=== PATIENT | male | born 1935 | race Caucasian/White ===

== ENCOUNTER 2015-12-23 08:40 | Outpatient (RCR) | payer MEDICARE, OTHER ==
[~2015-12-23 08:40] MED LIST: ASPI-586 PO; ATOR80TA76 PO; CEFD300C3 PO; FURO40TA4 PO; GABA-488 PO; GLIP10TA13 PO; HYDR-3816 PO; LEVO750T9 PO; LOSA100T28 PO; MELO7.5T46 PO; METF-478 PO; MULT-35 PO; OMG1KC PO; POTA2TAB15 PO; POTA99TA21 PO; PRD10T PO; PRIM250T PO; SERT100T8 PO; SILD50TA PO; SLM50DS IH
--- OUTSIDE RECORDS SUMMARY | 2015-12-23 08:44 | XMS REPORT | Continuity of Care Document ---
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 Name Role Phone JUDE PARDO MD PCP Insurance Providers Payer Name Policy Number Subscriber Name Relationship [employer] Medicare [id number] Emmanuelle Rodriguez 20 Self / Same As Patient Advance Directives Directive Response Recorded Date/Time Advance Directives No 09/04/15 10:20pm Resuscitation Status Full Code 09/04/15 10:20pm Chief Complaint and Reason for Visit Chief Complaint HYPOXIA, PNEUMONIA, SEPSIS Reason for Visit Pneumonia Sepsis Problems Active Problems Medical Problem Onset Date Status Pneumonia Unknown Acute Sepsis Unknown Acute Medications Current Home Medications Medication Dose Units Route Directions Days/Qty Instructions Start Date Atorvastatin Calcium 80 Mg 40 Mg Oral Bedtime TAKES 1/2 (80MG) TABLET 09/04/15 Hydrocodone/Acetaminophen 1 Each 1 Tab Oral Twice A Day as needed for Pain 09/04/15 Meloxicam 7.5 Mg 7.5 Mg Oral Daily 09/04/15 Furosemide 40 Mg 40 Mg Oral Daily as needed for Swelling 09/04/15 Primidone 250 Mg 250 Mg Oral Bedtime for Tremors 09/04/15 Glipizide 10 Mg 20 Mg Oral Twice A Day LAST FILLED #360 05-10-15 TAKES 2 (10MG) TABLETS 09/04/15 Gabapentin 300 Mg 600 Mg Oral Three Times A Day TAKES 2 (300MG) CAPSULES 09/04/15 Metformin Hcl 500 Mg 2,000 Mg Oral 1700 TAKES 4 (500MG) TABLETS BEFORE SUPPER 09/04/15 Losartan Potassium 100 Mg 50 Mg Oral Daily TAKES 1/2 (100MG) TABLET Salmeterol Xinafoate 50 Mcg 1 Puff Inhalation Twice A Day 09/04/15 Aspirin 81 Mg 81 Mg Oral Daily 09/04/15 Sertraline Hcl 100 Mg 100 Mg Oral Daily LAST FILLED #90 04-30- Potassium Gluconate 99 Mg 99 Mg Oral Daily as needed for When Taking Furosemide 09/05/15 Multivitamin 1 Each 1 Tab Oral Daily 09/05/15 [place] 3 Polyunsat Fatty Acids 1,000 Mg 1,000 Mg Oral Bedtime [place] 3 Polyunsat Fatty Acids 1,000 Mg 2,000 Mg Oral Daily TAKES 2 ( 1000MG) CAPSULES IN THE MORNING 09/05/15 Levofloxacin 750 Mg 750 Mg Oral Daily 4 09/06/15 Prednisone 10 Mg 10 Mg Oral Daily 21 Take 6 tabs (60mg) daily, decrease by 1 tab (10mg) daily. 09/06/15 Past Home Medications Medication Directions Ordered Status Sildenafil Citrate 50 Mg Tablet, 25 Mg Oral As Needed as needed for Sexual Incounter 09/04/15 Discontinued Potassium Gluconate 500 Mg Tablet, 500 Mg Oral Daily 09/04/15 Discontinued Social History Social History Problem Response Recorded Date/Time Alcohol Use Denies Use 09/04/2015 10:29pm Recreational Drug Use No 09/04/2015 10:29pm Recent Foreign Travel No 09/04/2015 10:29pm Recent Infectious Disease Exposure No 09/04/2015 10:29pm Sexually Transmitted Disease No 09/04/2015 10:29pm HIV/AIDS No 09/04/2015 10:29pm Smoking Status Former Smoker 09/04/2015 10:26pm Query Response Start Date Stop Date Smoking Status Former Smoker 06/19/1992 Hospital Discharge Instructions Patient Instructions Physician Instructions New, Converted or Re-Newed RX: Transmitted to Pharmacy Goal/[facility] Patient Instructions: Use home O2 provided by the [facility] 28/09 Discharge Diet: ADA Diet Activity as Tolerated: Yes Care Plan Patient Instructions:: Use home O2 provided by the [facility] 28/09 Goal:: [facility] Plan of Care Discharge Date 09/06/15 12:15pm Disposition 01 HOME, SELF-CARE Instructions/Education Provided Bacterial Pneumonia (GEN) Prescriptions See Medication Section Referrals TUSHAR MAHER DO (Unspecified) - 09/19/15 Address: [address] [place] [address]&[place] [address] Reason(s) for Referral: APPT AT 11AM Care Plan and Goals See Discharge Instructions Section Functional Status Query Response Date Recorded Patient Orientation Person Place Time Situation September 06, 2015 12:35pm Patient Orientation Person Place Time Situation Eyes Open September 06, 2015 12:35pm Comprehension Ability Understands Concepts September 04, 2015 10:00pm Allergies, Adverse Reactions, Alerts Allergen Type Severity Reaction Status Last Updated lisinopril ([id number]) Allergy Unknown Active 09/04/15 sildenafil ([id number]) Allergy Unknown Active 09/04/15 Immunizations Name Given Type Date of Pneumonia Vaccine 03/08/14 Historical Vital Signs Acute Vital Signs Vital Response Date/Time Temperature (Fahrenheit) 97.0 degrees F (97.6 - 99.5) 09/06/2015 6:00am Temperature (Calculated Celsius) 36.35584 degrees C (36.4 - 37.5) 09/06/2015 6:00am Temperature Source Temporal 09/06/2015 6:00am Pulse Rate (adult) 74 bpm (60 - 90) 09/06/2015 6:00am Respiratory Rate 20 bpm (12 - 24) 09/06/2015 6:00am O2 Sat by Pulse Oximetry 96 % (88 - 100) 09/06/2015 11:00am Blood Pressure 136/70 mm Hg 09/06/2015 6:00am Blood Pressure Mean 92 mm Hg 09/06/2015 6:00am Pain Numeric Pain Scale 0-No Pain 09/06/2015 6:00am Pain Intensity 0 09/04/2015 9:45pm Height (Feet) 5 feet 09/04/2015 10:25pm Height (Inches) 4.00 inches 09/04/2015 10:25pm Height (Calculated Centimeters) 162.412348 cm 09/04/2015 10:25pm Weight (Pounds) 237 pounds 09/04/2015 10:25pm Weight (Ounces) 6.0 oz 09/04/2015 10:25pm Weight (Calculated Grams) 909387.490 gm 09/04/2015 10:25pm Weight (Calculated Kilograms) 107.589701 kilograms 09/04/2015 10:25pm Calculated BMI 40.7 09/04/2015 10:25pm Results Laboratory Results Test Name Result Units Flags Reference Collection Date/Time Result Date/ Time Comments White Blood Count 12.1 10^3/uL H 4.3-11.0 09/06/2015 5:46am 09/06/2015 6: 13am Red Blood Count 3.59 10^6/uL L 4.35-5.85 09/06/2015 5:46am 09/06/2015 6: 13am Hemoglobin 9.6 G/DL L 13.3-17.7 09/06/2015 5:46am 09/06/2015 6:13am Hematocrit 29 % L 40-54 09/06/2015 5:46am 09/06/2015 6:13am Mean Corpuscular Volume 82 FL 80-99 09/06/2015 5:46am 09/06/2015 6: 13am Mean Corpuscular Hemoglobin 27 PG 25-34 09/06/2015 5:46am 09/06/2015 6: 13am Mean Corpuscular Hemoglobin Concent 33 G/DL 32-36 09/06/2015 5:46am 03/2015 6:13am Red Cell Distribution Width 16.4 % H 10.0-14.5 09/06/2015 5:46am 2015 6:13am Platelet Count 118 10^3/uL L 130-400 09/06/2015 5:46am 09/06/2015 6:13am Mean Platelet Volume 11.3 FL H 7.4-10.4 09/06/2015 5:46am 09/06/2015 6: 13am Neutrophils (%) (Auto) 89 % H 42-75 09/06/2015 5:46am 09/06/2015 6:13am Lymphocytes (%) (Auto) 8 % L 12-44 09/06/2015 5:46am 09/06/2015 6:13am Monocytes (%) (Auto) 3 % 0-12 09/06/2015 5:46am 09/06/2015 6:13am Eosinophils (%) (Auto) 0 % 0-10 09/06/2015 5:46am 09/06/2015 6:13am Basophils (%) (Auto) 0 % 0-10 09/06/2015 5:4609/06/2015 6:13am Neutrophils # (Auto) 10.8 X 10^3 H 1.8-7.8 09/06/2015 5:46am 09/06/2015 6 :13am Lymphocytes # (Auto) 0.9 X 10^3 L 1.0-4.0 09/06/2015 5:4609/06/2015 6: 13am Monocytes # (Auto) 0.4 X 10^3 0.0-1.0 09/06/2015 5:4609/06/2015 6: 13am Eosinophils # (Auto) 0.0 10^3/uL 0.0-0.3 09/06/2015 5:46am 09/06/2015 6 :13am Basophils # (Auto) 0.0 10^3/uL 0.0-0.1 09/06/2015 5:46am 09/06/2015 6: 13am Neutrophils % (Manual) 71 % 09/04/2015 7:25pm 09/04/2015 7:49pm Band Neutrophils 14 % 09/04/2015 7:pm 09/04/2015 7:49pm Lymphocytes % (Manual) 11 % 09/04/2015 7:pm 09/04/2015 7:49pm Monocytes % (Manual) 1 % 09/04/2015 7:pm 09/04/2015 7:49pm Eosinophils % (Manual) 0 % 09/04/2015 7:25pm 09/04/2015 7:49pm Basophils % (Manual) 0 % 09/04/2015 7:25pm 09/04/2015 7:49pm Reactive Lymphocytes 3 % 09/04/2015 7:25pm 09/04/2015 7:49pm Blood Morphology Comment NORMAL 09/04/2015 7:25pm 09/04/2015 7: 49pm Prothrombin Time 13.9 SEC 12.2-14.7 09/04/2015 7:25pm 09/04/2015 7: 44pm INR Comment 1.1 0.8-1.4 09/04/2015 7:25pm 09/04/2015 7:44pm INTERPRETIVE DATA SUGGESTED THERAPEUTIC RANGE FOR INR'S: VENOUS THROMBOSIS, PULMONARY EMBOLISM, OR PREVENTION OF SYSTEMIC EMBOLISM (EG. IN ATRIAL FIBRILLATION): 2.0 - 3.0 MECHANICAL PROSTHETIC HEART VALVES: 2.5 - 3.5* *NOTE: INR'S UP TO 4.5 MAY BE NECESSARY IN SELECTED GROUPS OF HIGH RISK PATIENTS. SIXTH [place] COLLEGE OF CHEST PHYSICIANS CONSENSUS CONFERENCE ON ANTITHROMBOTIC THERAPY (2000). Sodium Level 137 MMOL/L 135-145 09/06/2015 5:46am 09/06/2015 6:35am Potassium Level 4.8 MMOL/L 3.6-5.0 09/06/2015 5:46am 09/06/2015 6:35am Chloride Level 103 MMOL/L 98-107 09/06/2015 5:46am 09/06/2015 6:35am Carbon Dioxide Level 23 MMOL/L 21-32 09/06/2015 5:46am 09/06/2015 6: 35am Anion Gap 11 MMOL/L 5-14 09/06/2015 5:46am 09/06/2015 6:35am Blood Urea Nitrogen 16 MG/DL 7-18 09/06/2015 5:46am 09/06/2015 6:35am Creatinine 0.77 MG/DL 0.60-1.30 09/06/2015 5:46am 09/06/2015 6:35am BUN/Creatinine Ratio 21 09/06/2015 5:46am 09/06/2015 6:35am Estimat Glomerular Filtration Rate > 60 09/06/2015 5:46am 2015 6:35am GFR INTERPRETIVE DATA UNITS FOR ESTIMATED GFR (eGFR): mL/min/1.73 M2 REFERENCE RANGE FOR ESTIMATED GFR (eGFR) eGFR NORMAL eGFR >60 MODERATELY DECREASED eGFR 30-59 SEVERLY DECREASED eGFR 15-29 KIDNEY FAILURE <15 (OR DIALYSIS) Glucose Level 291 MG/DL H 70-105 09/06/2015 5:46am 09/06/2015 6:35am Glucometer 308 MG/DL H 70-110 09/06/2015 8:55am 09/06/2015 9:03am Calcium Level 8.4 MG/DL L 8.5-10.1 09/06/2015 5:46am 09/06/2015 6:35am Total Bilirubin 0.2 MG/DL 0.1-1.0 09/06/2015 5:46am 09/06/2015 6:35am Alkaline Phosphatase 54 U/L 40-136 09/06/2015 5:46am 09/06/2015 6:35am Aspartate Amino Transf (AST/SGOT) 28 U/L 5-34 09/06/2015 5:46am 2015 6:35am Alanine Aminotransferase (ALT/SGPT) 25 U/L 0-55 09/06/2015 5:46am 09/05 6:35am Troponin I < 0.30 NG/ML <0.30 09/04/2015 7:25pm 09/04/2015 8:00pm Total Protein 7.4 G/DL 6.4-8.2 09/06/2015 5:46am 09/06/2015 6:35am Albumin 3.4 G/DL 3.2-4.5 09/06/2015 5:46am 09/06/2015 6:35am Lactic Acid Level 2.4 MMOL/L CH 0.5-2.2 09/04/2015 11:29pm 09/04/2015 11: 59pm RESULTS CALLED TO CIPRIANO AT 2359. RESULTS READ BACK: YES [g LABRB]. Lactic Acid Level 1.6 MMOL/L 0.5-2.2 09/05/2015 1:46am 09/05/2015 2: 13am Arterial Blood pH 7.39 7.37-7.43 09/04/2015 7:34pm 09/04/2015 7:41pm Arterial Blood Partial Pressure CO2 47 MMHG H 35-45 09/04/2015 7:34pm 7:41pm Arterial Blood Partial Pressure O2 68 MMHG L 79-93 09/04/2015 7:34pm 7:41pm Arterial Blood HCO3 28 MMOL/L H 23-27 09/04/2015 7:34pm 09/04/2015 7: 41pm Arterial Blood Total CO2 28.8 MMOL/L 21.0-31.0 09/04/2015 7:34pm 2015 7:41pm Arterial Blood Base Excess 2.4 MMOL/L -2.5-2.5 09/04/2015 7:34pm 2015 7:41pm Arterial Blood Oxygen Saturation 91 % L 94-100 09/04/2015 7:34pm 2015 7:41pm Blood Gas Puncture Site RT RAD 09/04/2015 7:34pm 09/04/2015 7:41pm Rudy Test YES-POS 09/04/2015 7:34pm 09/04/2015 7:41pm Blood Gas Inspired Oxygen 4L 09/04/2015 7:34pm 09/04/2015 7:41pm Blood Gas Ventilator Setting NO 09/04/2015 7:34pm 09/04/2015 7: 41pm Blood Gas Patient Temperature 101 09/04/2015 7:34pm 09/04/2015 7: 41pm Microbiology Results Procedure Source Result Collection Date/Time Result Date/Time Blood Culture Peripheral, Lt Ac No growth 09/04/2015 7:25pm 09/05/2015 1: 20pm Blood Culture Peripheral, Rt Hand No growth 09/04/2015 7:55pm 09/05/2015 1: 20pm Procedures No known history of procedures. Encounters Encounter Location Arrival/Admit Date Discharge/Depart Date Attending Provider Admitted Inpatient [facility] 09/04/15 8:13pm BRENDEN GEORGE DO Recent Diagnosis Pneumonia Sepsis
[2016-03-03] MEDS ORDERED: OLOD4MIS2 IH (12:33)
[2016-03-03] MEDS ORDERED: INSU100V16 SQ (12:42)
[2016-03-03] MEDS ORDERED: POLY15DR14 OU (12:42)
[2016-03-03] MEDS ORDERED: [UNRECOGNIZED DRUG - CODE] OD (12:42)
[2016-04-27] MEDS ORDERED: LEVO500T2 PO (09:45)
[2016-04-27] MEDS ORDERED: HYDR-3816 PO (09:45)
== END 2016-03-22 | disposition home or self-care (01) ==
LOC: PULM 08:40
PROVIDERS: ATTEND Nurse Practitioner Family
DX: J44.9 Chronic obstructive pulmonary disease, unspecified (principal); R06.00 Dyspnea, unspecified
CPT/HCPCS: 99211

== ENCOUNTER 2016-03-05 16:27 | Inpatient (IN) | payer MEDICARE, OTHER ==
[~2016-03-05] VITALS: Ht 162.6 cm; Wt 121.6 kg
[~2016-03-05 16:27] MED LIST changes: +INSU100V16 SQ; +OLOD4MIS2 IH; +POLY15DR14 OU; +[UNRECOGNIZED DRUG - CODE] OD
[2016-03-06] MEDS ORDERED: NS IV 1000 ML 3,500 ML IV PRN (11:15)
[2016-03-06] MEDS ORDERED: RT-ALBUTEROL/IPRATROPIUM 3 ML (DUONEB) VIAL INH PRN (11:15)
--- OUTSIDE RECORDS SUMMARY | 2016-03-06 11:41 | XMS REPORT | Continuity of Care Document ---
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 Name Role Phone NO, LOCAL PHYSICIAN PCP Unavailable Insurance Providers Payer Name Policy Number Subscriber Name Relationship [employer] Medicare [id number] Emmanuelle oRdriguez 20 Self / Same As Patient Advance Directives Directive Response Recorded Date/Time Advance Directives No 03/03/16 9:25am Organ Donor Yes 03/03/16 9:25am Resuscitation Status Full Code 03/03/16 9:25am Chief Complaint and Reason for Visit Chief Complaint SEPSIS/PNEUMONIA Reason for Visit Hypoxia Pneumonia Severe sepsis Problems Active Problems Medical Problem Onset Date Status COPD (chronic obstructive pulmonary disease) Unknown Acute Hypoxia Unknown Acute LLL pneumonia Unknown Acute Pneumonia Unknown Acute Sepsis Unknown Acute Severe sepsis Unknown Acute Medications Current Home Medications Medication [...] Mg 20 Mg Oral Twice A Day TAKES 2 (10MG) TABLETS 09/04/15 Gabapentin 300 Mg 600 Mg Oral Three Times A Day TAKES 2 (300MG) CAPSULES 09/04/15 Metformin Hcl 500 Mg 2,000 Mg Oral 1700 TAKES 4 (500MG) TABLETS BEFORE SUPPER 09/04/15 Losartan Potassium 100 Mg 50 Mg Oral Daily TAKES 1/2 (100MG) TABLET Aspirin 81 Mg 81 Mg Oral Daily 09/04/15 Sertraline Hcl 100 Mg 100 Mg Oral Daily 09/04/15 Potassium Gluconate 99 Mg 99 Mg Oral Daily as needed for When Taking Furosemide 09/05/15 Multivitamin 1 Each 1 Tab Oral Daily 09/05/15 [place] 3 Polyunsat Fatty Acids 1,000 Mg 1,000 Mg Oral Bedtime [place] 3 Polyunsat Fatty Acids 1,000 Mg 2,000 Mg Oral Daily TAKES 2 ( 1000MG) CAPSULES IN THE MORNING 09/05/15 Olodaterol Hcl 4 Gm 2 Puff Inhalation Daily 03/03/16 Polyvinyl Alcohol/Povidone 15 Ml 2 Drops Right Eye Every 4HRS as needed for Dry Eyes 03/03/16 Insulin Aspart 100 Unit/1 Ml 5-10 Unit Sub-Q Before Meals as needed for Bs Above 160 03/03/16 Mineral Oil/Petrolatum,White 3.5 Gm Right Eye Bedtime APPLY 1/2 INCH RIBBON 03/03/16 Past Home Medications Medication Directions Ordered Status Sildenafil Citrate 50 Mg Tablet, 25 Mg Oral As Needed as needed for Sexual Incounter 09/04/15 Discontinued Salmeterol Xinafoate 50 Mcg Disk, 1 Puff Inhalation Twice A Day 09/04/15 Discontinued Potassium Gluconate 500 Mg Tablet, 500 Mg Oral Daily 09/04/15 Discontinued Levofloxacin 750 Mg Tablet, 750 Mg Oral Daily 09/06/15 Discontinued Prednisone 10 Mg Tab, 10 Mg Oral Daily 09/06/15 Discontinued Cefdinir (Omnicef) 300 Mg Capsule, 300 Mg Oral Twice A Day 09/27/15 Discontinued Social History Social History Problem Response Recorded Date/Time Alcohol Use Denies Use 09/23/2015 12:05am Recreational Drug Use No 09/23/2015 12:05am Recent Foreign Travel No 03/03/2016 9:25am Recent Infectious Disease Exposure No 03/03/2016 9:25am Hospitalization with Isolation Denies 03/06/2016 11:00am Sexually Transmitted Disease No 03/03/2016 9:25am HIV/AIDS No 03/03/2016 9:25am Smoking Status Never a Smoker 03/03/2016 9:25am Recent Hopitalizations No 03/03/2016 9:25am Sexually Transmitted Disease No 03/03/2016 9:25am Hospitalization with Isolation Denies 03/06/2016 11:00am Query Response Start Date Stop Date Smoking Status Never a Smoker 06/19/1992 Hospital Discharge Instructions No hospital discharge instructions. Plan of Care Discharge Date 03/06/16 10:59am Disposition 61 MEDICARE SWING BED Instructions/Education Provided Hospital-Acquired Pneumonia Prescriptions See Medication Section Functional Status Query Response Date Recorded Patient Orientation Normal For Age March 05, 2016 3:02pm Patient Orientation Person Place Time Situation Eyes Open March 06, 2016 11:00am Comprehension Ability Understands Concepts March 06, 2016 8:00am Allergies, Adverse Reactions, Alerts Allergen Type Severity Reaction Status Last Updated lisinopril ([id number]) Allergy Unknown Active 09/22/15 sildenafil ([id number]) Allergy Unknown Active 09/22/15 Immunizations No immunization records. Vital Signs Acute Vital Signs Vital Response Date/Time Temperature (Fahrenheit) 98.5 degrees F (97.6 - 99.5) 03/06/2016 8:00am Temperature (Calculated Celsius) 36.17430 degrees C (36.4 - 37.5) 03/06/2016 8:00am Temperature Source Tympanic 03/06/2016 8:00am Pulse Rate (adult) 83 bpm (60 - 90) 03/06/2016 8:00am Respiratory Rate 20 bpm (12 - 24) 03/06/2016 8:00am O2 Sat by Pulse Oximetry 92 % (88 - 100) 03/06/2016 8:00am Blood Pressure 167/95 mm Hg 03/06/2016 8:00am Blood Pressure Mean 119 mm Hg 03/06/2016 8:00am Pain Numeric Pain Scale 0-No Pain 03/06/2016 8:00am Pain Numeric Pain Scale 0-No Pain 03/06/2016 8:00am Height (Feet) 5 feet 03/03/2016 9:25am Height (Inches) 4.00 inches 03/03/2016 9:25am Height (Calculated Centimeters) 162.692694 cm 03/03/2016 9:25am Weight (Pounds) 269 pounds 03/06/2016 5:53am Weight (Ounces) 1.0 oz 03/06/2016 5:53am Weight (Calculated Grams) 609974.698 gm 03/06/2016 5:53am Weight (Calculated Kilograms) 122.373678 kilograms 03/06/2016 5:53am Calculated BMI 43.6 03/03/2016 9:25am Capillary Refill Capillary Refill Less Than 3 Seconds 03/06/2016 8:00am Results Laboratory Results Test Name Result Units Flags Reference Collection Date/Time Result Date/ Time Comments White Blood Count 9.4 10^3/uL 4.3-11.0 03/06/2016 4:45am 03/06/2016 5: 07am Red Blood Count 3.43 10^6/uL L 4.35-5.85 03/06/2016 4:45am 03/06/2016 5: 07am Hemoglobin 9.3 G/DL L 13.3-17.7 03/06/2016 4:45am 03/06/2016 5:07am Hematocrit 29 % L 40-54 03/06/2016 4:45am 03/06/2016 5:07am Mean Corpuscular Volume 83 FL 80-99 03/06/2016 4:45am 03/06/2016 5: 07am Mean Corpuscular Hemoglobin 27 PG 25-34 03/06/2016 4:45am 03/06/2016 5: 07am Mean Corpuscular Hemoglobin Concent 33 G/DL 32-36 03/06/2016 4:45am 5:07am Red Cell Distribution Width 16.5 % H 10.0-14.5 03/06/2016 4:45am 2015 5:07am Platelet Count 71 10^3/uL L 130-400 03/06/2016 4:45am 03/06/2016 5:07am Mean Platelet Volume 11.4 FL H 7.4-10.4 03/06/2016 4:45am 03/06/2016 5: 07am Neutrophils (%) (Auto) 87 % H 42-75 03/06/2016 4:45am 03/06/2016 5:07am Lymphocytes (%) (Auto) 9 % L 12-44 03/06/2016 4:45am 03/06/2016 5:07am Monocytes (%) (Auto) 4 % 0-12 03/06/2016 4:45am 03/06/2016 5:07am Eosinophils (%) (Auto) 0 % 0-10 03/06/2016 4:45am 03/06/2016 5:07am Basophils (%) (Auto) 0 % 0-10 03/06/2016 4:45am 03/06/2016 5:07am Neutrophils # (Auto) 8.1 X 10^3 H 1.8-7.8 03/06/2016 4:45am 03/06/2016 5: 07am Lymphocytes # (Auto) 0.9 X 10^3 L 1.0-4.0 03/06/2016 4:45am 03/06/2016 5: 07am Monocytes # (Auto) 0.4 X 10^3 0.0-1.0 03/06/2016 4:45am 03/06/2016 5: 07am Eosinophils # (Auto) 0.0 10^3/uL 0.0-0.3 03/06/2016 4:45am 03/06/2016 5 :07am Basophils # (Auto) 0.0 10^3/uL 0.0-0.1 03/06/2016 4:45am 03/06/2016 5: 07am Neutrophils % (Manual) 80 % 03/04/2016 5:00am 03/04/2016 5:54am Band Neutrophils 10 % 03/04/2016 5:00am 03/04/2016 5:54am Lymphocytes % (Manual) 4 % 03/04/2016 5:00am 03/04/2016 5:54am Monocytes % (Manual) 6 % 03/04/2016 5:00am 03/04/2016 5:54am Eosinophils % (Manual) 0 % 03/04/2016 5:00am 03/04/2016 5:54am Basophils % (Manual) 0 % 03/04/2016 5:00am 03/04/2016 5:54am Poikilocytosis SLIGHT 03/04/2016 5:00am 03/04/2016 5:54am Anisocytosis SLIGHT 03/04/2016 5:00am 03/04/2016 5:54am Tear Drop Cells SLIGHT 03/04/2016 5:00am 03/04/2016 5:54am Elliptocytes SLIGHT 03/04/2016 5:00am 03/04/2016 5:54am Prothrombin Time 12.6 SEC 12.2-14.7 03/03/2016 8:15am 03/03/2016 8: 36am INR Comment 1.0 0.8-1.4 03/03/2016 8:15am 03/03/2016 8:36am INTERPRETIVE DATA SUGGESTED THERAPEUTIC RANGE FOR INR'S: VENOUS THROMBOSIS, PULMONARY EMBOLISM, OR PREVENTION OF SYSTEMIC EMBOLISM (EG. IN ATRIAL FIBRILLATION): 2.0 - 3.0 MECHANICAL PROSTHETIC HEART VALVES: 2.5 - 3.5* *NOTE: INR'S UP TO 4.5 MAY BE NECESSARY IN SELECTED GROUPS OF HIGH RISK PATIENTS. SIXTH [place] COL[employer] OF CHEST PHYSICIANS CONSENSUS CONFERENCE ON ANTITHROMBOTIC THERAPY (2000). Activated Partial Thromboplast Time 25 SEC 24-35 03/03/2016 8:15am 8:36am Urine Color YELLOW 03/03/2016 10:20am 03/03/2016 10:38am Urine Clarity CLEAR 03/03/2016 10:20am 03/03/2016 10:38am Urine pH 5 5-9 03/03/2016 10:20am 03/03/2016 10:38am Urine Specific [place] 1.020 1.016-1.022 03/03/2016 10:20am 2015 10:38am Urine Protein 3+ * NEGATIVE 03/03/2016 10:20am 03/03/2016 10:38am Urine Glucose (UA) 1+ * NEGATIVE 03/03/2016 10:20am 03/03/2016 10:38am Urine RBC (Auto) 2+ * NEGATIVE 03/03/2016 10:20am 03/03/2016 10:38am Urine Ketones NEGATIVE NEGATIVE 03/03/2016 10:20am 03/03/2016 10: 38am Urine Nitrite NEGATIVE NEGATIVE 03/03/2016 10:20am 03/03/2016 10: 38am Urine Bilirubin NEGATIVE NEGATIVE 03/03/2016 10:20am 03/03/2016 10: 38am Urine Urobilinogen NORMAL MG/DL NORMAL 03/03/2016 10:20am 03/03/2016 10 :38am Urine Leukocyte Esterase NEGATIVE NEGATIVE 03/03/2016 10:20am 2015 10:38am Urine RBC 5-10 /HPF * 03/03/2016 10:20am 03/03/2016 10:38am Urine WBC NONE /HPF 03/03/2016 10:20am 03/03/2016 10:38am Urine Bacteria NEGATIVE /HPF 03/03/2016 10:20am 03/03/2016 10:38am Urine Crystals PRESENT /LPF * 03/03/2016 10:20am 03/03/2016 10:38am Urine Amorphous Sediment MOD DEB URATES /LPF * 03/03/2016 10:20am 10:38am Urine Casts NONE /LPF 03/03/2016 10:20am 03/03/2016 10:38am Urine Mucus NEGATIVE /LPF 03/03/2016 10:20am 03/03/2016 10:38am Urine Culture Indicated NO 03/03/2016 10:20am 03/03/2016 10:38am Sodium Level 139 MMOL/L 135-145 03/06/2016 4:45am 03/06/2016 5:25am Potassium Level 3.5 MMOL/L L 3.6-5.0 03/06/2016 4:45am 03/06/2016 5:25am Chloride Level 105 MMOL/L 98-107 03/06/2016 4:45am 03/06/2016 5:25am Carbon Dioxide Level 25 MMOL/L 21-32 03/06/2016 4:45am 03/06/2016 5: 25am Anion Gap 9 MMOL/L 5-14 03/06/2016 4:45am 03/06/2016 5:25am Blood Urea Nitrogen 7 MG/DL 7-18 03/06/2016 4:45am 03/06/2016 5:25am Creatinine 0.73 MG/DL 0.60-1.30 03/06/2016 4:45am 03/06/2016 5:25am BUN/Creatinine Ratio 10 03/06/2016 4:45am 03/06/2016 5:25am Estimat Glomerular Filtration Rate > 60 03/06/2016 4:45am 2015 5:25am GFR INTERPRETIVE DATA UNITS FOR ESTIMATED GFR (eGFR): mL/min/1.73 M2 REFERENCE RANGE FOR ESTIMATED GFR (eGFR) eGFR NORMAL eGFR >60 MODERATELY DECREASED eGFR 30-59 SEVERLY DECREASED eGFR 15-29 KIDNEY FAILURE <15 (OR DIALYSIS) Glucose Level 166 MG/DL H 70-105 03/06/2016 4:45am 03/06/2016 5:25am Glucometer 190 MG/DL H 70-110 03/05/2016 8:18pm 03/05/2016 8:37pm Calcium Level 8.2 MG/DL L 8.5-10.1 03/06/2016 4:45am 03/06/2016 5:25am Phosphorus Level 1.5 MG/DL L 2.3-4.7 03/06/2016 4:45am 03/06/2016 5:25am Magnesium Level 1.8 MG/DL 1.8-2.4 03/06/2016 4:45am 03/06/2016 5:25am Total Bilirubin 0.4 MG/DL 0.1-1.0 03/03/2016 8:05am 03/03/2016 8:44am Alkaline Phosphatase 53 U/L 40-136 03/03/2016 8:05am 03/03/2016 8:44am Aspartate Amino Transf (AST/SGOT) 24 U/L 5-34 03/03/2016 8:05am 2015 8:44am Alanine Aminotransferase (ALT/SGPT) 23 U/L 0-55 03/03/2016 8:05am 03/03 8:44am B-Type Natriuretic Peptide 68.3 PG/ML <100.0 03/05/2016 10:05am 2015 10:32am Total Protein 7.7 G/DL 6.4-8.2 03/03/2016 8:05am 03/03/2016 8:44am Albumin 4.1 G/DL 3.2-4.5 03/03/2016 8:05am 03/03/2016 8:44am Lactic Acid Level 1.7 MMOL/L 0.5-2.0 03/04/2016 3:05am 03/04/2016 3: 24am Lactic Acid Level 2.1 MMOL/L CH 0.5-2.0 03/03/2016 10:27am 03/03/2016 10: 50am RESULTS CALLED TO TERRENCE AT 1049. RESULTS READ BACK: YES. Vancomycin Level Trough 15.2 UG/ML 10.0-20.0 03/04/2016 10:29pm 2015 11:01pm Arterial Blood pH 7.37 7.37-7.43 03/03/2016 8:00am 03/03/2016 8:31am Arterial Blood Partial Pressure CO2 42 MMHG 35-45 03/03/2016 8:00am 8:31am Arterial Blood Partial Pressure O2 64 MMHG L 79-93 03/03/2016 8:00am 8:31am Arterial Blood HCO3 23 MMOL/L 23-27 03/03/2016 8:00am 03/03/2016 8: 31am Arterial Blood Total CO2 24.1 MMOL/L 21.0-31.0 03/03/2016 8:00am 2015 8:31am Arterial Blood Base Excess -1.6 MMOL/L -2.5-2.5 03/03/2016 8:00am 03/03 8:31am Arterial Blood Oxygen Saturation 88 % L 94-100 03/03/2016 8:00am 2015 8:31am Blood Gas Puncture Site RIGHT BRACHIAL 03/03/2016 8:00am 2015 8:31am Rudy Test POSITIVE 03/03/2016 8:00am 03/03/2016 8:31am Blood Gas Inspired Oxygen 4 L 03/03/2016 8:00am 03/03/2016 8:31am Blood Gas Ventilator Setting NO 03/03/2016 8:00am 03/03/2016 8: 31am Blood Gas Patient Temperature 102.2 03/03/2016 8:00am 03/03/2016 8: 31am Microbiology Results Procedure Source Result Collection Date/Time Result Date/Time Blood Culture Peripheral, Rt Hand No growth 03/03/2016 8:34am 03/04/2016 12 :56pm Blood Culture Peripheral, Lt Ac No growth 03/03/2016 8:05am 03/04/2016 12: 56pm Sputum Culture Sputum, Expectorated Normal harish 03/03/2016 7:50pm 2015 11:03am YEAST SPECIES 03/03/2016 7:50pm 03/05/2016 11:03am MRSA Screen Nasal MRSA not isolated 03/03/2016 1:30pm 03/04/2016 3:04pm Procedures Procedure Status Date Provider(s) Color Doppler echocardiography Active 03/03/16 REENA AMOR MD Encounters Encounter Location Arrival/Admit Date Discharge/Depart Date Attending Provider Discharged Inpatient Via [facility] 03/03/16 9:06am 10:59am JAYLENE PENA MD Recent Diagnosis Hypoxia Pneumonia Severe sepsis
[2016-03-06] MEDS ORDERED: ENOXAPARIN 40 MG/0.4 ML (LOVENOX) SYR SC SCH (12:00)
[2016-03-06] MEDS ORDERED: RT-ALBUTEROL/IPRATROPIUM 3 ML (DUONEB) VIAL INH SCH (12:00)
--- NOTE | 2016-03-06 13:48 | Occupational Therapy Eval ---
OT Evaluation-General/PLF Medical Diagnosis Admission Date Mar 06, 2016 at 10:59 Medical Diagnosis: pneumonia Onset Date: Mar 03, 2016 Therapy Diagnosis Therapy Diagnosis: decreased self care Height/Weight Height (Feet): 5 Height (Inches): 4.00 Weight (Pounds): 268 Weight (Ounces): 0.0 Referral Physician: Marce Medical History Pertinent Medical History: COPD, DM, HTN, Smoking Additional Medical History Sleep apnea, high cholesterol, So's Palsy, abdominal hernia, DDD, chronic back pain, depression. Reviewed History: Yes Social History Home: Single Level Current Living Status: Spouse Entry Into Home: Stairs With Railing Steps Into Home: 2 ADL-Prior Level of Function ADL PLOF Comments Pt reports being independent with basic self care and mobility prior to hospitalization. Did not use assistive device for mobility. DME/Equipment: Tub/Shower DME/Equipment Comments Has shower chair if needed Drive Self: Yes OT Current Status Subjective Pt in bed, agrees to therapy. Pt has no c/o pain, but states he is tired secondary to not sleeping well last night. Mental Status/Objective Attachments: Oxygen Current Dentures/Partials: Yes Hand Dominance: Right Upper Extremity ROM WFL Upper Extremity Coordination Intact Upper Extremity Strength Grossly 4/5. Decreased right shoulder strength secondary to prior injury ADL-Treatment ADL-Current Pt supine to sit with modified independence. Sit to stand with modified independence. Pt agreeable to sponge bathe. Transfer to chair with FWW. Pt able to wash/dry all areas with SBA and increased time. Don hospital gown with assistance secondary to IV. Don underwear and shorts with SBA for balance. Pt donned slippers with set up. Pt fatigues with activity and requires occasional rest breaks. Pt requests to return to bed after session. Pt in bed with needs met and c-pap in place after session. Functional [place] Measure 0=Not Assessed/NA 4=Minimal Assistance 1=Total Assistance 5=Supervision or Setup 2=Maximal Assistance 6=Modified [place] 3=Moderate Assistance 7=Complete IndependenceIRFPAI Quality Coding Scale 6 Independent with activity with or without an assistive device 5 Patient requires set up or clean up by helper. Patient completes activity by themselves 4 Supervision or touching assist (CGA). [place] provide cues , steadying assist 3 The helper provides less than half the effort to complete the activity 2 The helper provides more than half the effort to complete the activity 1 Dependent. The helper does all the effort to complete an activity 7 Patient refused to complete or attempt activity 9 The patient did not perform the activity before the current illness or injury 88 Not attempted due to Medical conditions or safety concerns Eating (FIM): 6 Eating (QC): 6 Bathing (FIM): 5 (sponge bath) Lower Body Dressing (FIM): 5 Education OT Patient Education: Rehab process Teaching Recipient: Patient Teaching Methods: Discussion Response to Teaching: Verbalize Understanding OT Short Term Goals Short Term Goals 1=Demonstrate adherence to instructed precautions during ADL tasks. 2=Patient will verbalize/demonstrate understanding of assistive devices/ modifications for ADL. 3=Patient will improve strength/tolerance for activity to enable patient to perform ADL's. OT Nursing Home Goals Nursing Home Goals Time Frame: Mar 20, 2016 Oral Hygiene (QC): 6 Grooming(FIM): 6 Toileting Hygiene (QC): 6 Upper Body Dressing(FIM): 6 Lower Body Dressing(FIM): 6 Toileting(FIM): 6 Toilet/Commode Transfer(FIM): 6 Toilet/Commode Transfer (QC): 6 Additional Goals: 1-Demonstrate ADL Tasks, 2-Verbalize Understanding, 3- ImproveStrength/Flaco 1=Demonstrate adherence to instructed precautions during ADL tasks. 2=Patient will verbalize/demonstrate understanding of assistive devices/ modifications for ADL. 3=Patient will improve strength/tolerance for activity to enable patient to perform ADL's. OT Education/Plan Problem List/Assessment Assessment: Decreased Activ Tolerance, Dependent Transfers, Impaired Self-Care Skills Pt to benefit from skilled OT intervention for ADL training, transfers, and strengthening to increase functional performance and allow safe discharge home with spouse. Discharge Recommendations Plan/Recommendations: Continue POC Treatment Plan/Plan of Care Treatment,Training & Education: Yes Patient would benefit from OT for education, treatment and training to promote independence in ADL's, mobility, safety and/or upper extremity function for ADL' s. Plan of Care: ADL Retraining, Functional Mobility, UE Funct Exercise/Act Treatment Duration: Mar 20, 2016 # of days/week 5 Agreement: Yes Rehab Potential: Good Time/GCodes Start Time: 11:40 Stop Time: 12:09 Total Time Billed (hr/min): 29 Billed Treatment Time 1 visit, EVS(10minutes), ADL(19minutes) SHERINE HARKINS OT Mar 06, 2016 13:48
--- NOTE | 2016-03-06 14:26 | Physical Therapy Evaluation ---
PT Evaluation-General Medical Diagnosis Admission Date Mar 06, 2016 at 10:59 Medical Diagnosis: pneumonia Onset Date: Mar 03, 2016 Therapy Diagnosis Therapy Diagnosis: debility Height/Weight Height (Feet): 5 Height (Inches): 4.00 Weight (Pounds): 268 Weight (Ounces): 0.0 Referral Physician: Marce Reason for Referral: Evaluation/Treatment Medical History Pertinent Medical History: COPD, DM, HTN, Smoking Additional Medical History pneumonia/sepsis Current History breathes better with cpap/transfer to SWB status Reviewed History: Yes Social History Home: Single Level Current Living Status: Spouse Entry Into Home: Stairs With Railing PT Steps Into Home: 2 Prior/Core FIM Prior Level of Function Functional [place] Measure 0=Not Assessed/NA 4=Minimal Assistance 1=Total Assistance 5=Supervision or Setup 2=Maximal Assistance 6=Modified [place] 3=Moderate Assistance 7=Complete [place] Bed Mobility: 7 Transfers (B,C,W/C) (FIM): 7 Gait: 7 Locomotion: 7 PT Current Subjective Patient is very agreeable to participate with PT. Pain Numeric Pain Scale: 0-No Pain Location: No Pain Reported Mental Status Patient Orientation: Normal For Age Attachments: Oxygen, IV Transfers Functional [place] Measure 0=Not Assessed/NA 4=Minimal Assistance 1=Total Assistance 5=Supervision or Setup 2=Maximal Assistance 6=Modified [place] 3=Moderate Assistance 7=Complete IndependenceIRFPAI Quality Coding Scale 6 Independent with activity with or without an assistive device 5 Patient requires set up or clean up by helper. Patient completes activity by themselves 4 Supervision or touching assist (CGA). [place] provide cues , steadying assist 3 The helper provides less than half the effort to complete the activity 2 The helper provides more than half the effort to complete the activity 1 Dependent. The helper does all the effort to complete an activity 7 Patient refused to complete or attempt activity 9 The patient did not perform the activity before the current illness or injury 88 Not attempted due to Medical conditions or safety concerns Transfers (B, C, W/C) (FIM): 6 Scootin Rollin Supine to/from Sit: 6 Sit to/from Stand: 6 Bed to/from Chair: 6 Sit to Lying (QC): 6 Lying-Sitting/Side of Bed(QC): 6 Sit to Stand (QC): 6 Chair/Fsr-ih-Mnzup Xfer(QC): 6 Gait Training Does the Patient Walk?: Yes Gait (FIM): 6 Distance (FIM): 3=150 ft Distance: 300' Walk 50 ft with 2 Turns(QC): 5 Walk 150 ft (QC): 5 Gait Level of Assist: 6 Gait Persons Needed: 1 Gait Assistive Device: FWW safe and steady gait sequence Balance Balance Sitting Static: Normal Balance Sitting Dynamic: Normal Balance-Standing Static: Normal Balance Standing Dynamic: Normal Exercises Supine Ex: Ankle pumps, Quad Set, Heel Slides, Straight leg raise Supine Reps: 15 Seated Therapy Exercises: Ankle pumps, Long arc quads Seated Reps: 15 Assessment 81 y.o. male, will benefit from short term skilled PT to address functional strength and mobility to ensure safe return to home with spouse at maximum LOF. PT Nursing Home Goals Systems Technologist Goals PT Systems Technologist Goals Time Frame: Mar 13, 2016 Transfers (B,C,W/C) (FIM): 6 Sit to Lying (QC): 6 Lying-Sitting on Side/Bed(QC): 6 Sit to Stand (QC): 6 Rollin Chair/Klv-qy-Qpbdo Xfer(QC): 6 Does the Patient Walk: Yes Gait (FIM): 6 Gait distance (FIM): 3=150 ft Distance: 400' Gait Assistive Device: None, FWW, Cane Single Point Does the Pt use WC or Scooter?: No Stairs (FIM): 2 # of Steps: 2 Stairs Level Of Assist: 5 PT Plan Treatment/Plan Treatment Plan: Continue Plan of Care Treatment Plan: Education, Functional Activity Flaco, Functional Strength, Gait , Safety, Therapeutic Exercise, Transfers Treatment Duration: Mar 13, 2016 # of days/week 6 Visits Per Week: 6 Minutes/Day (M-F): 15-30 Minutes/Day (Sat/[place]): PRN Pt/Family Agrees w/Plan: Yes Time/GCodes Time In: 1300 Time Out: 1325 Total Billed Treatment Time: 25 Total Billed Treatment 1 visit EVS 10 min EX 15 min CY FINNEGAN PT Mar 06, 2016 14:26
[2016-03-06] MEDS: inSUlin ASPART (NovoLOG) 1 UNIT/0.01 ML (CHARGE PER UNIT) SC SCH ×2 (15:35→19:30)
[2016-03-06] MEDS ORDERED: SILVER NITRATE APPLICATOR 1 PKT TP ONE (15:45)
[2016-03-06] MEDS ORDERED: COCAINE HCL 4% 2 ML SYR TOP ONE (15:45)
[2016-03-06] MEDS: GABAPENTIN 300 MG (NEURONTIN) CAP PO SCH ×2 (16:02→20:52)
[2016-03-06] MEDS ORDERED: SALINE NASAL SPRAY (OCEAN) 45 ML BTL PRN (16:15)
[2016-03-06 18:00] VITALS: BP 166/71
[2016-03-06] MEDS: KCL 10 MEQ TAB (MICRO K) PO SCH (18:24)
[2016-03-06] MEDS: metFORMIN 500 MG (GLUCOPHAGE) TAB PO SCH (18:25)
[2016-03-06] MEDS: RT-ALBUTEROL/IPRATROPIUM 3 ML (DUONEB) VIAL INH SCH (19:59)
[2016-03-06] MEDS: PRIMIDONE 250MG (MYSOLINE) TAB PO SCH (20:52)
[2016-03-06] MEDS: CEFEPIME INJECTION 2,000 MG in NORMAL SALINE (BAXTER MINI) 50 ML IV SCH (20:53)
[2016-03-06] MEDS: glipiZIDE 5 MG (GLUCOTROL) TAB PO SCH (20:53)
[2016-03-06] MEDS: VANCOMYCIN INJECTION 1,500 MG in NS IV 500 ML 500 ML IV SCH (23:11)
[2016-03-07] VITALS: BP 146/67
[2016-03-07] MEDS: RT-ALBUTEROL/IPRATROPIUM 3 ML (DUONEB) VIAL INH SCH ×4 (02:14→19:57)
[2016-03-07] MEDS: HYDROcodone/APAP 7.5 MG/325 MG (LORTAB, LORCET PLUS) TABLET PO PRN ×2 (02:31→09:58)
[2016-03-07 06:00] VITALS: BP 134/63
[2016-03-07] MEDS: inSUlin ASPART (NovoLOG) 1 UNIT/0.01 ML (CHARGE PER UNIT) SC SCH ×4 (06:00→19:30)
--- NOTE | 2016-03-07 06:05 | Progress Note-Standard ---
Standard Progress Note Progress Notes/Assess & Plan Progress/Assessment & Plan ENT-Judi Doing well-no bleeding Keep nose moist Please call if he has recurrent problems with the nosebleeds JULIA FREEMAN MD Mar 07, 2016 06:05
[2016-03-07] MEDS: KCL 10 MEQ TAB (MICRO K) PO SCH ×2 (06:19→16:53)
[2016-03-07] MEDS ORDERED: ASPIRIN E.C. 81 MG (ECOTRIN) TAB PO SCH (09:00)
--- NOTE | 2016-03-07 09:40 | Physical Therapy Progress Note ---
Therapy Progress Note Attempted 1st visit and pt reported headache and didn't want to participate in PT right now. PT advised will try back. Upon 2nd attempt, pt laying supine in bed with CPAP on, RT had just left. Pt again reported headache and refused PT this morning. PT encouraged pt if feeling better to try to walk or get out of bed for some EX and benefits of this. Pt reports will try if feeling better. PT notified nursing of headache and refusal of PT. Charge: 1 visit ELVA LOPEZ PTA Mar 07, 2016 09:40
[2016-03-07] MEDS: CEFEPIME INJECTION 2,000 MG in NORMAL SALINE (BAXTER MINI) 50 ML IV SCH ×2 (09:57→20:43)
[2016-03-07] MEDS: glipiZIDE 5 MG (GLUCOTROL) TAB PO SCH ×2 (09:57→20:44)
[2016-03-07] MEDS: SERTRALINE 100 MG (ZOLOFT) TAB PO SCH (09:57)
[2016-03-07] MEDS: GABAPENTIN 300 MG (NEURONTIN) CAP PO SCH ×3 (09:57→20:44)
[2016-03-07] MEDS: LOSARTAN 50 MG (COZAAR) TAB PO SCH (09:57)
[2016-03-07] MEDS: VANCOMYCIN INJECTION 1,500 MG in NS IV 500 ML 500 ML IV SCH ×2 (12:01→23:23)
[2016-03-07] MEDS: metFORMIN 500 MG (GLUCOPHAGE) TAB PO SCH (16:53)
[2016-03-07 18:34] VITALS: BP 165/74
[2016-03-07] MEDS: PRIMIDONE 250MG (MYSOLINE) TAB PO SCH (20:43)
[2016-03-08] MEDS: RT-ALBUTEROL/IPRATROPIUM 3 ML (DUONEB) VIAL INH SCH ×4 (03:04→20:40)
[2016-03-08 06:00] VITALS: BP 172/79
[2016-03-08] MEDS: inSUlin ASPART (NovoLOG) 1 UNIT/0.01 ML (CHARGE PER UNIT) SC SCH ×4 (06:00→22:18)
[2016-03-08] MEDS: KCL 10 MEQ TAB (MICRO K) PO SCH ×2 (06:17→16:07)
[2016-03-08] MEDS ORDERED: CEFEPIME HCL 2 GM (MAXIPIME) VIAL ONE (08:54)
[2016-03-08] MEDS ORDERED: NORMAL SALINE (BAXTER MINI) 50 ML IV ONE (08:55)
[2016-03-08] MEDS: CEFEPIME INJECTION 2,000 MG in NORMAL SALINE (BAXTER MINI) 50 ML IV SCH ×2 (09:08→22:17)
[2016-03-08] MEDS: GABAPENTIN 300 MG (NEURONTIN) CAP PO SCH ×3 (09:09→22:17)
[2016-03-08] MEDS: SERTRALINE 100 MG (ZOLOFT) TAB PO SCH (09:09)
[2016-03-08] MEDS: LOSARTAN 50 MG (COZAAR) TAB PO SCH (09:09)
[2016-03-08] MEDS: glipiZIDE 5 MG (GLUCOTROL) TAB PO SCH ×2 (09:09→22:17)
[2016-03-08] MEDS: VANCOMYCIN INJECTION 1,500 MG in NS IV 500 ML 500 ML IV SCH (10:41)
[2016-03-08] MEDS: metFORMIN 500 MG (GLUCOPHAGE) TAB PO SCH (18:43)
[2016-03-08 18:46] VITALS: BP 166/78
[2016-03-08] MEDS: PRIMIDONE 250MG (MYSOLINE) TAB PO SCH (22:17)
[2016-03-09] MEDS: RT-ALBUTEROL/IPRATROPIUM 3 ML (DUONEB) VIAL INH SCH ×4 (03:06→21:18)
[2016-03-09 05:17] VITALS: BP 164/80
[2016-03-09] MEDS: inSUlin ASPART (NovoLOG) 1 UNIT/0.01 ML (CHARGE PER UNIT) SC SCH ×4 (05:45→21:30)
[2016-03-09] MEDS: KCL 10 MEQ TAB (MICRO K) PO SCH ×2 (06:37→15:39)
[2016-03-09] MEDS: SERTRALINE 100 MG (ZOLOFT) TAB PO SCH (08:39)
[2016-03-09] MEDS: LOSARTAN 50 MG (COZAAR) TAB PO SCH (08:39)
[2016-03-09] MEDS: GABAPENTIN 300 MG (NEURONTIN) CAP PO SCH ×3 (08:39→21:38)
[2016-03-09] MEDS: CEFEPIME INJECTION 2,000 MG in NORMAL SALINE (BAXTER MINI) 50 ML IV SCH ×2 (08:40→21:38)
[2016-03-09] MEDS: glipiZIDE 5 MG (GLUCOTROL) TAB PO SCH ×2 (08:40→21:38)
--- NOTE | 2016-03-09 08:58 | Pulmonary Progress Note ---
Subjective Subjective/Events-last exam pT feels improved. Exam Exam Vital Signs Date Time Temp Pulse Resp B/P Pulse Ox O2 Delivery O2 Flow Rate FiO2 03/09/16 05:17 97.2 69 18 164/80 97 Room Air 03/09/16 03:06 90 NIV CPAP 10.00 03/08/16 21:00 NIV/CPAP 03/08/16 20:40 93 NIV CPAP 10.00 03/08/16 18:46 99.2 91 18 166/78 90 Room Air 03/08/16 15:53 93 NIV CPAP 10.00 03/08/16 09:45 89 NIV CPAP 10.00 I & O 03/09/16 07:00 Intake Total 2340 ml Output Total 2350 ml Balance -10 ml General Appearance: No Apparent Distress WD/WN HEENT: PERRL/EOMI Pharynx Normal Neck: Full Range of Motion Normal Inspection Non Tender Respiratory: No Accessory Muscle Use No Respiratory Distress Cardiovascular: Regular Rate, Rhythm No JVD Normal Peripheral Pulses Gastrointestinal: normal bowel sounds non tender soft no organomegaly Extremity: Normal Capillary Refill Normal Inspection Neurologic/Psychiatric: Alert Oriented x3 Skin: Normal Color Warm/Dry Lymphatic: No Adenopathy Assessment/Plan Assessment/Plan Severe Sepsis with pneumonia -Continue broad spectrum Abx - Influenza is negative - castellon cultures neg thus far Thrombocytopenia and anemia -monitor COPD with hx of tobacco use and home oxygen -SVNs Hypomag -replace PARKER -He is using his own CPAP machine Morbid obesity Repeat labs TUSHAR MAHER DO Mar 09, 2016 08:58
--- NOTE | 2016-03-09 10:00 | Diagnostic Imaging Report ---
EXAM: CHEST 1 VIEW, AP/PA ONLY INDICATION: Followup bibasilar infiltrates. COMPARISON: Chest radiograph 03/04/2016. FINDINGS: Normal heart size and pulmonary vascularity. Since the prior exam, there is increased aeration of the lung bases. There remains mild atelectasis or infiltrate in the left lung base. No definite pleural effusion or pneumothorax. Degenerative changes in the spine. Right PICC tip upper SVC. IMPRESSION: 1. Improved aeration of the lung bases with only mild atelectasis or infiltrate persisting in the left lung base. 2. Left PICC tip upper SVC. Dictated by: Dictated on workstation # [id number]
[2016-03-09 10:31] LABS: BASOPHILS % (AUTO) 0 % (0-10); EOSINOPHILS % (AUTO) 1 % (0-10); LYMPHOCYTES # (AUTO) 1.1 X 10^3 (1.0-4.0); LYMPHOCYTES % (AUTO) 32 % (12-44); MEAN CORPUSCULAR HEMOGLOBIN 27 PG (25-34); MEAN CORPUSCULAR HGB CONC 33 G/DL (32-36); MEAN CORPUSCULAR VOLUME 82 FL (80-99); MEAN PLATELET VOLUME 10.8 FL (7.4-10.4); MONOCYTES # (AUTO) 0.4 X 10^3 (0.0-1.0); MONOCYTES % (AUTO) 10 % (0-12); NEUTROPHILS # (AUTO) 1.9 X 10^3 (1.8-7.8); NEUTROPHILS % (AUTO) 57 % (42-75); PLATELET COUNT 159 10^3/uL (130-400); RED BLOOD COUNT 3.91 10^6/uL (4.35-5.85); RED CELL DISTRIBUTION WIDTH 15.8 % (10.0-14.5); WHITE BLOOD COUNT 3.4 10^3/uL (4.3-11.0)
[2016-03-09 10:51] LABS: ALANINE AMINOTRANSFERASE 42 U/L (0-55); ALBUMIN 3.7 G/DL (3.2-4.5); ANION GAP 10 MMOL/L (5-14); ASPARTATE AMINO TRANSFERASE 30 U/L (5-34); BILIRUBIN,TOTAL 0.5 MG/DL (0.1-1.0); BLOOD UREA NITROGEN 15 MG/DL (7-18); BUN/CREATININE RATIO 17; CALCIUM 9.5 MG/DL (8.5-10.1); CARBON DIOXIDE 26 MMOL/L (21-32); CHLORIDE 99 MMOL/L (98-107); CREATININE SERUM 0.88 MG/DL (0.60-1.30); GFR ESTIMATED > 60; GLUCOSE 320 MG/DL (70-105); MAGNESIUM 1.7 MG/DL (1.8-2.4); PHOSPHORUS 2.7 MG/DL (2.3-4.7); POTASSIUM 4.1 MMOL/L (3.6-5.0); SODIUM 135 MMOL/L (135-145); TOTAL PROTEIN 7.8 G/DL (6.4-8.2)
--- NOTE | 2016-03-09 10:55 | Progress Note-Hospitalist ---
Progress Note Progress Notes/Assess & Plan Date Seen 03/09/16 Diagonsis/Assessment & Plan Patient doing well and has had no further epistaxis since Dr. Farley cauterize the area Able to use his sleep apnea machine without difficulties Having 3 diarrhea stools but no evidence of anything like C. difficile Tolerating antibiotics well Likely will be able to discharge tomorrow and he is agreeable to that Chronic debility noted that walking with PT No fever vitals stable, pleasant, oriented 3, right sided So's palsy no change Regular rate and rhythm, clear to all station bilaterally but decreased in the bases No change in trace edema Gram-negative pneumonia maintain on antibiotics until discharge Fever that is resolved Epistaxis that required cautery by Dr. Farley holding Lovenox and aspirin due to severity of bleed Diabetes mellitus Chronic right sided So's palsy Severe sleep apnea faithful use of sleep apnea machine Plan is for discharge tomorrow Debility precludes anything other than poor prognosis BRENDEN GEORGE DO Mar 09, 2016 10:55
--- NOTE | 2016-03-09 11:06 | Occupational Ther Daily Note ---
OT Current Status-Daily Note Subjective Pt alert, sitting in chair with C-PAP on. present in room. Pt initially agreed to therapy then declined completing shower or UE exercises. Discussed with pt about exercises and how he completes at home. Mental Status/Objective Functional [place] Measure 0=Not Assessed/NA 4=Minimal Assistance 1=Total Assistance 5=Supervision or Setup 2=Maximal Assistance 6=Modified [place] 3=Moderate Assistance 7=Complete [place] ADL-Treatment Per nrsg-pt is having diarrhea and is able to cleanse self afterward without assistance then is able to move around room. OT set shower up for pt then pt declined stating that he was tired and wanted to do it later. Reported to nrsg that pt wanted to wait to take shower. Functional [place] Measure 0=Not Assessed/NA 4=Minimal Assistance 1=Total Assistance 5=Supervision or Setup 2=Maximal Assistance 6=Modified [place] 3=Moderate Assistance 7=Complete IndependenceIRFPAI Quality Coding Scale 6 Independent with activity with or without an assistive device 5 Patient requires set up or clean up by helper. Patient completes activity by themselves 4 Supervision or touching assist (CGA). [place] provide cues , steadying assist 3 The helper provides less than half the effort to complete the activity 2 The helper provides more than half the effort to complete the activity 1 Dependent. The helper does all the effort to complete an activity 7 Patient refused to complete or attempt activity 9 The patient did not perform the activity before the current illness or injury 88 Not attempted due to Medical conditions or safety concerns Other Treatment Pt was able to demonstrated UE exercises that he completes at home with theraband and therapy foam. Pt stated that he was to tired to complete exercises. After therapy, OT offered to assist pt back to bed pt stated that he was able to do it himself. present in room, pt sitting in recliner with call light/phone in reach. All needs met in room. OT Short Term Goals Short Term Goals 1=Demonstrate adherence to instructed precautions during ADL tasks. 2=Patient will verbalize/demonstrate understanding of assistive devices/ modifications for ADL. 3=Patient will improve strength/tolerance for activity to enable patient to perform ADL's. OT Money Order Clerk Goals Money Order Clerk Goals Time Frame: Mar 20, 2016 Oral Hygiene (QC): 6 Grooming(FIM): 6 Toileting Hygiene (QC): 6 Upper Body Dressing(FIM): 6 Lower Body Dressing(FIM): 6 Toileting(FIM): 6 Toilet/Commode Transfer(FIM): 6 Toilet/Commode Transfer (QC): 6 Additional Goals: 1-Demonstrate ADL Tasks, 2-Verbalize Understanding, 3- ImproveStrength/Flaco 1=Demonstrate adherence to instructed precautions during ADL tasks. 2=Patient will verbalize/demonstrate understanding of assistive devices/ modifications for ADL. 3=Patient will improve strength/tolerance for activity to enable patient to perform ADL's. OT Education/Plan Problem List/Assessment Pt to benefit from skilled OT intervention for ADL training, transfers, and strengthening to increase functional performance and allow safe discharge home with spouse. Discharge Recommendations Plan/Recommendations: Continue POC Treatment Plan/Plan of Care Patient would benefit from OT for education, treatment and training to promote independence in ADL's, mobility, safety and/or upper extremity function for ADL' s. Plan of Care: ADL Retraining, Functional Mobility, UE Funct Exercise/Act Treatment Duration: Mar 20, 2016 Agreement: Yes Rehab Potential: Good Time/GCodes Start Time: 10:45 Stop Time: 11:00 Total Time Billed (hr/min): 15 Billed Treatment Time 1 visit-FA 1 (15 min) MIKE BROOKS Mar 09, 2016 11:06
--- NOTE | 2016-03-09 11:26 | Physical Therapy Daily Note ---
PT Daily Note-Current Subjective Patient agrees to participate with PT. Pain Numeric Pain Scale: 0-No Pain Location: No Pain Reported Mental Status Patient Orientation: Normal For Age Attachments: Oxygen (5L) Transfers Functional [place] Measure 0=Not Assessed/NA 4=Minimal Assistance 1=Total Assistance 5=Supervision or Setup 2=Maximal Assistance 6=Modified [place] 3=Moderate Assistance 7=Complete IndependenceIRFPAI Quality Coding Scale 6 Independent with activity with or without an assistive device 5 Patient requires set up or clean up by helper. Patient completes activity by themselves 4 Supervision or touching assist (CGA). [place] provide cues , steadying assist 3 The helper provides less than half the effort to complete the activity 2 The helper provides more than half the effort to complete the activity 1 Dependent. The helper does all the effort to complete an activity 7 Patient refused to complete or attempt activity 9 The patient did not perform the activity before the current illness or injury 88 Not attempted due to Medical conditions or safety concerns Transfers (B, C, W/C) (FIM): 6 Scootin Roll Left to Right (QC): 6 Sit to/from Stand: 6 Sit to Lying (QC): 6 Sit to Stand (QC): 6 Chair/Eor-xy-Qegpi Xfer(QC): 6 Gait Training Does the Patient Walk?: Yes Gait (FIM): 6 Distance (FIM): 3=150 ft Distance: >600' Walk 50 ft with 2 Turns(QC): 6 Walk 150 ft (QC): 6 Gait Level of Assist: 6 Gait Assistive Device: FWW safe and functional with FWW Assessment Patient tolerated treatment well and is currently at [facility] with gross motor skills. Plan dismissal this week to home with spouse. PT Assisted Goals Assisted Goals PT Technology Teacher Goals Time Frame: Mar 13, 2016 Transfers (B,C,W/C) (FIM): 6 Sit to Lying (QC): 6 Lying-Sitting on Side/Bed(QC): 6 Sit to Stand (QC): 6 Rollin Chair/Jba-el-Ylmdj Xfer(QC): 6 Does the Patient Walk: Yes Gait (FIM): 6 Gait distance (FIM): 3=150 ft Distance: 400' Gait Assistive Device: None, FWW, Cane Single Point Does the Pt use WC or Scooter?: No Stairs (FIM): 2 # of Steps: 2 Stairs Level Of Assist: 5 PT Plan Treatment/Plan Treatment Plan: Continue Plan of Care Treatment Plan: Education, Functional Activity Flaco, Functional Strength, Gait , Safety, Therapeutic Exercise, Transfers Treatment Duration: Mar 13, 2016 Visits Per Week: 6 Minutes/Day (M-F): 15-30 Minutes/Day (Sat/[place]): PRN Time/GCodes Time In: 1004 Time Out: 1019 Total Billed Treatment Time: 15 Total Billed Treatment 1 visit GT 15 min CY FINNEGAN PT Mar 09, 2016 11:26
[2016-03-09] MEDS: metFORMIN 500 MG (GLUCOPHAGE) TAB PO SCH (17:03)
[2016-03-09 18:00] VITALS: BP 133/62
[2016-03-09] MEDS: PRIMIDONE 250MG (MYSOLINE) TAB PO SCH (21:38)
[2016-03-10] MEDS: RT-ALBUTEROL/IPRATROPIUM 3 ML (DUONEB) VIAL INH SCH ×2 (02:07→10:19)
[2016-03-10 06:00] VITALS: BP 157/72
[2016-03-10] MEDS: inSUlin ASPART (NovoLOG) 1 UNIT/0.01 ML (CHARGE PER UNIT) SC SCH ×3 (06:00→14:30)
[2016-03-10] MEDS: KCL 10 MEQ TAB (MICRO K) PO SCH (06:31)
--- NOTE | 2016-03-10 08:17 | Pulmonary Progress Note ---
Subjective Subjective/Events-last exam no complications noted currently Exam Exam Vital Signs Date Time Temp Pulse Resp B/P Pulse Ox O2 Delivery O2 Flow Rate FiO2 03/10/16 06:00 98.7 64 18 157/72 96 NIV/CPAP 03/10/16 02:07 94 NIV CPAP 10.00 03/09/16 21:19 94 NIV CPAP 10.00 03/09/16 21:00 Room Air 03/09/16 18:00 96.7 94 18 133/62 93 Room Air 03/09/16 15:22 94 NIV CPAP 10.00 03/09/16 10:28 95 NIV CPAP 10.00 03/09/16 09:00 97 Room Air 10.00 I & O 03/10/16 07:00 Intake Total 1520 ml Output Total 1050 ml Balance 470 ml General Appearance: No Apparent Distress WD/WN HEENT: PERRL/EOMI Pharynx Normal Neck: Full Range of Motion Normal Inspection Non Tender Respiratory: No Accessory Muscle Use No Respiratory Distress Cardiovascular: Regular Rate, Rhythm No JVD Normal Peripheral Pulses Gastrointestinal: normal bowel sounds non tender soft no organomegaly Extremity: Normal Capillary Refill Normal Inspection Neurologic/Psychiatric: Alert Oriented x3 Skin: Normal Color Warm/Dry Lymphatic: No Adenopathy Results Lab Laboratory Tests 03/09/16 10:20 Assessment/Plan Assessment/Plan Severe Sepsis with pneumonia -cefepime scheduled to D/C tomorrow - Influenza is negative - castellon cultures neg thus far Thrombocytopenia and anemia -monitor COPD with hx of tobacco use and home oxygen -SVNs Hypomag -replace PARKER -He is using his own CPAP machine Morbid obesity Pt is ok for discharge from pulmonary standpoint TUSHAR MAHER DO Mar 10, 2016 08:17
--- NOTE | 2016-03-10 09:47 | Occupational Ther Daily Note ---
OT Current Status-Daily Note Subjective No pain reported. However, pt. states he does not feel like doing therapy right now. Pt. is encouraged and agrees. Appearance Pt. in bed with c-pap on. States that he showered last night and does not want to do it today. Spouse in room and states that pt. may go to [facility] for more therapy. Pt. and spouse educated that pt. should participate now as well, if he is wanting to receive continued skilled therapy. Pt. agrees but declines showering/bathing. Pt. and spouse educated on what pneumonia is, and the fact that it is imperative for him to get up and move/breathe in and out. Pt. agrees. Mental Status/Objective Patient Orientation: Person, Place Functional [place] Measure 0=Not Assessed/NA 4=Minimal Assistance 1=Total Assistance 5=Supervision or Setup 2=Maximal Assistance 6=Modified [place] 3=Moderate Assistance 7=Complete [place] ADL-Treatment Functional [place] Measure 0=Not Assessed/NA 4=Minimal Assistance 1=Total Assistance 5=Supervision or Setup 2=Maximal Assistance 6=Modified [place] 3=Moderate Assistance 7=Complete IndependenceIRFPAI Quality Coding Scale 6 Independent with activity with or without an assistive device 5 Patient requires set up or clean up by helper. Patient completes activity by themselves 4 Supervision or touching assist (CGA). [place] provide cues , steadying assist 3 The helper provides less than half the effort to complete the activity 2 The helper provides more than half the effort to complete the activity 1 Dependent. The helper does all the effort to complete an activity 7 Patient refused to complete or attempt activity 9 The patient did not perform the activity before the current illness or injury 88 Not attempted due to Medical conditions or safety concerns Transfers (B, C, W/C) (FIM): 6 (Pt. is able to transfer supine to sit, and sit- stand, and back supine with no difficulty. Does require increased time however due to coughing. Educated to breathe in and out deeply with movement to exercise his lungs.) Other Treatment Pt. participated in treatment this date. Stood x 3, approximately 2 minutes each time. Worked on breathing in and out, as pt. states that he coughs every time he moves. Educated on why this is. Pt. is also educated on his options, regarding skilled care at [facility], home health, and outpt services. Pt. does not verbalize his interests, but mainly lets spouse talk for him. All needs met after this session and education. Pt. states that he would like to remain sitting on side of bed. OT complies. Education OT Patient Education: Correct positioning, Energy conservation, Exercise program, Purpose of tx/functional activities, Reviewed precautions, Rehab process, Transfer techniques Teaching Recipient: Patient, Significant Other Teaching Methods: Demonstration, Discussion Response to Teaching: Verbalize Understanding, Return Demonstration OT Short Term Goals Short Term Goals 1=Demonstrate adherence to instructed precautions during ADL tasks. 2=Patient will verbalize/demonstrate understanding of assistive devices/ modifications for ADL. 3=Patient will improve strength/tolerance for activity to enable patient to perform ADL's. OT Marine Equipment Sales Engineer Goals Marine Equipment Sales Engineer Goals Time Frame: Mar 20, 2016 Oral Hygiene (QC): 6 Grooming(FIM): 6 Toileting Hygiene (QC): 6 Upper Body Dressing(FIM): 6 Lower Body Dressing(FIM): 6 Toileting(FIM): 6 Toilet/Commode Transfer(FIM): 6 Toilet/Commode Transfer (QC): 6 Additional Goals: 1-Demonstrate ADL Tasks, 2-Verbalize Understanding, 3- ImproveStrength/Flaco 1=Demonstrate adherence to instructed precautions during ADL tasks. 2=Patient will verbalize/demonstrate understanding of assistive devices/ modifications for ADL. 3=Patient will improve strength/tolerance for activity to enable patient to perform ADL's. OT Education/Plan Problem List/Assessment Assessment: Decreased Activ Tolerance, Impaired I ADL's Pt to benefit from skilled OT intervention for ADL training, transfers, and strengthening to increase functional performance and allow safe discharge home with spouse. Discharge Recommendations Plan/Recommendations: Continue POC Comment OT recommends home with home health. Spouse states that they are interested in [facility] for skilled care for "a couple of days." Treatment Plan/Plan of Care Treatment,Training & Education: Yes Patient would benefit from OT for education, treatment and training to promote independence in ADL's, mobility, safety and/or upper extremity function for ADL' s. Plan of Care: ADL Retraining, Functional Mobility, UE Funct Exercise/Act Treatment Duration: Mar 20, 2016 # of days/week 5-6 Visits Per Week: 5-6 Agreement: Yes Rehab Potential: Good Time/GCodes Start Time: 09:20 Stop Time: 09:35 Total Time Billed (hr/min): 15 Billed Treatment Time 1, FA KIM CORONA OT Mar 10, 2016 09:47
[2016-03-10] MEDS ORDERED: CEFEPIME HCL 2 GM (MAXIPIME) VIAL ONE (09:49)
[2016-03-10] MEDS ORDERED: NORMAL SALINE (BAXTER MINI) 50 ML IV ONE (09:49)
[2016-03-10] MEDS: CEFEPIME INJECTION 2,000 MG in NORMAL SALINE (BAXTER MINI) 50 ML IV SCH (10:01)
[2016-03-10] MEDS: glipiZIDE 5 MG (GLUCOTROL) TAB PO SCH (10:01)
[2016-03-10] MEDS: SERTRALINE 100 MG (ZOLOFT) TAB PO SCH (10:02)
[2016-03-10] MEDS: LOSARTAN 50 MG (COZAAR) TAB PO SCH (10:02)
[2016-03-10] MEDS: GABAPENTIN 300 MG (NEURONTIN) CAP PO SCH ×2 (10:02→14:18)
--- NOTE | 2016-03-10 12:31 | Discharge Inst-Simple/Standard ---
Discharge Inst-Standard Patient Instructions/Follow Up Plan of Care/Instructions/FU: Resume CPAP at home settings. Medications as detailed in the discharge sequence Activity as Tolerated: Yes Goal: Stability in respiratory status. Reschedule follow-up with [facility] Discharge Diet: ADA Diet Return to The Hospital For: Decline in performance JAYLENE PENA MD Mar 10, 2016 12:31
--- NOTE | 2016-03-10 12:36 | Progress Note-Hospitalist ---
Standard Progress Note Progress Notes/Assess & Plan Date Seen 03/10/16 Diagnosis 1.gram-negative pneumonia. 2.COPD. 3.chronic sleep apnea. 4.epistaxis treated. 5.diabetes mellitus type II Assess & Plan/Chief Complaint The patient reports he is feeling much better than on admission. He has completed his course of IV antibiotics and is ready for discharge today. He plans to continue follow-up with the [place] hospital [facility]. He requires no new equipment. His medications remained the same and can be viewed in the discharge sequence. Physical exam: He is using pressure support I entered the room. Lungs show distant breath sounds but are clear. CV is regular without murmur. Abdomen is obese and nontender. Extremities show no pedal edema. Plan discharged today. [facility] discharge sequence for detailed informatioN Labs Laboratory Tests 03/09/16 10:20 JAYLENE PENA MD Mar 10, 2016 12:36
--- NOTE | 2016-03-10 13:35 | Therapy Team Discharge Summary ---
Therapy Discharge Summary Discharge Recommendations Date of Discharge Therapy D/C Recommendations: Home w/ Family Support Physical Therapy Patient seen by PT to address cardiopulmonary functional with functional strength and mobility. Patient to dismiss to home with spouse on this date. Patient is safely at a modified independent LOF with all gross motor skills. Patient is inactive PLOF and states he will continue to be so. PT encouraged patient to increase activity level to improve cardiopulmonary function. PT goals attained. PT Custodial Goals Wastewater Analyst Goals PT Wastewater Analyst Goals Time Frame: Mar 13, 2016 Transfers (B,C,W/C) (FIM): 6 Sit to Lying (QC): 6 Lying-Sitting on Side/Bed(QC): 6 Sit to Stand (QC): 6 Rollin Chair/Bmv-yx-Jpsoc Xfer(QC): 6 Does the Patient Walk: Yes Gait (FIM): 6 Gait distance (FIM): 3=150 ft Distance: 400' Gait Assistive Device: None, FWW, Cane Single Point Does the Pt use WC or Scooter?: No Stairs (FIM): 2 # of Steps: 2 Stairs Level Of Assist: 5 OT Custodial Goals Wastewater Analyst Goals Time Frame: Mar 20, 2016 Oral Hygiene (QC): 6 Grooming(FIM): 6 Toileting Hygiene (QC): 6 Upper Body Dressing(FIM): 6 Lower Body Dressing(FIM): 6 Toileting(FIM): 6 Toilet/Commode Transfer(FIM): 6 Toilet/Commode Transfer (QC): 6 Additional Goals: 1-Demonstrate ADL Tasks, 2-Verbalize Understanding, 3- ImproveStrength/Flaco 1=Demonstrate adherence to instructed precautions during ADL tasks. 2=Patient will verbalize/demonstrate understanding of assistive devices/ modifications for ADL. 3=Patient will improve strength/tolerance for activity to enable patient to perform ADL's. CY FINNEGAN PT Mar 10, 2016 13:35
--- NOTE | 2016-03-10 14:57 | Physical Therapy Daily Note ---
PT Daily Note-Current Subjective Patient is in bed and agrees to therapy. Pain Numeric Pain Scale: 0-No Pain Location: No Pain Reported Mental Status Patient Orientation: Normal For Age Transfers Functional [place] Measure 0=Not Assessed/NA 4=Minimal Assistance 1=Total Assistance 5=Supervision or Setup 2=Maximal Assistance 6=Modified [place] 3=Moderate Assistance 7=Complete IndependenceIRFPAI Quality Coding Scale 6 Independent with activity with or without an assistive device 5 Patient requires set up or clean up by helper. Patient completes activity by themselves 4 Supervision or touching assist (CGA). [place] provide cues , steadying assist 3 The helper provides less than half the effort to complete the activity 2 The helper provides more than half the effort to complete the activity 1 Dependent. The helper does all the effort to complete an activity 7 Patient refused to complete or attempt activity 9 The patient did not perform the activity before the current illness or injury 88 Not attempted due to Medical conditions or safety concerns Transfers (B, C, W/C) (FIM): 6 Scootin Roll Left to Right (QC): 6 Supine to/from Sit: 6 Sit to/from Stand: 6 Sit to Lying (QC): 6 Sit to Stand (QC): 6 Chair/Rhk-ny-Mzcfa Xfer(QC): 6 Gait Training Does the Patient Walk?: Yes Gait (FIM): 6 Distance (FIM): 3=150 ft Distance: 500' Walk 50 ft with 2 Turns(QC): 6 Walk 150 ft (QC): 6 Gait Level of Assist: 6 Gait Assistive Device: FWW safe and functional Assessment Patient SAO2 93% on RA with ambulation 500'. PT to dismiss at this time. PT Mandolin Repairer Goals Correction Goals PT Mandolin Repairer Goals Time Frame: Mar 13, 2016 Transfers (B,C,W/C) (FIM): 6 (met 03/10/16) Sit to Lying (QC): 6 (met 03/24) Lying-Sitting on Side/Bed(QC): 6 (met 03/10/16) Sit to Stand (QC): 6 (met 03/10/16) Rollin (met 03/10/16) Chair/Ocd-kg-Ajvjg Xfer(QC): 6 (met 03/10/16) Does the Patient Walk: Yes Gait (FIM): 6 (met 03/10/16) Gait distance (FIM): 3=150 ft Distance: 400' Gait Assistive Device: None, FWW, Cane Single Point Does the Pt use WC or Scooter?: No Stairs (FIM): 2 # of Steps: 2 Stairs Level Of Assist: 5 PT Plan Treatment/Plan Treatment Plan: Discontinue PT, goals met Treatment Plan: Education, Functional Activity Flaco, Functional Strength, Gait , Safety, Therapeutic Exercise, Transfers Treatment Duration: Mar 13, 2016 Visits Per Week: 6 Minutes/Day (M-F): 15-30 Minutes/Day (Sat/[place]): PRN Time/GCodes Time In: 1405 Time Out: 1416 Total Billed Treatment Time: 11 Total Billed Treatment 1 visit FA 11 min CY FINNEGAN PT Mar 10, 2016 14:57
--- NOTE | 2016-03-11 08:18 | Therapy Team Discharge Summary ---
Therapy Discharge Summary Discharge Recommendations Date of Discharge Mar 10, 2016 at 15:40 Therapy D/C Recommendations: Home w/ Family Support Occupational Therapy Pt. has been seen briefly for ADL training to increase overall strength and mobility. Pt. is somewhat limited by motivation, and requires encouragement to participate at times. Fatigues easily and states that he feels week. Pt. at discharge is able to complete most ADLs after set up and with increased time. However, this is with motivation to do so. Pt. is discharging home with spouse. No further OT warranted at this time and no ADL equipment needed as well. PT Operating Room Specialist Goals Care Home Goals PT Operating Room Specialist Goals Time Frame: Mar 13, 2016 Transfers (B,C,W/C) (FIM): 6 (met 03/10/16) Sit to Lying (QC): 6 (met 03/24) Lying-Sitting on Side/Bed(QC): 6 (met 03/10/16) Sit to Stand (QC): 6 (met 03/10/16) Rollin (met 03/10/16) Chair/Ygk-zr-Itbmw Xfer(QC): 6 (met 03/10/16) Does the Patient Walk: Yes Gait (FIM): 6 (met 03/10/16) Gait distance (FIM): 3=150 ft Distance: 400' Gait Assistive Device: None, FWW, Cane Single Point Does the Pt use WC or Scooter?: No Stairs (FIM): 2 # of Steps: 2 Stairs Level Of Assist: 5 OT Operating Room Specialist Goals Operating Room Specialist Goals Time Frame: Mar 20, 2016 Oral Hygiene (QC): 6 (not met- set up per ) Grooming(FIM): 6 (not met- set up) Toileting Hygiene (QC): 6 (met per spouse and pt.) Upper Body Dressing(FIM): 6 (not met- declines practicing) Lower Body Dressing(FIM): 6 (not met- requires set up) Toileting(FIM): 6 (met per pt. and spouse) Toilet/Commode Transfer(FIM): 6 (met) Toilet/Commode Transfer (QC): 6 (met) Additional Goals: 1-Demonstrate ADL Tasks, 2-Verbalize Understanding, 3- ImproveStrength/Flaco 1=Demonstrate adherence to instructed precautions during ADL tasks. 2=Patient will verbalize/demonstrate understanding of assistive devices/ modifications for ADL. 3=Patient will improve strength/tolerance for activity to enable patient to perform ADL's. KIM CORONA OT Mar 11, 2016 08:18
--- NOTE | 2016-04-01 14:07 | Discharge Summary-Hospitalist ---
Diagnosis/Chief Complaint Date of Admission Mar 06, 2016 at 10:59 Date of Discharge Mar 10, 2016 at 15:40 Discharge Date: Mar 10, 2016 Admission Diagnosis 1.gram-negative pneumonia. 2.COPD. 3.chronic sleep apnea. 4.epistaxis treated. 5.diabetes mellitus type II Discharge Diagnosis 1.gram-negative pneumonia. 2.COPD. 3.chronic sleep apnea. 4.epistaxis treated and controlled. 5.diabetes mellitus type II Reason Hospital Visit/Course The patient had been admitted on the inpatient service. He improved greatly however needed continued IV antibiotics to complete his therapy course for a gram-negative pneumonia. He was therefore transferred to swing bed status on to complete this. This was completed on 03/10/16 without problem. He reported feeling considerably better and that he felt well enough to return to his home. He had all the respiratory equipment that he needed at his home his medications at discharge may be viewed on the discharge sequence. He reports he plans to continue to receive the bulk of his care through the [place] hospital system. Physical exam showed him to be breathing without use of accessory muscles. He was using his pressure support as I entered the room. Breath sounds were distant but clear CV was regular without murmur. Abdomen was obese and nontender. Extremities show no pedal edema. He was discharged in improved condition. Discharge Summary Discharge Physical Examination Allergies: Coded Allergies: lisinopril (Verified Allergy, Unknown, 09/22/15) sildenafil (Verified Allergy, Unknown, 09/22/15) Discharge Home Medications: Active Scripts Active Reported Lubricant Eye Ointment (Mineral Oil/Petrolatum,White) 3.5 Gm Oint...g. OD HS APPLY 1/2 INCH RIBBON Novolog (Insulin Aspart) 100 Unit/1 Ml Susp 5-10 Unit SQ AC PRN Artificial Tears Drops (Polyvinyl Alcohol/Povidone) 15 Ml Drops 2 Drops OD Q4H PRN Striverdi Respimat (Olodaterol HCl) 4 Gm Mist.inhal 2 Puff IH DAILY Fish Oil 1,000 mg Capsule ([place] 3 Polyunsat Fatty Acids) 1,000 Mg Cap 2,000 Mg PO DAILY TAKES 2 (1000MG) CAPSULES IN THE MORNING Fish Oil 1,000 mg Capsule ([place] 3 Polyunsat Fatty Acids) 1,000 Mg Cap 1,000 Mg PO HS Daily Multiple Vitamin (Multivitamin) 1 Each Tablet 1 Tab PO DAILY Potassium (Potassium Gluconate) 99 Mg Tablet 99 Mg PO DAILY PRN Sertraline HCl 100 Mg Tablet 100 Mg PO DAILY Aspir 81 (Aspirin) 81 Mg Tablet.dr 81 Mg PO DAILY Losartan Potassium 100 Mg Tablet 50 Mg PO DAILY TAKES 1/2 (100MG) TABLET Metformin HCl ER (Metformin HCl) 500 Mg Tab.er.24 2,000 Mg PO 1700 TAKES 4 (500MG) TABLETS BEFORE SUPPER Gabapentin 300 Mg Capsule 600 Mg PO TID TAKES 2 (300MG) CAPSULES Glipizide 10 Mg Tablet 20 Mg PO BID TAKES 2 (10MG) TABLETS Primidone 250 Mg Tablet 250 Mg PO HS Furosemide 40 Mg Tablet 40 Mg PO DAILY PRN Meloxicam 7.5 Mg Tablet 7.5 Mg PO DAILY Hydrocodon-Acetaminoph 7.5-325 (Hydrocodone/Acetaminophen) 1 Each Tablet 1 Tab PO BID PRN Atorvastatin Calcium 80 Mg Tablet 40 Mg PO HS TAKES 1/2 (80MG) TABLET Instructions to patient/family Please see electonic discharge instructions given to patient. JAYLENE PENA MD Apr 01, 2016 14:07
== END 2016-03-10 15:40 | disposition home or self-care (01) | DRG 190 ==
LOC: 4TH 03-06 10:59
PROVIDERS: ADMIT Internal Medicine; ATTEND Internal Medicine
DX: J44.0 Chronic obstructive pulmonary disease with (acute) lower respiratory infection (principal); J15.6 Pneumonia due to other Gram-negative bacteria; E66.01 Morbid (severe) obesity due to excess calories; Z68.42 Body mass index [BMI] 45.0-49.9, adult; G47.33 Obstructive sleep apnea (adult) (pediatric); I10 Essential (primary) hypertension; D69.6 Thrombocytopenia, unspecified; G51.0 Bell's palsy; E78.00 Pure hypercholesterolemia, unspecified; E11.9 Type 2 diabetes mellitus without complications; F32.9 Major depressive disorder, single episode, unspecified; D64.9 Anemia, unspecified; M51.36 Other intervertebral disc degeneration, lumbar region; R04.0 Epistaxis; E83.42 Hypomagnesemia; Z87.891 Personal history of nicotine dependence; Z79.84 Long term (current) use of oral hypoglycemic drugs
CPT/HCPCS: 36415; 71010; 80053; 82962; 83735; 84100; 85025; 94640; 94760

== ENCOUNTER 2016-04-22 17:48 | Inpatient (IN) | payer MEDICARE, OTHER ==
[~2016-04-22] VITALS: Ht 157.5 cm; Wt 113.1 kg
--- OUTSIDE RECORDS SUMMARY | 2016-04-22 17:54 | XMS REPORT | Continuity of Care Document ---
Author Author [facility] Organization [facility] Address Unknown Phone Unavailable Care Team Providers Care Csr Name Role Phone NO, LOCAL PHYSICIAN PCP Unavailable Insurance Providers Payer Name Policy Number Subscriber Name Relationship [employer] [id number] Emmanuelle Rodriguez 20 Self / Same As [...] 1 Each 1 Tab Oral Daily 09/05/15 [place] 3 Polyunsat Fatty Acids 1,000 Mg 1,000 Mg Oral Bedtime [place] 3 Polyunsat Fatty Acids 1,000 Mg 2,000 [...] Type Severity Reaction Status Last Updated lisinopril ([id number]) Allergy Unknown Active 09/22/15 sildenafil ([id number]) Allergy Unknown Active 09/22/15 Immunizations No immunization records. Vital Signs Acute Vital Signs Vital Response Date/Time Temperature (Fahrenheit) 98.5 degrees F (97.6 - 99.5) 03/06/2016 8:00am Temperature (Calculated Celsius) 36.69516 degrees C (36.4 - 37.5) 03/06/2016 8:00am [...] 4.00 inches 03/03/2016 9:25am Height (Calculated Centimeters) 162.386756 cm 03/03/2016 9:25am Weight (Pounds) 269 pounds 03/06/2016 5:53am Weight (Ounces) 1.0 oz 03/06/2016 5:53am Weight (Calculated Grams) 604199.698 gm 03/06/2016 5:53am Weight (Calculated Kilograms) 122.372967 kilograms 03/06/2016 5:53am Calculated BMI 43.6 03/03/2016 [...] SELECTED GROUPS OF HIGH RISK PATIENTS. [employer] [place] [employer] CHEST PHYSICI[employer] CONSENSUS CONFERENCE ON ANTITHROMBOTIC THERAPY (2000). Activated Partial Thromboplast Time 25 SEC 24-35 03/03/2016 8:15am 8:36am Urine Color YELLOW 03/03/2016 10:20am 03/03/2016 10:38am Urine Clarity CLEAR 03/03/2016 10:20am 03/03/2016 10:38am Urine pH 5 5-9 03/03/2016 10:20am 03/03/2016 10:38am Urine Specific [place] 1.020 1.016-1.022 03/03/2016 10:20am 2015 10:38am Urine [...] Discharge/Depart Date Attending Provider Discharged Inpatient [facility] 03/03/16 9:06am 10:59am JAYLENE PENA MD Recent Diagnosis Hypoxia Pneumonia Severe sepsis
[2016-04-22] MEDS ORDERED: RT-ALBUTEROL/IPRATROPIUM 3 ML (DUONEB) VIAL INH ONE (19:15)
[2016-04-22 19:19] LABS: BASOPHILS % (AUTO) 0 % (0-10); EOSINOPHILS % (AUTO) 0 % (0-10); LYMPHOCYTES # (AUTO) 0.9 X 10^3 (1.0-4.0); LYMPHOCYTES % (AUTO) 8 % (12-44); MEAN CORPUSCULAR HEMOGLOBIN 27 PG (25-34); MEAN CORPUSCULAR HGB CONC 33 G/DL (32-36); MEAN CORPUSCULAR VOLUME 83 FL (80-99); MEAN PLATELET VOLUME 11.7 FL (7.4-10.4); MONOCYTES # (AUTO) 1.7 X 10^3 (0.0-1.0); MONOCYTES % (AUTO) 15 % (0-12); NEUTROPHILS # (AUTO) 9.2 X 10^3 (1.8-7.8); NEUTROPHILS % (AUTO) 78 % (42-75); PLATELET COUNT 95 10^3/uL (130-400); RED BLOOD COUNT 3.62 10^6/uL (4.35-5.85); RED CELL DISTRIBUTION WIDTH 16.4 % (10.0-14.5); WHITE BLOOD COUNT 11.9 10^3/uL (4.3-11.0)
[2016-04-22 19:23] LABS: INR 1.1 (0.8-1.4); PROTHROMBIN TIME PATIENT 14.3 SEC (12.2-14.7)
[2016-04-22 19:32] LABS: ALANINE AMINOTRANSFERASE 16 U/L (0-55); ALBUMIN 3.5 G/DL (3.2-4.5); ANION GAP 16 MMOL/L (5-14); ASPARTATE AMINO TRANSFERASE 23 U/L (5-34); BILIRUBIN,TOTAL 0.4 MG/DL (0.1-1.0); BLOOD UREA NITROGEN 40 MG/DL (7-18); BUN/CREATININE RATIO 18; CALCIUM 8.6 MG/DL (8.5-10.1); CARBON DIOXIDE 20 MMOL/L (21-32); CHLORIDE 96 MMOL/L (98-107); CREATININE SERUM 2.27 MG/DL (0.60-1.30); GFR ESTIMATED 28; GLUCOSE 370 MG/DL (70-105); SODIUM 132 MMOL/L (135-145); TOTAL PROTEIN 7.3 G/DL (6.4-8.2)
[2016-04-22 19:36] LABS: BAND NEUTROPHILS 45 %; BASOPHILS % (MANUAL) 0 %; EOSINOPHILS % (MANUAL) 0 %; LYMPHOCYTES % (MANUAL) 9 %; NEUTROPHILS % (MANUAL) 33 %
[2016-04-22 19:38] LABS: TROPONIN I < 0.30 NG/ML (<0.30)
--- NOTE | 2016-04-22 19:38 | Diagnostic Imaging Report ---
INDICATION: Cough, congestion. COMPARISON: March 09, 2016 TECHNIQUE: Single frontal radiograph of the chest dated April 22, 2016 FINDINGS: The cardiac silhouette is mildly enlarged, appearing slightly more prominent than prior examination. No significant pulmonary vascular congestion. Previously noted right-sided PICC line is no longer visualized. Low lung volumes. The right lung appears clear. Mild left basilar opacities are present with slight obscuration of the left hemidiaphragm. No large pleural effusion. No pneumothorax. No acute osseous abnormality. IMPRESSION: Low lung volumes with mild left basilar atelectasis and/or pneumonitis. Mild cardiomegaly, appearing more prominent than the prior examination. This may simply relate to low lung volumes. No evidence of overt congestive heart failure. Dictated by: Dictated on workstation # [id number]
[2016-04-22] MEDS ORDERED: LEVOFLOXACIN 750 MG/150 ML IV 150 ML IV ONE (20:00)
[2016-04-22] MEDS ORDERED: methylPREDNISolone 125 MG (Solu-MEDROL) VIAL IVP ONE (20:00)
[2016-04-22 21:20] VITALS: BP 119/55
[2016-04-22] MEDS ORDERED: ACETAMINOPHEN 500 MG TAB (TYLENOL) PO PRN (21:30)
[2016-04-22] MEDS ORDERED: RT-ALBUTEROL/IPRATROPIUM 3 ML (DUONEB) VIAL INH PRN (22:00)
[2016-04-22] MEDS: NS IV 1000 ML 1,000 ML IV SCH (22:40)
[2016-04-22] MEDS: RT-ALBUTEROL/IPRATROPIUM 3 ML (DUONEB) VIAL INH SCH (23:18)
[2016-04-23] VITALS (7 sets, daily range): BP systolic 104–133; BP diastolic 53–66
[2016-04-23] MEDS ORDERED: CEFEPIME 2 GM/NS 50 ML IVPB IV SCH ×4 (00:45→21:00)
[2016-04-23] MEDS ORDERED: CEFEPIME HCL 2 GM (MAXIPIME) VIAL ONE (00:58)
[2016-04-23] MEDS ORDERED: NS (IVPB) 50 ML ONE (00:59)
[2016-04-23] MEDS ORDERED: VANCOMYCIN 1,750 MG/NS 500 ML IVPB IV ONE ×2 (01:00)
[2016-04-23] MEDS ORDERED: VANCOMYCIN 1 GM ADD-VANTAGE VIAL IV ONE (01:55)
[2016-04-23] MEDS ORDERED: VANCOMYCIN 750 MG ADD-VANTAGE VIAL IV ONE (01:55)
[2016-04-23] MEDS ORDERED: NS IV 500 ML 500 ML ONE (01:55)
[2016-04-23] MEDS: RT-ALBUTEROL/IPRATROPIUM 3 ML (DUONEB) VIAL INH SCH ×6 (02:42→23:03)
--- NOTE | 2016-04-23 04:40 | ED Cough/URI ---
General Chief Complaint: Cough/Cold/Flu Symptoms Stated Complaint: PNEUMONIA WITH HYPOXIA,COPD,CHRONIC RENAL FAILURE Nursing Triage Note: pt c/o cough, chest congestion since wednesday night. increased soa with vision changes today. vision blurry starting this approx 0830 this morning. Source: patient History of Present Illness Time seen by provider: 19:03 Initial Comments PT ARRIVES VIA POV FROM HOME C/O PRODUCTIVE COUGH-CLEAR SPUTUM, CHEST CONGESTION AND FEVER 99-100 SINCE WEDNESDAY NIGHT 04/19/16 NO CHEST PAIN HAS HAD MILD SHORTNESS OF BREATH USED INHALER AROUND 1700 --NO IMPROVEMENT PT WAS ADMITTED HERE FOR PNEUMONIA AND DISMISSED 03/10/16, WAS DOING FINE UNTIL A FEW DAYS AGO IS ILL WITH SAME PCP: GOES TO [place] IN FOR ALL MEDICAL CARE Allergies and Home Medications Allergies Coded Allergies: lisinopril (Verified Allergy, Unknown, 09/22/15) sildenafil (Verified Allergy, Unknown, 09/22/15) Home Medications Aspirin 81 Mg Tablet.dr 81 MG PO DAILY (Reported) Atorvastatin Calcium 80 Mg Tablet 40 MG PO HS (Reported) TAKES 1/2 (80MG) TABLET Furosemide 40 Mg Tablet 40 MG PO DAILY PRN PRN SWELLING (Reported) Gabapentin 300 Mg Capsule 600 MG PO TID (Reported) TAKES 2 (300MG) CAPSULES Glipizide 10 Mg Tablet 20 MG PO BID (Reported) TAKES 2 (10MG) TABLETS Hydrocodone/Acetaminophen 1 Each Tablet 1 TAB PO BID PRN PRN PAIN (Reported) Insulin Aspart 100 Unit/1 Ml Susp 5-10 UNIT SQ AC PRN PRN BS ABOVE 160 (Reported ) Losartan Potassium 100 Mg Tablet 50 MG PO DAILY (Reported) TAKES 1/2 (100MG) TABLET Meloxicam 7.5 Mg Tablet 7.5 MG PO DAILY (Reported) Metformin HCl 500 Mg Tab.er.24 2,000 MG PO 1700 (Reported) TAKES 4 (500MG) TABLETS BEFORE SUPPER Mineral Oil/Petrolatum,White 3.5 Gm Oint...g. OD HS (Reported) APPLY 1/2 INCH RIBBON Multivitamin 1 Each Tablet 1 TAB PO DAILY (Reported) Olodaterol HCl 4 Gm Mist.inhal 2 PUFF IH DAILY (Reported) [place] 3 Polyunsat Fatty Acids 1,000 Mg Cap 1,000 MG PO HS (Reported) [place] 3 Polyunsat Fatty Acids 1,000 Mg Cap 2,000 MG PO DAILY (Reported) TAKES 2 (1000MG) CAPSULES IN THE MORNING Polyvinyl Alcohol/Povidone 15 Ml Drops 2 DROPS OD Q4H PRN PRN DRY EYES (Reported ) Potassium Gluconate 99 Mg Tablet 99 MG PO DAILY PRN PRN WHEN TAKING FUROSEMIDE ( Reported) Primidone 250 Mg Tablet 250 MG PO HS (Reported) Sertraline HCl 100 Mg Tablet 100 MG PO DAILY (Reported) Constitutional: see HPI fever EENTM: nose congestion see HPI Respiratory: see HPI cough short of breathNo wheezing Cardiovascular: no symptoms reportedNo chest pain, No edema, No palpitations, No syncope Gastrointestinal: no symptoms reported Genitourinary: no symptoms reported Musculoskeletal: no symptoms reported Skin: no symptoms reported Psychiatric/Neurological: No Symptoms Reported Hematologic/Lymphatic: No Symptoms Reported Immunological/Allergic: no symptoms reported Past Fhsyepg-Ynxfvs-Bhzlem Hx Patient Social History Alcohol Use: Denies Use Recreational Drug Use: No Smoking Status: Former Smoker Type Used: Cigarettes Former Smoker/When Quit: Jun 19, 1992 Recent Foreign Travel: No Contact w/Someone Who Travel: No Recent Infectious Disease Expo: No Recent Hopitalizations: Yes (PNEUMONIA 03/2016) Physical Abuse Screen: No Sexual Abuse: No Immunizations Up To Date Tetanus Booster (TDap): Unknown Date of Pneumonia Vaccine: Mar 08, 2014 Date of Influenza Vaccine: Dec 03, 2015 Seasonal Allergies Seasonal Allergies: No Surgeries HX Surgeries: Yes (HERNIA) Surgeries: Abdominal, Tonsillectomy Respiratory Hx Respiratory Disorders: Yes Respiratory Disorders: Pneumonia, Sleep Apnea, COPD, Emphysema Cardiovascular Hx Cardiac Disorders: Yes Cardiac Disorders: High Cholesterol, Hypertension Neurological Hx Neurological Disorders: Yes ([place] WITH PERMANENT RIGHT FACIAL DROOP) Reproductive System Hx Reproductive Disorders: No Sexually Transmitted Disease: No HIV/AIDS: No Genitourinary Hx Genitourinary Disorders: No Gastrointestinal Hx Gastrointestinal Disorders: Yes Gastrointestinal Disorders: Abdominal Hernia Musculoskeletal Hx Musculoskeletal Disorders: Yes ("EPIDURAL FOR L3-L4 DEGENERATION"; NECK PAIN) Musculoskeletal Disorders: Degenerate Disk Disease, Arthritis, Chronic Back Pain Endocrine Hx Endocrine Disorders: Yes (OBESITY) Endocrine Disorders: Diabetes, Insulin dep, Diabetes, Non-Insulin dep HEENT HX ENT Disorders: No Cancer Hx Cancer: No Psychosocial Hx Psychiatric Problems: Yes Behavioral Health Disorders: Depression Integumentary HX Skin/Integumentary Disorder: No Blood Transfusions Hx Blood Disorders: Yes (ANEMIA) Adverse Reaction to a Blood Tr: No Family Medical History Family Medial History: Arthritis 19 MOTHER Cataracts 19 MOTHER Deafness or hearing loss G8 BROTHER Diabetes mellitus 19 MOTHER Visual disorder 19 MOTHER Physical Exam Vital Signs Vital Sign - Last 12Hours 04/22/16 18:42 Temp 101.9 Pulse 99 Resp 24 B/P 116/56 Pulse Ox 93 O2 Delivery Nasal Cannula O2 Flow Rate 4 Capillary Refill : Less Than 3 Seconds General Appearance: WD/WN no apparent distress obese HEENT: PERRL/EOMI other (RIGHT FACIAL DROOP WITH ECTROPIC LOWER LID) Neck: normal inspection Respiratory: no accessory muscle use rales rhonchi wheezing other (AUDIBLE WHEEZING AND RHONCHI AT BEDSIDE; MILDLY DYSNPEIC) Cardiovascular: regular rate, rhythm no murmur Gastrointestinal: non tender soft Extremities: normal inspection no pedal edema Neurologic/Psychiatric: no motor/sensory deficits (EXCEPT CHRONIC RIGHT FACIAL DROOP) alert normal mood/affect oriented x 3 Skin: normal color warm/dry Progress/Results/Core Measures Results/Orders Lab Results Laboratory Tests Test 04/22/16 18:57 Range/Units Activated Partial Thromboplast Time 37 H 24-35 SEC Alanine Aminotransferase (ALT/SGPT) 16 0-55 U/L Albumin 3.5 3.2-4.5 G/DL Alkaline Phosphatase 44 40-136 U/L Anion Gap 16 H 5-14 MMOL/L Aspartate Amino Transf (AST/SGOT) 23 5-34 U/L B-Type Natriuretic Peptide 153.6 H <100.0 PG/ML BUN/Creatinine Ratio 18 Band Neutrophils 45 % Basophils # (Auto) 0.0 0.0-0.1 10^3/uL Basophils % (Manual) 0 % Basophils (%) (Auto) 0 0-10 % Blood Morphology Comment NORMAL Blood Urea Nitrogen 40 H 7-18 MG/DL Calcium Level 8.6 8.5-10.1 MG/DL Carbon Dioxide Level 20 L 21-32 MMOL/L Chloride Level 96 L 98-107 MMOL/L Creatinine 2.27 H 0.60-1.30 MG/DL Dohle Bodies MODERATE Eosinophils # (Auto) 0.0 0.0-0.3 10^3/uL Eosinophils % (Manual) 0 % Eosinophils (%) (Auto) 0 0-10 % Estimat Glomerular Filtration Rate 28 Glucose Level 370 H 70-105 MG/DL Hematocrit 30 L 40-54 % Hemoglobin 9.9 L 13.3-17.7 G/DL INR Comment 1.1 0.8-1.4 Lactic Acid Level 3.0 *H 0.5-2.0 MMOL/L Lymphocytes # (Auto) 0.9 L 1.0-4.0 X 10^3 Lymphocytes % (Manual) 9 % Lymphocytes (%) (Auto) 8 L 12-44 % Mean Corpuscular Hemoglobin 27 25-34 PG Mean Corpuscular Hemoglobin Concent 33 32-36 G/DL Mean Corpuscular Volume 83 80-99 FL Mean Platelet Volume 11.7 H 7.4-10.4 FL Monocytes # (Auto) 1.7 H 0.0-1.0 X 10^3 Monocytes % (Manual) 13 % Monocytes (%) (Auto) 15 H 0-12 % Neutrophils # (Auto) 9.2 H 1.8-7.8 X 10^3 Neutrophils % (Manual) 33 % Neutrophils (%) (Auto) 78 H 42-75 % Platelet Count 95 L 130-400 10^3/uL Potassium Level 5.0 3.6-5.0 MMOL/L Prothrombin Time 14.3 12.2-14.7 SEC Red Blood Count 3.62 L 4.35-5.85 10^6/uL Red Cell Distribution Width 16.4 H 10.0-14.5 % Sodium Level 132 L 135-145 MMOL/L Total Bilirubin 0.4 0.1-1.0 MG/DL Total Protein 7.3 6.4-8.2 G/DL Toxic Granulation 2+ Troponin I < 0.30 <0.30 NG/ML White Blood Count 11.9 H 4.3-11.0 10^3/uL Micro Results Microbiology 04/22/16 Influenza Types A,B Antigen (BALJINDER) - Final, Complete My Orders Orders-KATIE CARLIN DO Saline Lock/Iv-Start (04/22/16 19:06) O2 (04/22/16 19:06) Monitor-Rhythm Ecg Trace Only (04/22/16 19:06) BNP (04/22/16 19:06) Cbc With Automated Diff (04/22/16 19:06) Comprehensive Metabolic Panel (04/22/16 19:06) Lactic Acid Analyzer (04/22/16 19:06) Protime With Inr (04/22/16 19:06) Partial Thromboplastin Time (04/22/16 19:06) Troponin I (04/22/16 19:06) Blood Culture (04/22/16 19:06) Influenza A And B Antigens (04/22/16 19:06) Chest 1 View, Ap/Pa Only (04/22/16 19:06) Albuterol/Ipra Inhalation Soln (Duoneb I (04/22/16 19:15) Rt Request For Service (04/22/16 19:06) Svn Sm Volume Nebulizer Rt-Rfs (04/22/16 19:06) Manual Differential (04/22/16 18:57) Medications Given in ED Current Medications Medications Dose Ordered Sig/Ana Route Start Time Stop Time Status Last Admin Dose Admin Albuterol/ Ipratropium 3 ml ONCE ONCE INH 04/22/16 19:15 04/22/16 19:16 DC 04/22/16 20:30 3 ML Vital Signs/I&O Vital Sign - Last 12Hours 04/22/16 04/22/16 04/22/16 18:42 18:42 18:45 Temp 101.9 Pulse 99 Resp 24 B/P 116/56 Pulse Ox 93 94 O2 Delivery Nasal Cannula Nasal Cannula Nasal Cannula O2 Flow Rate 4 3 4 Blood Pressure Mean: 72 Progress Note : Progress Note O2 SATS 80% ON ARRIVAL, UP TO 92% ON 4L/NC LUNG SOUNDS IMPROVED WITH NEB TREATMENT AND COUGHING NO DETERIORATION IN PT'S CONDITION DURING ER STAY Diagnostic Imaging Comments CXR--LLL ATELECTASIS/INFILTRATE--PER RADIOLOGIST REPORT Reviewed: Reviewed by Me Departure Communication Progress Notes 1949--SPOKE WITH DR. GEORGE, ACCEPTS PT FOR ADMIT. Impression Impression: Primary Impression: LLL pneumonia Additional Impressions: Hypoxia Acute renal failure Chronic anemia Diabetes mellitus, insulin dependent (IDDM), uncontrolled Disposition: 09 ADMITTED INPATIENT Condition: Improved Decision to Admit Reason: Admit from ER (General) Decision to Admit/Date: Apr 22, 2016 Time/Decision to Admit Time: 19:50 Departure-Patient Inst. Referrals: NO,LOCAL PHYSICIAN (PCP) Primary Care Physician KATIE CARLIN DO Apr 23, 2016 04:40
[2016-04-23] MEDS: methylPREDNISolone 125 MG (Solu-MEDROL) VIAL IV SCH ×2 (04:47→12:51)
[2016-04-23 05:20] LABS: BASOPHILS % (AUTO) 0 % (0-10); EOSINOPHILS % (AUTO) 0 % (0-10); LYMPHOCYTES # (AUTO) 0.8 X 10^3 (1.0-4.0); LYMPHOCYTES % (AUTO) 6 % (12-44); MEAN CORPUSCULAR HEMOGLOBIN 27 PG (25-34); MEAN CORPUSCULAR HGB CONC 33 G/DL (32-36); MEAN CORPUSCULAR VOLUME 83 FL (80-99); MEAN PLATELET VOLUME 12.3 FL (7.4-10.4); MONOCYTES # (AUTO) 1.2 X 10^3 (0.0-1.0); MONOCYTES % (AUTO) 9 % (0-12); NEUTROPHILS # (AUTO) 11.7 X 10^3 (1.8-7.8); NEUTROPHILS % (AUTO) 86 % (42-75); PLATELET COUNT 82 10^3/uL (130-400); RED BLOOD COUNT 3.45 10^6/uL (4.35-5.85); RED CELL DISTRIBUTION WIDTH 16.5 % (10.0-14.5); WHITE BLOOD COUNT 13.7 10^3/uL (4.3-11.0)
[2016-04-23 05:41] LABS: ALBUMIN 3.3 G/DL (3.2-4.5); BILIRUBIN,TOTAL 0.2 MG/DL (0.1-1.0); CALCIUM 8.2 MG/DL (8.5-10.1); CREATININE SERUM 1.88 MG/DL (0.60-1.30); POTASSIUM 5.5 MMOL/L (3.6-5.0); TOTAL PROTEIN 6.9 G/DL (6.4-8.2)
[2016-04-23] MEDS: inSUlin (REGULAR) HUMAN 1 UNIT/0.01 ML (CHARGE PER UNIT) SC SCH ×4 (05:51→23:10)
--- NOTE | 2016-04-23 08:29 | Pulmonary Consultation ---
History of Present Illness History of Present Illness Date of Consultation 04/23/16 08:23 Date of Admission History of Present Illness 81yo with recent hospitalization discharged on 03/10/16 presents secondary to worsening SOB and chest congestion that started on wednesday. Home INH has not helped. He has had prior episodes like this. PT was running fever of 101.8 upon admission. Influenza is negative. I am consulted for ICU management. Allergies and Home Medications Allergies Coded Allergies: lisinopril (Verified Allergy, Unknown, 09/22/15) sildenafil (Verified Allergy, Unknown, 09/22/15) Home Medications Aspirin 81 Mg Tablet.dr 81 MG PO DAILY (Reported) Atorvastatin Calcium 80 Mg Tablet 40 MG PO HS (Reported) TAKES 1/2 (80MG) TABLET Furosemide 40 Mg Tablet 40 MG PO DAILY PRN PRN SWELLING (Reported) Gabapentin 300 Mg Capsule 600 MG PO TID (Reported) TAKES 2 (300MG) CAPSULES Glipizide 10 Mg Tablet 20 MG PO BID (Reported) TAKES 2 (10MG) TABLETS Hydrocodone/Acetaminophen 1 Each Tablet #15 1 TAB PO BID PRN PRN PAIN Prescribed by: BRENDEN GEORGE on 04/27/16 0945 Insulin Aspart 100 Unit/1 Ml Susp 5-10 UNIT SQ AC PRN PRN BS ABOVE 160 (Reported ) Levofloxacin 500 Mg Tablet #2 500 MG PO DAILY Prescribed by: BRENDEN GEORGE on 04/27/16 0945 Losartan Potassium 100 Mg Tablet 50 MG PO DAILY (Reported) TAKES 1/2 (100MG) TABLET Meloxicam 7.5 Mg Tablet 7.5 MG PO DAILY (Reported) Metformin HCl 500 Mg Tab.er.24 2,000 MG PO 1700 (Reported) TAKES 4 (500MG) TABLETS BEFORE SUPPER Mineral Oil/Petrolatum,White 3.5 Gm Oint...g. OD HS (Reported) APPLY 1/2 INCH RIBBON Multivitamin 1 Each Tablet 1 TAB PO DAILY (Reported) Olodaterol HCl 4 Gm Mist.inhal 1 PUFF IH BID (Reported) [place] 3 Polyunsat Fatty Acids 1,000 Mg Cap 1,000 MG PO HS (Reported) [place] 3 Polyunsat Fatty Acids 1,000 Mg Cap 2,000 MG PO DAILY (Reported) TAKES 2 (1000MG) CAPSULES IN THE MORNING Polyvinyl Alcohol/Povidone 15 Ml Drops 2 DROPS OU Q4H PRN PRN DRY EYES (Reported ) Potassium Gluconate 99 Mg Tablet 99 MG PO DAILY PRN PRN WHEN TAKING FUROSEMIDE ( Reported) Primidone 250 Mg Tablet 250 MG PO HS (Reported) Sertraline HCl 100 Mg Tablet 100 MG PO DAILY (Reported) Past Dstbkmp-Gfobzv-Nwkbxf Hx Patient Social History Alcohol Use: Denies Use Recreational Drug Use: No Smoking Status: Former Smoker Type Used: Cigarettes Former Smoker/When Quit: Jun 19, 1992 Recent Foreign Travel: No Contact w/Someone Who Travel: No Recent Infectious Disease Expo: No Recent Hopitalizations: Yes (PNEUMONIA 03/2016) Physical Abuse Screen: No Sexual Abuse: No Immunizations Up To Date Tetanus Booster (TDap): Unknown Date of Pneumonia Vaccine: Mar 08, 2014 Date of Influenza Vaccine: Dec 03, 2015 Seasonal Allergies Seasonal Allergies: No Surgeries HX Surgeries: Yes (HERNIA) Surgeries: Abdominal, Tonsillectomy Respiratory Hx Respiratory Disorders: Yes Respiratory Disorders: Pneumonia, Sleep Apnea, COPD, Emphysema Cardiovascular Hx Cardiac Disorders: Yes Cardiac Disorders: High Cholesterol, Hypertension Neurological Hx Neurological Disorders: Yes ([place] WITH PERMANENT RIGHT FACIAL DROOP) Reproductive System Hx Reproductive Disorders: No Sexually Transmitted Disease: No HIV/AIDS: No Genitourinary Hx Genitourinary Disorders: No Gastrointestinal Hx Gastrointestinal Disorders: Yes Gastrointestinal Disorders: Abdominal Hernia Musculoskeletal Hx Musculoskeletal Disorders: Yes ("EPIDURAL FOR L3-L4 DEGENERATION"; NECK PAIN) Musculoskeletal Disorders: Degenerate Disk Disease, Arthritis, Chronic Back Pain Endocrine Hx Endocrine Disorders: Yes (OBESITY) Endocrine Disorders: Diabetes, Insulin dep, Diabetes, Non-Insulin dep HEENT HX ENT Disorders: No Cancer Hx Cancer: No Psychosocial Hx Psychiatric Problems: Yes Behavioral Health Disorders: Depression Integumentary HX Skin/Integumentary Disorder: No Blood Transfusions Hx Blood Disorders: Yes (ANEMIA) Adverse Reaction to a Blood Tr: No Family Medical History Family Medial History: Arthritis 19 MOTHER Cataracts 19 MOTHER Deafness or hearing loss G8 BROTHER Diabetes mellitus 19 MOTHER Visual disorder 19 MOTHER Review of Systems Constitutional: : Fever: Malaise: Weakness Eyes: No: Conjunctivae inflammation, Eyelid inflammation, Other, Pain, Redness , Vision change Respiratory: : Cough: SOB with excertion: Shortness of breath: Sputum Neurological: : Weakness Exam Exam Vital Signs Date Time Temp Pulse Resp B/P Pulse Ox O2 Delivery O2 Flow Rate FiO2 04/23/16 07:00 74 04/23/16 06:44 95 8.00 04/23/16 04:00 97.7 79 18 110/55 94 NIV/CPAP 6.00 04/23/16 02:42 94 8.00 04/23/16 02:00 97.1 78 18 108/55 91 NIV/CPAP 6.00 04/23/16 01:00 78 04/23/16 00:00 98.1 84 16 104/53 90 NIV/CPAP 6.00 04/22/16 23:18 91 3.00 04/22/16 21:49 93 5.00 04/22/16 21:44 93 04/22/16 21:22 94 Nasal Cannula 3.00 04/22/16 21:20 101.0 85 18 119/55 91 Nasal Cannula 1.50 04/22/16 21:15 Nasal Cannula 3.00 04/22/16 20:49 87 18 94 4 04/22/16 20:35 90 4.00 04/22/16 18:45 94 Nasal Cannula 4 04/22/16 18:42 101.9 99 24 116/56 93 Nasal Cannula 3 04/22/16 18:42 Nasal Cannula 4 I & O 04/23/16 07:00 Intake Total 400 ml Output Total 350 ml Balance 50 ml General Appearance: No Apparent Distress Anxious Respiratory: Chest Non Tender No Accessory Muscle Use No Respiratory Distress Decreased Breath Sounds Capillary Refill: Less Than 3 Seconds Gastrointestinal: non tender soft Neurologic/Psychiatric: Alert Skin: Normal Color Warm/Dry Results Lab Laboratory Tests 04/22/16 18:57 04/23/16 05:05 Assessment/Plan Assessment/Plan Severe Sepsis with pneumonia -broad spectrum Abx - Influenza is negative Thrombocytopenia and anemia -monitor COPD with hx of tobacco use and home oxygen -SVNs [facility] -He is using his own CPAP machine Morbid obesity Clinical Quality Measures DVT/VTE Risk/Contraindication: Risk Factor Score Per Nursin RFS Level Per Nursing on Admit: 4+=Very High TUSHAR MAHER DO Apr 23, 2016 08:29
--- NOTE | 2016-04-23 10:09 | Diagnostic Imaging Report ---
INDICATION: Respiratory failure Frontal chest obtained at 5:12 AM and compared with 04/22/16. There is cardiomegaly. There is some elevation of the left hemidiaphragm with some left basilar atelectatic change and/or infiltrate. Right lung is grossly clear. There is no pneumothorax. IMPRESSION: Cardiomegaly. Unchanged left basilar infiltrate versus atelectasis with elevation of the left hemidiaphragm. Dictated by: Dictated on workstation # [id number]
--- NOTE | 2016-04-23 10:16 | History & Physical-Hospitalist ---
HPI History of Present Illness: HPI/Chief Complaint CC: Pneumonia HPI: This is 81-year-old white male with a past medical history of severe COPD and recurrent pneumonia with obstructive sleep apnea that presents to the emergency room with shortness of breath and fever. He was found to have pneumonia in this is recurrent type since he was recently hospitalized 6 weeks ago. He was placed on triple antibiotic therapy along with IV steroids and will be monitored closely. His overall decline status is noted and the recurrence of the COPD and other issues preclude anything more than a poor prognosis. He reports that he feels much better and less short of breath since he has been hospitalized last night and we are restarting his home medications. Source: patient Exam Limitations: no limitations Date Seen 04/23/16 Attending Physician Tatum Zheng DO PCP No,Local Physician Referring Physician Date of Admission Apr 22, 2016 at 19:50 Home Medications & Allergies Home Medications Reviewed patient Home Medication Reconciliation Form Allergies Coded Allergies: lisinopril (Verified Allergy, Unknown, 09/22/15) sildenafil (Verified Allergy, Unknown, 09/22/15) Past Twbxttd-Cyaumk-Keidjp Hx Patient Social History Employed/Student: retired Alcohol Use: Denies Use Recreational Drug Use: No Smoking Status: Former Smoker Former smoker/When Quit: Jun 19, 1992 Type Used: Cigarettes Physical Abuse Screen: No Sexual Abuse: No Recent Foreign Travel: No Contact w/other who traveled: No Recent Hopitalizations: Yes (PNEUMONIA 03/2016) Recent Infectious Disease Expo: No Immunizations Up To Date Tetanus Booster (TDap): Unknown Date of Pneumonia Vaccine: Mar 08, 2014 Date of Influenza Vaccine: Dec 03, 2015 Seasonal Allergies Seasonal Allergies: No Surgeries HX Surgeries: Yes (HERNIA) Surgeries: Abdominal, Tonsillectomy Respiratory Hx Respiratory Disorders: Yes Respiratory Disorders: COPD, Emphysema, Pneumonia, Sleep Apnea Cardiovascular Hx Cardiovascular Disorders: Yes Cardiac Disorders: High Cholesterol, Hypertension Neurological Hx Neurological Disorders: Yes ([place] WITH PERMANENT RIGHT FACIAL DROOP) Reproductive System Hx Reproductive Disorders: No Sexually Transmitted Disease: No HIV/AIDS: No Genitourinary Hx Genitourinary Disorders: No Gastrointestinal Hx Gastrointestinal Disorders: Yes Gastrointestinal Disorders: Abdominal Hernia Musculoskeletal Hx Musculoskeletal Disorders: Yes ("EPIDURAL FOR L3-L4 DEGENERATION"; NECK PAIN) Musculoskeletal Disorders: Degenerate Disk Disease, Arthritis, Chronic Back Pain Endocrine Hx Endocrine Disorders: Yes (OBESITY) Endocrine Disorders: Diabetes, Insulin dep, Diabetes, Non-Insulin dep HEENT HX ENT Disorders: No Cancer Hx Cancer: No Psychosocial Hx Psychiatric Problems: Yes Behavioral Health Disorders: Depression Integumentary HX Skin/Integumentary Disorder: No Blood Transfusions Hx Blood Disorders: Yes (ANEMIA) Adverse Reaction to a Blood Tr: No Family Medical History Family Hx: Arthritis 19 MOTHER Cataracts 19 MOTHER Deafness or hearing loss G8 BROTHER Diabetes mellitus 19 MOTHER Visual disorder 19 MOTHER Review of Systems Constitutional: see HPI EENTM: no symptoms reported Respiratory: cough dyspnea on exertion phlegm short of breath wheezing Cardiovascular: no symptoms reported Gastrointestinal: no symptoms reported Genitourinary: no symptoms reported Musculoskeletal: no symptoms reported Skin: no symptoms reported Psychiatric/Neurological: No Symptoms Reported All Other Systems Reviewed Negative Unless Noted: Yes Physical Exam Physical Exam Vital Signs Vital Sign - Last 12Hours 04/22/16 18:42 Temp 101.9 Pulse 99 Resp 24 B/P 116/56 Pulse Ox 93 O2 Delivery Nasal Cannula O2 Flow Rate 4 Capillary Refill : Less Than 3 Seconds General Appearance: No Apparent Distress WD/WN Chronically ill Obese Eyes: Bilateral Eye Normal Inspection, Bilateral Eye PERRL HEENT: PERRL/EOMI Normal ENT Inspection Pharynx Normal Neck: Full Range of Motion Normal Inspection Non Tender Supple Carotid Bruit Respiratory: Chest Non Tender No Accessory Muscle Use No Respiratory Distress Crackles Decreased Breath Sounds Wheezing Cardiovascular: Regular Rate, Rhythm No Edema No Gallop No JVD No Murmur Normal Peripheral Pulses Gastrointestinal: Normal Bowel Sounds No Organomegaly No Pulsatile Mass Non Tender Soft Back: Normal Inspection No CVA Tenderness No Vertebral Tenderness Extremity: Normal Capillary Refill Normal Inspection Normal Range of Motion Non Tender No Calf Tenderness No Pedal Edema Neurologic/Psychiatric: Alert Oriented x3 No Motor/Sensory Deficits Depressed Affect Facial Droop Skin: Normal Color Warm/Dry Lymphatic: No Adenopathy Results Results/Procedures Lab Laboratory Tests 04/22/16 18:57 04/23/16 05:05 Assessment/Plan Admission Diagnosis 1.Likely gram-negative pneumonia. 2.COPD 3.chronic sleep apnea. 4.diabetes mellitus type II Assessment and Plan Plan: IV antibiotics Nebulizers Monitor creatinine Gentle IV fluids due to elevated lactic acid Monitor sugar IV steroids CPAP Clinical Quality Measures DVT/VTE Risk/Contraindication: Risk Factor Score Per Nursin RFS Level Per Nursing on Admit: 4+=Very High TATUM ZHENG DO Apr 23, 2016 10:16
--- NOTE | 2016-04-23 10:48 | Consultation-Cardiology ---
HPI-Cardiology Cardiology Consultation: Date of Consultation 04/23/16 Date of Admission 04-23-16 Attending Physician Tatum George DO Admitting Physician No,Local Physician Consulting Physician Eric Colón MD HPI: Chief Complaint: Reason for consultation: CHF Mr. Rodriguez is a 81 year old male admitted to [facility] with increasing shortness of breath, productive cough, fever and chills which started on Wednesday evening. He reports he has chronic shortness fo breath d/t emphysema, but his breathing was getting progressively worse. He does not report any chest pain, palpitations, syncope or near syncope. No c/o LE edema. He does have So's Palsy which he states was diagnosed in February 2016. Review of Systems-Cardiology Review of Systems Constitutional: As described under HPI Eyes: No blurred vision, No drainage, No pain, No vision change Ears/Nose/Throat: No ear discharge, No ear pain, No nasal drainage, No ulcerations Respiratory: As described under HPI Cardiovascular: As described under HPI Gastrointestinal: No constipation, No diarrhea, No nausea, No vomiting, No stool coloration changes Genitourinary: No dysuria, No discharge, No frequency, No hematuria, No urgency Skin: No rash, No skin related problems, No ulcerations Psychiatric/Neurological: other (Right sided facial d/t Barton' Palsy)No anxiety, No depression, No focal weakness, No seizure, No syncope Hematologic: No bleeding abnormalities CUD-Fqacdo-Vnrgtl Hx Patient Social History Alcohol Use: Denies Use Recreational Drug Use: No Smoking Status: Former Smoker Former smoker/When Quit: Jun 19, 1992 Type Used: Cigarettes Recent Foreign Travel: No Recent Infectious Disease Expo: No Hospitalization with Isolation: Denies Physical Abuse Screen: No Sexual Abuse: No Immunizations Up To Date Tetanus Booster (TDap): Unknown Date of Pneumonia Vaccine: Mar 08, 2014 Date of Influenza Vaccine: Dec 03, 2015 Past Medical History PMH As described under Assessment. Family Medical History Family Medical History: No reported family h/o CAD and SCD. Family History: 19 MOTHER Arthritis Cataracts Diabetes mellitus Visual disorder G8 BROTHER Deafness or hearing loss Allergies and Home Medications Allergies Coded Allergies: lisinopril (Verified Allergy, Unknown, 09/22/15) sildenafil (Verified Allergy, Unknown, 09/22/15) Home Medications Aspirin 81 Mg Tablet.dr 81 MG PO DAILY (Reported) Atorvastatin Calcium 80 Mg Tablet 40 MG PO HS (Reported) TAKES 1/2 (80MG) TABLET Furosemide 40 Mg Tablet 40 MG PO DAILY PRN PRN SWELLING (Reported) Gabapentin 300 Mg Capsule 600 MG PO TID (Reported) TAKES 2 (300MG) CAPSULES Glipizide 10 Mg Tablet 20 MG PO BID (Reported) TAKES 2 (10MG) TABLETS Hydrocodone/Acetaminophen 1 Each Tablet 1 TAB PO BID PRN PRN PAIN (Reported) Insulin Aspart 100 Unit/1 Ml Susp 5-10 UNIT SQ AC PRN PRN BS ABOVE 160 (Reported ) Losartan Potassium 100 Mg Tablet 50 MG PO DAILY (Reported) TAKES 1/2 (100MG) TABLET Meloxicam 7.5 Mg Tablet 7.5 MG PO DAILY (Reported) Metformin HCl 500 Mg Tab.er.24 2,000 MG PO 1700 (Reported) TAKES 4 (500MG) TABLETS BEFORE SUPPER Mineral Oil/Petrolatum,White 3.5 Gm Oint...g. OD HS (Reported) APPLY 1/2 INCH RIBBON Multivitamin 1 Each Tablet 1 TAB PO DAILY (Reported) Olodaterol HCl 4 Gm Mist.inhal 1 PUFF IH BID (Reported) [place] 3 Polyunsat Fatty Acids 1,000 Mg Cap 1,000 MG PO HS (Reported) [place] 3 Polyunsat Fatty Acids 1,000 Mg Cap 2,000 MG PO DAILY (Reported) TAKES 2 (1000MG) CAPSULES IN THE MORNING Polyvinyl Alcohol/Povidone 15 Ml Drops 2 DROPS OU Q4H PRN PRN DRY EYES (Reported ) Potassium Gluconate 99 Mg Tablet 99 MG PO DAILY PRN PRN WHEN TAKING FUROSEMIDE ( Reported) Primidone 250 Mg Tablet 250 MG PO HS (Reported) Sertraline HCl 100 Mg Tablet 100 MG PO DAILY (Reported) Physical Exam-Cardiology Physical Exam Vital Signs/I&O Vital Sign - Last 12Hours 04/23/16 04/23/16 04/23/16 04/23/16 00:00 01:00 02:00 02:42 Temp 98.1 97.1 Pulse 84 78 78 Resp 16 18 B/P 104/53 108/55 Pulse Ox 90 91 94 O2 Delivery NIV/CPAP NIV/CPAP O2 Flow Rate 6.00 6.00 8.00 04/23/16 04/23/16 04/23/16 04/23/16 04:00 06:44 07:00 08:00 Temp 97.7 98.0 Pulse 79 74 85 Resp 18 18 B/P 110/55 129/60 Pulse Ox 94 95 90 O2 Delivery NIV/CPAP Nasal Cannula O2 Flow Rate 6.00 8.00 3.00 04/23/16 09:39 Pulse Ox 93 O2 Flow Rate 4.00 Intake and Output 04/23/16 00:00 Intake Total 100 ml Balance 100 ml Capillary Refill : Less Than 3 Seconds Constitutional: appears stated ageNo apparent distress, well-developed well- nourished HEENT: other (Right sided facial paralysis with right lower eyelid eversion) No discharge, hearing is well preserved oral hygience is goodNo ulceration, No xanthelasmas are seen Neck: No carotid bruit, carotid pulses are 2 + bilaterally Respiratory: accessory muscle use respiratory distress chest expansion is symmetric chest is bilaterally symmetric wheezing (exp) other (good air entry) Cardiovascular: regular rate-rhythmNo JVD, S1 and S2 systolic murmur Gastrointestinal: No tender, soft round audible bowel soundsNo spleenomegaly Extremities: No clubbing, No cyanosis, significant edema (mild bilat LE edema) Neurologic/Psychiatric: alert oriented x 3 power is 5/5 both on sides Skin: No rash, No ulcerations Data Review Labs Laboratory Tests 04/22/16 18:57: Activated Partial Thromboplast Time 37H, Alanine Aminotransferase (ALT/SGPT) 16 , Albumin 3.5, Alkaline Phosphatase 44, Anion Gap 16H, Aspartate Amino Transf ( AST/SGOT) 23, B-Type Natriuretic Peptide 153.6H, BUN/Creatinine Ratio 18, Band Neutrophils 45, Basophils # (Auto) 0.0, Basophils % (Manual) 0, Basophils (%) ( Auto) 0, Blood Morphology Comment NORMAL, Blood Urea Nitrogen 40H, Calcium Level 8.6, Carbon Dioxide Level 20L, Chloride Level 96L, Creatinine 2.27H, Dohle Bodies MODERATE, Eosinophils # (Auto) 0.0, Eosinophils % (Manual) 0, Eosinophils (%) (Auto) 0, Estimat Glomerular Filtration Rate 28, Glucose Level 370H, Hematocrit 30L, Hemoglobin 9.9L, INR Comment 1.1, Lactic Acid Level 3.0*H , Lymphocytes # (Auto) 0.9L, Lymphocytes % (Manual) 9, Lymphocytes (%) (Auto) 8L , Mean Corpuscular Hemoglobin 27, Mean Corpuscular Hemoglobin Concent 33, Mean Corpuscular Volume 83, Mean Platelet Volume 11.7H, Monocytes # (Auto) 1.7H, Monocytes % (Manual) 13, Monocytes (%) (Auto) 15H, Neutrophils # (Auto) 9.2H, Neutrophils % (Manual) 33, Neutrophils (%) (Auto) 78H, Platelet Count 95L, Potassium Level 5.0, Prothrombin Time 14.3, Red Blood Count 3.62L, Red Cell Distribution Width 16.4H, Sodium Level 132L, Total Bilirubin 0.4, Total Protein 7.3, Toxic Granulation 2+, Troponin I < 0.30, White Blood Count 11.9H 04/22/16 21:06: Lactic Acid Level 2.1*H 04/22/16 21:29: Glucometer 347H 04/23/16 05:05: Alanine Aminotransferase (ALT/SGPT) 16, Albumin 3.3, Alkaline Phosphatase 43, Anion Gap 12, Aspartate Amino Transf (AST/SGOT) 20, BUN/Creatinine Ratio 26, Basophils # (Auto) 0.0, Basophils (%) (Auto) 0, Blood Urea Nitrogen 48H, Calcium Level 8.2L, Carbon Dioxide Level 20L, Chloride Level 101, Creatinine 1.88H, Eosinophils # (Auto) 0.0, Eosinophils (%) (Auto) 0, Estimat Glomerular Filtration Rate 35, Glucose Level 382H, Hematocrit 29L, Hemoglobin 9.3L, Lymphocytes # (Auto) 0.8L, Lymphocytes (%) (Auto) 6L, Mean Corpuscular Hemoglobin 27, Mean Corpuscular Hemoglobin Concent 33, Mean Corpuscular Volume 83, Mean Platelet Volume 12.3H, Monocytes # (Auto) 1.2H, Monocytes (%) (Auto) 9 , Neutrophils # (Auto) 11.7H, Neutrophils (%) (Auto) 86H, Platelet Count 82L, Potassium Level 5.5H, Red Blood Count 3.45L, Red Cell Distribution Width 16.5H, Sodium Level 133L, Total Bilirubin 0.2, Total Protein 6.9, White Blood Count 13.7H Microbiology 04/22/16 Influenza Types A,B Antigen (BALJINDER) - Final, Complete Radiology NAME: EMMANUELLE RODRIGUEZ [facility] REC#: [id number] PT STATUS: ADM IN : 1935 PHYSICIAN: TATUM GEORGE DO ADMIT DATE: 04/22/16 Signed Date of Exam: 04/23/16 CHEST 1 VIEW, AP/PA ONLY INDICATION: Respiratory failure Frontal chest obtained at 5:12 AM and compared with 04/22/16. There is cardiomegaly. There is some elevation of the left hemidiaphragm with some left basilar atelectatic change and/or infiltrate. Right lung is grossly clear. There is no pneumothorax. IMPRESSION: Cardiomegaly. Unchanged left basilar infiltrate versus atelectasis with elevation of the left hemidiaphragm. 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 We advise repeat echocardiogram with definity because echocardiogram in February 2016 has suboptimal images. We will treat with IV Lasix. D/t hyperkalemia we will hold off on replacement potassium and repeat lab. He has a h/o CRIF. Monitor renal function closely. D/t risk factors as listed above along with new onset of CHF we advise MPI to evaluate coronary status. We will do this tomorrow. We have discussed all of this with him in detail and he is agreeable. Follow lab closely. Thrombocytopenia and anemia to be managed by medical services. Further recommendations will be based on his hospital course. We would like to thank Dr. George for this consult. This consult is being scribed by Jerrod Diaz APRN on behalf of Dr. Colón after physical examination and discussion regarding plan of care Clinical Quality Measures DVT/VTE Risk/Contraindication: Risk Factor Score Per Nursin RFS Level Per Nursing on Admit: 4+=Very High Physician Assessment Physician Assessment Lungs: dec bs at bases Cor: reg A&R * As documented in our note above * I had a detailed discussion with him regarding his CV issues and our diagnostic and management plan * Diuretic therapy is being initiated. Given acute renal failure, iv fluids are also advised * A cardiac work up is being initiated * Close f/u on lab work is advised JASMYN DIAZ Apr 23, 2016 10:48 ERIC COLÓN MD FACP FAC CCDS Apr 23, 2016 11:40 JASMYN DIAZ Apr 23, 2016 10:48
[2016-04-23] MEDS: NS IV 1000 ML 1,000 ML IV SCH ×2 (11:32→13:26)
[2016-04-23] MEDS ORDERED: POTASSIUM GLUCONATE 595 MG PO PRN (12:00)
[2016-04-23] MEDS ORDERED: FUROSEMIDE 40 MG (LASIX) TAB PO PRN (12:00)
[2016-04-23] MEDS ORDERED: HYDROcodone/APAP 7.5 MG/325 MG (LORTAB, LORCET PLUS) TABLET PO PRN (12:00)
[2016-04-23] MEDS ORDERED: ARTIFICAL TEARS 0.4 ML UNIT DOSE (REFRESH PLUS) OU PRN (12:15)
[2016-04-23] MEDS ORDERED: GABAPENTIN 600 MG (NEURONTIN) TAB PO SCH (13:00)
[2016-04-23] MEDS ORDERED: glipiZIDE 5 MG (GLUCOTROL) TAB PO SCH (16:00)
[2016-04-23] MEDS ORDERED: PATIENT MAY USE OWN MEDS, ALL MC SCH (17:15)
[2016-04-23] MEDS ORDERED: LEVOFLOXACIN 750 MG/150 ML D5W (PRE-MIX) IV SCH (21:00)
[2016-04-23] MEDS: GABAPENTIN 300 MG (NEURONTIN) CAP PO SCH (22:24)
[2016-04-23] MEDS: GLIPIZIDE 10 MG TAB PO SCH (22:26)
[2016-04-23] MEDS: ATORVASTATIN 80 MG (LIPITOR) TABLET PO SCH (22:28)
[2016-04-23] MEDS: PRIMIDONE 250MG (MYSOLINE) TAB PO SCH (22:29)
[2016-04-23] MEDS: OMEGA 3 (FISH OIL) 1000 MG CAP PO SCH ×2 (22:30→22:33)
[2016-04-24 00:53] VITALS: BP 133/63
[2016-04-24] MEDS ORDERED: VANCOMYCIN 1250 MG/NS 250 ML IVPB IV SCH ×2 (01:00)
[2016-04-24] MEDS: NS IV 1000 ML 1,000 ML IV SCH (02:42)
[2016-04-24] MEDS: RT-ALBUTEROL/IPRATROPIUM 3 ML (DUONEB) VIAL INH SCH ×6 (02:58→22:16)
[2016-04-24 04:00] VITALS: BP 140/65
[2016-04-24] MEDS: OLODATEROL IH SCH ×3 (05:56→18:57)
[2016-04-24] MEDS: MULTIVIT W/MINERALS TAB (THERAGRAN M) PO SCH ×2 (06:02→10:21)
[2016-04-24] MEDS: GLIPIZIDE 10 MG TAB PO SCH ×3 (06:02→17:10)
[2016-04-24] MEDS: inSUlin (REGULAR) HUMAN 1 UNIT/0.01 ML (CHARGE PER UNIT) SC SCH ×4 (06:03→22:03)
[2016-04-24 06:32] LABS: BASOPHILS % (AUTO) 0 % (0-10); EOSINOPHILS % (AUTO) 0 % (0-10); LYMPHOCYTES # (AUTO) 0.8 X 10^3 (1.0-4.0); LYMPHOCYTES % (AUTO) 6 % (12-44); MEAN CORPUSCULAR HEMOGLOBIN 27 PG (25-34); MEAN CORPUSCULAR HGB CONC 33 G/DL (32-36); MEAN CORPUSCULAR VOLUME 82 FL (80-99); MEAN PLATELET VOLUME 11.7 FL (7.4-10.4); MONOCYTES # (AUTO) 0.6 X 10^3 (0.0-1.0); MONOCYTES % (AUTO) 5 % (0-12); NEUTROPHILS # (AUTO) 10.3 X 10^3 (1.8-7.8); NEUTROPHILS % (AUTO) 88 % (42-75); PLATELET COUNT 82 10^3/uL (130-400); RED BLOOD COUNT 3.34 10^6/uL (4.35-5.85); RED CELL DISTRIBUTION WIDTH 16.7 % (10.0-14.5); WHITE BLOOD COUNT 11.6 10^3/uL (4.3-11.0)
[2016-04-24] MEDS ORDERED: OMEGA 3 (FISH OIL) 1000 MG CAP PO SCH (07:00)
[2016-04-24] MEDS ORDERED: MULTIVIT W/MINERALS TAB (THERAGRAN M) PO SCH (07:00)
[2016-04-24 07:09] LABS: ALANINE AMINOTRANSFERASE 17 U/L (0-55); ALBUMIN 3.3 G/DL (3.2-4.5); ANION GAP 11 MMOL/L (5-14); ASPARTATE AMINO TRANSFERASE 25 U/L (5-34); BILIRUBIN,TOTAL 0.2 MG/DL (0.1-1.0); BLOOD UREA NITROGEN 33 MG/DL (7-18); BUN/CREATININE RATIO 33; CALCIUM 8.1 MG/DL (8.5-10.1); CARBON DIOXIDE 21 MMOL/L (21-32); CHLORIDE 103 MMOL/L (98-107); CHOLESTEROL 118 MG/DL (< 200); DIRECT LDL 56 MG/DL (1-129); GFR ESTIMATED > 60; GLUCOSE 378 MG/DL (70-105); MAGNESIUM 2.2 MG/DL (1.8-2.4); POTASSIUM 4.6 MMOL/L (3.6-5.0); SODIUM 135 MMOL/L (135-145); TOTAL PROTEIN 6.8 G/DL (6.4-8.2); TRIGLYCERIDES 106 MG/DL (<150); VLDL CHOLESTEROL 21 MG/DL (5-40)
--- NOTE | 2016-04-24 07:20 | Pulmonary Progress Note ---
Subjective Subjective/Events-last exam sob no cp Exam Exam Vital Signs Date Time Temp Pulse Resp B/P Pulse Ox O2 Delivery O2 Flow Rate FiO2 04/24/16 06:33 93 6.00 04/24/16 04:00 97.6 68 20 140/65 96 Nasal Cannula 3.00 04/24/16 02:58 95 8.00 04/24/16 01:00 71 04/24/16 00:53 98.2 74 19 133/63 95 Nasal Cannula 3.00 04/23/16 23:07 95 8.00 04/23/16 21:00 95 Nasal Cannula 3.00 04/23/16 19:50 98.6 84 18 128/59 93 Nasal Cannula 3.00 04/23/16 19:31 94 8.00 04/23/16 19:00 82 04/23/16 17:00 98.2 83 18 133/66 95 Nasal Cannula 3.00 04/23/16 14:07 96 8.00 04/23/16 13:00 93 04/23/16 12:00 98.8 88 16 120/58 94 Nasal Cannula 3.00 04/23/16 09:39 93 4.00 04/23/16 09:00 95 Nasal Cannula 3.00 04/23/16 08:00 98.0 85 18 129/60 90 Nasal Cannula 3.00 I & O 04/24/16 07:00 Intake Total 4925 ml Output Total 2415 ml Balance 2510 ml General Appearance: No Apparent Distress WD/WN Chronically ill Obese HEENT: PERRL/EOMI Normal ENT Inspection Pharynx Normal Neck: Full Range of Motion Normal Inspection Non Tender Supple Carotid Bruit Respiratory: Chest Non Tender No Accessory Muscle Use No Respiratory Distress Crackles Decreased Breath Sounds Wheezing Cardiovascular: Regular Rate, Rhythm No Edema No Gallop No JVD No Murmur Normal Peripheral Pulses Capillary Refill: Less Than 3 Seconds Gastrointestinal: non tender soft Extremity: Normal Capillary Refill Normal Inspection Normal Range of Motion Non Tender No Calf Tenderness No Pedal Edema Neurologic/Psychiatric: Alert Oriented x3 No Motor/Sensory Deficits Depressed Affect Facial Droop Skin: Normal Color Warm/Dry Lymphatic: No Adenopathy Results Lab Laboratory Tests 04/22/16 18:57 04/23/16 05:05 04/24/16 05:47 Assessment/Plan Assessment/Plan Severe Sepsis with pneumonia -broad spectrum Abx - Influenza is negative Thrombocytopenia and anemia -monitor COPD with hx of tobacco use and home oxygen -SVNs PARKER Morbid obesity Clinical Quality Measures DVT/VTE Risk/Contraindication: Risk Factor Score Per Nursin RFS Level Per Nursing on Admit: 4+=Very High TUSHAR MAHER DO Apr 24, 2016 07:20
[2016-04-24] MEDS: CATHETER FLUSH 10 ML SYR IV PRN ×2 (08:00→19:35)
[2016-04-24] MEDS ORDERED: REGADENOSON 0.4 MG/5 ML SYR (LEXISCAN) IV ONE ×2 (08:42→09:00)
[2016-04-24 08:44] VITALS: BP 149/82
[2016-04-24] MEDS ORDERED: LOSARTAN 50 MG (COZAAR) TAB PO SCH (09:00)
[2016-04-24] MEDS ORDERED: SERTRALINE 100 MG (ZOLOFT) TAB PO SCH (09:00)
[2016-04-24] MEDS: OMEGA 3 (FISH OIL) 1000 MG CAP PO SCH ×2 (10:18→19:41)
[2016-04-24] MEDS: MELOXICAM 7.5 MG (MOBIC) TABLET PO SCH (10:19)
[2016-04-24] MEDS: SERTRALINE 100 MG (ZOLOFT) TAB PO SCH (10:20)
[2016-04-24] MEDS: ASPIRIN E.C. 81 MG (ECOTRIN) TAB PO SCH (10:21)
[2016-04-24] MEDS: LOSARTAN 100 MG TAB PO SCH (10:22)
[2016-04-24] MEDS: GABAPENTIN 300 MG (NEURONTIN) CAP PO SCH ×3 (10:22→19:42)
--- NOTE | 2016-04-24 11:22 | Progress Note-Hospitalist ---
Progress Note HPI/CC on Admission CC: Pneumonia HPI: This is 81-year-old white male with a past medical history of severe COPD and recurrent pneumonia with obstructive sleep apnea that presents to the emergency room with shortness of breath and fever. He was found to have pneumonia in this is recurrent type since he was recently hospitalized 6 weeks ago. He was placed on triple antibiotic therapy along with IV steroids and will be monitored closely. His overall decline status is noted and the recurrence of the COPD and other issues preclude anything more than a poor prognosis. He reports that he feels much better and less short of breath since he has been hospitalized last night and we are restarting his home medications. Progress Notes/Assess & Plan Date Seen 04/24/16 Admission Dx/Process 1.Likely gram-negative pneumonia. 2.COPD 3.chronic sleep apnea. 4.diabetes mellitus type II Diagonsis/Assessment & Plan Patient feeling much better and overall breathing better He was asking for his metformin (but his kidney function will not allow that due to high risk for lactic acidosis and renal failure Appreciate cardiology and pulmonology consultations Patient denies any cough currently Had BM last night Had EST today results are pending No fever, vital stable, pleasant, oriented 3, wearing CPAP Regular rate rhythm, clear to auscultation bilaterally much improved no wheezing and no rales are noted but distant breath sounds in the bases No edema Laboratory Tests 04/24/16 05:47 Assessment: 1.Likely gram-negative pneumonia on abx per protocol 2.COPD severe 3.chronic sleep apnea. severe 4.diabetes mellitus type II 5. PD 6. CRI Plan: IV antibiotics Nebulizers Monitor creatinine Monitor sugar IV steroids CPAP BRENDEN GEORGE DO Apr 24, 2016 11:22
[2016-04-24 12:00] VITALS: BP 147/71
[2016-04-24] MEDS: CEFEPIME 2 GM/NS 50 ML IVPB IV SCH ×2 (12:11)
[2016-04-24] MEDS: LEVOFLOXACIN 750 MG/150 ML D5W (PRE-MIX) IV SCH (12:51)
--- NOTE | 2016-04-24 14:30 | Progress Note-Cardiology ---
Cardiology SOAP Progress Note Subjective: No new c/o. States his breathing is better today. No c/o CP, palpitations, syncope or near syncope. Objective: I&O/Vital Signs Vital Sign - Last 12Hours 04/24/16 04/24/16 04/24/16 04/24/16 04:00 06:33 07:10 07:45 Temp 97.6 Pulse 68 82 Resp 20 B/P 140/65 Pulse Ox 96 93 95 O2 Delivery Nasal Cannula Nasal Cannula O2 Flow Rate 3.00 6.00 3.00 04/24/16 04/24/16 04/24/16 04/24/16 08:44 10:17 12:00 12:00 Temp 98.9 98.9 Pulse 68 67 67 Resp 20 20 B/P 149/82 147/71 147/71 Pulse Ox 93 96 96 96 O2 Delivery Nasal Cannula O2 Flow Rate 7.00 3.00 04/24/16 14:24 Pulse Ox 96 O2 Flow Rate 7.00 Intake and Output 04/24/16 00:00 Intake Total 3375 ml Output Total 1815 ml Balance 1560 ml Weight (Pounds): 250 Weight (Ounces): 0.0 Weight (Calculated Kilograms): [phone] Constitutional: appears stated ageNo apparent distress, well-developed well- nourished Respiratory: accessory muscle use respiratory distress chest expansion is symmetric chest is bilaterally symmetric wheezing (exp) other (good air entry) Cardiovascular: regular rate-rhythmNo JVD, S1 and S2 systolic murmur Gastrointestional: No tender, soft round audible bowel soundsNo spleenomegaly Extremities: No clubbing, No cyanosis, significant edema (mild bilat LE edema) Neurologic/Psychiatric: alert oriented x 3 power is 5/5 both on sides Skin: No rash, No ulcerations Results/Procedures: Labs Laboratory Tests 04/23/16 16:11: Glucometer 470*H 04/23/16 21:12: Glucometer 462*H 04/24/16 05:07: Glucometer 370H 04/24/16 05:47: Alanine Aminotransferase (ALT/SGPT) 17, Albumin 3.3, Alkaline Phosphatase 43, Anion Gap 11, Aspartate Amino Transf (AST/SGOT) 25, BUN/Creatinine Ratio 33, Basophils # (Auto) 0.0, Basophils (%) (Auto) 0, Blood Urea Nitrogen 33H, Calcium Level 8.1L, Carbon Dioxide Level 21, Chloride Level 103, Cholesterol Level 118, Creatinine 1.00, Eosinophils # (Auto) 0.0, Eosinophils (%) (Auto) 0, Estimat Glomerular Filtration Rate > 60, Glucose Level 378H, HDL Cholesterol 39L , Hematocrit 27L, Hemoglobin 9.1L, LDL Cholesterol Direct 56, Lymphocytes # ( Auto) 0.8L, Lymphocytes (%) (Auto) 6L, Magnesium Level 2.2, Mean Corpuscular Hemoglobin 27, Mean Corpuscular Hemoglobin Concent 33, Mean Corpuscular Volume 82, Mean Platelet Volume 11.7H, Monocytes # (Auto) 0.6, Monocytes (%) (Auto) 5, Neutrophils # (Auto) 10.3H, Neutrophils (%) (Auto) 88H, Platelet Count 82L, Potassium Level 4.6, Red Blood Count 3.34L, Red Cell Distribution Width 16.7H, Sodium Level 135, Total Bilirubin 0.2, Total Protein 6.8, Triglycerides Level 106, VLDL Cholesterol 21, White Blood Count 11.6H 04/24/16 11:59: Glucometer 348H Microbiology 04/22/16 Blood Culture - Preliminary, Resulted No growth 04/23/16 Gram Stain - Final, Resulted 04/23/16 Sputum Culture - Preliminary, Resulted Usual/normal harish isolated. 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 Echocardiogram with Definity - pending Monitor renal function closely. MPI today pending Thrombocytopenia and anemia to be managed by medical services. Physician Assessment Physician Assessment Lungs: good bilat air entry; diminished at the bases Cor: reg Echo on 04/23/16: Normal LVEF MPI on 04/24/16: No ischemia or IA, normal LVEF A&R * As documented in our note above * Reduce diuretics JASMYN COLE LEAD ASSISTANT MANAGER Apr 24, 2016 14:30 JOSE PAK MD FACP FAC CCDS Apr 24, 2016 15:36
[2016-04-24 16:00] VITALS: BP_SYST 151; BP_SYST 161; BP_DIAS 80
[2016-04-24] MEDS: metFORMIN XR 500 MG (GLUCOPHAGE XR) TAB PO SCH (17:09)
[2016-04-24] MEDS: VANCOMYCIN 1,750 MG/NS 500 ML IVPB IV SCH ×4 (19:34)
[2016-04-24] MEDS: ATORVASTATIN 80 MG (LIPITOR) TABLET PO SCH (19:40)
[2016-04-24] MEDS: PRIMIDONE 250MG (MYSOLINE) TAB PO SCH (19:41)
[2016-04-24 20:00] VITALS: BP 146/74
[2016-04-24] MEDS ORDERED: LEVOFLOXACIN 750 MG/150 ML D5W (PRE-MIX) IV SCH (20:00)
[2016-04-24] MEDS ORDERED: VANCOMYCIN INJECTION 250 MG in NS (IVPB) 100 ML IV NR (21:00)
--- NOTE | 2016-04-24 23:06 | STRESS TEST ---
PROCEDURE PHYSICIAN: JOSE COLÓN DATE OF PROCEDURE: 04/24/2016 RESTING AND POST REGADENOSON TECHNETIUM 99M TETROFOSMIN SPECT CT IMAGING: ORDERING PHYSICIAN: Liyah Diaz APRN. PRIMARY PHYSICIAN: Dr. Zheng. OTHER PHYSICIAN: Dr. Colón CLINICAL DIAGNOSIS: 1. Shortness of breath. 2. Congestive heart failure. Baseline images were carried out after injection a 10.36 mCi of technetium 99m tetrofosmin. This was followed by 0.4 mg of regadenoson and 33 mCi of technetium 99m tetrofosmin for stress images. The electrocardiogram did not change with the regadenoson infusion. It showed sinus rhythm throughout the study. Review of images at rest and following stress, does not indicate any distinct perfusion defects consistent with significant myocardial ischemia or infarction. Gated images show normal global left ventricular systolic function with normal regional wall motion. Left ventricular ejection fraction is calculated to be 60%. Left end-diastolic volume is 68 mL. TID is absent (0.96). CONCLUSIONS: 1. No evidence of any significant myocardial ischemia or infarction on this study. 2. Normal global left ventricular systolic function with a calculated ejection fraction of 60%. 3. Normal left ventricular cavity size. Job ID: [id number] Dictated Date: 04/24/2016 15:22:36 Unit Reactor Operator Date: 04/24/2016 23:03:25 / efrem
[2016-04-25] VITALS: BP 122/69
[2016-04-25] MEDS: CEFEPIME 2 GM/NS 50 ML IVPB IV SCH ×6 (00:01→22:48)
[2016-04-25] MEDS: RT-ALBUTEROL/IPRATROPIUM 3 ML (DUONEB) VIAL INH SCH ×6 (02:25→21:55)
[2016-04-25 04:37] VITALS: BP 163/77
[2016-04-25 04:39] LABS: BASOPHILS % (AUTO) 0 % (0-10); EOSINOPHILS % (AUTO) 0 % (0-10); LYMPHOCYTES # (AUTO) 1.3 X 10^3 (1.0-4.0); LYMPHOCYTES % (AUTO) 16 % (12-44); MEAN CORPUSCULAR HEMOGLOBIN 27 PG (25-34); MEAN CORPUSCULAR HGB CONC 32 G/DL (32-36); MEAN CORPUSCULAR VOLUME 83 FL (80-99); MEAN PLATELET VOLUME 12.1 FL (7.4-10.4); MONOCYTES # (AUTO) 0.5 X 10^3 (0.0-1.0); MONOCYTES % (AUTO) 6 % (0-12); NEUTROPHILS # (AUTO) 6.3 X 10^3 (1.8-7.8); NEUTROPHILS % (AUTO) 78 % (42-75); PLATELET COUNT 102 10^3/uL (130-400); RED BLOOD COUNT 3.61 10^6/uL (4.35-5.85); RED CELL DISTRIBUTION WIDTH 16.8 % (10.0-14.5); WHITE BLOOD COUNT 8.1 10^3/uL (4.3-11.0)
[2016-04-25 05:04] LABS: ALANINE AMINOTRANSFERASE 24 U/L (0-55); ALBUMIN 3.2 G/DL (3.2-4.5); ANION GAP 11 MMOL/L (5-14); ASPARTATE AMINO TRANSFERASE 33 U/L (5-34); BILIRUBIN,TOTAL 0.3 MG/DL (0.1-1.0); BLOOD UREA NITROGEN 21 MG/DL (7-18); BUN/CREATININE RATIO 25; CALCIUM 8.2 MG/DL (8.5-10.1); CARBON DIOXIDE 21 MMOL/L (21-32); CHLORIDE 106 MMOL/L (98-107); CREATININE SERUM 0.83 MG/DL (0.60-1.30); GFR ESTIMATED > 60; GLUCOSE 187 MG/DL (70-105); POTASSIUM 4.7 MMOL/L (3.6-5.0); SODIUM 138 MMOL/L (135-145); TOTAL PROTEIN 6.5 G/DL (6.4-8.2)
[2016-04-25] MEDS: inSUlin (REGULAR) HUMAN 1 UNIT/0.01 ML (CHARGE PER UNIT) SC SCH ×4 (05:17→22:47)
[2016-04-25] MEDS: GLIPIZIDE 10 MG TAB PO SCH ×2 (06:04→15:55)
[2016-04-25] MEDS: MULTIVIT W/MINERALS TAB (THERAGRAN M) PO SCH (06:05)
[2016-04-25] MEDS: OMEGA 3 (FISH OIL) 1000 MG CAP PO SCH ×2 (06:06→20:36)
[2016-04-25] MEDS: OLODATEROL IH SCH ×2 (07:00→18:56)
[2016-04-25 08:00] VITALS: BP 189/98
[2016-04-25] MEDS: ASPIRIN E.C. 81 MG (ECOTRIN) TAB PO SCH (08:58)
[2016-04-25] MEDS: MELOXICAM 7.5 MG (MOBIC) TABLET PO SCH (08:58)
[2016-04-25] MEDS: GABAPENTIN 300 MG (NEURONTIN) CAP PO SCH ×3 (08:59→20:36)
[2016-04-25] MEDS: SERTRALINE 100 MG (ZOLOFT) TAB PO SCH (09:00)
[2016-04-25] MEDS: LOSARTAN 100 MG TAB PO SCH (09:00)
--- NOTE | 2016-04-25 11:17 | Progress Note-Hospitalist ---
Subjective HPI/CC On Admission CC: Pneumonia HPI: This is 81-year-old white male with a past medical history of severe COPD and recurrent pneumonia with obstructive sleep apnea that presents to the emergency room with shortness of breath and fever. He was found to have pneumonia in this is recurrent type since he was recently hospitalized 6 weeks ago. He was placed on triple antibiotic therapy along with IV steroids and will be monitored closely. His overall decline status is noted and the recurrence of the COPD and other issues preclude anything more than a poor prognosis. He reports that he feels much better and less short of breath since he has been hospitalized last night and we are restarting his home medications. Date Seen 04/25/16 Subjective/Events-last exam patient is lying on his side the CPAP on, denies having any new complaints. Review of Systems Pulmonary: Dyspnea Neurological: : Weakness Objective Exam Vital Signs Vital Sign - Last 12Hours 04/22/16 18:42 Temp 101.9 Pulse 99 Resp 24 B/P 116/56 Pulse Ox 93 O2 Delivery Nasal Cannula O2 Flow Rate 4 Capillary Refill : Less Than 3 Seconds General Appearance: Obese HEENT: Other Neck: Limited Range of Motion Respiratory: Lungs Clear Normal Breath Sounds No Accessory Muscle Use Decreased Breath Sounds Cardiovascular: Regular Rate, Rhythm No Gallop Gastrointestinal: Soft Distended Extremity: Pedal Edema Neurologic/Psychiatric: Alert Oriented x3 Normal Mood/Affect Skin: Normal Color Results/Procedures Lab Laboratory Tests 04/25/16 04:10 Assessment/Plan Assessment and Plan Assess & Plan/Chief Complaint 1. left lower lobe pneumonia-Likely gram-negative pneumonia on abx per protocol 2.COPD severe 3.chronic sleep apnea. severe-on chronic BiPAP 4.diabetes mellitus type II-out of control secondary to steroids 5. PD 6. CRI-stable 7. Congestive heart failure likely diastolic EF is 60 percent, recent stress test negative We'll continue current management TERRY CARRILLO MD Apr 25, 2016 11:16
[2016-04-25] MEDS: LEVOFLOXACIN 750 MG/150 ML D5W (PRE-MIX) IV SCH (11:31)
[2016-04-25 12:00] VITALS: BP 165/92
--- NOTE | 2016-04-25 12:27 | Progress Note-Cardiology ---
Cardiology SOAP Progress Note Subjective: Shortness of breath slowly improving He denies cp or palp or syncope Objective: I&O/Vital Signs Vital Sign - Last 12Hours 04/25/16 04/25/16 04/25/16 04/25/16 01:00 02:26 04:37 06:54 Temp 98.2 Pulse 65 69 Resp 19 B/P 163/77 Pulse Ox 94 97 95 O2 Delivery NIV/CPAP O2 Flow Rate 7.00 7.00 04/25/16 04/25/16 04/25/16 07:01 08:00 10:05 Temp 96.8 Pulse 66 Resp 20 B/P 189/98 Pulse Ox 95 95 93 O2 Delivery Nasal Cannula O2 Flow Rate 3.00 7.00 Intake and Output 04/25/16 00:00 Intake Total 1330 ml Output Total 2775 ml Balance -1445 ml Weight (Pounds): 258 Weight (Ounces): 0.5 Weight (Calculated Kilograms): 117.374597 Constitutional: appears stated ageNo apparent distress, well-developed well- nourished Respiratory: accessory muscle use respiratory distress chest expansion is symmetric chest is bilaterally symmetric wheezing (exp) other (good air entry) Cardiovascular: regular rate-rhythmNo JVD, S1 and S2 systolic murmur Gastrointestional: No tender, soft round audible bowel soundsNo spleenomegaly Extremities: No clubbing, No cyanosis, significant edema (mild bilat LE edema) Neurologic/Psychiatric: alert oriented x 3 power is 5/5 both on sides Skin: No rash, No ulcerations Results/Procedures: Labs Laboratory Tests 04/24/16 16:05: Glucometer 308H 04/24/16 18:54: Vancomycin Level Trough 11.4 04/24/16 21:06: Glucometer 240H 04/25/16 04:10: Alanine Aminotransferase (ALT/SGPT) 24, Albumin 3.2, Alkaline Phosphatase 40, Anion Gap 11, Aspartate Amino Transf (AST/SGOT) 33, BUN/Creatinine Ratio 25, Basophils # (Auto) 0.0, Basophils (%) (Auto) 0, Blood Urea Nitrogen 21H, Calcium Level 8.2L, Carbon Dioxide Level 21, Chloride Level 106, Creatinine 0.83 , Eosinophils # (Auto) 0.0, Eosinophils (%) (Auto) 0, Estimat Glomerular Filtration Rate > 60, Glucose Level 187H, Hematocrit 30L, Hemoglobin 9.7L, Lymphocytes # (Auto) 1.3, Lymphocytes (%) (Auto) 16, Mean Corpuscular Hemoglobin 27, Mean Corpuscular Hemoglobin Concent 32, Mean Corpuscular Volume 83, Mean Platelet Volume 12.1H, Monocytes # (Auto) 0.5, Monocytes (%) (Auto) 6, Neutrophils # (Auto) 6.3, Neutrophils (%) (Auto) 78H, Platelet Count 102L, Potassium Level 4.7, Red Blood Count 3.61L, Red Cell Distribution Width 16.8H, Sodium Level 138, Total Bilirubin 0.3, Total Protein 6.5, White Blood Count 8.1 Microbiology 04/22/16 Blood Culture - Preliminary, Resulted No growth 04/23/16 Gram Stain - Final, Resulted 04/23/16 Sputum Culture - Preliminary, Resulted Usual/normal harish isolated. 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
[2016-04-25 16:00] VITALS: BP 163/74
[2016-04-25] MEDS: metFORMIN XR 500 MG (GLUCOPHAGE XR) TAB PO SCH (17:32)
[2016-04-25 20:00] VITALS: BP 140/67
[2016-04-25] MEDS: VANCOMYCIN 2000 MG/NS 500 ML IVPB IV SCH ×2 (20:34)
[2016-04-25] MEDS: ATORVASTATIN 80 MG (LIPITOR) TABLET PO SCH (20:35)
[2016-04-25] MEDS: PRIMIDONE 250MG (MYSOLINE) TAB PO SCH (20:37)
[2016-04-25] MEDS: CATHETER FLUSH 10 ML SYR IV PRN (20:38)
[2016-04-26] VITALS: BP 156/74
[2016-04-26] MEDS: RT-ALBUTEROL/IPRATROPIUM 3 ML (DUONEB) VIAL INH SCH ×6 (02:18→22:13)
[2016-04-26 04:00] VITALS: BP 148/78
[2016-04-26] MEDS: OMEGA 3 (FISH OIL) 1000 MG CAP PO SCH ×2 (06:42→20:34)
[2016-04-26] MEDS: inSUlin (REGULAR) HUMAN 1 UNIT/0.01 ML (CHARGE PER UNIT) SC SCH ×4 (06:42→20:41)
[2016-04-26] MEDS: GLIPIZIDE 10 MG TAB PO SCH ×2 (06:43→16:25)
[2016-04-26] MEDS: MULTIVIT W/MINERALS TAB (THERAGRAN M) PO SCH (06:44)
[2016-04-26] MEDS: OLODATEROL IH SCH ×2 (07:01→19:06)
[2016-04-26 08:20] VITALS: BP 160/73
[2016-04-26] MEDS: CEFEPIME 2 GM/NS 50 ML IVPB IV SCH ×4 (09:32→20:33)
[2016-04-26] MEDS: CATHETER FLUSH 10 ML SYR IV PRN ×4 (09:32→23:30)
[2016-04-26] MEDS: SERTRALINE 100 MG (ZOLOFT) TAB PO SCH (09:34)
[2016-04-26] MEDS: LOSARTAN 100 MG TAB PO SCH (09:35)
[2016-04-26] MEDS: MELOXICAM 7.5 MG (MOBIC) TABLET PO SCH (09:38)
[2016-04-26] MEDS: ASPIRIN E.C. 81 MG (ECOTRIN) TAB PO SCH (09:38)
[2016-04-26] MEDS: GABAPENTIN 300 MG (NEURONTIN) CAP PO SCH ×3 (09:39→20:34)
[2016-04-26] MEDS: LEVOFLOXACIN 750 MG/150 ML D5W (PRE-MIX) IV SCH (11:12)
--- NOTE | 2016-04-26 11:31 | Progress Note-Hospitalist ---
Subjective HPI/CC On Admission CC: Pneumonia HPI: This is 81-year-old white male with a past medical history of severe COPD and recurrent pneumonia with obstructive sleep apnea that presents to the emergency room with shortness of breath and fever. He was found to have pneumonia in this is recurrent type since he was recently hospitalized 6 weeks ago. He was placed on triple antibiotic therapy along with IV steroids and will be monitored closely. His overall decline status is noted and the recurrence of the COPD and other issues preclude anything more than a poor prognosis. He reports that he feels much better and less short of breath since he has been hospitalized last night and we are restarting his home medications. Date Seen 04/26/16 Subjective/Events-last exam patient is without complaint today. He is lying in his bed with his CPAP on Review of Systems Neurological: : Weakness Objective Exam Vital Signs Vital Sign - Last 12Hours 04/22/16 18:42 Temp 101.9 Pulse 99 Resp 24 B/P 116/56 Pulse Ox 93 O2 Delivery Nasal Cannula O2 Flow Rate 4 Capillary Refill : Less Than 3 Seconds General Appearance: No Apparent Distress WD/WN Obese HEENT: Other (right facial droop) Neck: Other (short of full) Respiratory: Crackles Decreased Breath Sounds Cardiovascular: Regular Rate, Rhythm No Gallop Gastrointestinal: Non Tender Soft Extremity: No Calf Tenderness No Pedal Edema Neurologic/Psychiatric: Alert Oriented x3 Facial Droop (right from So's palsy) Skin: Normal Color Warm/Dry Assessment/Plan Assessment and Plan Assess & Plan/Chief Complaint 1. left lower lobe pneumonia-Likely gram-negative pneumonia on abx per protocol- we'll obtain chest x-ray tomorrow 2.COPD severe end-stage 3.chronic sleep apnea. severe-on chronic BiPAP 4.diabetes mellitus type II-out of control secondary to steroids 5. PD 6. CRI-stable 7. Congestive heart failure likely diastolic EF is 60 percent, recent stress test negative We'll continue current management TERRY CARRILLO MD Apr 26, 2016 11:31 am
[2016-04-26 12:10] VITALS: BP 164/88
--- NOTE | 2016-04-26 13:35 | Progress Note-Cardiology ---
Cardiology SOAP Progress Note Subjective: Shortness of breath is gradually improving He denies cp or palp or syncope Objective: I&O/Vital Signs Vital Sign - Last 12Hours 04/26/16 04/26/16 04/26/16 04/26/16 02:18 04:00 07:02 07:10 Temp 97.3 Pulse 68 Resp 20 B/P 148/78 Pulse Ox 92 94 92 O2 Delivery Nasal Cannula O2 Flow Rate 4.00 3.00 4.00 4.00 04/26/16 04/26/16 04/26/16 08:20 09:00 11:30 Temp 96.9 Pulse 70 Resp 18 B/P 160/73 Pulse Ox 94 92 O2 Delivery NIV/CPAP Nasal Cannula O2 Flow Rate 4.00 4.00 Intake and Output 04/26/16 00:00 Intake Total 3010 ml Output Total 2875 ml Balance 135 ml Weight (Pounds): 255 Weight (Ounces): 4.0 Weight (Calculated Kilograms): 115.183467 Constitutional: appears stated ageNo apparent distress, well-developed well- nourished Respiratory: accessory muscle use respiratory distress chest expansion is symmetric chest is bilaterally symmetric wheezing (exp) other (good air entry) Cardiovascular: regular rate-rhythmNo JVD, S1 and S2 systolic murmur Gastrointestional: No tender, soft round audible bowel soundsNo spleenomegaly Extremities: No clubbing, No cyanosis, significant edema (mild bilat LE edema) Neurologic/Psychiatric: alert oriented x 3 power is 5/5 both on sides Skin: No rash, No ulcerations Results/Procedures: Labs Laboratory Tests 04/25/16 16:09: Glucometer 266H 04/25/16 20:52: Glucometer 211H 04/26/16 06:05: Glucometer 201H 04/26/16 10:44: Glucometer 249H Microbiology 04/22/16 Blood Culture - Preliminary, Resulted No growth 04/23/16 Gram Stain - Final, Resulted 04/23/16 Sputum Culture - Preliminary, Resulted Usual/normal harish isolated. 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
[2016-04-26] MEDS: metFORMIN XR 500 MG (GLUCOPHAGE XR) TAB PO SCH (16:25)
[2016-04-26 16:52] VITALS: BP 166/79
[2016-04-26 20:10] VITALS: BP 154/79
[2016-04-26] MEDS: PRIMIDONE 250MG (MYSOLINE) TAB PO SCH (20:35)
[2016-04-26] MEDS: ATORVASTATIN 80 MG (LIPITOR) TABLET PO SCH (20:36)
[2016-04-26] MEDS: VANCOMYCIN 2000 MG/NS 500 ML IVPB IV SCH ×2 (23:30)
[2016-04-27 00:48] VITALS: BP 148/73
[2016-04-27] MEDS: RT-ALBUTEROL/IPRATROPIUM 3 ML (DUONEB) VIAL INH SCH ×3 (02:22→10:09)
[2016-04-27 04:20] VITALS: BP 144/67
[2016-04-27] MEDS: OMEGA 3 (FISH OIL) 1000 MG CAP PO SCH (06:13)
[2016-04-27] MEDS: GLIPIZIDE 10 MG TAB PO SCH (06:14)
[2016-04-27] MEDS: MULTIVIT W/MINERALS TAB (THERAGRAN M) PO SCH (06:14)
[2016-04-27] MEDS: inSUlin (REGULAR) HUMAN 1 UNIT/0.01 ML (CHARGE PER UNIT) SC SCH ×2 (06:18→11:59)
[2016-04-27] MEDS: OLODATEROL IH SCH (06:28)
[2016-04-27 08:00] VITALS: BP 156/78
--- NOTE | 2016-04-27 08:16 | Pulmonary Progress Note ---
Subjective Subjective/Events-last exam PT feels improved no complications noted. Exam Exam Vital Signs Date Time Temp Pulse Resp B/P Pulse Ox O2 Delivery O2 Flow Rate FiO2 04/27/16 07:00 68 04/27/16 06:28 92 5.00 04/27/16 06:20 92 5.00 04/27/16 04:20 97.6 70 18 144/67 91 NIV/CPAP 04/27/16 02:22 90 7.00 04/27/16 01:00 67 04/27/16 00:48 98.1 75 18 148/73 94 NIV/CPAP 04/26/16 22:13 90 7.00 04/26/16 21:00 NIV/Bilevel 04/26/16 20:10 97.1 85 18 154/79 91 NIV/CPAP 04/26/16 19:13 4.00 04/26/16 19:07 86 04/26/16 19:00 84 04/26/16 16:52 97.7 69 18 166/79 91 NIV/CPAP 04/26/16 14:18 93 7.00 04/26/16 13:35 78 04/26/16 12:10 97.9 81 16 164/88 92 NIV/CPAP 04/26/16 11:30 92 4.00 04/26/16 09:00 Nasal Cannula 4.00 04/26/16 08:20 96.9 70 18 160/73 94 NIV/CPAP I & O 04/27/16 07:00 Intake Total 2540 ml Output Total 3400 ml Balance -860 ml General Appearance: No Apparent Distress WD/WN Chronically ill Obese HEENT: PERRL/EOMI Normal ENT Inspection Pharynx Normal Neck: Full Range of Motion Normal Inspection Non Tender Supple Carotid Bruit Respiratory: Chest Non Tender No Accessory Muscle Use No Respiratory Distress Crackles Decreased Breath Sounds Wheezing Cardiovascular: Regular Rate, Rhythm No Edema No Gallop No JVD No Murmur Normal Peripheral Pulses Capillary Refill: Less Than 3 Seconds Gastrointestinal: non tender soft Extremity: Normal Capillary Refill Normal Inspection Normal Range of Motion Non Tender No Calf Tenderness No Pedal Edema Neurologic/Psychiatric: Alert Oriented x3 No Motor/Sensory Deficits Depressed Affect Facial Droop Skin: Normal Color Warm/Dry Lymphatic: No Adenopathy Assessment/Plan Assessment/Plan Severe Sepsis with pneumonia -- now much improved -broad spectrum Abx - scheduled to D/C tomorrow - Influenza is negative Thrombocytopenia and anemia -monitor COPD with hx of tobacco use and home oxygen -[facility] Morbid obesity Clinical Quality Measures DVT/VTE Risk/Contraindication: Risk Factor Score Per Nursin RFS Level Per Nursing on Admit: 4+=Very High TUSHAR MAHER DO Apr 27, 2016 08:15
[2016-04-27] MEDS: GABAPENTIN 300 MG (NEURONTIN) CAP PO SCH ×2 (08:30→13:57)
[2016-04-27] MEDS: MELOXICAM 7.5 MG (MOBIC) TABLET PO SCH (08:30)
[2016-04-27] MEDS: LOSARTAN 100 MG TAB PO SCH (08:31)
[2016-04-27] MEDS: SERTRALINE 100 MG (ZOLOFT) TAB PO SCH (08:31)
[2016-04-27] MEDS: ASPIRIN E.C. 81 MG (ECOTRIN) TAB PO SCH (08:32)
[2016-04-27] MEDS ORDERED: VANCOMYCIN INJECTION 1,750 MG in NS IV 500 ML 500 ML IV SCH (09:00)
--- NOTE | 2016-04-27 09:23 | Diagnostic Imaging Report ---
INDICATION: Pneumonia. Comparison is made with prior examination from 04/23/16. FINDINGS: The heart size is normal. There are bibasilar infiltrates, right greater than left. There is no pleural effusion or pneumothorax. Mediastinum is unremarkable. IMPRESSION: Bibasilar pulmonary infiltrates, right greater than left, most suspect for early pneumonia. Dictated by: Dictated on workstation # [id number]
--- NOTE | 2016-04-27 09:33 | Progress Note-Cardiology ---
Cardiology SOAP Progress Note Subjective: Shortness of breath slowly continuing to improve No cp or palp or syncope Objective: I&O/Vital Signs Vital Sign - Last 12Hours 04/26/16 04/27/16 04/27/16 04/27/16 22:13 00:48 01:00 02:22 Temp 98.1 Pulse 75 67 Resp 18 B/P 148/73 Pulse Ox 90 94 90 O2 Delivery NIV/CPAP O2 Flow Rate 7.00 7.00 04/27/16 04/27/16 04/27/16 04/27/16 04:20 06:20 06:28 07:00 Temp 97.6 Pulse 70 68 Resp 18 B/P 144/67 Pulse Ox 91 92 92 O2 Delivery NIV/CPAP O2 Flow Rate 5.00 5.00 04/27/16 08:00 Temp 97.3 Pulse 68 Resp 18 B/P 156/78 Pulse Ox 90 O2 Delivery Nasal Cannula O2 Flow Rate 4.00 Intake and Output 04/26/16 23:59 Intake Total 1820 ml Output Total 3025 ml Balance -1205 ml Weight (Pounds): 249 Weight (Ounces): 4.8 Weight (Calculated Kilograms): 113.235687 Constitutional: appears stated ageNo apparent distress, well-developed well- nourished Respiratory: accessory muscle use respiratory distress chest expansion is symmetric chest is bilaterally symmetric wheezing (exp) other (good air entry) Cardiovascular: regular rate-rhythmNo JVD, S1 and S2 systolic murmur Gastrointestional: No tender, soft round audible bowel soundsNo spleenomegaly Extremities: No clubbing, No cyanosis, significant edema (mild bilat LE edema) Neurologic/Psychiatric: alert oriented x 3 power is 5/5 both on sides Skin: No rash, No ulcerations Results/Procedures: Labs Laboratory Tests 04/26/16 10:44: Glucometer 249H 04/26/16 15:55: Glucometer 189H 04/26/16 20:41: Glucometer 193H 04/26/16 22:24: Vancomycin Level Trough 9.8L 04/27/16 05:38: Glucometer 207H Microbiology 04/22/16 Blood Culture - Preliminary, Resulted No growth 04/23/16 Gram Stain - Final, Resulted 04/23/16 Sputum Culture - Preliminary, Resulted Usual/normal harish isolated. 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
[2016-04-27] MEDS ORDERED: HYDR-3816 PO (09:45)
[2016-04-27] MEDS ORDERED: LEVO500T2 PO (09:45)
--- NOTE | 2016-04-27 09:47 | Discharge Instructions ---
Discharge Instructions Discharge Medications New, Converted or Re-Newed RX: RX on Chart New Medications: Levofloxacin (Levaquin) 500 Mg Tablet 500 MG PO DAILY #2 TAB Continued Medications: Aspirin (Aspir 81) 81 Mg Tablet.dr 81 MG PO DAILY TAB Atorvastatin Calcium (Atorvastatin Calcium) 80 Mg Tablet 40 MG PO HS TAKES 1/2 (80MG) TABLET TAB Furosemide (Furosemide) 40 Mg Tablet 40 MG PO DAILY PRN SWELLING TAB Gabapentin (Gabapentin) 300 Mg Capsule 600 MG PO TID TAKES 2 (300MG) CAPSULES CAP Glipizide (Glipizide) 10 Mg Tablet 20 MG PO BID TAKES 2 (10MG) TABLETS TAB Hydrocodone/Acetaminophen (Hydrocodon-Acetaminoph 7.5-325) 1 Each Tablet 1 TAB PO BID PRN PAIN #15 TAB (This prescription has been renewed) Insulin Aspart (Novolog) 100 Unit/1 Ml Susp 5-10 UNIT SQ AC PRN BS ABOVE 160 ML Losartan Potassium (Losartan Potassium) 100 Mg Tablet 50 MG PO DAILY TAKES 1/2 (100MG) TABLET TAB Meloxicam (Meloxicam) 7.5 Mg Tablet 7.5 MG PO DAILY TAB Metformin HCl (Metformin HCl ER) 500 Mg Tab.er.24 2000 MG PO 1700 TAKES 4 (500MG) TABLETS BEFORE SUPPER TAB Mineral Oil/Petrolatum,White (Lubricant Eye Ointment) 3.5 Gm Oint...g. OD HS APPLY 1/2 INCH RIBBON TUBE Multivitamin (Daily Multiple Vitamin) 1 Each Tablet 1 TAB PO DAILY TAB Olodaterol HCl (Striverdi Respimat) 4 Gm Mist.inhal 1 PUFF IH BID INHALER [place] 3 Polyunsat Fatty Acids (Fish Oil 1,000 mg Capsule) 1,000 Mg Cap 1000 MG PO HS CAP [place] 3 Polyunsat Fatty Acids (Fish Oil 1,000 mg Capsule) 1,000 Mg Cap 2000 MG PO DAILY TAKES 2 (1000MG) CAPSULES IN THE MORNING CAP Polyvinyl Alcohol/Povidone (Artificial Tears Drops) 15 Ml Drops 2 DROPS OU Q4H PRN DRY EYES DROPS Potassium Gluconate (Potassium) 99 Mg Tablet 99 MG PO DAILY PRN WHEN TAKING FUROSEMIDE TAB Primidone (Primidone) 250 Mg Tablet 250 MG PO HS Tremors TAB Sertraline HCl (Sertraline HCl) 100 Mg Tablet 100 MG PO DAILY TAB Patient Instructions Goal/Follow Up Appt: [place] clinic in 1 week Activity & Diet Discharge Diet: Low Sodium Diet, ADA Diet Activity as Tolerated: Yes BRENDEN GEORGE DO Apr 27, 2016 09:47
--- NOTE | 2016-04-27 09:54 | Discharge Summary-Hospitalist ---
Diagnosis/Chief Complaint Date of Admission Apr 22, 2016 at 19:50 Date of Discharge Discharge Date: Apr 27, 2016 Admission Diagnosis 1.Likely gram-negative pneumonia. 2.COPD 3.chronic sleep apnea. 4.diabetes mellitus type II Discharge Diagnosis 1.Likely gram-negative pneumonia. 2.COPD 3.chronic sleep apnea. 4.diabetes mellitus type II 5. CRI w/acute renal failure Patient feeling much better and overall breathing better He was asking for his metformin (but his kidney function will not allow that due to high risk for lactic acidosis and renal failure Appreciate cardiology and pulmonology consultations Patient denies any cough currently Had BM last night Had EST today results are pending No fever, vital stable, pleasant, oriented 3, wearing CPAP Regular rate rhythm, clear to auscultation bilaterally much improved no wheezing and no rales are noted but distant breath sounds in the bases No edema Laboratory Tests 04/24/16 05:47 Assessment: 1.Likely gram-negative pneumonia on abx per protocol 2.COPD severe 3.chronic sleep apnea. severe 4.diabetes mellitus type II 5. PD 6. CRI Plan: IV antibiotics Nebulizers Monitor creatinine Monitor sugar IV steroids CPAP Reason Hospital Visit/Course CC: Pneumonia HPI: This is 81-year-old white male with a past medical history of severe COPD and recurrent pneumonia with obstructive sleep apnea that presents to the emergency room with shortness of breath and fever. He was found to have pneumonia in this is recurrent type since he was recently hospitalized 6 weeks ago. He was placed on triple antibiotic therapy along with IV steroids and will be monitored closely. His overall decline status is noted and the recurrence of the COPD and other issues preclude anything more than a poor prognosis. He reports that he feels much better and less short of breath since he has been hospitalized last night and we are restarting his home medications. Note from 04/27/16: Patient doing well overall and ready for discharge Wants oxygen so I will have that evaluated [facility] Will have 2 more days of antibiotics no pain is reported and on C Pap machine continuously No fever, vital stable, pleasant, oriented 3 Regular rate and rhythm, clear to auscultation bilaterally with decrease in the bases No edema Hospital course: Patient had an uneventful hospital course he was admitted for presumed gram-negative pneumonia he overall improved rapidly with nebulizer treatments and oxygen supplementation along with IV steroids. Hyperglycemia followed the steroid administration but overall he improved to the weekend enough to be able to go home and will have home O2 evaluation provided by [facility] and will have close follow-up at his primary care provider clinic. Overall his prognosis guarded considering his severe comorbidities. Discharge Summary Discharge Physical Examination Allergies: Coded Allergies: lisinopril (Verified Allergy, Unknown, 09/22/15) sildenafil (Verified Allergy, Unknown, 09/22/15) Vitals & I&Os Vital Signs Date Time Temp Pulse Resp B/P Pulse Ox O2 Delivery O2 Flow Rate FiO2 04/27/16 08:00 97.3 68 18 156/78 90 Nasal Cannula 4.00 Hospital Course Labs (last 24 hrs) Laboratory Tests 04/26/16 10:44: Glucometer 249H 04/26/16 15:55: Glucometer 189H 04/26/16 20:41: Glucometer 193H 04/26/16 22:24: Vancomycin Level Trough 9.8L 04/27/16 05:38: Glucometer 207H Microbiology 04/22/16 Blood Culture - Preliminary, Resulted No growth 04/23/16 Gram Stain - Final, Resulted 04/23/16 Sputum Culture - Preliminary, Resulted Usual/normal harish isolated. Pending Labs Laboratory Tests 04/27/16 05:38: Glucometer 207 Discharge Home Medications: Active Scripts Active Levaquin (Levofloxacin) 500 Mg Tablet 500 Mg PO DAILY Hydrocodon-Acetaminoph 7.5-325 (Hydrocodone/Acetaminophen) 1 Each Tablet 1 Tab PO BID PRN Reported Lubricant Eye Ointment (Mineral Oil/Petrolatum,White) 3.5 Gm Oint...g. OD HS APPLY 1/2 INCH RIBBON Novolog (Insulin Aspart) 100 Unit/1 Ml Susp 5-10 Unit SQ AC PRN Artificial Tears Drops (Polyvinyl Alcohol/Povidone) 15 Ml Drops 2 Drops OU Q4H PRN Striverdi Respimat (Olodaterol HCl) 4 Gm Mist.inhal 1 Puff IH BID Fish Oil 1,000 mg Capsule (Krypton 3 Polyunsat Fatty Acids) 1,000 Mg Cap 2,000 Mg PO DAILY TAKES 2 (1000MG) CAPSULES IN THE MORNING Fish Oil 1,000 mg Capsule (Krypton 3 Polyunsat Fatty Acids) 1,000 Mg Cap 1,000 Mg PO HS Daily Multiple Vitamin (Multivitamin) 1 Each Tablet 1 Tab PO DAILY Potassium (Potassium Gluconate) 99 Mg Tablet 99 Mg PO DAILY PRN Sertraline HCl 100 Mg Tablet 100 Mg PO DAILY Aspir 81 (Aspirin) 81 Mg Tablet.dr 81 Mg PO DAILY Losartan Potassium 100 Mg Tablet 50 Mg PO DAILY TAKES 1/2 (100MG) TABLET Metformin HCl ER (Metformin HCl) 500 Mg Tab.er.24 2,000 Mg PO 1700 TAKES 4 (500MG) TABLETS BEFORE SUPPER Gabapentin 300 Mg Capsule 600 Mg PO TID TAKES 2 (300MG) CAPSULES Glipizide 10 Mg Tablet 20 Mg PO BID TAKES 2 (10MG) TABLETS Primidone 250 Mg Tablet 250 Mg PO HS Furosemide 40 Mg Tablet 40 Mg PO DAILY PRN Meloxicam 7.5 Mg Tablet 7.5 Mg PO DAILY Atorvastatin Calcium 80 Mg Tablet 40 Mg PO HS TAKES 1/2 (80MG) TABLET Instructions to patient/family Please see electonic discharge instructions given to patient. Clinical Quality Measures DVT/VTE Risk/Contraindication: Risk Factor Score Per Nursin RFS Level Per Nursing on Admit: 4+=Very High BRENDEN GEORGE DO Apr 27, 2016 09:54
[2016-04-27] MEDS: LEVOFLOXACIN 750 MG/150 ML D5W (PRE-MIX) IV SCH (11:59)
[2016-04-27 14:14] VITALS: BP 156/78
--- NOTE | 2016-05-05 09:45 | Physician Query ---
PQ-Conflicting Diagnosis Admission/Discharge Admission Date: Apr 22, 2016 at 19:50 Discharge Date: Apr 27, 2016 at 14:14 The medical record reflects the following clinical scenario: History/Risk Factors: Pneumonia, Acute renal failure Clinical Findings: Lactic acid 3.0, Bands 45, WBC 13.7, P 99, R 24, BP 116/56 Treatment: IV ABX Question: Do you agree with the impression of Sepsis per Dr. Mcnamara?. Please document a response below. 1. Yes ___ 2. No ___ 3. Other, with explanation of clinical findings 4. Clinically undetermined, no explanation for clinical findings Do you agree w/Consulting Dx?: Yes Please remember a lack of response to the above will prompt a phone page by CDI/ coding staff. In responding to this query, please exercise your independent professional judgment. The purpose of this communication is to more accurately reflect the complexity of your patients condition. The fact that a question is asked does not imply that any particular answer is desired or expected. Thank you for your timely response to this clarification. Requestors name: [employer] THIS PHYSICIAN QUERY FORM IS A PERMANENT PART OF THE MEDICAL RECORD UTE ESPINOZA May 05, 2016 09:44 BRENDEN GEORGE DO May 05, 2016 16:58
== END 2016-04-27 14:14 | disposition home or self-care (01) | DRG 871 ==
LOC: EDUNIT# 17:48 → ER 17:49 → 4TH 19:50
PROVIDERS: ADMIT Internal Medicine; ATTEND Internal Medicine
DX: A41.9 Sepsis, unspecified organism (principal); R65.20 Severe sepsis without septic shock; J44.0 Chronic obstructive pulmonary disease with (acute) lower respiratory infection; J15.6 Pneumonia due to other Gram-negative bacteria; N17.9 Acute kidney failure, unspecified; I11.0 Hypertensive heart disease with heart failure; I50.31 Acute diastolic (congestive) heart failure; Z68.42 Body mass index [BMI] 45.0-49.9, adult; R09.02 Hypoxemia; E11.21 Type 2 diabetes mellitus with diabetic nephropathy; N18.9 Chronic kidney disease, unspecified; E11.65 Type 2 diabetes mellitus with hyperglycemia; G47.33 Obstructive sleep apnea (adult) (pediatric); D64.9 Anemia, unspecified; F32.9 Major depressive disorder, single episode, unspecified; E66.01 Morbid (severe) obesity due to excess calories; E78.00 Pure hypercholesterolemia, unspecified; G51.0 Bell's palsy; D69.6 Thrombocytopenia, unspecified; M54.9 Dorsalgia, unspecified; E87.5 Hyperkalemia; Z79.4 Long term (current) use of insulin; Z87.891 Personal history of nicotine dependence; Z99.81 Dependence on supplemental oxygen
CPT/HCPCS: 36415; 71010; 71020; 78452; 80053; 80061; 80202; 82962; 83605; 83735; 83880; 84484; 85007; 85025; 85027; 85610; 85730; 87040; 87070; 87205; 87804; 93017; 93041; 94640; 94760; 94761; 96365; 96375

== ENCOUNTER → 2016-06-15 | Outpatient (CLI) | payer MEDICARE ==
[~2016-06-15] MED LIST changes: +LEVO500T2 PO
--- NOTE | 2016-06-15 11:12 | Diagnostic Imaging Report ---
EXAMINATION: PA and lateral views of the chest. INDICATION: Dyspnea. COMPARISON: 04/27/2016. FINDINGS: The lungs are clear. Minimal opacity near the cardiac apex is most likely related to a pericardial fat-pad as suggested on the lateral view. The previously seen basilar infiltrates appear to have resolved. The heart size is normal. No effusion or pneumothorax. The mediastinum and chay appear unremarkable. IMPRESSION: Unremarkable exam. Dictated by: Dictated on workstation # [id number]
== END ==
LOC: RAD 09:10
PROVIDERS: ATTEND Nurse Practitioner Family
DX: R06.00 Dyspnea, unspecified (principal)
CPT/HCPCS: 71020

== ENCOUNTER 2016-08-25 09:00 | Outpatient (RCR) | payer MEDICARE | END 2016-09-13 | disposition home or self-care (01) | LOC: PULM 09:00 | PROVIDERS: ATTEND Nurse Practitioner Family | DX: J44.9 Chronic obstructive pulmonary disease, unspecified (principal); J18.9 Pneumonia, unspecified organism; R06.00 Dyspnea, unspecified | CPT/HCPCS: 99211 ==

== ENCOUNTER 2018-09-23 10:07 | Inpatient (IN) | payer MEDICARE ==
[2018-09-23] VITALS (13 sets, daily range): BP systolic 94–132; BP diastolic 47–73
[~2018-09-23] VITALS: Ht 162.6 cm; Wt 114.8 kg
[~2018-09-23 10:07] MED LIST changes: +HYDR-34 PO; -HYDR-3816 PO; -LOSA100T28 PO; +LOSA100T57 PO
--- NOTE | 2018-09-23 10:35 | ED General ---
General Chief Complaint: Cardiac/General Problems Stated Complaint: LOW BP,BLURRY VISION AND DIZZINESS Nursing Triage Note: pt presents with CO hypotension. pt 02 84% on room air in room. Nursing Sepsis Screen: Possible Severe Sepsis Risk Source of Information: Patient, Family Exam Limitations: No Limitations (CAITLYN MARINELLI MD) History of Present Illness Date Seen by Provider: Sep 23, 2018 Time Seen by Provider: 10:12 Initial Comments Brought in by family for report of low blood pressure, weakness and fever of 101 this morning. Apparently he went fishing yesterday and was doing okay but when he got home he was not feeling well. He did not sleep at all last night due to weakness in his heart rate was faster. Does have history of COPD but is not on inhalers apparently. He does use CPAP at night. He is not normally on oxygen. Arrives with O2 sat of 80% and heart rate of 110. Temperature was 99 5. Patient states he has blurry vision when standing. Denies nausea, vomiting, chest pain, problems with going to the bathroom or eating. States he has been drinking okay. Has had 4 episodes of pneumonia in the last year per the family. Timing/Duration: 12 Hours Severity: Moderate, Severe Modifying Factors: improves with Rest Associated Systoms: No Chest Pain, No Cough; Fever/Chills; No Headaches, No Nausea/Vomiting; Shortness of Air, Weakness (CAITLYN MARINELLI MD) Allergies and Home Medications Allergies Coded Allergies: lisinopril (Verified Allergy, Unknown, 09/22/15) sildenafil (Verified Allergy, Unknown, 09/22/15) Home Medications Aspirin 81 Mg Tablet.dr, 81 MG PO DAILY, (Reported) Atorvastatin Calcium 80 Mg Tablet, 40 MG PO HS, (Reported) TAKES 1/2 (80MG) TABLET Furosemide 40 Mg Tablet, 40 MG PO DAILY PRN for SWELLING, (Reported) Gabapentin 300 Mg Capsule, 600 MG PO TID, (Reported) TAKES 2 (300MG) CAPSULES Glipizide 10 Mg Tablet, 20 MG PO BID, (Reported) TAKES 2 (10MG) TABLETS Hydrocodone Bit/Acetaminophen 1 Each Tablet, 1 TAB PO BID PRN for PAIN Prescribed by: BRENDEN GEORGE on 04/27/16 0945 Insulin Aspart 100 Unit/1 Ml Susp, 5-10 UNIT SQ AC PRN for BS ABOVE 160, (Reported) Levofloxacin 500 Mg Tablet, 500 MG PO DAILY Prescribed by: BRENDEN GEORGE on 04/27/16 0945 Losartan Potassium 100 Mg Tablet, 50 MG PO DAILY, (Reported) TAKES 1/2 (100MG) TABLET Meloxicam 7.5 Mg Tablet, 7.5 MG PO DAILY, (Reported) Metformin HCl 500 Mg Tab.er.24, 2,000 MG PO 1700, (Reported) TAKES 4 (500MG) TABLETS BEFORE SUPPER Mineral Oil/Petrolatum,White 3.5 Gm Oint...g., OD HS, (Reported) APPLY 1/2 INCH RIBBON Multivitamin 1 Each Tablet, 1 TAB PO DAILY, (Reported) Olodaterol HCl 4 Gm Mist.inhal, 1 PUFF IH BID, (Reported) [place] 3 Polyunsat Fatty Acids 1,000 Mg Cap, 1,000 MG PO HS, (Reported) [place] 3 Polyunsat Fatty Acids 1,000 Mg Cap, 2,000 MG PO DAILY, (Reported) TAKES 2 (1000MG) CAPSULES IN THE MORNING Polyvinyl Alcohol/Povidone 15 Ml Drops, 2 DROPS OU Q4H PRN for DRY EYES, (Reported) Potassium Gluconate 99 Mg Tablet, 99 MG PO DAILY PRN for WHEN TAKING FUROSEMIDE, (Reported) Primidone 250 Mg Tablet, 250 MG PO HS, (Reported) Sertraline HCl 100 Mg Tablet, 100 MG PO DAILY, (Reported) Patient Home Medication List Home Medication List Reviewed: Yes (CAITLYN MARINELLI MD) Review of Systems Review of Systems Constitutional: see HPI, chills, fever EENTM: no symptoms reported Respiratory: short of breath; No wheezing Cardiovascular: No chest pain, No edema; palpitations Gastrointestinal: no symptoms reported Genitourinary: no symptoms reported Musculoskeletal: No back pain; muscle weakness Skin: no symptoms reported Psychiatric/Neurological: No Symptoms Reported (CAITLYN MARINELLI MD) All Other Systems Reviewed Negative Unless Noted: Yes (CAITLYN MARINELLI MD) Past Bxaxrbm-Mhllps-Dixkbs Hx Past Med/Social Hx: Reviewed Nursing Past Med/Soc Hx (CAITLYN MARINELLI MD) Patient Social History Alcohol Use: Denies Use Recreational Drug Use: No Smoking Status: Former Smoker Type Used: Cigarettes Former Smoker, Quit: Nov 16, 1992 Recent Foreign Travel: No Contact w/Someone Who Travel: No Recent Infectious Disease Expo: No Recent Hopitalizations: Yes (PNEUMONIA 03/2016) (CAITLYN MARINELLI MD) Immunizations Up To Date Tetanus Booster (TDap): Unknown Date of Pneumonia Vaccine: Mar 08, 2014 Date of Influenza Vaccine: Dec 03, 2015 (CAITLYN MARINELLI MD) Seasonal Allergies Seasonal Allergies: No (CAITLYN MARINELLI MD) Past Medical History Surgeries: Yes (HERNIA) Abdominal, Orthopedic, Tonsillectomy Respiratory: Yes Pneumonia, Sleep Apnea, COPD, Emphysema Currently Using CPAP: Yes Currently Using BIPAP: No Cardiac: Yes High Cholesterol, Hypertension Neurological: Yes ([place] WITH PERMANENT RIGHT FACIAL DROOP) Reproductive Disorders: No Sexually Transmitted Disease: No HIV/AIDS: No Genitourinary: No Gastrointestinal: Yes Abdominal Hernia Musculoskeletal: Yes ("EPIDURAL FOR L3-L4 DEGENERATION"; NECK PAIN) Degenerate Disk Disease, Arthritis, Chronic Back Pain Endocrine: Yes (OBESITY) Diabetes, Insulin dep, Diabetes, Non-Insulin dep HEENT: No Cancer: No Psychosocial: Yes Depression Integumentary: No Blood Disorders: Yes (ANEMIA) Adverse Reaction/Blood Tranf: No (CAITLYN MARINELLI MD) Family Medical History Reviewed Nursing Family Hx (CAITLYN MARINELLI MD) Arthritis 19 MOTHER Cataracts 19 MOTHER Deafness or hearing loss G8 BROTHER Diabetes mellitus 19 MOTHER Visual disorder 19 MOTHER Physical Exam-Suspected Sepsis Physical Exam Vital Signs Vital Signs - First Documented 09/23/18 09/23/18 10:16 10:30 Temp 99.5 Pulse 110 Resp 16 B/P (MAP) 92/37 (55) Pulse Ox 89 O2 Delivery Nasal Cannula O2 Flow Rate 5.00 FiO2 84 (HILLARY ALCAZAR APRN) Vital Signs Capillary Refill : Less Than 3 Seconds (CAITLYN MARINELLI MD) Blood Pressure Mean: 55 Height, Weight, BMI Height: 5'4.00" Weight: 240lbs. 4.8oz. 108.267747dw; 45.7 BMI Method:Stated General Appearance: No Apparent Distress, WD/WN HEENT: PERRL/EOMI, Pharynx Normal Neck: Non Tender, Supple Respiratory: Lungs Clear, Normal Breath Sounds Cardiovascular: No Murmur, Tachycardia Gastrointestinal: Non Tender, Soft Back: Normal Inspection, No CVA Tenderness, No Vertebral Tenderness Extremity: Non Tender, No Calf Tenderness, Pedal Edema (trace edema bilateral) Neurologic/Psychiatric: Alert, Oriented x3 Skin: warm/dry, pallor (CAITLYN MARINELLI MD) Focused Exam Lactate Level 09/23/18 10:38: Lactic Acid Level 3.70*H (HILLARY ALCAZAR APRN) Lactic Acid Level Laboratory Tests Test 09/23/18 10:38 Lactic Acid Level 3.70 MMOL/L (0.50-2.00) *H (HILLARY ALCAZAR APRN) Procedures/Interventions Lumen: triple Position: internal jugular (R) Anesthesia: local Volume Anesthetic (ccs): 5 Complications: none Post Position: sutured, good blood return, position confirmed w/ CXR (HILLARY ALCAZAR APRN) Progress/Results/Core Measures Suspected Sepsis Recent Fever Within 48 Hours: Yes Infection Criteria Present: Suspected New Infection New/Unexplained Altered Menta: No Sepsis Screen: Possible Severe Sepsis Risk SIRS Temperature:99.5 Pulse: 110 Respiratory Rate: 16 Laboratory Tests 09/23/18 10:38: White Blood Count 18.8H Blood Pressure 92 /37 Mean: 55 09/23/18 10:38: Lactic Acid Level 3.70*H 09/23/18 12:24: Lactic Acid Level 2.27*H Laboratory Tests 09/23/18 10:38: Creatinine 2.06H, INR Comment 1.1, Platelet Count 116L, Total Bilirubin 0.6 (CAITLYN MARINELLI MD) Results/Orders Lab Results Laboratory Tests Test 09/23/18 10:38 09/23/18 10:41 Range/Units White Blood Count 18.8 H 4.3-11.0 10^3/uL Red Blood Count 4.04 L 4.35-5.85 10^6/uL Hemoglobin 10.4 L 13.3-17.7 G/DL Hematocrit 32 L 40-54 % Mean Corpuscular Volume 79 L 80-99 FL Mean Corpuscular Hemoglobin 26 25-34 PG Mean Corpuscular Hemoglobin Concent 33 32-36 G/DL Red Cell Distribution Width 17.1 H 10.0-14.5 % Platelet Count 116 L 130-400 10^3/uL Mean Platelet Volume 10.9 H 7.4-10.4 FL Neutrophils (%) (Auto) 82 H 42-75 % Lymphocytes (%) (Auto) 3 L 12-44 % Monocytes (%) (Auto) 15 H 0-12 % Eosinophils (%) (Auto) 1 0-10 % Basophils (%) (Auto) 0 0-10 % Neutrophils # (Auto) 15.3 H 1.8-7.8 X 10^3 Lymphocytes # (Auto) 0.6 L 1.0-4.0 X 10^3 Monocytes # (Auto) 2.8 H 0.0-1.0 X 10^3 Eosinophils # (Auto) 0.1 0.0-0.3 10^3/uL Basophils # (Auto) 0.0 0.0-0.1 10^3/uL Neutrophils % (Manual) 67 % Lymphocytes % (Manual) 4 % Monocytes % (Manual) 9 % Eosinophils % (Manual) 0 % Basophils % (Manual) 0 % Metamyelocytes % 1 % Myelocytes % 1 % Band Neutrophils 18 % Anisocytosis SLIGHT Microcytosis SLIGHT Prothrombin Time 14.9 H 12.2-14.7 SEC INR Comment 1.1 0.8-1.4 Activated Partial Thromboplast Time 34 24-35 SEC Sodium Level 134 L 135-145 MMOL/L Potassium Level 4.1 3.6-5.0 MMOL/L Chloride Level 98 98-107 MMOL/L Carbon Dioxide Level 23 21-32 MMOL/L Anion Gap 13 5-14 MMOL/L Blood Urea Nitrogen 35 H 7-18 MG/DL Creatinine 2.06 H 0.60-1.30 MG/DL Estimat Glomerular Filtration Rate 31 BUN/Creatinine Ratio 17 Glucose Level 161 H 70-105 MG/DL Lactic Acid Level 3.70 *H 0.50-2.00 MMOL/L Calcium Level 9.2 8.5-10.1 MG/DL Corrected Calcium 9.2 8.5-10.1 MG/DL Total Bilirubin 0.6 0.1-1.0 MG/DL Aspartate Amino Transf (AST/SGOT) 16 5-34 U/L Alanine Aminotransferase (ALT/SGPT) 16 0-55 U/L Alkaline Phosphatase 45 40-136 U/L Troponin I < 0.028 <0.028 NG/ML B-Type Natriuretic Peptide 228.1 H <100.0 PG/ML Total Protein 7.7 6.4-8.2 GM/DL Albumin 4.0 3.2-4.5 GM/DL Blood Gas Puncture Site LEFT RADIAL Blood Gas Patient Temperature 99.5 Arterial Blood pH 7.36 L 7.37-7.43 Arterial Blood Partial Pressure CO2 42 35-45 MMHG Arterial Blood Partial Pressure O2 93 79-93 MMHG Arterial Blood HCO3 23 23-27 MMOL/L Arterial Blood Total CO2 24.1 21.0-31.0 MMOL/L Arterial Blood Oxygen Saturation 97 94-100 % Arterial Blood Base Excess -1.7 -2.5-2.5 MMOL/L Rudy Test POSITIVE Blood Gas Ventilator Setting NO Blood Gas Inspired Oxygen 2 L VAPOTHERM (HILLARY ALCAZAR APRN) Vital Signs/I&O 09/23/18 09/23/18 10:16 10:30 Temp 99.5 Pulse 110 Resp 16 B/P (MAP) 92/37 (55) Pulse Ox 89 84 O2 Delivery Nasal Cannula Room Air O2 Flow Rate 5.00 FiO2 84 (HILLARY ALCAZAR APRN) Vital Signs/I&O Capillary Refill : Less Than 3 Seconds (CAITLYN MARINELLI MD) Blood Pressure Mean: 55 Progress Note : Progress Note Seen and evaluated. IV 2, labs, blood cultures, lactic acid, chest x-ray, UA with culture and sputum culture and EKG ordered. We will initiate Vapotherm due to patient's hypoxia. Blood pressure 75/45. We will go ahead and initiate high- volume fluid resuscitation based on ideal body weight as patient's PMI is greater than 30. The calculation was recommend just under 2 L of fluid so we will go ahead and give the 2 L of normal saline now. Monitor patient. Patient did have persistent hypotension despite fluids. Levophed initiated. We did note a left lower lobe pneumonia. Patient was initiated on Zosyn 4.5 g IV. He is doing much better on Levophed at 0.1 mcg/kg/m. 1319: I have discussed the case with Dr. Meyer who accepts patient for admission to the ICU. I also discussed the case with Dr. Mcnamara and he accepts patient in consult. I attest a focused exam at this time. Lactic acid improving and blood pressure is 106/58 with heart rate of 102 and O2 sat 96% on Vapotherm. All findings and concerns were discussed with patient and family who agree with plan. Patient did have complete 2 L of fluid and we did initiate LR at 2:15 hour. This was decreased to 125 an hour due to some respiratory crackles. (CAITLYN MARINELLI MD) Diagnostic Imaging Diagonstic Imaging: Xray Plain Films/CT/US/NM/MRI: chest Comments NAME: [facility] REC#: [id number] PT STATUS: REG ER : 1935 PHYSICIAN: CAITLYN MARINELLI MD ADMIT DATE: 09/23/18/ER Signed Date of Exam: 09/23/18 CHEST 1 VIEW, AP/PA ONLY INDICATION: Hypertension. Hypoxia. COMPARISON: 06/15/2016 FINDINGS: Single frontal radiographic view of the chest was obtained and demonstrates asymmetric elevation left hemidiaphragm with patchy and confluent alveolar opacities within the left base. There is no large effusion on the right. No pneumothorax is seen on either side. Cardiac silhouette and pulmonary vasculature within normal limits. Osseous structures show no gross acute abnormalities. IMPRESSION: 1. Findings concerning for left basilar pneumonia. There may be some component of atelectasis given the asymmetric left hemidiaphragmatic elevation. Followup is advised. Dictated by: Dictated on workstation # [id number] Dict: 09/23/18 1104 Trans: 09/23/18 1145 Interpreted by: YOANDY KELLER MD Electronically signed by: YOANDY KELLER MD 09/23/18 1145 Diagonstic Imaging: Xray Plain Films/CT/US/NM/MRI: chest Comments [facility] [place], [place] NAME: [facility] REC#: [id number] PT STATUS: REG ER : 1935 PHYSICIAN: CAITLYN MARINELLI MD ADMIT DATE: 09/23/18/ER Draft Date of Exam:09/23/18 CHEST 1 VIEW, AP/PA ONLY Examination: Chest 1 view. History: Central line placement. Findings: Comparison is to earlier the same day. There is a reverse right total shoulder arthroplasty. Internal jugular central venous catheter is in place with the tip in the superior vena cava. Heart size mildly enlarged. Bibasilar airspace opacities, left greater than right are unchanged concerning for pneumonia. No pneumothorax. No edema. Impression: 1. Right internal jugular central venous catheter tip in the superior vena cava with unchanged left base airspace opacity concerning for pneumonia. Dictated on workstation # [id number] Dict: 09/23/18 1200 Trans: 09/23/18 1204 [id number] [id number] Interpreted by: MAGGIE CRUZ MD Electronically signed by: (CAITLYN MARINELLI MD) Departure Communication (Admissions) Time/Spoke to Admitting Phy: 13:00 Time/Spoke to Consulting Phy: 13:05 (CAITLYN MARINELLI MD) Impression Primary Impression: Left lower lobe pneumonia Qualified Codes: J18.1 - Lobar pneumonia, unspecified organism Additional Impression: Septic shock Disposition: ADMITTED INPATIENT Condition: Stable Admissions Decision to Admit Reason: Admit from ER (General) Decision to Admit/Date: Sep 23, 2018 Time/Decision to Admit Time: 13:00 (CAITLYN MARINELLI MD) Departure-Patient Inst. Referrals: NO,LOCAL PHYSICIAN (PCP/Family) Primary Care Physician CAITLYN MARINELLI MD Sep 23, 2018 10:35 HILLARY ALCAZAR APRN Sep 23, 2018 11:36
[2018-09-23] MEDS: NS IV 1000 ML 1,000 ML IV SCH ×2 (10:43→10:53)
[2018-09-23 10:47] LABS: BASOPHILS % (AUTO) 0 % (0-10); EOSINOPHILS # (AUTO) 0.1 10^3/uL (0.0-0.3); EOSINOPHILS % (AUTO) 1 % (0-10); HEMATOCRIT 32 % (40-54); HEMOGLOBIN 10.4 G/DL (13.3-17.7); LYMPHOCYTES # (AUTO) 0.6 X 10^3 (1.0-4.0); LYMPHOCYTES % (AUTO) 3 % (12-44); MEAN CORPUSCULAR HEMOGLOBIN 26 PG (25-34); MEAN CORPUSCULAR HGB CONC 33 G/DL (32-36); MEAN CORPUSCULAR VOLUME 79 FL (80-99); MEAN PLATELET VOLUME 10.9 FL (7.4-10.4); MONOCYTES # (AUTO) 2.8 X 10^3 (0.0-1.0); MONOCYTES % (AUTO) 15 % (0-12); NEUTROPHILS # (AUTO) 15.3 X 10^3 (1.8-7.8); NEUTROPHILS % (AUTO) 82 % (42-75); PLATELET COUNT 116 10^3/uL (130-400); RED CELL DISTRIBUTION WIDTH 17.1 % (10.0-14.5); WHITE BLOOD COUNT 18.8 10^3/uL (4.3-11.0)
[2018-09-23 10:51] LABS: ABG BASE EXCESS -1.7 MMOL/L (-2.5-2.5); ABG OXYGEN SATURATION 97 % (94-100); ABG PCO2 42 MMHG (35-45); ABG PH 7.36 (7.37-7.43); ABG PO2 93 MMHG (79-93); ABG TCO2 24.1 MMOL/L (21.0-31.0); ALLENS TEST POSITIVE; INSPIRED O2 2 L VAPOTHERM; PATIENT TEMP 99.5; VENTILATOR NO
[2018-09-23 10:59] LABS: INR 1.1 (0.8-1.4); PROTHROMBIN TIME PATIENT 14.9 SEC (12.2-14.7)
--- NOTE | 2018-09-23 11:08 | Diagnostic Imaging Report ---
INDICATION: Hypertension. Hypoxia. COMPARISON: 06/15/2016 FINDINGS: Single frontal radiographic view of the chest was obtained and demonstrates asymmetric elevation left hemidiaphragm with patchy and confluent alveolar opacities within the left base. There is no large effusion on the right. No pneumothorax is seen on either side. Cardiac silhouette and pulmonary vasculature within normal limits. Osseous structures show no gross acute abnormalities. IMPRESSION: 1. Findings concerning for left basilar pneumonia. There may be some component of atelectasis given the asymmetric left hemidiaphragmatic elevation. Followup is advised. Dictated by: Dictated on workstation # [id number]
[2018-09-23 11:09] LABS: ALANINE AMINOTRANSFERASE 16 U/L (0-55); ALKALINE PHOSPHATASE 45 U/L (40-136); BILIRUBIN,TOTAL 0.6 MG/DL (0.1-1.0); BUN/CREATININE RATIO 17; CALCIUM 9.2 MG/DL (8.5-10.1); CARBON DIOXIDE 23 MMOL/L (21-32); CHLORIDE 98 MMOL/L (98-107); CREATININE SERUM 2.06 MG/DL (0.60-1.30); GFR ESTIMATED 31; GLUCOSE 161 MG/DL (70-105); POTASSIUM 4.1 MMOL/L (3.6-5.0); SODIUM 134 MMOL/L (135-145); TOTAL PROTEIN 7.7 GM/DL (6.4-8.2)
--- NOTE | 2018-09-23 11:14 | NUR ---
NOTIFIED DR MARINELLI OF CRITICAL LACTIC ACID RESEULS OF 3.7 PER LAB
[2018-09-23 11:34] LABS: ANISOCYTOSIS SLIGHT; BAND NEUTROPHILS 18 %; BASOPHILS % (MANUAL) 0 %; EOSINOPHILS % (MANUAL) 0 %; LYMPHOCYTES % (MANUAL) 4 %; METAMYELOCYTES % 1 %; MICROCYTOSIS SLIGHT; MONOCYTES % (MANUAL) 9 %; MYELOCYTES % 1 %; NEUTROPHILS % (MANUAL) 67 %
[2018-09-23] MEDS ORDERED: NOREPINEPHRINE 4 MG in NS (IVPB) 250 ML IV SCH (11:45)
[2018-09-23] MEDS ORDERED: LACTATED RINGERS 1,000 ML IV ONE (11:53)
--- NOTE | 2018-09-23 12:04 | NUR ---
1155 provider Radha gave ok to use central line.
--- NOTE | 2018-09-23 12:05 | Diagnostic Imaging Report ---
Examination: Chest 1 view. History: Central line placement. Findings: Comparison is to earlier the same day. There is a reverse right total shoulder arthroplasty. Internal jugular central venous catheter is in place with the tip in the superior vena cava. Heart size mildly enlarged. Bibasilar airspace opacities, left greater than right are unchanged concerning for pneumonia. No pneumothorax. No edema. Impression: 1. Right internal jugular central venous catheter tip in the superior vena cava with unchanged left base airspace opacity concerning for pneumonia. Dictated by: Dictated on workstation # [id number]
[2018-09-23] MEDS ORDERED: PIPERACILLIN SODIUM/TAZOBACTAM 4.5 GM in NS (IVPB) 100 ML IV ONE (13:00)
--- NOTE | 2018-09-23 13:20 | NUR ---
DR MARINELLI NOTIFIED OF PT NOT VOIDING YET AND THAT HIS VOICE IS STARTING TO SOUND RASPY.
--- NOTE | 2018-09-23 13:27 | NUR ---
DR MEDINA HERE TO SEE PT.
[2018-09-23 13:54] LABS: BILIRUBIN,URINE NEGATIVE (NEGATIVE); CLARITY,URINE CLEAR; COLOR,URINE YELLOW; GLUCOSE, URINE (UA) NEGATIVE (NEGATIVE); KETONES,URINE NEGATIVE (NEGATIVE); LEUKOCYTE ESTERASE ,URINE 1+ (NEGATIVE); NITRITE,URINE NEGATIVE (NEGATIVE); PH,URINE 5 (5-9); PROTEIN,URINE 2+ (NEGATIVE); UROBILINOGEN,URINE NORMAL (NORMAL)
--- NOTE | 2018-09-23 14:01 | History & Physical-Hospitalist ---
History of Present Illness HPI/Chief Complaint Pt is an 83yoCM with a PMH of NIDDMII, COPD, HTN who presented to the ER with fevers, chills, and weakness. He reports that he was out fishing last night and began to have fevers and chills. He thought this was due to the temperature so he poured cold water on him but this did not help. When he arrived home his checked his temperature and found that it was 100.5 and she tried to bring him to the emergency department last night but he declined. He also complains of cough with sputum production. He states he has feke this previous times and he's had pneumonia. He states he had 4 bouts of pneumonia over 8 months in 2016. On arrival to the emergency department this morning he was hypotensive and found to be in septic shock secondary to pneumonia. Source: patient, family Exam Limitations: no limitations Date Seen 09/23/18 Time Seen by a Provider: 14:01 Attending Physician Frantz Meyer MD PCP No,Local Physician Referring Physician Date of Admission Sep 23, 2018 at 13:39 Home Medications & Allergies Home Medications Reviewed patient Home Medication Reconciliation performed by pharmacy medication reconciliations highway traffic control technician and/or nursing. Patients Allergies have been reviewed. Allergies Allergies Coded Allergies lisinopril (Verified Allergy, Unknown, 09/22/15) sildenafil (Verified Allergy, Unknown, 09/22/15) Past Qnvstnp-Tcrsvy-Ikkjpc Hx Past Med/Social Hx: Reviewed Nursing Past Med/Soc Hx Patient Social History Marrital Status: Alcohol Use: Denies Use Recreational Drug Use: No Smoking Status: Former Smoker Former Smoker, Quit: Nov 16, 1992 Type Used: Cigarettes Recent Foreign Travel: No Contact w/other who traveled: No Recent Hopitalizations: Yes (PNEUMONIA 03/2016) Recent Infectious Disease Expo: No Immunizations Up To Date Tetanus Booster (TDap): Unknown Date of Pneumonia Vaccine: Mar 08, 2014 Date of Influenza Vaccine: Dec 03, 2015 Seasonal Allergies Seasonal Allergies: No Past Medical History Surgeries: Abdominal, Orthopedic, Tonsillectomy Respiratory: COPD, Emphysema, Pneumonia, Sleep Apnea Currently Using CPAP: Yes Currently Using BIPAP: No Cardiac: High Cholesterol, Hypertension Reproductive: No Sexually Transmitted Disease: No HIV/AIDS: No Gastrointestinal: Abdominal Hernia Musculoskeletal: Degenerate Disk Disease, Arthritis, Chronic Back Pain Endocrine: Diabetes, Non-Insulin dep Cancer: Skin Did You Recieve Any Treatments: Yes What Type of Treatment Did You: Surgical Intervention Psychosocial: Depression History of Blood Disorders: Yes (ANEMIA) Adverse Reaction to Blood Hernandez: No Family History Reviewed Nursing Family Hx Arthritis 19 MOTHER Cataracts 19 MOTHER Deafness or hearing loss G8 BROTHER Diabetes mellitus 19 MOTHER Visual disorder 19 MOTHER Review of Systems Constitutional: chills, fever, weakness EENTM: no symptoms reported Respiratory: cough; No hemoptysis, No orthopnea; phlegm Cardiovascular: no symptoms reported Gastrointestinal: no symptoms reported Genitourinary: no symptoms reported Musculoskeletal: muscle weakness Skin: no symptoms reported Psychiatric/Neurological: No Symptoms Reported Physical Exam Physical Exam Vital Signs Vital Signs - First Documented 09/23/18 09/23/18 10:16 10:30 Temp 99.5 Pulse 110 Resp 16 B/P (MAP) 92/37 (55) Pulse Ox 89 O2 Delivery Nasal Cannula O2 Flow Rate 5.00 FiO2 84 Capillary Refill : Less Than 3 Seconds Height, Weight, BMI Height: 5'4.00" Weight: 240lbs. 4.8oz. 108.627071xl; 45.7 BMI Method:Stated General Appearance: No Apparent Distress, Obese HEENT: Moist Mucous Membranes; No Scleral Icterus (L), No Scleral Icterus (R) Neck: No JVD, No Thyromegaly; Other (central line in place) Respiratory: No Accessory Muscle Use, No Respiratory Distress, Rhonci Cardiovascular: Regular Rate, Rhythm, No Murmur Gastrointestinal: Normal Bowel Sounds, Non Tender, Soft, Other (abdominal hernia) Extremity: Normal Capillary Refill, No Calf Tenderness, No Pedal Edema Neurologic/Psychiatric: Alert, Oriented x3 Skin: Normal Color, Warm/Dry Results Results/Procedures Labs Laboratory Tests 09/23/18 10:38 Patient resulted labs reviewed. Imaging: Reviewed Imaging Report Assessment/Plan Admission Diagnosis Septic Shock Admission Status: Inpatient Order (span 2 midnights) Reason for Inpatient Admission: Septic shock, iv pressors Assessment and Plan assessment Septic shock Left lower lobe pneumonia Acute kidney injury Gcj-cogythy-nrjjnhpzv diabetes type II Hypertension plan IV abx started in the emergency department will continue await cultures Currently on Levophed for pressure support will continue Admit to ICU continue IV fluid resuscitation for AK I Hold home antihypertensives and metformin due to hypotension and lactic acidosis pulmonology consult. Appreciate recs Critical Care Critically Ill Patient Diagnosis/Problems Diagnosis/Problems (1) Septic shock Status: Acute (2) Essential (primary) hypertension (3) Non-insulin dependent type 2 diabetes mellitus (4) Thrombocytopenia (5) Left lower lobe pneumonia Status: Acute Qualifiers: Pneumonia type: due to unspecified organism Qualified Codes: J18.1 - Lobar pneumonia, unspecified organism (6) Hypoxia Status: Acute (7) Acute renal failure Status: Acute (8) COPD (chronic obstructive pulmonary disease) Status: Acute (9) Chronic anemia Status: Acute FRANTZ MEYER MD Sep 23, 2018 14:01
[2018-09-23 14:08] LABS: AMORPHOUS SEDIMENT,UR RARE AMOR URATES /LPF; BACTERIA,URINE TRACE /HPF; HYALINE CASTS, URINE 25-50 /LPF; RBC,URINE 0-2 /HPF; SQUAMOUS EPITHELIAL CELL,UR RARE /HPF; WBC,URINE 0-2 /HPF
--- NOTE | 2018-09-23 15:06 | NUR ---
1420 Pt transferred to ICU with LR, LEVOFED, AND ZOSYN INFUSING
[2018-09-23] MEDS ORDERED: ONDANSETRON 4 MG/2 ML (SDV) Z0FRAN IV PRN (15:15)
[2018-09-23] MEDS ORDERED: LACTATED RINGERS IV PRN (15:30)
[2018-09-23] MEDS ORDERED: NS IV ONE (15:30)
[2018-09-23] MEDS ORDERED: VANCOMYCIN 1,750 MG/NS 500 ML IVPB IV NR ×2 (15:30)
[2018-09-23] MEDS: LACTATED RINGERS 1,000 ML IV SCH ×2 (15:37→18:47)
[2018-09-23] MEDS ORDERED: PRIM250T33 PO (15:40)
[2018-09-23] MEDS ORDERED: MULT-1029 PO (15:40)
[2018-09-23] MEDS ORDERED: [UNRECOGNIZED DRUG - REMARK] PO (15:44)
[2018-09-23] MEDS ORDERED: CATHETER FLUSH 10 ML SYR IV PRN (15:45)
[2018-09-23] MEDS ORDERED: ALOG25TA2 PO (15:48)
--- NOTE | 2018-09-23 15:50 | NUR ---
SPOKE WITH THE PATIENTS FAMILY ABOUT MEDICATIONS. HE USES THE IN PHARMACY AND I SENT A REQUEST FOR THOSE RECORDS HOWEVER I PROBABLY WON'T RECEIVE THEM UNTIL WEDNESDAY. I WENT OVER THE LIST WE HAD ON FILE FOR THE PATIENT FROM PREVIOUS, SHE VERIFIED HE IS TAKING THEM THAT WAY AND DOES NOT BELIEVE ANY DOSES HAVE CHANGED. SHE STATES THE ONLY NEW ONE IS THE ALOGLIPTIN OF A MORNING. THEY ARE GOING TO BRING IN THE BOTTLES LATER THIS EVENING, I HAVE ASKED THE NURSE TO VERIFY WHAT IS ON THE MED REC WITH THOSE BOTTLES, I WILL ALSO VERIFY ON WEDNESDAY WHEN THE RECORDS FROM THE IN ARRIVE. Addendum: 09/26/18 at 0849 by TABBY ROSE [facility] RECEIVED FAX FROM IN THIS MORNING, ALL MEDS THE PATIENT'S REPORTED MATCH WHAT HAS BEEN FILLED RECENTLY AT THE IN.
--- NOTE | 2018-09-23 15:53 | Pulmonary Consultation ---
History of Present Illness History of Present Illness Date of Consultation 09/23/18 15:47 Time Seen by Provider: 15:47 Date of Admission History of Present Illness 83yo with hx of COPD, PARKER, NIDDM, presented to ED secondary to fevers/chills, and weakness. Allergies and Home Medications Allergies Coded Allergies: lisinopril (Verified Allergy, Unknown, 09/22/15) sildenafil (Verified Allergy, Unknown, 09/22/15) Home Medications Aspirin 81 Mg Tablet.dr, 81 MG PO DAILY, (Reported) Atorvastatin Calcium 80 Mg Tablet, 40 MG PO HS, (Reported) TAKES 1/2 (80MG) TABLET Furosemide 40 Mg Tablet, 40 MG PO DAILY PRN for SWELLING, (Reported) Gabapentin 300 Mg Capsule, 600 MG PO TID, (Reported) TAKES 2 (300MG) CAPSULES Glipizide 10 Mg Tablet, 20 MG PO BID, (Reported) TAKES 2 (10MG) TABLETS Losartan Potassium 100 Mg Tablet, 50 MG PO DAILY, (Reported) TAKES 1/2 (100MG) TABLET Meloxicam 7.5 Mg Tablet, 7.5 MG PO DAILY, (Reported) Metformin HCl 500 Mg Tab.er.24, 2,000 MG PO 1700, (Reported) TAKES 4 (500MG) TABLETS BEFORE SUPPER Multivit-Min/FA/Lycopene/Lut 1 Each Tablet, 1 TAB PO DAILY, (Reported) Olodaterol HCl 4 Gm Mist.inhal, 2 PUFF IH DAILY, (Reported) [place] 3 Polyunsat Fatty Acids 1,000 Mg Cap, 1,000 MG PO HS, (Reported) [place] 3 Polyunsat Fatty Acids 1,000 Mg Cap, 2,000 MG PO DAILY, (Reported) TAKES 2 (1000MG) CAPSULES IN THE MORNING Potassium Gluconate 99 Mg Tablet, 99 MG PO DAILY PRN for WHEN TAKING FUROSEMIDE, (Reported) Primidone 250 Mg Tablet, 250 MG PO HS, (Reported) Sertraline HCl 100 Mg Tablet, 100 MG PO DAILY, (Reported) [Am Blood Sugar Med] , 1 TAB PO DAILY, (Reported) Past Cwmollf-Gqrmhk-Urjihd Hx Past Med/Social Hx: Reviewed Nursing Past Med/Soc Hx Patient Social History Alcohol Use: Denies Use Recreational Drug Use: No Smoking Status: Former Smoker Type Used: Cigarettes Former Smoker, Quit: Nov 16, 1992 Recent Foreign Travel: No Contact w/Someone Who Travel: No Recent Infectious Disease Expo: No Recent Hopitalizations: Yes (PNEUMONIA 03/2016) Immunizations Up To Date Tetanus Booster (TDap): Unknown Date of Pneumonia Vaccine: Sep 24, 2015 Date of Influenza Vaccine: Dec 03, 2015 Seasonal Allergies Seasonal Allergies: No Past Medical History Surgeries: Yes (HERNIA) Abdominal, Orthopedic, Tonsillectomy Respiratory: Yes Pneumonia, Sleep Apnea, COPD, Emphysema Currently Using CPAP: Yes Currently Using BIPAP: No Cardiac: Yes High Cholesterol, Hypertension Neurological: Yes ([place] WITH PERMANENT RIGHT FACIAL DROOP) Reproductive Disorders: No Sexually Transmitted Disease: No HIV/AIDS: No Genitourinary: No Gastrointestinal: Yes Abdominal Hernia Musculoskeletal: Yes ("EPIDURAL FOR L3-L4 DEGENERATION"; NECK PAIN) Degenerate Disk Disease, Arthritis, Chronic Back Pain Endocrine: Yes (OBESITY) Diabetes, Non-Insulin dep HEENT: No Cancer: No Skin Did You Recieve Any Treatments: Yes What Type of Treatment Did You: Surgical Intervention Psychosocial: Yes Depression Integumentary: No Blood Disorders: Yes (ANEMIA) Adverse Reaction/Blood Tranf: No Family Medical History Reviewed Nursing Family Hx Arthritis 19 MOTHER Cataracts 19 MOTHER Deafness or hearing loss G8 BROTHER Diabetes mellitus 19 MOTHER Visual disorder 19 MOTHER Sepsis Event Evaluation Height, Weight, BMI Height: 5'4.00" Weight: 250lbs. 8.0oz. [id number]; 43.0 BMI Method:Stated Exam Exam Vital Signs Date Time Temp Pulse Resp B/P (MAP) Pulse Ox O2 Delivery O2 Flow Rate FiO2 09/23/18 15:15 96 22 107/61 (76) 99 Vapotherm 100.00 15.00 09/23/18 15:00 101 13 110/60 (77) 98 Vapotherm 100.00 15.00 09/23/18 14:58 96 Vapotherm 15.00 100 09/23/18 14:40 98.3 105 15 124/73 (90) 97 Vapotherm 100.00 15.00 09/23/18 14:30 100 15 108/62 (77) 100 Vapotherm 09/23/18 12:45 98.4 98 15 104/55 100 Nasal Cannula 20.00 09/23/18 10:30 84 Room Air 84 09/23/18 10:16 99.5 110 16 92/37 (55) 89 Nasal Cannula 5.00 Height & Weight Height: 5'4.00" Weight: 250lbs. 8.0oz. [id number]; 43.0 BMI Method:Stated General Appearance: No Apparent Distress, Obese HEENT: Moist Mucous Membranes; No Scleral Icterus (L), No Scleral Icterus (R) Neck: No JVD, No Thyromegaly; Other (central line in place) Respiratory: No Accessory Muscle Use, No Respiratory Distress, Rhonci Cardiovascular: Regular Rate, Rhythm, No Murmur Capillary Refill: Less Than 3 Seconds Extremity: Normal Capillary Refill, No Calf Tenderness, No Pedal Edema Neurologic/Psychiatric: Alert, Oriented x3 Skin: Normal Color, Warm/Dry Results Lab Laboratory Tests 09/23/18 10:38 Assessment/Plan Assessment/Plan Severe sepsis with septic shock secondary to LLL pneumonia -Levopohed -IVF -Graham cultures Hypoxia with copious amounts of sputum production -Use BiPAP QHS and PRN -Low thresh hold for intubation. -Check ABG -Oxygen -SVNs Acute renal failure -IVF PARKER -He is compliant with his CPAP at home NIDDM Thrombocytopenia TUSHAR MAHER DO Sep 23, 2018 15:53
[2018-09-23 16:14] LABS: ABG BASE EXCESS -1.5 MMOL/L (-2.5-2.5); ABG OXYGEN SATURATION 91 % (94-100); ABG PCO2 45 MMHG (35-45); ABG PO2 62 MMHG (79-93); ABG TCO2 24.9 MMOL/L (21.0-31.0)
[2018-09-23 16:15] LABS: ABG PH 7.34 (7.37-7.43); ALLENS TEST POSITIVE
[2018-09-23 16:16] LABS: INSPIRED O2 15L @ 50% VAPO; PATIENT TEMP 98.3; VENTILATOR NO
[2018-09-23] MEDS: RT-ALBUTEROL/IPRATROPIUM 3 ML (DUONEB) VIAL INH SCH ×2 (18:16→22:41)
[2018-09-23] MEDS: NOREPINEPHRINE 4 MG in NS (IVPB) 250 ML IV SCH ×3 (18:48→21:58)
--- NOTE | 2018-09-23 18:51 | NUR ---
PT NS BOLUS ON EMAR ADMIN PER ICU STAFF AFTER CLARIFICATION OF ADMINISTRATION BY ED STAFF THAT BOLUS WAS ADMINISTERED BEFORE ARRIVAL TO ICU.
[2018-09-23] MEDS ORDERED: ATORVASTATIN 80 MG (LIPITOR) TABLET PO SCH (21:00)
[2018-09-23] MEDS: PRIMIDONE 250MG (MYSOLINE) TAB PO SCH (21:10)
[2018-09-23] MEDS: GABAPENTIN 300 MG (NEURONTIN) CAP PO SCH (21:11)
[2018-09-23] MEDS: ATORVASTATIN 40 MG (LIPITOR) TABLET PO SCH (21:11)
[2018-09-23] MEDS: PIPERACILLIN/TAZO 4.5 GM/NS 100 ML IV SCH ×2 (21:12)
[2018-09-23] MEDS: aCETylcysteine 20% (MUCOMYST) 30ML SOLN VIAL INH SCH (22:41)
[2018-09-24] VITALS (29 sets, daily range): BP systolic 89–143; BP diastolic 40–72
--- NOTE | 2018-09-24 00:11 | NUR ---
NOTIFIED E-ICU OF PT CONVERTING TO AFIB AND HR INCREASING TO 140-150'S AT TIMES. SEE ORDER HX Addendum: 09/24/18 at 0013 by SHERINE MAYORGA RN WRONG PT CHART-
[2018-09-24] MEDS: RT-ALBUTEROL/IPRATROPIUM 3 ML (DUONEB) VIAL INH SCH ×6 (02:07→22:30)
[2018-09-24] MEDS: LACTATED RINGERS 1,000 ML IV SCH ×2 (02:37→15:34)
[2018-09-24 03:43] LABS: BASOPHILS % (AUTO) 0 % (0-10); EOSINOPHILS # (AUTO) 0.1 10^3/uL (0.0-0.3); EOSINOPHILS % (AUTO) 1 % (0-10); HEMATOCRIT 27 % (40-54); LYMPHOCYTES # (AUTO) 0.6 X 10^3 (1.0-4.0); LYMPHOCYTES % (AUTO) 4 % (12-44); MEAN CORPUSCULAR HEMOGLOBIN 26 PG (25-34); MEAN CORPUSCULAR HGB CONC 33 G/DL (32-36); MEAN CORPUSCULAR VOLUME 79 FL (80-99); MEAN PLATELET VOLUME 10.8 FL (7.4-10.4); MONOCYTES # (AUTO) 1.2 X 10^3 (0.0-1.0); MONOCYTES % (AUTO) 8 % (0-12); NEUTROPHILS # (AUTO) 13.2 X 10^3 (1.8-7.8); NEUTROPHILS % (AUTO) 87 % (42-75); PLATELET COUNT 95 10^3/uL (130-400); RED CELL DISTRIBUTION WIDTH 17.7 % (10.0-14.5); WHITE BLOOD COUNT 15.2 10^3/uL (4.3-11.0)
[2018-09-24 03:59] LABS: ABG BASE EXCESS 0.2 MMOL/L (-2.5-2.5); ABG OXYGEN SATURATION 95 % (94-100); ABG PCO2 42 MMHG (35-45); ABG PH 7.38 (7.37-7.43); ABG PO2 74 MMHG (79-93); ABG TCO2 25.9 MMOL/L (21.0-31.0)
[2018-09-24 04:00] LABS: ALLENS TEST POSITIVE; INSPIRED O2 40% FIO2 BIPAP; PATIENT TEMP 98.6; VENTILATOR NO
[2018-09-24 04:01] LABS: ALANINE AMINOTRANSFERASE 14 U/L (0-55); ALBUMIN 3.2 GM/DL (3.2-4.5); ALKALINE PHOSPHATASE 42 U/L (40-136); BILIRUBIN,TOTAL 0.5 MG/DL (0.1-1.0); BUN/CREATININE RATIO 25; CALCIUM 8.5 MG/DL (8.5-10.1); CARBON DIOXIDE 23 MMOL/L (21-32); CHLORIDE 103 MMOL/L (98-107); CREATININE SERUM 1.14 MG/DL (0.60-1.30); GFR ESTIMATED > 60; GLUCOSE 163 MG/DL (70-105); MAGNESIUM 1.6 MG/DL (1.8-2.4); POTASSIUM 3.9 MMOL/L (3.6-5.0); SODIUM 136 MMOL/L (135-145); TOTAL PROTEIN 6.6 GM/DL (6.4-8.2)
[2018-09-24] MEDS ORDERED: MAGNESIUM 1 GM/100 ML IVPB 200 ML IV ONE (04:08)
[2018-09-24] MEDS: PIPERACILLIN/TAZO 4.5 GM/NS 100 ML IV SCH ×6 (04:19→21:09)
[2018-09-24] MEDS: MAGNESIUM 1 GM/100 ML IVPB 100 ML IV SCH ×3 (04:19→05:17)
[2018-09-24] MEDS: POTASSIUM CL 10MEQ/50ML IVPB 50 ML IV SCH (04:19)
[2018-09-24] MEDS: KCL 20 MEQ TAB (K-DUR) PO SCH (04:20)
--- NOTE | 2018-09-24 06:04 | Pulmonary Progress Note ---
Subjective Time Seen by a Provider: 07:28 Subjective/Events-last exam Currently on BiPAP. PT is doing better. Sepsis Event Evaluation Height, Weight, BMI Height: 5'4.00" Weight: 254lbs. 7.0oz. 115.225356uv; 43.0 BMI Method:Stated Focused Exam Lactate Level 09/23/18 10:38: Lactic Acid Level 3.70*H 09/23/18 12:24: Lactic Acid Level 2.27*H 09/24/18 03:30: Lactic Acid Level 1.68 Lactic Acid Level Laboratory Tests Test 09/24/18 03:30 Lactic Acid Level 1.68 MMOL/L (0.50-2.00) Exam Exam Vital Signs Date Time Temp Pulse Resp B/P (MAP) Pulse Ox O2 Delivery O2 Flow Rate FiO2 09/24/18 05:00 96 22 127/47 (73) 93 NIV Bilevel 40.00 09/24/18 04:55 94 22 93 30.00 09/24/18 04:00 95 21 132/55 (80) 92 NIV Bilevel 40.00 09/24/18 04:00 93 NIV Bilevel 40 09/24/18 03:51 98.6 09/24/18 03:00 104 19 118/69 (85) 91 NIV Bilevel 40.00 09/24/18 02:45 100 25 126/49 (74) 90 NIV Bilevel 40.00 09/24/18 02:30 99.7 09/24/18 02:15 97 24 109/48 (68) 95 NIV Bilevel 30.00 09/24/18 02:07 98 24 92 30.00 09/24/18 01:00 98 25 112/51 (71) 93 NIV Bilevel 30.00 09/24/18 01:00 98 09/24/18 00:36 103 22 111/52 (71) 91 NIV Bilevel 30.00 09/24/18 00:35 99.2 09/24/18 00:24 99 28 92 30.00 09/24/18 00:00 93 NIV Bilevel 40 09/23/18 23:42 100.5 09/23/18 23:00 101 28 119/57 (77) 94 NIV Bilevel 30.00 09/23/18 22:46 NIV Bilevel 30.00 09/23/18 22:43 95 29 98 30.00 09/23/18 22:00 92 26 118/52 (74) 94 Vapotherm 40.00 15.00 09/23/18 21:30 NIV Bilevel 40.00 09/23/18 21:00 94 20 106/72 (83) Vapotherm 50.00 15.00 09/23/18 20:26 93 28 96 40.00 09/23/18 20:00 93 NIV Bilevel 40 09/23/18 20:00 94 26 122/47 (72) Vapotherm 50.00 15.00 09/23/18 19:30 99.5 09/23/18 19:00 94 19 118/71 (87) 93 Vapotherm 50.00 15.00 09/23/18 19:00 95 09/23/18 18:21 98 28 98 40.00 09/23/18 18:00 107 19 132/65 (87) 89 Vapotherm 50.00 15.00 09/23/18 17:00 98 27 115/67 (83) 94 Vapotherm 50.00 15.00 09/23/18 16:00 98 Vapotherm 15.00 50 09/23/18 16:00 99 26 103/63 (76) 93 Vapotherm 50.00 15.00 09/23/18 15:45 103 20 113/63 (80) 95 Vapotherm 60.00 15.00 09/23/18 15:30 101 23 94/55 (68) 96 Vapotherm 90.00 15.00 09/23/18 15:15 96 22 107/61 (76) 99 Vapotherm 100.00 15.00 09/23/18 15:00 101 13 110/60 (77) 98 Vapotherm 100.00 15.00 09/23/18 14:58 96 Vapotherm 15.00 100 09/23/18 14:56 100 09/23/18 14:40 98.3 105 15 124/73 (90) 97 Vapotherm 100.00 15.00 09/23/18 14:30 100 15 108/62 (77) 100 Vapotherm 09/23/18 12:45 98.4 98 15 104/55 100 Nasal Cannula 20.00 09/23/18 10:30 84 Room Air 84 09/23/18 10:16 99.5 110 16 92/37 (55) 89 Nasal Cannula 5.00 I & O 09/24/18 07:00 Intake Total 8500.25 ml Output Total 2175 ml Balance 6325.25 ml Height & Weight Height: 5'4.00" Weight: 254lbs. 7.0oz. 115.333399zn; 43.0 BMI Method:Stated General Appearance: No Apparent Distress, Obese HEENT: Moist Mucous Membranes; No Scleral Icterus (L), No Scleral Icterus (R) Neck: No JVD, No Thyromegaly; Other (central line in place) Respiratory: No Accessory Muscle Use, No Respiratory Distress, Rhonci Cardiovascular: Regular Rate, Rhythm, No Murmur Capillary Refill: Less Than 3 Seconds Extremity: Normal Capillary Refill, No Calf Tenderness, No Pedal Edema Neurologic/Psychiatric: Alert, Oriented x3 Skin: Normal Color, Warm/Dry Results Lab Laboratory Tests 09/23/18 10:38 09/24/18 03:30 Assessment/Plan Assessment/Plan Severe sepsis with septic shock secondary to LLL pneumonia -Levopohed -- now off -IVF- to 75 ml/hr -Graham cultures Hypoxia with copious amounts of sputum production -Use BiPAP QHS and PRN -Low thresh hold for intubation. -Vapotherm during the day -Oxygen -SVNs Acute renal failure -IVF PARKER -He is compliant with his CPAP at home NIDDM Thrombocytopenia -DIC panel -Hold off on Lovenox for dvt ppx for now Anemia -Protonix -Occult stool TUSHAR MAHER DO Sep 24, 2018 06:04
[2018-09-24 06:59] LABS: FIBRIN DEGRADATION PRODUCTS 2.11 UG/ML (0.00-0.49); INR 1.5 (0.8-1.4); PROTHROMBIN TIME PATIENT 18.2 SEC (12.2-14.7)
--- NOTE | 2018-09-24 08:21 | Progress Note - Hospitalist ---
Subjective HPI/CC On Admission Date Seen by Provider: Sep 24, 2018 Time Seen by Provider: 08:16 Pt is an 83yoCM with a PMH of NIDDMII, COPD, HTN who presented to the ER with fevers, chills, and weakness. He reports that he was out fishing last night and began to have fevers and chills. He thought this was due to the temperature so he poured cold water on him but this did not help. When he arrived home his checked his temperature and found that it was 100.5 and she tried to bring him to the emergency department last night but he declined. He also complains of cough with sputum production. He states he has feke this previous times and he's had pneumonia. He states he had 4 bouts of pneumonia over 8 months in 2016. On arrival to the emergency department this morning he was hypotensive and found to be in septic shock secondary to pneumonia. Subjective/Events-last exam Pt reports feeling better. Breathing is better. No complaints. Focused Exam Lactate Level 09/23/18 10:38: Lactic Acid Level 3.70*H 09/23/18 12:24: Lactic Acid Level 2.27*H 09/24/18 03:30: Lactic Acid Level 1.68 Objective Exam Vital Signs Vital Signs Date Time Temp Pulse Resp B/P (MAP) Pulse Ox O2 Delivery O2 Flow Rate FiO2 09/24/18 07:26 92 21 93 40.00 09/24/18 06:00 120/49 (72) NIV Bilevel 09/24/18 04:00 40 09/24/18 03:51 98.6 Capillary Refill : Less Than 3 Seconds General Appearance: No Apparent Distress, Obese Neck: Other (central line in place) Respiratory: No Accessory Muscle Use, No Respiratory Distress, Rhonci, Other ( on vapotherm) Cardiovascular: Regular Rate, Rhythm, No Murmur Gastrointestinal: Normal Bowel Sounds, Non Tender, Soft, Other (abdominal hernia) Extremity: Normal Capillary Refill, No Pedal Edema Neurologic/Psychiatric: Alert, Oriented x3, Normal Mood/Affect Results/Procedures Lab Laboratory Tests 09/23/18 10:38 09/24/18 03:30 Patient resulted labs reviewed. Imaging: Reviewed Imaging Report Assessment/Plan Assessment and Plan Assess & Plan/Chief Complaint assessment Septic shock- shock resolved Left lower lobe pneumonia Acute Hypoxic Respiratory Failure Acute kidney injury Ofk-iafsubm-ogdrghaua diabetes type II Hypertension Chronic thrombocytopenia Microcytic Anemia Plan: Continue abx started in the emergency department will continue await cultures Off pressors Required BiPAP overnight, now on Vapotherm Pulm consulted, discussed with Dr Mcnamara and has low threshold for intubation given secretions SHANE improved Hold home antihypertensives and metformin due to hypotension and lactic acidosis SSI PT/OT Critical Care Critically Ill Patient Diagnosis/Problems Diagnosis/Problems (1) Septic shock Status: Acute (2) Essential (primary) hypertension (3) Non-insulin dependent type 2 diabetes mellitus (4) Thrombocytopenia (5) Left lower lobe pneumonia Status: Acute Qualifiers: Pneumonia type: due to unspecified organism Qualified Codes: J18.1 - Lobar pneumonia, unspecified organism (6) Hypoxia Status: Acute (7) Acute renal failure Status: Acute (8) COPD (chronic obstructive pulmonary disease) Status: Acute (9) Chronic anemia Status: Acute Clinical Quality Measures DVT/VTE Risk/Contraindication: Risk Factor Score Per Nursin RFS Level Per Nursing on Admit: 4+=Very High FRANTZ MEDINA MD Sep 24, 2018 08:21
[2018-09-24] MEDS ORDERED: OLODATEROL HCL IH SCH (09:00)
[2018-09-24] MEDS: PANTOPRAZOLE 40 MG (PROTONIX) VIAL IV SCH (09:15)
[2018-09-24] MEDS: GABAPENTIN 300 MG (NEURONTIN) CAP PO SCH ×3 (09:15→21:09)
[2018-09-24] MEDS: NOREPINEPHRINE 4 MG in NS (IVPB) 250 ML IV SCH ×3 (09:15→20:19)
[2018-09-24] MEDS: SERTRALINE 100 MG (ZOLOFT) TAB PO SCH (09:15)
--- NOTE | 2018-09-24 09:50 | Diagnostic Imaging Report ---
INDICATION: Dyspnea. Comparison made with prior examination from 09/23/2018. FINDINGS: There are bibasal infiltrates more consolidated on the left. There is a left pleural effusion. There is cardiomegaly. There is mild venous congestion. There is no pneumothorax. The mediastinum is unremarkable. The right internal jugular central venous catheter has its tip in upper superior vena cava. IMPRESSION: Bibasilar infiltrates more consolidated in the left with a left pleural effusion. Cardiomegaly and mild central pulmonary venous congestion. Dictated by: Dictated on workstation # [id number]
[2018-09-24] MEDS: aCETylcysteine 20% (MUCOMYST) 30ML SOLN VIAL INH SCH ×3 (10:16→22:30)
--- NOTE | 2018-09-24 12:48 | Occupational Therapy Eval ---
OT Evaluation-General/PLF Medical Diagnosis Admission Date Sep 23, 2018 at 13:39 Medical Diagnosis: Septic shock/pneumonia Onset Date: Sep 23, 2018 Therapy Diagnosis Therapy Diagnosis: Weakness Height/Weight Height (Feet): 5 Height (Inches): 4.00 Weight (Pounds): 254 Weight (Ounces): 7.0 Precautions Precautions/Isolations: Fall Prevention, Standard Precautions Weight Bear Status Weight Bearing Restriction: Weight Bearing/Tolerated Referral Physician: Dr. Meyer Referral Reason: Activity Tolerance, Self Care, Evaluation/Treatment, Strengthening/ROM Medical History Pertinent Medical History: COPD, DM, HTN, Smoking Additional Medical History DDD, reverse shoulder, history of pneumonia. Current History Pt. was fishing and began to feel ill. Went home. Came to ER next day with fever, chills, and pneumonia. Pt. has history of this. Reviewed History: Yes Social History Home: Single Level Current Living Status: Spouse Entry Into Home: Stairs With Railing Steps Into Home: 2 ADL-Prior Level of Function Therapy Code Descriptions/Definitions Functional [place] Measure: 0=Not Assessed/NA 4=Minimal Assistance 1=Total Assistance 5=Supervision or Setup 2=Maximal Assistance 6=Modified [place] 3=Moderate Assistance 7=Complete [place] Therapy Quality Codes: 6 Independent with activity with or without an assistive device 5 Patient requires set up or clean up by helper. Patient completes activity by themselves 4 Supervision or touching assist (CGA). [place] provide cues , steadying assist 3 The helper provides less than half the effort to complete the activity 2 The helper provides more than half the effort to complete the activity 1 Dependent. The helper does all the effort to complete an activity 7 Patient refused to complete or attempt activity 9 The patient did not perform the activity before the current illness or injury 88 Not attempted due to Medical conditions or safety concerns Functional Abilities and Goals: Independent: Patient completed the activities by him/herself, with or without an assistive device, with no assistance from a helper. Needed Some Help: Patient needed partial assistance from another person to complete activities. Dependent: A helper completed the activities for the patient. Unknown: Not Applicable: ADL PLOF Comments Pt. was independent with daily skills previous to this hospitalization. Self Care: Independent Functional Cognition: Independent DME/Equipment Comments Pt. has a walker at home but does not use. Drive Self: Yes OT Current Status Subjective No pain reported. Appearance Pt. in bed on vapotherm. Has just finished breathing treatment. Agrees to therapy. Mental Status/Objective Patient Orientation: Person, Place, Time, Situation Current Upper Extremity ROM Pt. has full AROM in left shoulder, and limited in right. Pt. had reverse shoulder in April, and has been seeing therapy for it since. Pt. is able to achieve approximately 90 degrees on his own. ADL-Treatment Therapy Code Descriptions/Definitions Functional [place] Measure: 0=Not Assessed/NA 4=Minimal Assistance 1=Total Assistance 5=Supervision or Setup 2=Maximal Assistance 6=Modified [place] 3=Moderate Assistance 7=Complete [place] Therapy Quality Codes: 6 Independent with activity with or without an assistive device 5 Patient requires set up or clean up by helper. Patient completes activity by themselves 4 Supervision or touching assist (CGA). [place] provide cues , steadying assist 3 The helper provides less than half the effort to complete the activity 2 The helper provides more than half the effort to complete the activity 1 Dependent. The helper does all the effort to complete an activity 7 Patient refused to complete or attempt activity 9 The patient did not perform the activity before the current illness or injury 88 Not attempted due to Medical conditions or safety concerns Lower Body Dressing (FIM): 2 (Pt. attempts to doff slipper socks, but is unable to do so. OT does this for him.) Toileting (FIM): 2 (Noted pt. is slightly incontinent of BM. Pt. attempts to cleanse rear trinh area in stance, but is unable to do so. OT does this for pt.) Transfers (B, C, W/C) (FIM): 3 (Mod assist supine-sit and min assist sit-stand. Min assist to transfer to chair.) OT/PT co-treated due to pt's fatigue level and need of two skilled therapists. OT facilitated ADL skills on side of bed while PT assisted with sitting dynamic balance. PT initiated transfer with OT adjusting lines and cords, for safety and proper positioning. After transferring to chair, all needs were met. Education OT Patient Education: Correct positioning, Modified ADL techniques, Progress toward Goal/Update tx plan, Purpose of tx/functional activities, Reviewed precautions, Rehab process, Transfer techniques Teaching Recipient: Patient Teaching Methods: Demonstration, Discussion Response to Teaching: Verbalize Understanding, Return Demonstration OT Short Term Goals Short Term Goals Time Frame: Oct 01, 2018 Eating(FIM): 5 Grooming(FIM): 5 Bathing(FIM): 4 Upper Body Dressing(FIM): 5 Lower Body Dressing(FIM): 4 Toileting(FIM): 4 Transfers (B,C,W/C) (FIM): 5 Additional Short Term Goals: 1-Demonstrate ADL Tasks, 2-Verbalize Understanding, 3-ImproveStrength/[place] 1=Demonstrate adherence to instructed precautions during ADL tasks. 2=Patient will verbalize/demonstrate understanding of assistive devices/modifications for ADL. 3=Patient will improve strength/tolerance for activity to enable patient to perform ADL's. OT Field Collector Goals Correction Goals Time Frame: Oct 08, 2018 Eating (FIM): 6 Grooming(FIM): 6 Bathing(FIM): 5 Upper Body Dressing(FIM): 6 Lower Body Dressing(FIM): 5 Toileting(FIM): 6 Transfers (B,C,W/C) (FIM): 6 Toilet/Commode Transfer(FIM): 6 Shower Transfer(FIM): 5 Additional Goals: 1-Demonstrate ADL Tasks, 2-Verbalize Understanding, 3- ImproveStrength/[place] 1=Demonstrate adherence to instructed precautions during ADL tasks. 2=Patient will verbalize/demonstrate understanding of assistive devices/modifications for ADL. 3=Patient will improve strength/tolerance for activity to enable patient to perform ADL's. OT Education/Plan Problem List/Assessment Assessment: Decreased Activ Tolerance, Decreased UE Strength, Dependent Transfers, Impaired Bed Mobility, Impaired Funct Balance, Impaired I ADL's, Impaired Self-Care Skills, Restricted Funct UE ROM Discharge Recommendations Plan/Recommendations: Continue POC Therapy D/C Recommendations: Home w/ Family Support, Occupational Therapy Home Care Comment Will continue to assess equipment needs before discharge. Treatment Plan/Plan of Care Treatment,Training & Education: Yes Patient would benefit from OT for education, treatment and training to promote independence in ADL's, mobility, safety and/or upper extremity function for ADL's. Plan of Care: ADL Retraining, Functional Mobility, UE Funct Exercise/Act Treatment Duration: Oct 08, 2018 Frequency: 5 times per week Estimated Hrs Per Day: .5 hour per day Agreement: Yes Rehab Potential: Good Time/GCodes Start Time: 11:00 Stop Time: 11:21 Total Time Billed (hr/min): 21 Billed Treatment Time 1, KIM VOSS OT Sep 24, 2018 12:48
--- NOTE | 2018-09-24 13:05 | Physical Therapy Evaluation ---
PT Evaluation-General Medical Diagnosis Admission Date Sep 23, 2018 at 13:39 Medical Diagnosis: Septic shock/pneumonia Onset Date: Sep 23, 2018 Therapy Diagnosis Therapy Diagnosis: decreased mobility Height/Weight Height (Feet): 5 Height (Inches): 4.00 Weight (Pounds): 254 Weight (Ounces): 7.0 Precautions Precautions/Isolations: Fall Prevention, Standard Precautions Weight Bear Status Right Lower Extremity: Right Weight Bearing/Tolerated Left Lower Extremity: Left Weight Bearing/Tolerated Referral Physician: Dr. Meyer Reason for Referral: Evaluation/Treatment Medical History Pertinent Medical History: COPD, DM, HTN, Smoking Current History Presented to ER with fever, chills. Found to have pneumonia, septic shock. Reviewed History: Yes Social History Home: Single Level Current Living Status: Spouse Entry Into Home: Stairs With Railing PT Steps Into Home: 2 Prior/Core FIM Prior Level of Function Therapy Code Descriptions/Definitions Functional [place] Measure: 0=Not Assessed/NA 4=Minimal Assistance 1=Total Assistance 5=Supervision or Setup 2=Maximal Assistance 6=Modified [place] 3=Moderate Assistance 7=Complete [place] Therapy Quality Codes: 6 Independent with activity with or without an assistive device 5 Patient requires set up or clean up by helper. Patient completes activity by themselves 4 Supervision or touching assist (CGA). [place] provide cues , steadying assist 3 The helper provides less than half the effort to complete the activity 2 The helper provides more than half the effort to complete the activity 1 Dependent. The helper does all the effort to complete an activity 7 Patient refused to complete or attempt activity 9 The patient did not perform the activity before the current illness or injury 88 Not attempted due to Medical conditions or safety concerns Functional Abilities and Goals: Independent: Patient completed the activities by him/herself, with or without an assistive device, with no assistance from a helper. Needed Some Help: Patient needed partial assistance from another person to complete activities. Dependent: A helper completed the activities for the patient. Unknown: Not Applicable: Bed Mobility: 7 Transfers (B,C,W/C) (FIM): 7 Gait: 7 Stairs: 6 PT Evaluation-Current Subjective Pt. in bed and agrees to PT/OT. Pt. denies pain. Pt/Family Goals home with spouse Objective Patient Orientation: Person, Place, Time, Situation Problem Solving: Good Attachments: Oxygen, Romero Catheter, IV ROM/Strength ROM Upper Extremities See OT ROM Lower Extremities WNL (B) hip, knee, ankle Strength Upper Extremities See OT Strength Lower Extremities Grossly 4+/5 Integumentary/Posture Integumentary grossly intact Bowel Incontinence: No Bladder Incontinence: Romero Cath Posture generally upright Neuromuscular (Tone, Coordination, Reflexes) unremarkable Sensory Vision: Wears Glasses Hearing: Functional Sensation Right Upper Extremit: Intact Sensation Left Upper Extremity: Intact Sensation Right Lower Extremit: Intact Sensation Left Lower Extremity: Intact Transfers Therapy Code Descriptions/Definitions Functional [place] Measure: 0=Not Assessed/NA 4=Minimal Assistance 1=Total Assistance 5=Supervision or Setup 2=Maximal Assistance 6=Modified [place] 3=Moderate Assistance 7=Complete [place] Transfers (B, C, W/C) (FIM): 3 Supine to/from Sit: 3 Sit to/from Stand: 4 bed to chair: CGA Gait Mode of Locomotion: Walk Anticipated Mode of Locomotion: Walk Balance Sitting Static: Good Sitting Dynamic: Good Standing Static: Good Standing Dynamic: Good Treatment co-tx with OT, PT working on mobility, OT with ADLs Assessment/Needs Pt. is an 83 y.o. male who presents with decreased mobility following pneumonia, septic shock. Pt. is currently min-mod A with transfers. Pt. would benefit from skilled PT to improve mobility and strength for return home with spouse. Rehab Potential: Good PT Short Term Goals Short Term Goals Transfers (B,C,W/C) (FIM): 5 PT Alf Goals Alf Goals PT Alf Goals Time Frame: Oct 01, 2018 Transfers (B,C,W/C) (FIM): 6 Gait (FIM): 6 Gait distance (FIM): 3=150 ft Distance: 150 ft Gait Level of Assist: 6 Gait Assistive Device: None, FWW PT Plan Problem List Problem List: Activity Tolerance, Functional Strength, Safety, Balance, Gait, Transfer, Bed Mobility, ROM Treatment/Plan Treatment Plan: Continue Plan of Care Treatment Plan: Bed Mobility, Education, Functional Activity Flaco, Functional Strength, Gait, Safety, Therapeutic Exercise, Transfers Treatment Duration: Oct 01, 2018 Frequency: 6 times per week Estimated Hrs Per Day: .5 hour per day Patient and/or Family Agrees t: Yes Time/GCodes Time In: 1100 Time Out: 1121 Total Billed Treatment Time: 21 Total Billed Treatment 1, JOSEPH ', co-eval with OT JUNI CRAWFORD PT Sep 24, 2018 13:05
[2018-09-24] MEDS: VANCOMYCIN 1500 MG/NS 500 ML IVPB IV SCH ×2 (16:06)
[2018-09-24] MEDS: ATORVASTATIN 40 MG (LIPITOR) TABLET PO SCH (21:09)
[2018-09-24] MEDS: PRIMIDONE 250MG (MYSOLINE) TAB PO SCH (21:09)
[2018-09-24] MEDS ORDERED: LACTATED RINGERS 1,000 ML IV SCH (21:14)
[2018-09-25] VITALS (16 sets, daily range): BP systolic 126–170; BP diastolic 64–81
[2018-09-25] MEDS: RT-ALBUTEROL/IPRATROPIUM 3 ML (DUONEB) VIAL INH SCH ×6 (02:20→23:21)
[2018-09-25 03:20] LABS: BASOPHILS % (AUTO) 0 % (0-10); EOSINOPHILS % (AUTO) 0 % (0-10); HEMATOCRIT 27 % (40-54); HEMOGLOBIN 8.7 G/DL (13.3-17.7); LYMPHOCYTES # (AUTO) 0.8 X 10^3 (1.0-4.0); LYMPHOCYTES % (AUTO) 6 % (12-44); MEAN CORPUSCULAR HEMOGLOBIN 26 PG (25-34); MEAN CORPUSCULAR HGB CONC 33 G/DL (32-36); MEAN CORPUSCULAR VOLUME 80 FL (80-99); MEAN PLATELET VOLUME 10.2 FL (7.4-10.4); MONOCYTES # (AUTO) 0.8 X 10^3 (0.0-1.0); MONOCYTES % (AUTO) 6 % (0-12); NEUTROPHILS % (AUTO) 88 % (42-75); PLATELET COUNT 80 10^3/uL (130-400); RED CELL DISTRIBUTION WIDTH 17.8 % (10.0-14.5); WHITE BLOOD COUNT 13.7 10^3/uL (4.3-11.0)
[2018-09-25] MEDS: NOREPINEPHRINE 4 MG in NS (IVPB) 250 ML IV SCH (03:20)
[2018-09-25 03:31] LABS: ABG BASE EXCESS 1.5 MMOL/L (-2.5-2.5); ABG OXYGEN SATURATION 96 % (94-100); ABG PCO2 45 MMHG (35-45); ABG PH 7.38 (7.37-7.43); ABG PO2 73 MMHG (79-93); ABG TCO2 27.7 MMOL/L (21.0-31.0); ALLENS TEST positive; PATIENT TEMP 97.4; VENTILATOR NO
[2018-09-25 03:42] LABS: ALANINE AMINOTRANSFERASE 16 U/L (0-55); ALBUMIN 3.2 GM/DL (3.2-4.5); ALKALINE PHOSPHATASE 47 U/L (40-136); BILIRUBIN,TOTAL 0.5 MG/DL (0.1-1.0); BUN/CREATININE RATIO 22; CALCIUM 9.1 MG/DL (8.5-10.1); CARBON DIOXIDE 24 MMOL/L (21-32); CHLORIDE 104 MMOL/L (98-107); CREATININE SERUM 0.82 MG/DL (0.60-1.30); GFR ESTIMATED > 60; GLUCOSE 129 MG/DL (70-105); MAGNESIUM 1.7 MG/DL (1.8-2.4); PHOSPHORUS 2.1 MG/DL (2.3-4.7); POTASSIUM 3.9 MMOL/L (3.6-5.0); SODIUM 138 MMOL/L (135-145); TOTAL PROTEIN 6.9 GM/DL (6.4-8.2)
[2018-09-25] MEDS: MAGNESIUM 1 GM/100 ML IVPB 100 ML IV SCH ×3 (03:58→07:06)
[2018-09-25] MEDS: PIPERACILLIN/TAZO 4.5 GM/NS 100 ML IV SCH ×6 (04:57→21:18)
[2018-09-25] MEDS: aCETylcysteine 20% (MUCOMYST) 30ML SOLN VIAL INH SCH ×3 (06:27→23:21)
--- NOTE | 2018-09-25 06:30 | Pulmonary Progress Note ---
Subjective Time Seen by a Provider: 07:28 Subjective/Events-last exam Pt is doing better. Currently on BiPAP Sepsis Event Evaluation Height, Weight, BMI Height: 5'4.00" Weight: 255lbs. 1.0oz. 115.545574rg; 43.0 BMI Method:Stated Focused Exam Lactate Level 09/23/18 10:38: Lactic Acid Level 3.70*H 09/23/18 12:24: Lactic Acid Level 2.27*H 09/24/18 03:30: Lactic Acid Level 1.68 Exam Exam Vital Signs Date Time Temp Pulse Resp B/P (MAP) Pulse Ox O2 Delivery O2 Flow Rate FiO2 09/25/18 06:00 76 16 145/64 (91) 96 NIV Bilevel 30.00 09/25/18 05:00 79 16 138/68 (91) 96 NIV Bilevel 30.00 09/25/18 04:05 97.4 09/25/18 04:00 96 NIV Bilevel 40 09/25/18 04:00 85 17 138/65 (89) 95 NIV Bilevel 30.00 09/25/18 03:00 87 19 136/71 (92) 95 NIV Bilevel 30.00 09/25/18 02:21 85 20 95 30.00 09/25/18 02:00 85 18 134/70 (91) 94 NIV Bilevel 30.00 09/25/18 01:00 87 09/25/18 01:00 98.4 87 16 134/67 (89) 93 NIV Bilevel 30.00 09/25/18 00:02 89 19 93 30.00 09/25/18 00:00 96 NIV Bilevel 40 09/25/18 00:00 87 18 131/65 (87) 93 NIV Bilevel 30.00 09/24/18 23:00 90 22 135/66 (89) 93 NIV Bilevel 30.00 09/24/18 22:30 95 19 94 30.00 09/24/18 22:00 88 18 126/67 (86) 95 NIV Bilevel 30.00 09/24/18 21:00 89 21 143/64 (90) 96 NIV Bilevel 30.00 09/24/18 20:25 NIV Bilevel 30.00 09/24/18 20:22 86 19 98 40.00 09/24/18 20:00 87 19 112/72 (85) 98 NIV Bilevel 40.00 09/24/18 20:00 96 NIV Bilevel 40 09/24/18 19:41 99.8 89 25 128/65 (86) 98 NIV Bilevel 40.00 09/24/18 19:00 93 21 121/61 (81) 98 Vapotherm 40.00 20.00 09/24/18 19:00 94 09/24/18 18:53 96 Vapotherm 20.00 50 09/24/18 18:00 93 10 135/61 (85) 97 Vapotherm 60.00 20.00 09/24/18 17:00 91 22 121/58 (79) 95 NIV Bilevel 40.00 09/24/18 16:00 98.5 09/24/18 16:00 91 Vapotherm 20.00 60 09/24/18 16:00 93 20 89/40 (56) 93 NIV Bilevel 40.00 09/24/18 15:00 92 22 106/52 (70) 97 NIV Bilevel 40.00 09/24/18 14:27 97 Vapotherm 20.00 60 09/24/18 14:00 97 23 116/51 (72) 98 NIV Bilevel 40.00 09/24/18 13:00 96 21 112/55 (74) 100 NIV Bilevel 40.00 09/24/18 13:00 96 09/24/18 12:00 91 Vapotherm 20.00 60 09/24/18 12:00 93 21 135/52 (79) 97 NIV Bilevel 40.00 09/24/18 12:00 100.3 09/24/18 11:00 97 22 105/67 (80) 94 NIV Bilevel 40.00 09/24/18 10:17 93 Vapotherm 20.00 60 09/24/18 10:00 96 23 127/58 (81) 93 NIV Bilevel 40.00 09/24/18 09:00 98 23 118/55 (76) 88 NIV Bilevel 40.00 09/24/18 08:00 98 24 117/55 (75) 94 NIV Bilevel 40.00 09/24/18 08:00 98.8 09/24/18 08:00 91 Vapotherm 20.00 60 09/24/18 07:26 92 21 93 40.00 09/24/18 07:00 93 09/24/18 07:00 93 21 120/52 (74) 92 NIV Bilevel 40.00 I & O 09/25/18 07:00 Intake Total 1970 ml Output Total 4150 ml Balance -2180 ml Height & Weight Height: 5'4.00" Weight: 255lbs. 1.0oz. 115.859663jm; 43.0 BMI Method:Stated General Appearance: No Apparent Distress, Obese Neck: Other (central line in place) Respiratory: No Accessory Muscle Use, No Respiratory Distress, Rhonci, Other (on vapotherm) Cardiovascular: Regular Rate, Rhythm, No Murmur Capillary Refill: Less Than 3 Seconds Extremity: Normal Capillary Refill, No Pedal Edema Neurologic/Psychiatric: Alert, Oriented x3, Normal Mood/Affect Results Lab Laboratory Tests 09/23/18 10:38 09/24/18 03:30 09/25/18 03:15 Assessment/Plan Assessment/Plan Severe sepsis with septic shock secondary to LLL pneumonia - improved -IVF- -Graham cultures Hypoxia with copious amounts of sputum production -Use BiPAP QHS and PRN -Vapotherm during the day -Oxygen -SVNs Acute renal failure -IVF PARKER -He is compliant with his CPAP at home NIDDM Thrombocytopenia -monitor Anemia -Protonix -Occult stool TUSHAR MAHER DO Sep 25, 2018 06:30
--- NOTE | 2018-09-25 06:32 | NUR ---
O2 order is to keep sats between 90-95% and so O2 sat 96% so RT decreased O2 from 30% to 21%
--- NOTE | 2018-09-25 06:52 | Diagnostic Imaging Report ---
Portable erect AP chest at 326 hours. INDICATION: Pneumonia. FINDINGS: The appearance of chest has improved somewhat since 09/24/2018 as the heart does seem to have decreased in size and the left lung base is better aerated. There is still residual pneumonia/atelectasis and fluid in the left lung base as well as right lower lobe atelectasis/infiltrate. The upper lungs are generally clear. The mediastinum is not widened. The osseous structures are intact. The central venous catheter on the right seen previously is again evident. The tip may have been slightly retracted. The tip overlies the proximal superior vena cava. IMPRESSION: The appearance of the chest has improved somewhat since the prior exam as the heart is less prominent and the left lung base does seem better aerated. A followup study would be recommended for continued evaluation. Dictated by: Dictated on workstation # [id number]
[2018-09-25] MEDS: KCL 20 MEQ TAB (K-DUR) PO SCH (07:06)
[2018-09-25] MEDS: POTASSIUM CL 10MEQ/50ML IVPB 50 ML IV SCH (07:06)
[2018-09-25] MEDS ORDERED: LACTATED RINGERS 1,000 ML IV ONE (07:17)
--- NOTE | 2018-09-25 09:08 | Progress Note - Hospitalist ---
Subjective HPI/CC On Admission Date Seen by Provider: Sep 25, 2018 Time Seen by Provider: 09:06 Pt is an 83yoCM with a PMH of NIDDMII, COPD, HTN who presented to the ER with fevers, chills, and weakness. He reports that he was out fishing last night and began to have fevers and chills. He thought this was due to the temperature so he poured cold water on him but this did not help. When he arrived home his checked his temperature and found that it was 100.5 and she tried to bring him to the emergency department last night but he declined. He also complains of cough with sputum production. He states he has feke this previous times and he's had pneumonia. He states he had 4 bouts of pneumonia over 8 months in 2016. On arrival to the emergency department this morning he was hypotensive and found to be in septic shock secondary to pneumonia. Subjective/Events-last exam Pt reports doing well. No complaints. Requesting advancement of diet. Focused Exam Lactate Level 09/23/18 10:38: Lactic Acid Level 3.70*H 09/23/18 12:24: Lactic Acid Level 2.27*H 09/24/18 03:30: Lactic Acid Level 1.68 Objective Exam Vital Signs Vital Signs Date Time Temp Pulse Resp B/P (MAP) Pulse Ox O2 Delivery O2 Flow Rate FiO2 09/25/18 08:03 96 NIV Bilevel 40 09/25/18 08:00 98.6 09/25/18 08:00 98 16 147/79 (101) 40.00 15.00 Capillary Refill : Less Than 3 Seconds General Appearance: No Apparent Distress, Obese Neck: Other (central line in place) Respiratory: No Accessory Muscle Use, No Respiratory Distress, Rhonci, Other (o n vapotherm) Cardiovascular: Regular Rate, Rhythm, No Murmur Gastrointestinal: Normal Bowel Sounds, Non Tender, Soft, Other (abdominal hernia) Extremity: Normal Capillary Refill, No Pedal Edema Neurologic/Psychiatric: Alert, Oriented x3, Normal Mood/Affect Results/Procedures Lab Laboratory Tests 09/25/18 03:15 Patient resulted labs reviewed. Imaging: Reviewed Imaging Report Assessment/Plan Assessment and Plan Assess & Plan/Chief Complaint assessment Septic shock- shock resolved Left lower lobe pneumonia Acute Hypoxic Respiratory Failure- on vapotherm Acute kidney injury Jed-[id number] diabetes type II Hypertension Chronic thrombocytopenia Microcytic Anemia Plan: Continue abx started in the emergency department will continue Negative blood cultures On Vapotherm- transfer to the floor SHANE improved Hold home antihypertensives and metformin due to hypotension and lactic acidosis SSI PT/OT Replace electrolytes Critical Care Critically Ill Patient Diagnosis/Problems Diagnosis/Problems (1) Septic shock Status: Acute (2) Essential (primary) hypertension (3) Non-insulin dependent type 2 diabetes mellitus (4) Thrombocytopenia (5) Left lower lobe pneumonia Status: Acute Qualifiers: Pneumonia type: due to unspecified organism Qualified Codes: J18.1 - Lobar pneumonia, unspecified organism (6) Hypoxia Status: Acute (7) Acute renal failure Status: Acute (8) COPD (chronic obstructive pulmonary disease) Status: Acute (9) Chronic anemia Status: Acute Clinical Quality Measures DVT/VTE Risk/Contraindication: Risk Factor Score Per Nursin RFS Level Per Nursing on Admit: 4+=Very High FRANTZ MEDINA MD Sep 25, 2018 09:08
[2018-09-25] MEDS: PANTOPRAZOLE 40 MG (PROTONIX) VIAL IV SCH (09:39)
[2018-09-25] MEDS: SERTRALINE 100 MG (ZOLOFT) TAB PO SCH (09:39)
[2018-09-25] MEDS: GABAPENTIN 300 MG (NEURONTIN) CAP PO SCH ×3 (09:39→21:19)
[2018-09-25] MEDS ORDERED: inSUlin ASPART (NovoLOG) 1 UNIT/0.01 ML (CHARGE PER UNIT) ONE (14:28)
[2018-09-25] MEDS: inSUlin ASPART (NovoLOG) 1 UNIT/0.01 ML (CHARGE PER UNIT) SC SCH ×2 (14:36→18:54)
--- NOTE | 2018-09-25 15:41 | NUR ---
PATIENT WAS ON VAPOTHERM AT 10 L AND 30% SO RT SWITCHED PATIENT OVER TO REGULAR NC AT 4 L (WILL TITRATE O2 WHEN POSSIBLE)
[2018-09-25] MEDS: VANCOMYCIN 1500 MG/NS 500 ML IVPB IV SCH ×2 (15:50)
--- NOTE | 2018-09-25 18:00 | NUR ---
RECEIVED FROM ICU, REPORT FROM MORTEZA AYERS, PATIENT ALERT, IV SITE RIGHT IJ WITHOUT REDNESS OR SWELLING, SALINE LOCK INTACT IN LEFT HAND TIMES 2 SITES, AYALA PATENT WITH CLEAR JANET URINE, O2 ON PER NC AT 4 LITERS, SC'D ON, CALL LIGHT WITHIN REACH, DENIES PAIN OR SOB, ORIENTED TO ROOM.
[2018-09-25] MEDS: ATORVASTATIN 40 MG (LIPITOR) TABLET PO SCH (21:19)
[2018-09-25] MEDS: PRIMIDONE 250MG (MYSOLINE) TAB PO SCH (21:19)
[2018-09-26 00:02] VITALS: BP 163/73
[2018-09-26] MEDS: inSUlin ASPART (NovoLOG) 1 UNIT/0.01 ML (CHARGE PER UNIT) SC SCH ×4 (00:54→18:19)
[2018-09-26 03:05] VITALS: BP 158/74
[2018-09-26] MEDS: RT-ALBUTEROL/IPRATROPIUM 3 ML (DUONEB) VIAL INH SCH ×6 (03:18→22:13)
[2018-09-26] MEDS ORDERED: ACETAMINOPHEN 500 MG TAB (TYLENOL) PO PRN (04:00)
[2018-09-26] MEDS: PIPERACILLIN/TAZO 4.5 GM/NS 100 ML IV SCH ×6 (04:22→21:30)
[2018-09-26 04:30] LABS: BASOPHILS % (AUTO) 0 % (0-10); EOSINOPHILS % (AUTO) 0 % (0-10); HEMATOCRIT 26 % (40-54); HEMOGLOBIN 8.4 G/DL (13.3-17.7); LYMPHOCYTES # (AUTO) 0.7 X 10^3 (1.0-4.0); LYMPHOCYTES % (AUTO) 8 % (12-44); MEAN CORPUSCULAR HEMOGLOBIN 26 PG (25-34); MEAN CORPUSCULAR HGB CONC 32 G/DL (32-36); MEAN CORPUSCULAR VOLUME 79 FL (80-99); MEAN PLATELET VOLUME 11.2 FL (7.4-10.4); MONOCYTES # (AUTO) 0.6 X 10^3 (0.0-1.0); MONOCYTES % (AUTO) 7 % (0-12); NEUTROPHILS # (AUTO) 7.6 X 10^3 (1.8-7.8); NEUTROPHILS % (AUTO) 85 % (42-75); PLATELET COUNT 93 10^3/uL (130-400); RED CELL DISTRIBUTION WIDTH 17.7 % (10.0-14.5); WHITE BLOOD COUNT 8.9 10^3/uL (4.3-11.0)
[2018-09-26 04:53] LABS: BUN/CREATININE RATIO 16; CALCIUM 9.2 MG/DL (8.5-10.1); CARBON DIOXIDE 25 MMOL/L (21-32); CHLORIDE 103 MMOL/L (98-107); CREATININE SERUM 0.81 MG/DL (0.60-1.30); GFR ESTIMATED > 60; GLUCOSE 187 MG/DL (70-105); POTASSIUM 3.5 MMOL/L (3.6-5.0); SODIUM 139 MMOL/L (135-145)
[2018-09-26] MEDS: aCETylcysteine 20% (MUCOMYST) 30ML SOLN VIAL INH SCH ×3 (06:23→22:13)
[2018-09-26] MEDS ORDERED: KCL 20 MEQ TAB (K-DUR) PO NR (07:30)
--- NOTE | 2018-09-26 07:33 | Pulmonary Progress Note ---
Subjective Time Seen by a Provider: 07:31 Subjective/Events-last exam Pt appears to be doing better. Sepsis Event Evaluation Height, Weight, BMI Height: 5'4.00" Weight: 260lbs. 0.0oz. 117.653111vr; 43.0 BMI Method:Stated Focused Exam Lactate Level 09/23/18 10:38: Lactic Acid Level 3.70*H 09/23/18 12:24: Lactic Acid Level 2.27*H 09/24/18 03:30: Lactic Acid Level 1.68 Exam Exam Vital Signs Date Time Temp Pulse Resp B/P (MAP) Pulse Ox O2 Delivery O2 Flow Rate FiO2 09/26/18 06:26 80 20 93 35.00 09/26/18 03:27 91 18 91 35.00 09/26/18 03:05 99.8 96 20 158/74 (102) 89 NIV CPAP 09/26/18 00:02 100.7 105 20 163/73 (103) 90 NIV CPAP 09/25/18 23:24 91 Nasal Cannula 3.00 09/25/18 21:00 95 Nasal Cannula 3.50 84 09/25/18 19:53 100.1 94 20 167/81 (109) 95 Nasal Cannula 3.50 09/25/18 19:35 94 Nasal Cannula 3.00 09/25/18 18:20 98.1 95 20 170/80 (110) 97 Nasal Cannula 3.50 09/25/18 15:28 94 Vapotherm 10.00 30 09/25/18 13:00 84 09/25/18 12:00 88 22 141/81 (101) 93 Vapotherm 40.00 15.00 09/25/18 12:00 96 NIV Bilevel 40 09/25/18 12:00 98.0 09/25/18 11:27 97 Vapotherm 15.00 40 09/25/18 09:00 90 21 152/70 (97) 96 Vapotherm 40.00 15.00 09/25/18 08:03 96 NIV Bilevel 40 09/25/18 08:00 98.6 09/25/18 08:00 98 16 147/79 (101) 92 Vapotherm 40.00 15.00 I & O 09/26/18 07:00 Intake Total 2185 ml Output Total 3250 ml Balance -1065 ml Height & Weight Height: 5'4.00" Weight: 260lbs. 0.0oz. 117.709512qy; 43.0 BMI Method:Stated General Appearance: No Apparent Distress, Obese HEENT: Moist Mucous Membranes; No Scleral Icterus (L), No Scleral Icterus (R) Neck: No JVD, No Thyromegaly; Other (central line in place) Respiratory: No Accessory Muscle Use, No Respiratory Distress, Rhonci Cardiovascular: Regular Rate, Rhythm, No Murmur Capillary Refill: Less Than 3 Seconds Extremity: Normal Capillary Refill, No Calf Tenderness, No Pedal Edema Neurologic/Psychiatric: Alert, Oriented x3 Skin: Normal Color, Warm/Dry Results Lab Laboratory Tests 09/25/18 03:15 09/26/18 04:23 Assessment/Plan Assessment/Plan LLL pneumonia - improved -IVF- -Graham cultures Hypoxia with copious amounts of sputum production - BiPAP QHS and PRN -Vapotherm VS NC during the day -Oxygen -SVNs Hypokalemia -replace PARKER -He is compliant with his CPAP at home NIDDM Thrombocytopenia -monitor Anemia -Protonix -Occult stool TUSHAR MAHER DO Sep 26, 2018 07:33
[2018-09-26 08:00] VITALS: BP 155/78
[2018-09-26 08:21] LABS: MAGNESIUM 1.3 MG/DL (1.8-2.4); PHOSPHORUS 2.7 MG/DL (2.3-4.7)
[2018-09-26] MEDS: SERTRALINE 100 MG (ZOLOFT) TAB PO SCH (08:47)
[2018-09-26] MEDS: PANTOPRAZOLE 40 MG (PROTONIX) VIAL IV SCH (08:48)
[2018-09-26] MEDS: GABAPENTIN 300 MG (NEURONTIN) CAP PO SCH ×3 (08:48→21:30)
[2018-09-26] MEDS: MAGNESIUM 1 GM/100 ML IVPB 100 ML IV SCH ×4 (10:46→13:46)
[2018-09-26 12:00] VITALS: BP 153/80
--- NOTE | 2018-09-26 12:23 | NUR ---
Attempted visit. Pt resting with eyes closed. Offered quiet prayer for healing rest.
--- NOTE | 2018-09-26 12:59 | Progress Note - Hospitalist ---
Progress Note Progress Notes/Assess & Plan Date Seen 09/26/18 Time Seen by Provider: 12:56 Assessment & Plan The patient is an 83-year-old white male known to me for many years. He was admitted 3 days ago with complaints of fever and generalized weakness. His white blood count was 18,800 and has now fallen to 1900. Chest x-rays were suggestive of a left lower lobe pneumonia. He reports that he feels much better at this time but still feels quite weak. Physical exam: We have an obese white male. He is somewhat tachypneic while sitting. Lungs show distant breath sounds but are clear. CV is regular. Abdomen is quite obese. Impression: Left lower lobe pneumonia. Plan: Ambulate and hope to discharge tomorrow. Focused Exam Lactate Level 09/24/18 03:30: Lactic Acid Level 1.68 JAYLENE PENA MD Sep 26, 2018 12:59
--- NOTE | 2018-09-26 13:58 | Physical Therapy Daily Note ---
PT Daily Note-Current Subjective Pt agreeable and reports he is feeling better. He will possibly dc tomorrow. Transfers Therapy Code Descriptions/Definitions Functional [place] Measure: 0=Not Assessed/NA 4=Minimal Assistance 1=Total Assistance 5=Supervision or Setup 2=Maximal Assistance 6=Modified [place] 3=Moderate Assistance 7=Complete [place] Therapy Quality Codes: 6 Independent with activity with or without an assistive device 5 Patient requires set up or clean up by helper. Patient completes activity by themselves 4 Supervision or touching assist (CGA). [place] provide cues , steadying assist 3 The helper provides less than half the effort to complete the activity 2 The helper provides more than half the effort to complete the activity 1 Dependent. The helper does all the effort to complete an activity 7 Patient refused to complete or attempt activity 9 The patient did not perform the activity before the current illness or injury 88 Not attempted due to Medical conditions or safety concerns bed mobility Mod I. Transfer SBA with FWW for managment of lines. Weight Bearing Right Lower Extremity: Right Weight Bearing/Tolerated Left Lower Extremity: Left Weight Bearing/Tolerated Treatments Performed standing marches x 20, heel raise x 20, lateral wt shift x 20, sit to stand from bed 2 x 10 reps. Assessment Pt progressing. Some SOB post sit to stand exercise. Pt will benefit from continued therapy to work on distance ambulation with FWW. PT Short Term Goals Short Term Goals Transfers (B,C,W/C) (FIM): 5 PT Folder Seamer Goals Nursing Home Goals PT Nursing Home Goals Time Frame: Oct 01, 2018 Transfers (B,C,W/C) (FIM): 6 Gait (FIM): 6 Gait distance (FIM): 3=150 ft Distance: 150 ft Gait Level of Assist: 6 Gait Assistive Device: None, FWW PT Plan Treatment/Plan Treatment Plan: Continue Plan of Care Treatment Plan: Bed Mobility, Education, Functional Activity Flaco, Functional Strength, Gait, Safety, Therapeutic Exercise, Transfers Treatment Duration: Oct 01, 2018 Frequency: 6 times per week Estimated Hrs Per Day: .5 hour per day Patient and/or Family Agrees t: Yes Time/GCodes Time In: 1330 Time Out: 1357 Total Billed Treatment Time: 27 Total Billed Treatment visit, exercise 15 min, FA 12 MIK HUSTON PT Sep 26, 2018 13:58
--- NOTE | 2018-09-26 14:12 | Occupational Ther Daily Note ---
OT Current Status-Daily Note Subjective Pt seen in room, up at EOB, following PT. Agreeable to OT. No pain mentioned. 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 He is at the point where he is working on increasing strength and ROM. Pt completed 10-12 reps bilat AAROM for shoulder, 2 different exercises. He also does a passive stretch in bed to increase abduction and he demonstrated it. He also mentioned working on increasing internal rotation so that he is able to complete toileting hygiene. Pt hopes to return home tomorrow and restart OP OT soon. Pt got his legs into bed without help and was left up in bed, 4 rails up, all needs met. Education OT Patient Education: Exercise program, Progress toward Goal/Update tx plan, Purpose of tx/functional activities Teaching Recipient: Patient Teaching Methods: Demonstration, Discussion Response to Teaching: Verbalize Understanding, Return Demonstration OT Short Term Goals Short Term Goals Time Frame: Oct 01, 2018 Eating(FIM): 5 Grooming(FIM): 5 Bathing(FIM): 4 Upper Body Dressing(FIM): 5 Lower Body Dressing(FIM): 4 Toileting(FIM): 4 Transfers (B,C,W/C) (FIM): 5 Additional Short Term Goals: 1-Demonstrate ADL Tasks, 2-Verbalize Unde rstanding, 3-ImproveStrength/Flaco 1=Demonstrate adherence to instructed precautions during ADL tasks. 2=Patient will verbalize/demonstrate understanding of assistive devices/modifications for ADL. 3=Patient will improve strength/tolerance for activity to enable patient to perform ADL's. OT Scrubber System Attendant Goals Group Home Goals Time Frame: Oct 08, 2018 Eating (FIM): 6 Grooming(FIM): 6 Bathing(FIM): 5 Upper Body Dressing(FIM): 6 Lower Body Dressing(FIM): 5 Toileting(FIM): 6 Transfers (B,C,W/C) (FIM): 6 Toilet/Commode Transfer(FIM): 6 Shower Transfer(FIM): 5 Additional Goals: 1-Demonstrate ADL Tasks, 2-Verbalize Understanding, 3-Im proveStrength/Flaco 1=Demonstrate adherence to instructed precautions during ADL tasks. 2=Patient will verbalize/demonstrate understanding of assistive devices/modifications for ADL. 3=Patient will improve strength/tolerance for activity to enable patient to perform ADL's. OT Education/Plan Discharge Recommendations Plan/Recommendations: Continue POC Treatment Plan/Plan of Care Patient would benefit from OT for education, treatment and training to promote independence in ADL's, mobility, safety and/or upper extremity function for ADL's. Plan of Care: ADL Retraining, Functional Mobility, UE Funct Exercise/Act Treatment Duration: Oct 08, 2018 Frequency: 5 times per week Estimated Hrs Per Day: .5 hour per day Agreement: Yes Rehab Potential: Good Time/GCodes Start Time: 13:47 Stop Time: 14:04 Total Time Billed (hr/min): 17 Billed Treatment Time visit, 17 minutes exercise TERRENCE RODRÍGUEZ OT Sep 26, 2018 14:12
--- NOTE | 2018-09-26 15:50 | NUR ---
CM/SS patient does not feel he has any discharge needs. He is on 3.5L of oxygen currently, he does not have oxygen at home. He has a CPAP that he uses at home at night. He did ask about prescription discounts. Will see if pharmacy can get amount that medications will cost at discharge.
[2018-09-26 16:31] VITALS: BP 151/72
[2018-09-26 19:28] VITALS: BP 158/83
[2018-09-26] MEDS: PRIMIDONE 250MG (MYSOLINE) TAB PO SCH (21:30)
[2018-09-26] MEDS: ATORVASTATIN 40 MG (LIPITOR) TABLET PO SCH (21:30)
[2018-09-27] VITALS: BP 161/73
[2018-09-27] MEDS: inSUlin ASPART (NovoLOG) 1 UNIT/0.01 ML (CHARGE PER UNIT) SC SCH ×3 (00:34→11:19)
[2018-09-27] MEDS: RT-ALBUTEROL/IPRATROPIUM 3 ML (DUONEB) VIAL INH SCH ×3 (02:20→10:49)
[2018-09-27 04:00] VITALS: BP 182/85
[2018-09-27] MEDS: PIPERACILLIN/TAZO 4.5 GM/NS 100 ML IV SCH ×4 (05:00→13:10)
[2018-09-27 05:13] LABS: BASOPHILS % (AUTO) 0 % (0-10); EOSINOPHILS % (AUTO) 0 % (0-10); HEMATOCRIT 28 % (40-54); LYMPHOCYTES # (AUTO) 0.7 X 10^3 (1.0-4.0); LYMPHOCYTES % (AUTO) 12 % (12-44); MEAN CORPUSCULAR HGB CONC 32 G/DL (32-36); MEAN CORPUSCULAR VOLUME 79 FL (80-99); MEAN PLATELET VOLUME 11.2 FL (7.4-10.4); MONOCYTES # (AUTO) 0.9 X 10^3 (0.0-1.0); MONOCYTES % (AUTO) 16 % (0-12); NEUTROPHILS # (AUTO) 4.1 X 10^3 (1.8-7.8); NEUTROPHILS % (AUTO) 71 % (42-75); PLATELET COUNT 113 10^3/uL (130-400); RED CELL DISTRIBUTION WIDTH 17.6 % (10.0-14.5); WHITE BLOOD COUNT 5.8 10^3/uL (4.3-11.0)
[2018-09-27 05:17] LABS: MEAN CORPUSCULAR HEMOGLOBIN 25 PG (25-34)
[2018-09-27 05:31] LABS: BUN/CREATININE RATIO 13; CALCIUM 9.3 MG/DL (8.5-10.1); CARBON DIOXIDE 24 MMOL/L (21-32); CHLORIDE 102 MMOL/L (98-107); GFR ESTIMATED > 60; GLUCOSE 220 MG/DL (70-105); POTASSIUM 3.9 MMOL/L (3.6-5.0); SODIUM 138 MMOL/L (135-145)
[2018-09-27] MEDS: aCETylcysteine 20% (MUCOMYST) 30ML SOLN VIAL INH SCH (07:09)
--- NOTE | 2018-09-27 07:25 | Pulmonary Progress Note ---
Subjective Time Seen by a Provider: 07:52 Subjective/Events-last exam PT still c/o SOB worse with exertion. Sepsis Event Evaluation Height, Weight, BMI Height: 5'4.00" Weight: 253lbs. 0.0oz. 114.884854nb; 43.0 BMI Method:Stated Exam Exam Vital Signs Date Time Temp Pulse Resp B/P (MAP) Pulse Ox O2 Delivery O2 Flow Rate FiO2 09/27/18 07:07 92 NIV CPAP 5.00 09/27/18 04:00 97.6 81 20 182/85 (117) 93 Nasal Cannula 3.50 09/27/18 02:20 92 NIV CPAP 5.00 09/27/18 00:00 98.3 90 20 161/73 (102) 89 Nasal Cannula 3.50 09/26/18 22:13 90 Nasal Cannula 3.00 09/26/18 20:00 Nasal Cannula 3.50 09/26/18 19:28 98.8 88 22 158/83 (108) 94 Nasal Cannula 3.50 09/26/18 17:39 Nasal Cannula 3.50 09/26/18 16:31 98.9 89 18 151/72 (98) 94 Nasal Cannula 3.50 09/26/18 14:37 93 Nasal Cannula 3.50 09/26/18 12:00 99.4 86 20 153/80 (104) 97 NIV CPAP 45.00 09/26/18 10:18 82 16 95 45.00 09/26/18 09:00 91 NIV Bilevel 45.00 09/26/18 08:00 99.2 90 20 155/78 (103) 94 NIV CPAP 45.00 I & O 09/27/18 07:00 Intake Total 1700 ml Output Total 2000 ml Balance -300 ml Height & Weight Height: 5'4.00" Weight: 253lbs. 0.0oz. 114.932166ac; 43.0 BMI Method:Stated General Appearance: No Apparent Distress, Obese HEENT: Moist Mucous Membranes; No Scleral Icterus (L), No Scleral Icterus (R) Neck: No JVD, No Thyromegaly; Other (central line in place) Respiratory: No Accessory Muscle Use, No Respiratory Distress, Rhonci Cardiovascular: Regular Rate, Rhythm, No Murmur Capillary Refill: Less Than 3 Seconds Extremity: Normal Capillary Refill, No Calf Tenderness, No Pedal Edema Neurologic/Psychiatric: Alert, Oriented x3 Skin: Normal Color, Warm/Dry Results Lab Laboratory Tests 09/26/18 04:23 09/27/18 05:05 Assessment/Plan Assessment/Plan LLL pneumonia - improved -IVF- -Graham cultures Hypoxia with copious amounts of sputum production - BiPAP QHS and PRN -Vapotherm VS NC during the day -Oxygen -SVNs PARKER -He is compliant with his CPAP at home NIDDM Thrombocytopenia -monitor Anemia -Protonix -Occult stool TUSHAR MAHER DO Sep 27, 2018 07:25
--- NOTE | 2018-09-27 07:59 | Pulmonary Progress Note ---
Subjective Time Seen by a Provider: 07:59 Subjective/Events-last exam Currently using home CPAP Sepsis Event Evaluation Height, Weight, BMI Height: 5'4.00" Weight: 253lbs. 0.0oz. 114.948021lc; 43.0 BMI Method:Stated Exam Exam Vital Signs Date Time Temp Pulse Resp B/P (MAP) Pulse Ox O2 Delivery O2 Flow Rate FiO2 09/27/18 07:07 92 NIV CPAP 5.00 09/27/18 04:00 97.6 81 20 182/85 (117) 93 Nasal Cannula 3.50 09/27/18 02:20 92 NIV CPAP 5.00 09/27/18 00:00 98.3 90 20 161/73 (102) 89 Nasal Cannula 3.50 09/26/18 22:13 90 Nasal Cannula 3.00 09/26/18 20:00 Nasal Cannula 3.50 09/26/18 19:28 98.8 88 22 158/83 (108) 94 Nasal Cannula 3.50 09/26/18 17:39 Nasal Cannula 3.50 09/26/18 16:31 98.9 89 18 151/72 (98) 94 Nasal Cannula 3.50 09/26/18 14:37 93 Nasal Cannula 3.50 09/26/18 12:00 99.4 86 20 153/80 (104) 97 NIV CPAP 45.00 09/26/18 10:18 82 16 95 45.00 09/26/18 09:00 91 NIV Bilevel 45.00 09/26/18 08:00 99.2 90 20 155/78 (103) 94 NIV CPAP 45.00 I & O 09/27/18 07:00 Intake Total 1700 ml Output Total 2000 ml Balance -300 ml Height & Weight Height: 5'4.00" Weight: 253lbs. 0.0oz. 114.727669cs; 43.0 BMI Method:Stated General Appearance: No Apparent Distress, Obese HEENT: Moist Mucous Membranes; No Scleral Icterus (L), No Scleral Icterus (R) Neck: No JVD, No Thyromegaly; Other (central line in place) Respiratory: No Accessory Muscle Use, No Respiratory Distress, Rhonci Cardiovascular: Regular Rate, Rhythm, No Murmur Capillary Refill: Less Than 3 Seconds Extremity: Normal Capillary Refill, No Calf Tenderness, No Pedal Edema Neurologic/Psychiatric: Alert, Oriented x3 Skin: Normal Color, Warm/Dry Results Lab Laboratory Tests 09/26/18 04:23 09/27/18 05:05 Assessment/Plan Assessment/Plan LLL pneumonia - improved -IVF- -Graham cultures Hypoxia with copious amounts of sputum production - BiPAP QHS and PRN -Oxygen -SVNs -PT is still on 5 liters of oxygen. Give lasix 60mg IV x 1, repeat CXR, and check BNP -Will need repeat CXR 8wks after discharge. PARKER -He is compliant with his CPAP at home NIDDM Thrombocytopenia -monitor Anemia -Protonix -Occult stool TUSHAR MAHER DO Sep 27, 2018 07:59
[2018-09-27] MEDS ORDERED: KCL 20 MEQ TAB (K-DUR) PO ONE (08:00)
[2018-09-27] MEDS ORDERED: FUROSEMIDE 40 MG/4 ML INJ (LASIX) IVP ONE (08:00)
[2018-09-27 08:02] VITALS: BP 147/91
[2018-09-27] MEDS: GABAPENTIN 300 MG (NEURONTIN) CAP PO SCH ×2 (08:20→12:59)
[2018-09-27] MEDS: SERTRALINE 100 MG (ZOLOFT) TAB PO SCH (08:20)
--- NOTE | 2018-09-27 08:47 | Diagnostic Imaging Report ---
Portable erect AP chest at 8:12. Indication: Respiratory distress. The heart size is borderline enlarged but stable when compared to 09/25/2018. The atelectasis/infiltrate and fluid involving the left lung base seen previously is again evident and not significantly changed. The right lung base may be slightly better aerated. The upper lungs remain clear. The mediastinum is not widened. The osseous structures are intact. The central venous catheter on the right remains in similar position to the prior exam. Impression: When compared with the previous study, there has been no significant change. The right lung base may be slightly better aerated but the left lung base remains obscured by atelectasis/infiltrate and fluid. A followup study would recommended for continued evaluation. Dictated by: Dictated on workstation # [id number]
[2018-09-27] MEDS ORDERED: PANTOPRAZOLE 40 MG (PROTONIX) TAB PO SCH (09:00)
--- NOTE | 2018-09-27 10:49 | Physical Therapy Daily Note ---
PT Daily Note-Current Subjective Patient in recliner pre tx, agrees to PT, has no complaints of pain. Appearance Patient in recliner post tx with nurse call, phone, tray, all needs met. Mental Status Patient Orientation: Person, Place, Situation Attachments: Oxygen Transfers Therapy Code Descriptions/Definitions Functional [place] Measure: 0=Not Assessed/NA 4=Minimal Assistance 1=Total Assistance 5=Supervision or Setup 2=Maximal Assistance 6=Modified [place] 3=Moderate Assistance 7=Complete [place] Therapy Quality Codes: 6 Independent with activity with or without an assistive device 5 Patient requires set up or clean up by helper. Patient completes activity by themselves 4 Supervision or touching assist (CGA). [place] provide cues , steadying assist 3 The helper provides less than half the effort to complete the activity 2 The helper provides more than half the effort to complete the activity 1 Dependent. The helper does all the effort to complete an activity 7 Patient refused to complete or attempt activity 9 The patient did not perform the activity before the current illness or injury 88 Not attempted due to Medical conditions or safety concerns Transfers (B, C, W/C) (FIM): 5 Sit to/from Stand: 5 Bed to/from Chair: 5 Weight Bearing Right Lower Extremity: Right Weight Bearing/Tolerated Left Lower Extremity: Left Weight Bearing/Tolerated Gait Training Gait (FIM): 2 Distance: 80' Gait Level of Assist: 5 Gait Persons Needed: 1 Gait Assistive Device: FWW Patient ambulated in his room back and forth with SBA, slow but steady ambulation Exercises Seated Therapy Exercises: Ankle pumps, Long arc quads, Hip flexion Seated Reps: 15 Treatments ambulation, LE exercise Assessment Current Status: Fair Progress improved ambulation PT Short Term Goals Short Term Goals Transfers (B,C,W/C) (FIM): 5 PT Thermodynamicist Goals Half-Way Goals PT Thermodynamicist Goals Time Frame: Oct 01, 2018 Transfers (B,C,W/C) (FIM): 6 Gait (FIM): 6 Gait distance (FIM): 3=150 ft Distance: 150 ft Gait Level of Assist: 6 Gait Assistive Device: None, FWW PT Plan Problem List Problem List: Activity Tolerance, Functional Strength, Safety, Balance, Gait, Transfer, Bed Mobility, ROM Treatment/Plan Treatment Plan: Continue Plan of Care Treatment Plan: Bed Mobility, Education, Functional Activity Flaco, Functional Strength, Gait, Safety, Therapeutic Exercise, Transfers Treatment Duration: Oct 01, 2018 Frequency: 6 times per week Estimated Hrs Per Day: .5 hour per day Patient and/or Family Agrees t: Yes Safety Risks/Education Patient Education: Gait Training, Transfer Techniques, Correct Positioning, Safety Issues Teaching Recipient: Patient Teaching Methods: Demonstration, Discussion Response to Teaching: Reinforcement Needed Time/GCodes Time In: 1030 Time Out: 1044 Total Billed Treatment Time: 14 Total Billed Treatment 1 visit FA Daniel' DANO IQBAL PT Sep 27, 2018 10:49
--- NOTE | 2018-09-27 11:06 | NUR ---
home oxygen study pt spot checked 10 minutes post placing on room air for trial at rest, spo2 was 80% placed pt back on 4 lpm nasal cannula and spo2 kamryn to 92%, pt will require 4lpm at all times via nasal cannula
[2018-09-27] MEDS ORDERED: AMOX-358 PO (11:59)
--- NOTE | 2018-09-27 12:04 | Discharge Inst-Simple/Standard ---
Discharge Inst-Standard Discharge Medications New, Converted or Re-Newed RX: Transmitted to Pharmacy Patient Instructions/Follow Up Plan of Care/Instructions/FU: Medications as listed on the discharge sequence. Your new prescription for antibiotic should be started this evening. Oxygen per nasal cannula at 4 L/m. You should not use this with your CPAP as well. Make appointment for follow-up with Dr. Mcnamara. Activity as Tolerated: Yes Goal: Improvement in pulmonary function and resolution of pneumonia Discharge Diet: ADA Diet Return to [facility] For: Decline in performance JAYLENE PENA MD Sep 27, 2018 12:04
--- NOTE | 2018-09-27 12:09 | Progress Note - Hospitalist ---
Progress Note Progress Notes/Assess & Plan Date Seen 09/27/18 Time Seen by Provider: 12:07 Assessment & Plan The patient reports continued improvement. He is ready for discharge on home oxygen. He will need to continue oral antibiotics for an additional 6 days. Physical exam: He is sitting in the chair at bedside. He is able to speak in full sentences. Lungs show clear breath sounds but distant. CV is regular. Extremities show 1+ pedal edema. Impression: Left lower lobe pneumonia. Plan: Discharge with new prescription for home oxygen. SEE discharge sequence for medications and routines. JAYLENE PENA MD Sep 27, 2018 12:09 pm
--- NOTE | 2018-09-27 12:26 | NUR ---
DISCHARGE PLANNING: Patient to be discharge today. Needs new home oxygen. He was presented the choice form and has elected [facility] to provide his oxygen. I have sent order, qualification study and other needed information [facility]. I have called and informed the [facility] that I have sent the above information. Patient reports that his and son-in-law will be picking him up. No other needs at this time.
[2018-09-27 12:36] VITALS: BP 134/76
--- NOTE | 2018-09-27 12:58 | Occupational Ther Daily Note ---
OT Current Status-Daily Note Subjective Pt seen in room, up in recliner, agreeable to OT. No pain mentioned. Appearance Alert, cooperative Mental Status/Objective Therapy Code Descriptions/Definitions Functional [place] Measure: 0=Not Assessed/NA 4=Minimal Assistance 1=Total Assistance 5=Supervision or Setup 2=Maximal Assistance 6=Modified [place] 3=Moderate Assistance 7=Complete [place] Other Treatment Pt completed 10-15 reps two different bilat shoulder exercises, to strengthen arms over all and increase activity tolerance. Required recovery breaks after each set. Planning on discharge today, with home oxygen. Pt educ while exercising on home safety with O2 tubing and energy conservation techniques, nee ded for decreased activity tolerance and increased O2 needs. Pt verbalized understanding. Pt let up in recliner, all needs met. Education OT Patient Education: Energy conservation, Exercise program, Purpose of tx/functional activities, Safety issues Teaching Recipient: Patient Teaching Methods: Discussion Response to Teaching: Verbalize Understanding OT Short Term Goals Short Term Goals Time Frame: Oct 01, 2018 Eating(FIM): 5 Grooming(FIM): 5 Bathing(FIM): 4 Upper Body Dressing(FIM): 5 Lower Body Dressing(FIM): 4 Toileting(FIM): 4 Transfers (B,C,W/C) (FIM): 5 Additional Short Term Goals: 1-Demonstrate ADL Tasks, 2-Verbalize Understanding, 3-ImproveStrength/Flaco 1=Demonstrate adherence to instructed precautions during ADL tasks. 2=Patient will verbalize/demonstrate understanding of assistive devices/modifications for ADL. 3=Patient will improve strength/tolerance for activity to enable patient to perform ADL's. OT Mcc Goals Mcc Goals Time Frame: Oct 08, 2018 Eating (FIM): 6 Grooming(FIM): 6 Bathing(FIM): 5 Upper Body Dressing(FIM): 6 Lower Body Dressing(FIM): 5 Toileting(FIM): 6 Transfers (B,C,W/C) (FIM): 6 Toilet/Commode Transfer(FIM): 6 Shower Transfer(FIM): 5 Additional Goals: 1-Demonstrate ADL Tasks, 2-Verbalize Understanding, 3- ImproveStrength/Flaco 1=Demonstrate adherence to instructed precautions during ADL tasks. 2=Patient will verbalize/demonstrate understanding of assistive devices/modifications for ADL. 3=Patient will improve strength/tolerance for activity to enable patient to perform ADL's. OT Education/Plan Discharge Recommendations Plan/Recommendations: Continue POC Treatment Plan/Plan of Care Patient would benefit from OT for education, treatment and training to promote independence in ADL's, mobility, safety and/or upper extremity function for ADL's. Plan of Care: ADL Retraining, Functional Mobility, UE Funct Exercise/Act Treatment Duration: Oct 08, 2018 Frequency: 5 times per week Estimated Hrs Per Day: .5 hour per day Agreement: Yes Rehab Potential: Good Time/GCodes Start Time: 12:38 Stop Time: 12:50 Total Time Billed (hr/min): 12 Billed Treatment Time visit, 12 minutes exercise TERRENCE RODRÍGUEZ OT Sep 27, 2018 12:58
--- NOTE | 2018-09-27 13:12 | NUR ---
1300 dose of Zosyn not given. Patient has been discharge, his oxygen delivered and IV's taken out.
[2018-09-27 13:35] VITALS: BP 134/76
== END 2018-09-27 13:35 | disposition home or self-care (01) | DRG 871 ==
LOC: EDUNIT# 10:07 → ER 10:08 → ICU 13:39 → 4TH 09-25 17:38
PROVIDERS: ADMIT Family Medicine; ATTEND Family Medicine
PROC: 02HV33Z Insertion of Infusion Device into Superior Vena Cava, Percutaneous Approach (ICD-10-PCS; principal; 2018-09-23)
DX: A41.9 Sepsis, unspecified organism (principal); R65.21 Severe sepsis with septic shock; J18.1 Lobar pneumonia, unspecified organism; N17.9 Acute kidney failure, unspecified; J96.01 Acute respiratory failure with hypoxia; E87.2 Acidosis; I10 Essential (primary) hypertension; D69.6 Thrombocytopenia, unspecified; E11.9 Type 2 diabetes mellitus without complications; J43.9 Emphysema, unspecified; D50.9 Iron deficiency anemia, unspecified; G47.33 Obstructive sleep apnea (adult) (pediatric); G51.0 Bell's palsy; E78.00 Pure hypercholesterolemia, unspecified; M19.91 Primary osteoarthritis, unspecified site; E87.6 Hypokalemia; F32.9 Major depressive disorder, single episode, unspecified; Z85.828 Personal history of other malignant neoplasm of skin; Z79.4 Long term (current) use of insulin; Z87.891 Personal history of nicotine dependence
CPT/HCPCS: 36415; 36600; 51702; 71045; 80048; 80053; 81000; 82274; 82805; 82962; 83605; 83735; 83880; 84100; 84484; 85007; 85025; 85027; 85379; 85384; 85610; 85730; 86022; 87040; 87070; 87077; 87081; 87088; 87185; 87205; 94640; 94660; 94760; 94761; 96361; 96365; 96375

== ENCOUNTER → 2018-12-12 | Outpatient (CLI) | payer MEDICARE ==
[~2018-12-12] MED LIST changes: +ALOG25TA2 PO; +AMOX-358 PO; +MULT-1029 PO; +PRIM250T33 PO; +RT-ALBUTEROL SULF 2.5 MG/3 ML PRE-MIX VIAL INH ONE; +[UNRECOGNIZED DRUG - REMARK] PO
--- NOTE | 2018-12-12 15:15 | Diagnostic Imaging Report ---
INDICATION: Pneumonia and COPD. TIME OF EXAMINATION: 2:35 PM. COMPARISON: 09/27/2018. FINDINGS: The heart size is stable. The previously noted airspace infiltrate in the left base has resolved. The lungs appear to be fairly clear on this current exam. The pulmonary vascularity is normal. There is no effusion or pneumothorax. Postop changes of reverse shoulder arthroplasty on the right are noted. IMPRESSION: No acute cardiopulmonary process is detected. Dictated by: Dictated on workstation # [id number]
== END ==
LOC: RAD 14:11
PROVIDERS: ATTEND Nurse Practitioner Family
DX: J44.9 Chronic obstructive pulmonary disease, unspecified (principal); J18.9 Pneumonia, unspecified organism; G47.33 Obstructive sleep apnea (adult) (pediatric); E66.9 Obesity, unspecified
CPT/HCPCS: 71046; 94060; 94726; 94729

== ENCOUNTER 2019-04-09 08:50 | Inpatient (IN) | payer MEDICARE ==
[2019-04-09] VITALS (12 sets, daily range): BP systolic 104–150; BP diastolic 48–71
[~2019-04-09] VITALS: Ht 162 cm; Wt 112.0 kg
[~2019-04-09 08:50] MED LIST changes: -RT-ALBUTEROL SULF 2.5 MG/3 ML PRE-MIX VIAL INH ONE
[2019-04-09] MEDS ORDERED: NS IV 1000 ML 1,000 ML IV SCH ×2 (09:01)
--- NOTE | 2019-04-09 09:11 | ED General ---
General Stated Complaint: WEAKNESS / FEVER / CHILLS Source of Information: Patient Exam Limitations: No Limitations History of Present Illness Date Seen by Provider: Apr 09, 2019 Time Seen by Provider: 08:46 Initial Comments Patient resents to ER by private conveyance with chief complaint of nursing shortness of breath, nonproductive cough and fever and chills as well as sweats starting today. In September 2018 was admitted for 4 days for pneumonia. He has a history of COPD but is not oxygen dependent. He does take breathing treatments routinely. He does not feeling more wheezy than usual. He feels more weak than usual. No history of heart disease, chest pain, nausea vomiting or diarrhea. He follows with the [facility] and Dr. Mcnamara for pulmonology. Allergies and Home Medications Allergies Coded Allergies: lisinopril (Verified Allergy, Unknown, 09/22/15) sildenafil (Verified Allergy, Unknown, 09/22/15) Home Medications Alogliptin Benzoate 25 Mg Tablet, 25 MG PO DAILY, (Reported) Aspirin 81 Mg Tablet.dr, 81 MG PO DAILY, (Reported) Atorvastatin Calcium 80 Mg Tablet, 40 MG PO HS, (Reported) TAKES 1/2 (80MG) TABLET Furosemide 40 Mg Tablet, 40 MG PO DAILY PRN for SWELLING, (Reported) Gabapentin 300 Mg Capsule, 600 MG PO TID, (Reported) TAKES 2 (300MG) CAPSULES Glipizide 10 Mg Tablet, 20 MG PO BID, (Reported) TAKES 2 (10MG) TABLETS Losartan Potassium 100 Mg Tablet, 50 MG PO DAILY, (Reported) TAKES 1/2 (100MG) TABLET Meloxicam 7.5 Mg Tablet, 7.5 MG PO DAILY, (Reported) Metformin HCl 500 Mg Tab.er.24, 2,000 MG PO 1700, (Reported) TAKES 4 (500MG) TABLETS BEFORE SUPPER Multivit-Min/FA/Lycopene/Lut 1 Each Tablet, 1 TAB PO DAILY, (Reported) Olodaterol HCl 4 Gm Mist.inhal, 2 PUFF IH DAILY, (Reported) Drummond 3 Polyunsat Fatty Acids 1,000 Mg Cap, 1,000 MG PO HS, (Reported) Drummond 3 Polyunsat Fatty Acids 1,000 Mg Cap, 2,000 MG PO DAILY, (Reported) TAKES 2 (1000MG) CAPSULES IN THE MORNING Potassium Gluconate 99 Mg Tablet, 99 MG PO DAILY PRN for WHEN TAKING FUROSEMIDE, (Reported) Primidone 250 Mg Tablet, 250 MG PO HS, (Reported) Sertraline HCl 100 Mg Tablet, 100 MG PO DAILY, (Reported) Patient Home Medication List Home Medication List Reviewed: Yes Review of Systems Review of Systems Constitutional: chills, diaphoresis, fever, malaise, weakness EENTM: No ear discharge, No ear pain Respiratory: cough; No phlegm; wheezing Cardiovascular: No chest pain, No edema, No Hx of Intervention, No palpitations Gastrointestinal: No abdominal pain, No constipation, No diarrhea, No nausea Genitourinary: No discharge, No dysuria Musculoskeletal: No back pain, No joint pain Skin: No pruritus, No rash Psychiatric/Neurological: Denies Headache, Denies Numbness, Denies Paresthesia All Other Systems Reviewed Negative Unless Noted: Yes Past Zwqgzch-Phfpbc-Rshyku Hx Patient Social History Alcohol Use: Denies Use Recreational Drug Use: No Smoking Status: Former Smoker Type Used: Cigarettes Former Smoker, Quit: Nov 16, 1992 Recent Foreign Travel: No Contact w/Someone Who Travel: No Recent Hopitalizations: Yes (PNEUMONIA 03/2016) Immunizations Up To Date Tetanus Booster (TDap): Unknown Date of Pneumonia Vaccine: Sep 24, 2015 Date of Influenza Vaccine: Dec 03, 2015 Seasonal Allergies Seasonal Allergies: No Past Medical History Surgeries: Yes (HERNIA) Abdominal, Orthopedic, Tonsillectomy Respiratory: Yes Pneumonia, Sleep Apnea, COPD, Emphysema Currently Using CPAP: Yes Currently Using BIPAP: No Cardiac: Yes High Cholesterol, Hypertension Neurological: Yes ([place] WITH PERMANENT RIGHT FACIAL DROOP) Reproductive Disorders: No Sexually Transmitted Disease: No HIV/AIDS: No Genitourinary: No Gastrointestinal: Yes Abdominal Hernia Musculoskeletal: Yes ("EPIDURAL FOR L3-L4 DEGENERATION"; NECK PAIN) Degenerate Disk Disease, Arthritis, Chronic Back Pain Endocrine: Yes (OBESITY) Diabetes, Non-Insulin dep HEENT: No Cancer: No Skin Did You Recieve Any Treatments: Yes What Type of Treatment Did You: Surgical Intervention Psychosocial: Yes Depression Integumentary: No Blood Disorders: Yes (ANEMIA) Adverse Reaction/Blood Tranf: No Family Medical History Arthritis 19 MOTHER Cataracts 19 MOTHER Deafness or hearing loss G8 BROTHER Diabetes mellitus 19 MOTHER Visual disorder 19 MOTHER Physical Exam-Suspected Sepsis Physical Exam Vital Signs Vital Signs - First Documented 04/09/19 08:54 Temp 37.4 Pulse 112 Resp 18 B/P (MAP) 104/58 (73) Pulse Ox 93 O2 Delivery Nasal Cannula O2 Flow Rate 2.00 Capillary Refill : Height, Weight, BMI Height: 5'4.00" Weight: 253lbs. 0.0oz. 114.195081bl; 43.0 BMI Method:Stated General Appearance: Anxious, Moderate Distress, Obese Eyes: Bilateral Eye Normal Inspection, Bilateral Eye PERRL, Bilateral Eye EOMI HEENT: PERRL/EOMI, TMs Normal, Normal ENT Inspection; No Moist Mucous Membranes, No Tonsillar Exudate, No Tonsillar Enlargement Neck: Normal Inspection, Non Tender, Supple Respiratory: No Accessory Muscle Use, Decreased Breath Sounds, Respiratory Distress (hypoxia with oxygen sats around 88-90% on room air.) Cardiovascular: Regular Rate, Rhythm, No JVD, Normal Peripheral Pulses; No JVD; Tachycardia Gastrointestinal: Normal Bowel Sounds, Non Tender, Soft Extremity: Normal Capillary Refill, Normal Inspection, Normal Range of Motion, Non Tender, No Calf Tenderness, No Pedal Edema Neurologic/Psychiatric: Alert, Oriented x3, No Motor/Sensory Deficits Skin: normal color, warm/dry Focused Exam Sepsis Stage: Sepsis Possible Source: Pulmonary Lactate Level 04/09/19 09:00: Lactic Acid Level 2.16*H 04/09/19 11:08: Time of Focused Exam: 11:15 Respiratory: Lungs Clear, Accessory Muscle Use (mild), Decreased Breath Sounds, Respiratory Distress (mild) Cardiovascular: Regular Rate, Rhythm, No Edema, Normal Peripheral Pulses Capillary Refill: Less Than 3 Seconds Peripheral Pulses: 2+ Radial Pulses (R), 2+ Radial Pulses (L) Skin: normal color, warm/dry Lactic Acid Level Laboratory Tests Test 04/09/19 09:00 04/09/19 11:08 Lactic Acid Level 2.16 MMOL/L (0.50-2.00) *H Within 3hrs of presentation: Admin fluids, Admin 30ml/kg IBW due to BMI>30 (177 pounds ideal body weight adjusted), Admin ABX, Blood cultures prior to ABX's, Lactate level Progress/Results/Core Measures Suspected Sepsis SIRS Temperature: Pulse: Respiratory Rate: Laboratory Tests 04/09/19 09:00: White Blood Count 8.8 Blood Pressure / Mean: 04/09/19 09:00: Lactic Acid Level 2.16*H 04/09/19 11:08: Laboratory Tests 04/09/19 09:00: Creatinine 1.22, INR Comment 1.1, Platelet Count 116L, Total Bilirubin 0.4 Results/Orders Lab Results Laboratory Tests Test 04/09/19 09:00 04/09/19 09:42 04/09/19 10:11 04/09/19 11:08 Range/Units White Blood Count 8.8 4.3-11.0 10^3/uL Red Blood Count 4.16 L 4.35-5.85 10^6/uL Hemoglobin 11.0 L 13.3-17.7 G/DL Hematocrit 34 L 40-54 % Mean Corpuscular Volume 81 80-99 FL Mean Corpuscular Hemoglobin 26 25-34 PG Mean Corpuscular Hemoglobin Concent 33 32-36 G/DL Red Cell Distribution Width 15.7 H 10.0-14.5 % Platelet Count 116 L 130-400 10^3/uL Mean Platelet Volume 10.3 7.4-10.4 FL Neutrophils (%) (Auto) 74 42-75 % Lymphocytes (%) (Auto) 5 L 12-44 % Monocytes (%) (Auto) 21 H 0-12 % Eosinophils (%) (Auto) 0 0-10 % Basophils (%) (Auto) 0 0-10 % Neutrophils # (Auto) 6.5 1.8-7.8 X 10^3 Lymphocytes # (Auto) 0.4 L 1.0-4.0 X 10^3 Monocytes # (Auto) 1.9 H 0.0-1.0 X 10^3 Eosinophils # (Auto) 0.0 0.0-0.3 10^3/uL Basophils # (Auto) 0.0 0.0-0.1 10^3/uL Neutrophils % (Manual) 68 % Lymphocytes % (Manual) 6 % Monocytes % (Manual) 19 % Eosinophils % (Manual) 0 % Basophils % (Manual) 0 % Band Neutrophils 7 % Anisocytosis SLIGHT Elliptocytes SLIGHT Prothrombin Time 14.2 12.2-14.7 SEC INR Comment 1.1 0.8-1.4 Activated Partial Thromboplast Time 29 24-35 SEC Sodium Level 135 135-145 MMOL/L Potassium Level 4.1 3.6-5.0 MMOL/L Chloride Level 99 98-107 MMOL/L Carbon Dioxide Level 24 21-32 MMOL/L Anion Gap 12 5-14 MMOL/L Blood Urea Nitrogen 23 H 7-18 MG/DL Creatinine 1.22 0.60-1.30 MG/DL Estimat Glomerular Filtration Rate 57 BUN/Creatinine Ratio 19 Glucose Level 183 H 70-105 MG/DL Lactic Acid Level 2.16 *H 0.50-2.00 MMOL/L Calcium Level 9.1 8.5-10.1 MG/DL Corrected Calcium 8.8 8.5-10.1 MG/DL Total Bilirubin 0.4 0.1-1.0 MG/DL Aspartate Amino Transf (AST/SGOT) 19 5-34 U/L Alanine Aminotransferase (ALT/SGPT) 19 0-55 U/L Alkaline Phosphatase 62 40-136 U/L B-Type Natriuretic Peptide 35.7 <100.0 PG/ML Total Protein 8.6 H 6.4-8.2 GM/DL Albumin 4.4 3.2-4.5 GM/DL Glucometer 156 H 70-110 MG/DL Blood Gas Puncture Site RIGHT RADIAL Blood Gas Patient Temperature 37.4 Arterial Blood pH 7.36 L 7.37-7.43 Arterial Blood Partial Pressure CO2 48 H 35-45 MMHG Arterial Blood Partial Pressure O2 81 79-93 MMHG Arterial Blood HCO3 26 23-27 MMOL/L Arterial Blood Total CO2 27.4 21.0-31.0 MMOL/L Arterial Blood Oxygen Saturation 95 94-100 % Arterial Blood Base Excess 1.2 -2.5-2.5 MMOL/L Rudy Test POSITIVE Blood Gas Ventilator Setting NO Blood Gas Inspired Oxygen 3 L Micro Results Microbiology 04/09/19 Influenza Types A,B Antigen (BALJINDER) - Final, Complete My Orders Orders - CHRISTEN WHELAN Influenza A And B Antigens (04/09/19 08:53) Albuterol/Ipra Inhalation Soln (Duoneb I (04/09/19 09:15) Cbc With Automated Diff (04/09/19 09:01) Comprehensive Metabolic Panel (04/09/19 09:01) Blood Culture (04/09/19 09:01) Sputum Culture (04/09/19 09:01) Urinalysis (04/09/19 09:01) Urine Culture (04/09/19 09:01) Protime With Inr (04/09/19 09:01) Partial Thromboplastin Time (04/09/19 09:01) Chest 1 View, Ap/Pa Only (04/09/19 09:01) Ed Iv/Invasive Line Start (04/09/19 09:01) Ed Iv/Invasive Line Start (04/09/19 09:01) Vital Signs Adult Sepsis Patie Q15M (04/09/19 09:01) O2 (04/09/19 09:01) Remove Rings In Anticipation O (04/09/19 09:01) Lactic Acid Analyzer (04/09/19 09:01) Ns Iv 1000 Ml (Sodium Chloride 0.9%) (04/09/19 09:01) Ceftriaxone For Iv Use (Rocephin For I (04/09/19 09:15) Azithromycin Injection (Zithromax Inject (04/09/19 09:15) Ed Iv/Invasive Line Start (04/09/19 09:01) Ns Iv 1000 Ml (Sodium Chloride 0.9%) (04/09/19 09:01) Svn Small Volume Nebulizer (04/09/19 09:01) BNP (04/09/19 09:01) Manual Differential (04/09/19 09:00) Ed Iv/Invasive Line Start (04/09/19 09:36) Ns Iv 500 Ml (Sodium Chloride 0.9%) (04/09/19 09:36) Accucheck Stat ONCE (04/09/19 09:40) Arterial Blood Gas (04/09/19 10:03) Medications Given in ED Current Medications Medications Dose Ordered Sig/Ana Route Start Time Stop Time Status Last Admin Dose Admin Albuterol/ Ipratropium 3 ml ONCE ONCE INH 04/09/19 09:15 04/09/19 09:16 DC 04/09/19 10:09 3 ML Azithromycin 500 mg/Sodium Chloride 250 ml @ 250 mls/hr ONCE ONCE IV 04/09/19 09:15 04/09/19 10:14 DC 04/09/19 09:25 250 MLS/HR Ceftriaxone Sodium 1000 mg/ Sterile Water 10 ml @ 200 mls/hr ONCE ONCE IV 04/09/19 09:15 04/09/19 09:17 DC 04/09/19 09:21 200 MLS/HR Sodium Chloride 500 ml @ 0 mls/hr Q0M ONCE IV 04/09/19 09:36 22/20 09:38 DC 04/09/19 10:27 500 MLS/HR Vital Signs/I&O 04/09/19 04/09/19 04/09/19 08:54 09:00 10:10 Temp 37.4 Pulse 112 Resp 18 B/P (MAP) 104/58 (73) Pulse Ox 93 88 95 O2 Delivery Nasal Cannula Nasal Cannula Nasal Cannula O2 Flow Rate 2.00 2.00 3.00 Capillary Refill : Progress Note #1: Time: 09:43 Progress Note Hypoxic on arrival. Put him on some oxygen which brought him up to 98% on 2 L. We obtained septic workup to include an influenza swab. After receiving the broad-spectrum antibiotics of cefepime and vancomycin his blood pressure took a transient dip to 88/50. We have increased his fluid bolus to 30 mL/kg based on 177 pounds ideal body weight and for the first liter is done is already back up to 99/55. His blood sugars 156. We'll give him a breathing treatment and obtain an ABG. Progress Note #2: Time: 11:02 Progress Note The patient's transient hypotension after receiving antibiotics, Jarisch- Herxheimer reaction has resolved and his blood pressure is now 111/66 with a heart rate of 91 and oxygen sats of 94%. His ABG demonstrates some elevated CO2 of 48. Since he's having the acute rest or distress and an infiltrate seen on chest x-ray 12 cough and fever we plan on putting him on Vapotherm in the unit. We'll continue broad-spectrum antibiotics cefepime and vancomycin. Diagnostic Imaging Diagonstic Imaging: Xray Plain Films/CT/US/NM/MRI: chest (1v) Comments [facility] [place], [place] NAME: EMMANUELLE [facility] REC#: [id number] PT STATUS: REG ER : 1935 PHYSICIAN: CHRISTEN WHELAN MD ADMIT DATE: 04/09/19/ER Signed Date of Exam:04/09/19 CHEST 1 VIEW, AP/PA ONLY EXAMINATION: Chest radiograph, portable AP view. DATE: 04/09/2019 9:33 AM hours. INDICATION: 84-year-old male, fever. COMPARISON: December 12, 2018. 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 Stable overall appearance of the cardiomediastinal silhouette. There is no identified pneumothorax. There is mild blunting of the left lateral costophrenic angle. IMPRESSION: 1. Mild blunting of the left lateral costophrenic angle which may relate to atelectasis, infiltrate, and/or small effusion. Dictated by: Dictated on workstation # [id number] Dict: 04/09/19 0935 Trans: 04/09/19 1019 CVB [id number] Interpreted by: BELLE EL MD Electronically signed by: BELLE EL MD 04/09/19 1019 Reviewed: Reviewed by Me Departure Communication (Admissions) Time/Spoke to Admitting Phy: 11:00 Discussed the case with Dr. Wilson she agrees to admit the patient to the ICU given his soft blood pressure and use of Vapotherm. Impression Primary Impression: Pneumonia Qualified Codes: J18.1 - Lobar pneumonia, unspecified organism Additional Impressions: Sepsis Qualified Codes: A41.9 - Sepsis, unspecified organism; R65.20 - Severe sepsis without septic shock; J96.02 - Acute respiratory failure with hype rcapnia COPD with acute lower respiratory infection Disposition: ADMITTED INPATIENT Condition: Critical Admissions Decision to Admit Reason: Admit from ER (General) Decision to Admit/Date: Apr 09, 2019 Time/Decision to Admit Time: 11:00 Departure-Patient Inst. Referrals: NO,LOCAL PHYSICIAN (PCP/Family) Primary Care Physician CHRISTEN WHELAN Apr 09, 2019 09:11
[2019-04-09 09:14] LABS: BASOPHILS % (AUTO) 0 % (0-10); EOSINOPHILS % (AUTO) 0 % (0-10); HEMATOCRIT 34 % (40-54); LYMPHOCYTES # (AUTO) 0.4 X 10^3 (1.0-4.0); LYMPHOCYTES % (AUTO) 5 % (12-44); MEAN CORPUSCULAR HEMOGLOBIN 26 PG (25-34); MEAN CORPUSCULAR HGB CONC 33 G/DL (32-36); MEAN CORPUSCULAR VOLUME 81 FL (80-99); MEAN PLATELET VOLUME 10.3 FL (7.4-10.4); MONOCYTES # (AUTO) 1.9 X 10^3 (0.0-1.0); MONOCYTES % (AUTO) 21 % (0-12); NEUTROPHILS # (AUTO) 6.5 X 10^3 (1.8-7.8); NEUTROPHILS % (AUTO) 74 % (42-75); PLATELET COUNT 116 10^3/uL (130-400); RED CELL DISTRIBUTION WIDTH 15.7 % (10.0-14.5); WHITE BLOOD COUNT 8.8 10^3/uL (4.3-11.0)
[2019-04-09] MEDS ORDERED: cefTRIAXone FOR IV USE 1,000 MG in WATER (STERILE) FOR INJECTION 10 ML IV ONE (09:15)
[2019-04-09] MEDS ORDERED: AZITHROMYCIN INJECTION 500 MG in NS (IVPB) 250 ML IV ONE (09:15)
[2019-04-09] MEDS ORDERED: RT-ALBUTEROL/IPRATROPIUM 3 ML (DUONEB) VIAL INH ONE (09:15)
[2019-04-09 09:24] LABS: INR 1.1 (0.8-1.4); PROTHROMBIN TIME PATIENT 14.2 SEC (12.2-14.7)
[2019-04-09 09:33] LABS: ALBUMIN 4.4 GM/DL (3.2-4.5); BILIRUBIN,TOTAL 0.4 MG/DL (0.1-1.0); CALCIUM 9.1 MG/DL (8.5-10.1); CREATININE SERUM 1.22 MG/DL (0.60-1.30); POTASSIUM 4.1 MMOL/L (3.6-5.0); TOTAL PROTEIN 8.6 GM/DL (6.4-8.2)
[2019-04-09] MEDS ORDERED: NS IV 500 ML 500 ML IV ONE (09:36)
--- NOTE | 2019-04-09 09:37 | Diagnostic Imaging Report ---
EXAMINATION: Chest radiograph, portable AP view. DATE: 04/09/2019 9:33 AM hours. INDICATION: 84-year-old male, fever. COMPARISON: December 12, 2018. 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 Stable overall appearance of the cardiomediastinal silhouette. There is no identified pneumothorax. There is mild blunting of the left lateral costophrenic angle. IMPRESSION: 1. Mild blunting of the left lateral costophrenic angle which may relate to atelectasis, infiltrate, and/or small effusion. Dictated by: Dictated on workstation # [id number]
[2019-04-09 09:48] LABS: BAND NEUTROPHILS 7 %; BASOPHILS % (MANUAL) 0 %; EOSINOPHILS % (MANUAL) 0 %; LYMPHOCYTES % (MANUAL) 6 %; MONOCYTES % (MANUAL) 19 %; NEUTROPHILS % (MANUAL) 68 %
[2019-04-09 09:49] LABS: ANISOCYTOSIS SLIGHT; ELLIPT/OVALOCYTES SLIGHT
[2019-04-09 10:17] LABS: ABG BASE EXCESS 1.2 MMOL/L (-2.5-2.5); ABG OXYGEN SATURATION 95 % (94-100); ABG PCO2 48 MMHG (35-45); ABG PH 7.36 (7.37-7.43); ABG PO2 81 MMHG (79-93); ABG TCO2 27.4 MMOL/L (21.0-31.0); ALLENS TEST POSITIVE; INSPIRED O2 3 L
[2019-04-09 10:18] LABS: PATIENT TEMP 37.4; VENTILATOR NO
--- NOTE | 2019-04-09 12:05 | NUR ---
Report received from ANDRIA Alvares.
[2019-04-09 12:13] LABS: BILIRUBIN,URINE NEGATIVE (NEGATIVE); CLARITY,URINE CLEAR; COLOR,URINE YELLOW; GLUCOSE, URINE (UA) NEGATIVE (NEGATIVE); KETONES,URINE NEGATIVE (NEGATIVE); LEUKOCYTE ESTERASE ,URINE NEGATIVE (NEGATIVE); NITRITE,URINE NEGATIVE (NEGATIVE); PH,URINE 5.5 (5-9); PROTEIN,URINE NEGATIVE (NEGATIVE)
[2019-04-09 12:21] LABS: BACTERIA,URINE NEGATIVE /HPF; SQUAMOUS EPITHELIAL CELL,UR RARE /HPF
[2019-04-09] MEDS ORDERED: NS W/KCL 20 MEQ/L 1,000 ML IV SCH (12:30)
[2019-04-09] MEDS ORDERED: ACETAMINOPHEN 500 MG TAB (TYLENOL) PO PRN (12:30)
[2019-04-09] MEDS ORDERED: ONDANSETRON 4 MG/2 ML (SDV) Z0FRAN IV PRN (12:30)
[2019-04-09] MEDS ORDERED: VANCOMYCIN INJECTION 2,250 MG in NS IV 500 ML 500 ML IV NR (13:00)
[2019-04-09] MEDS ORDERED: RT-ALBUTEROL/IPRATROPIUM 3 ML (DUONEB) VIAL INH PRN (13:15)
--- NOTE | 2019-04-09 13:51 | History & Physical-Hospitalist ---
ELVA LEIVA,MED STUDENT 04/09/19 1351: History of Present Illness HPI/Chief Complaint Mr. Rodriguez is an 84 y/o male with history of COPD, type 2 non-insulin dependent diabetes, hypertension, hypercholesterolemia, and PARKER who presented to the ED this morning with chills, weakness, and nonproductive cough. His symptoms woke him at 4:30 this morning and he became increasingly short of breath which prompted him to report to the ED. He took his temperature at home and it was 100.8 F. Associated symptoms include a headache which has since improved. He reports a similar episode in September 2018 at which time he was diagnosed with pneumonia and sepsis. He reports that he is feeling much better since receiving the antibiotics in the ED, but is concerned that his blood pressure is low. He denies any dizziness, lightheadedness, or nausea. He did have an episode of hypotension in the ED after he was given empiric ceftriaxone and azithromycin. He follows with Dr. Mcnamara for his COPD and states that he does not use oxygen at home. Source: patient, family Date Seen 04/09/19 Time Seen by a Provider: 13:38 Attending Physician Frantz Meyer MD PCP No,Local Physician Referring Physician Date of Admission Apr 09, 2019 at 11:00 Home Medications & Allergies Home Medications Reviewed patient Home Medication Reconciliation performed by pharmacy medication reconciliations rv service technician and/or nursing. Patients Allergies have been reviewed. Allergies Allergies Coded Allergies lisinopril (Verified Allergy, Unknown, 09/22/15) sildenafil (Verified Allergy, Unknown, 09/22/15) Past Knezkyl-Luqjiw-Xpqwjn Hx Patient Social History Marrital Status: Alcohol Use: Denies Use Recreational Drug Use: No Smoking Status: Former Smoker (70 pack year history) Former Smoker, Quit: Nov 16, 1992 Type Used: Cigarettes Recent Foreign Travel: No Contact w/other who traveled: No Recent Hopitalizations: Yes (PNEUMONIA 03/2016 and 09/2018) Recent Infectious Disease Expo: No Immunizations Up To Date Tetanus Booster (TDap): Unknown Date of Pneumonia Vaccine: Sep 24, 2015 Date of Influenza Vaccine: Dec 08, 2019 Seasonal Allergies Seasonal Allergies: No Past Medical History Surgeries: Abdominal, Orthopedic, Tonsillectomy Respiratory: COPD, Emphysema, Pneumonia, Sleep Apnea Currently Using CPAP: Yes Currently Using BIPAP: No Cardiac: High Cholesterol, Hypertension Reproductive: No Sexually Transmitted Disease: No HIV/AIDS: No Gastrointestinal: Abdominal Hernia Musculoskeletal: Degenerate Disk Disease, Arthritis, Chronic Back Pain Endocrine: Diabetes, Non-Insulin dep Cancer: Skin Did You Recieve Any Treatments: Yes What Type of Treatment Did You: Surgical Intervention Psychosocial: Depression History of Blood Disorders: Yes (ANEMIA) Adverse Reaction to Blood Hernandez: No Family History Arthritis 19 MOTHER Cataracts 19 MOTHER Deafness or hearing loss G8 BROTHER Diabetes mellitus 19 MOTHER Visual disorder 19 MOTHER Diabetes Review of Systems Constitutional: chills, weakness; No weight gain, No weight loss EENTM: No hearing loss, No vision loss Respiratory: cough, short of breath Cardiovascular: No chest pain, No palpitations Gastrointestinal: No abdominal pain, No nausea, No vomiting Genitourinary: No dysuria, No frequency Musculoskeletal: back pain, joint pain Skin: No pruritus, No rash Psychiatric/Neurological: Headache; Denies Paresthesia Physical Exam Physical Exam Vital Signs Vital Signs - First Documented 04/09/19 08:54 Temp 37.4 Pulse 112 Resp 18 B/P (MAP) 104/58 (73) Pulse Ox 93 O2 Delivery Nasal Cannula O2 Flow Rate 2.00 Capillary Refill : Less Than 3 Seconds Height, Weight, BMI Height: 5'4.00" Weight: 253lbs. 0.0oz. 114.814356kn; 42.00 BMI Method:Stated General Appearance: No Apparent Distress, Obese HEENT: Pharynx Normal, Moist Mucous Membranes Neck: Non Tender, Supple Respiratory: Chest Non Tender, Lungs Clear, Normal Breath Sounds, No Accessory Muscle Use, No Respiratory Distress Cardiovascular: Regular Rate, Rhythm, No Murmur Gastrointestinal: Non Tender, Soft; No Distended Extremity: Normal Range of Motion, No Calf Tenderness, No Pedal Edema Neurologic/Psychiatric: Alert, Normal Mood/Affect Skin: Warm/Dry, Pallor Lymphatic: No Adenopathy Results Results/Procedures Labs Laboratory Tests 04/09/19 09:00 Patient resulted labs reviewed. Imaging Chest X-ray 1 view IMPRESSION: 1. Mild blunting of the left lateral costophrenic angle which may relate to atelectasis, infiltrate, and/or small effusion. Assessment/Plan Admission Diagnosis Pneumonia Sepsis Admission Status: Inpatient Order (span 2 midnights) Assessment and Plan 1. Severe sepsis from community acquired pneumonia - Continue cefepime and vancomycin - Await blood and sputum cultures - IV Normal saline at 150 mL/hr 2. COPD - MAT protocol - Scheduled and PRN breathing treatments - O2 as needed for O2 sat <90% - Continue home inhaler or can give Advair here 2. Type II non-insulin dependent diabetes - Hold metformin - Sliding scale insulin 3. Hypertension - Hold antihypertensives due to low to normal blood pressures 4. Hypercholesterolemia - Continue Atorvastatin 4. Thrombocytopenia - Will check peripheral smear - Recommend outpatient follow up Clinical Quality Measures DVT/VTE Risk/Contraindication: Risk Factor Score Per Nursin RFS Level Per Nursing on Admit: 4+=Very High FRANTZ MEYER MD 04/09/19 1844: Past Ckdmycu-Oyfkzi-Bhqvaw Hx Family History Arthritis 19 MOTHER Cataracts 19 MOTHER Deafness or hearing loss G8 BROTHER Diabetes mellitus 19 MOTHER Visual disorder 19 MOTHER Assessment/Plan Assessment and Plan Met severe sepsis on admission due to CAP. Will broaden antibiotic coverage due to known COPD and cover with Vanc/Cefepime. Resume home inhalers and add MAT protocol. Had transient hypotension following administration of antibiotics but now normotensive. Will hold home BP meds for now and resume in AM if BP improves. SSI for DM due to his lactic acidosis. Has known thrombocytopenia and is near his baseline from 6 months ago. Consider peripheral smear if continues to drop. Supervisory-Addendum Brief Verification & Attestation Participated in pt care: history, MDM, physical Personally performed: exam, history, MDM, supervision of care Care discussed with: Medical Student Procedures: n/a Results interpretation: Verified all documentation Verification and Attestation of Medical Student E/M Service A medical student performed and documented this service in my presence. I reviewed and verified all information documented by the medical student and made modifications to such information, when appropriate. I personally performed the physical exam and medical decision making. Frantz Meyer, Apr 09, 2019,18:43 ELVA LEIVA,MED STUDENT Apr 09, 2019 13:51 FRANTZ MEYER MD Apr 09, 2019 18:44
[2019-04-09] MEDS: RT-ALBUTEROL/IPRATROPIUM 3 ML (DUONEB) VIAL INH SCH ×3 (14:17→22:51)
[2019-04-09] MEDS: inSUlin ASPART (NovoLOG) 1 UNIT/0.01 ML (CHARGE PER UNIT) SC SCH ×2 (16:42→20:46)
[2019-04-09] MEDS: CEFEPIME 1,000 MG/SWFI 10 ML IV PUSH IV SCH ×6 (16:42→23:41)
[2019-04-09] MEDS ORDERED: FERR324T PO (18:13)
[2019-04-09] MEDS ORDERED: ATOR80TA76 PO (18:24)
[2019-04-09] MEDS ORDERED: OMEG1CAP58 PO (18:24)
[2019-04-09] MEDS ORDERED: NS IV 1000 ML 1,000 ML ONE (18:48)
[2019-04-09] MEDS ORDERED: GABAPENTIN 300 MG (NEURONTIN) CAP ONE (19:57)
[2019-04-09] MEDS ORDERED: PRIMIDONE 250MG (MYSOLINE) TAB ONE (19:57)
[2019-04-09] MEDS: PRIMIDONE 250MG (MYSOLINE) TAB PO SCH (20:07)
[2019-04-09] MEDS: GABAPENTIN 300 MG (NEURONTIN) CAP PO SCH (20:10)
--- NOTE | 2019-04-09 21:00 | NUR ---
Report and care of pt given to ANDRIA Ernst.
[2019-04-09] MEDS ORDERED: WATER (STERILE) FOR INJECTION 10 ML ONE (23:32)
[2019-04-09] MEDS ORDERED: CEFEPIME 1 GM (MAXIPIME) VIAL ONE (23:32)
[2019-04-10] VITALS: BP 97/58
[2019-04-10] MEDS: RT-ALBUTEROL/IPRATROPIUM 3 ML (DUONEB) VIAL INH SCH ×6 (03:06→21:28)
[2019-04-10 04:00] VITALS: BP 113/56
[2019-04-10 04:49] LABS: BASOPHILS % (AUTO) 0 % (0-10); EOSINOPHILS % (AUTO) 0 % (0-10); HEMATOCRIT 29 % (40-54); HEMOGLOBIN 9.3 G/DL (13.3-17.7); LYMPHOCYTES # (AUTO) 1.2 X 10^3 (1.0-4.0); LYMPHOCYTES % (AUTO) 8 % (12-44); MEAN CORPUSCULAR HEMOGLOBIN 27 PG (25-34); MEAN CORPUSCULAR HGB CONC 33 G/DL (32-36); MEAN CORPUSCULAR VOLUME 82 FL (80-99); MONOCYTES # (AUTO) 1.8 X 10^3 (0.0-1.0); MONOCYTES % (AUTO) 12 % (0-12); NEUTROPHILS # (AUTO) 11.9 X 10^3 (1.8-7.8); NEUTROPHILS % (AUTO) 80 % (42-75); PLATELET COUNT 101 10^3/uL (130-400); RED CELL DISTRIBUTION WIDTH 16.3 % (10.0-14.5); WHITE BLOOD COUNT 14.9 10^3/uL (4.3-11.0)
[2019-04-10 05:16] LABS: BUN/CREATININE RATIO 22; CALCIUM 8.2 MG/DL (8.5-10.1); CARBON DIOXIDE 22 MMOL/L (21-32); CHLORIDE 108 MMOL/L (98-107); CREATININE SERUM 0.85 MG/DL (0.60-1.30); GFR ESTIMATED > 60; GLUCOSE 162 MG/DL (70-105); POTASSIUM 4.1 MMOL/L (3.6-5.0); SODIUM 139 MMOL/L (135-145)
[2019-04-10] MEDS ORDERED: WATER (STERILE) FOR INJECTION 10 ML ONE ×3 (05:29→22:41)
[2019-04-10] MEDS ORDERED: CEFEPIME 1 GM (MAXIPIME) VIAL ONE ×3 (05:29→22:41)
[2019-04-10] MEDS: inSUlin ASPART (NovoLOG) 1 UNIT/0.01 ML (CHARGE PER UNIT) SC SCH ×4 (05:31→21:52)
[2019-04-10] MEDS: CEFEPIME 1,000 MG/SWFI 10 ML IV PUSH IV SCH ×8 (05:36→23:37)
[2019-04-10 05:40] LABS: LYMPHOCYTES % (MANUAL) 9 %; MONOCYTES % (MANUAL) 11 %; NEUTROPHILS % (MANUAL) 80 %
--- NOTE | 2019-04-10 07:06 | Diagnostic Imaging Report ---
INDICATION: Pneumonia. COMPARISON: 04/09/2019 FINDINGS: Single view of the chest demonstrates cardiac enlargement without overt pulmonary edema. There is bibasilar atelectasis. There is no pneumothorax. Osseous structures are stable. IMPRESSION: Unchanged basilar atelectasis. Followup recommended. Dictated by: Dictated on workstation # [id number]
[2019-04-10 08:00] VITALS: BP 121/56
[2019-04-10] MEDS: GABAPENTIN 300 MG (NEURONTIN) CAP PO SCH ×3 (08:45→21:52)
[2019-04-10] MEDS: SERTRALINE 100 MG (ZOLOFT) TAB PO SCH (08:45)
[2019-04-10] MEDS: ASPIRIN E.C. 81 MG (ECOTRIN) TAB PO SCH (08:45)
[2019-04-10] MEDS: MELOXICAM 7.5 MG (MOBIC) TABLET PO SCH (08:45)
[2019-04-10] MEDS ORDERED: OLODATEROL HCL IH SCH (09:00)
[2019-04-10] MEDS ORDERED: RT-ALBUINH IH (11:36)
[2019-04-10] MEDS ORDERED: HYDR-3812 PO (11:45)
[2019-04-10] MEDS ORDERED: KETO120S2 TP (11:45)
[2019-04-10] MEDS ORDERED: FURO-124 PO (11:48)
--- NOTE | 2019-04-10 11:50 | NUR ---
SPOKE WITH THE (HE SAID HE HAD A MED LIST WITH HIM THAT HE GAVE TO THE STAFF IN ICU HOWEVER I COULD NOT FIND IT IN HIS BELONGING OR ON HIS CHART) [facility] FUROSEMIDE 40MG: PT SAYS IF HE IS STAYING IN HIS HOME FOR THE DAY HE TAKES 2 TABS, BUT IF HE IS GOING TO LEAVE HE WILL NOT TAKE ANY. HE SAID IT AVERAGES OUT TO TAKING 1 PER DAY. THE FOLLOWING ARE FILL DATES [facility]: 01-18-2019 ATORVASTATIN #45/90DS 01-18-2019 FUROSEMIDE #90/90DS 02-14-2019 LOSARTAN #45/90DS 02-14-2019 SERTRALINE #90/90DS 02-19-2019 FERROUS GLUC #100/100DS 02-22-2019 ALOGLIPTIN #90/90DS 02-22-2019 METFORMIN #350/70DS 02-27-2019 PRIMIDONE #90/90DS 03-07-2019 MELOXICAM #90/90DS 03-19-2019 ALBUTEROL HFA #3 03-22-2019 HYDROCODONE #60/30DS 03-22-2019 STREVUDI INH #3/90DS 03-28-2019 GABAPENTIN #540/90DS 03-28-2019 GLIPIZIDE #360/90DS 03-28-2019 KETOCONAZOLE SHAMPOO #1 OTC MEDS: FISH OIL MTV ASPIRIN
[2019-04-10] MEDS ORDERED: VANCOMYCIN 1,750 MG/NS 500 ML IVPB IV SCH ×2 (13:00)
--- NOTE | 2019-04-10 14:10 | Progress Note - Hospitalist ---
Subjective HPI/CC On Admission Date Seen by Provider: Apr 10, 2019 Time Seen by Provider: 09:35 Shortness of breath Subjective/Events-last exam He denies any complaints or concerns. He denies any fevers or chills. He denies any shortness of breath. He denies any chest pain. He denies any abdominal pain, nausea, or vomiting. Focused Exam Lactate Level 04/09/19 09:00: Lactic Acid Level 2.16*H 04/09/19 11:08: Lactic Acid Level 1.32 Time of Focused Exam: 11:15 Objective Exam Vital Signs Vital Signs Date Time Temp Pulse Resp B/P (MAP) Pulse Ox O2 Delivery O2 Flow Rate FiO2 04/10/19 11:02 95 NIV CPAP 2.00 04/10/19 08:00 36.1 80 20 121/56 (77) Capillary Refill : Less Than 3 Seconds General Appearance: No Apparent Distress, WD/WN HEENT: PERRL/EOMI, Pharynx Normal Neck: Normal Inspection, Supple Respiratory: Lungs Clear, Normal Breath Sounds, No Respiratory Distress Cardiovascular: Regular Rate, Rhythm, No Edema, No Murmur ( ) Gastrointestinal: Normal Bowel Sounds, Non Tender, Soft Extremity: Normal Inspection, Non Tender, No Pedal Edema Neurologic/Psychiatric: Alert, Oriented x3, No Motor/Sensory Deficits, Normal Mood/Affect Skin: Normal Color, Warm/Dry Results/Procedures Lab Laboratory Tests 04/10/19 04:28 Patient resulted labs reviewed. Imaging: Reviewed Imaging Report Assessment/Plan Assessment and Plan Assess & Plan/Chief Complaint Severe sepsis from community acquired pneumonia Continue cefepime and vancomycin Await blood and sputum cultures Continue IV fluids COPD without acute exacerbation MAT protocol Continue home inhalers Type II non-insulin dependent diabetes Hold metformin Sliding scale insulin Hypertension Hold antihypertensives due to low to normal blood pressures Hypercholesterolemia Continue Atorvastatin Thrombocytopenia Continue to monitor Diagnosis/Problems Diagnosis/Problems (1) Pneumonia Status: Acute Qualifiers: Pneumonia type: due to unspecified organism Laterality: left Lung locat ion: lower lobe of lung Qualified Codes: J18.1 - Lobar pneumonia, unspecified organism (2) Sepsis Status: Acute Qualifiers: Sepsis type: sepsis due to unspecified organism Sepsis acute organ dysfu nction status: with acute organ dysfunction Severe sepsis acute organ dysfunc tion type: acute respiratory failure Acute respiratory failure type: with hypercapnia Severe sepsis shock status: without septic shock Qualified Codes: A41.9 - Sepsis, unspecified organism; R65.20 - Severe sepsis without septic shock; J96.02 - Acute respiratory failure with hypercapnia Clinical Quality Measures DVT/VTE Risk/Contraindication: Risk Factor Score Per Nursin RFS Level Per Nursing on Admit: 4+=Very High CHRISTA MCINTOSH MD Apr 10, 2019 14:10
[2019-04-10 15:04] VITALS: BP 121/56
[2019-04-10 16:20] VITALS: BP 141/65
[2019-04-10] MEDS: PRIMIDONE 250MG (MYSOLINE) TAB PO SCH (21:51)
[2019-04-10 23:40] VITALS: BP 146/75
[2019-04-11] MEDS: RT-ALBUTEROL/IPRATROPIUM 3 ML (DUONEB) VIAL INH SCH ×2 (01:07→09:39)
[2019-04-11 05:01] LABS: BASOPHILS % (AUTO) 0 % (0-10); EOSINOPHILS % (AUTO) 0 % (0-10); HEMATOCRIT 30 % (40-54); HEMOGLOBIN 9.7 G/DL (13.3-17.7); LYMPHOCYTES # (AUTO) 1.2 X 10^3 (1.0-4.0); LYMPHOCYTES % (AUTO) 10 % (12-44); MEAN CORPUSCULAR HEMOGLOBIN 27 PG (25-34); MEAN CORPUSCULAR HGB CONC 33 G/DL (32-36); MEAN CORPUSCULAR VOLUME 82 FL (80-99); MEAN PLATELET VOLUME 11.3 FL (7.4-10.4); MONOCYTES # (AUTO) 1.5 X 10^3 (0.0-1.0); MONOCYTES % (AUTO) 12 % (0-12); NEUTROPHILS # (AUTO) 9.4 X 10^3 (1.8-7.8); NEUTROPHILS % (AUTO) 78 % (42-75); PLATELET COUNT 105 10^3/uL (130-400); RED CELL DISTRIBUTION WIDTH 16.9 % (10.0-14.5); WHITE BLOOD COUNT 12.1 10^3/uL (4.3-11.0)
[2019-04-11 05:18] LABS: BUN/CREATININE RATIO 16; CALCIUM 8.9 MG/DL (8.5-10.1); CARBON DIOXIDE 22 MMOL/L (21-32); CHLORIDE 104 MMOL/L (98-107); CREATININE SERUM 0.82 MG/DL (0.60-1.30); GFR ESTIMATED > 60; GLUCOSE 181 MG/DL (70-105); MAGNESIUM 1.8 MG/DL (1.6-2.4); POTASSIUM 4.1 MMOL/L (3.6-5.0); SODIUM 135 MMOL/L (135-145)
[2019-04-11] MEDS ORDERED: CEFEPIME 1 GM (MAXIPIME) VIAL ONE (05:20)
[2019-04-11] MEDS ORDERED: WATER (STERILE) FOR INJECTION 10 ML ONE (05:20)
[2019-04-11] MEDS: inSUlin ASPART (NovoLOG) 1 UNIT/0.01 ML (CHARGE PER UNIT) SC SCH ×2 (05:21→12:12)
[2019-04-11] MEDS: CEFEPIME 1,000 MG/SWFI 10 ML IV PUSH IV SCH ×2 (06:33)
--- NOTE | 2019-04-11 07:39 | Pulmonary Consultation ---
History of Present Illness History of Present Illness Date Seen by Provider: Apr 11, 2019 Time Seen by Provider: 07:34 Date of Admission Allergies and Home Medications Allergies Coded Allergies: lisinopril (Verified Allergy, Unknown, 09/22/15) sildenafil (Verified Allergy, Unknown, 09/22/15) Home Medications Albuterol Sulfate 1 Puff Puff, 2 PUFF IH Q8H PRN for SHORTNESS OF BREATH, (Reported) Alogliptin Benzoate 25 Mg Tablet, 25 MG PO DAILY, (Reported) Aspirin 81 Mg Tablet.dr, 81 MG PO DAILY, (Reported) Atorvastatin Calcium 80 Mg Tablet, 40 MG PO DAILY, (Reported) TAKES OF A 80MG TO EQUAL 40MG DAILY Ferrous Gluconate 324 Mg Tablet, 324 MG PO DAILY, (Reported) Furosemide 40 Mg Tablet, 80 MG PO DAILY PRN for FLUID RETENTION, (Reported) TAKES 2 TABS ON DAYS WHEN HE IS HOME BUT IF HE IS OUT OF THE HOUSE HE DOESNT TAKE ANY Gabapentin 300 Mg Capsule, 600 MG PO TID, (Reported) TAKES 2 (300MG) CAPSULES Glipizide 10 Mg Tablet, 20 MG PO BID, (Reported) TAKES 2 (10MG) TABLETS Hydrocodone/Acetaminophen 1 Each Tablet, 1 TAB PO BID PRN for PAIN-MODERATE (5- 7), (Reported) Ketoconazole 120 Ml Shampoo, 1 APPLIC TP TWICE WEEKLY, (Reported) Losartan Potassium 100 Mg Tablet, 50 MG PO DAILY, (Reported) TAKES 1/2 (100MG) TABLET Meloxicam 7.5 Mg Tablet, 7.5 MG PO DAILY, (Reported) Metformin HCl 500 Mg Tab.er.24, 2,000 MG PO 1700, (Reported) TAKES 4 (500MG) TABLETS BEFORE SUPPER Multivit-Min/FA/Lycopene/Lut 1 Each Tablet, 1 TAB PO DAILY, (Reported) Olodaterol HCl 4 Gm Mist.inhal, 2 PUFF IH DAILY, (Reported) [place]-3 Fatty Acids/Fish Oil 1 Each Capsule, 1 EACH PO TID, (Reported) Primidone 250 Mg Tablet, 250 MG PO HS, (Reported) Sertraline HCl 100 Mg Tablet, 100 MG PO DAILY, (Reported) Past Yteviar-Ggytto-Vhogwa Hx Patient Social History Alcohol Use: Denies Use Recreational Drug Use: No Smoking Status: Former Smoker (70 pack year history) Type Used: Cigarettes Former Smoker, Quit: Nov 16, 1992 Recent Foreign Travel: No Contact w/Someone Who Travel: No Recent Infectious Disease Expo: No Recent Hopitalizations: Yes (PNEUMONIA 03/2016 and 09/2018) Immunizations Up To Date Tetanus Booster (TDap): Unknown Date of Pneumonia Vaccine: Sep 24, 2015 Date of Influenza Vaccine: Dec 08, 2019 Seasonal Allergies Seasonal Allergies: No Past Medical History Surgeries: Yes (HERNIA) Abdominal, Orthopedic, Tonsillectomy Respiratory: Yes Pneumonia, Sleep Apnea, COPD, Emphysema Currently Using CPAP: Yes Currently Using BIPAP: No Cardiac: Yes High Cholesterol, Hypertension Neurological: Yes ([place] WITH PERMANENT RIGHT FACIAL DROOP) Reproductive Disorders: No Sexually Transmitted Disease: No HIV/AIDS: No Genitourinary: No Gastrointestinal: Yes Abdominal Hernia Musculoskeletal: Yes ("EPIDURAL FOR L3-L4 DEGENERATION"; NECK PAIN) Degenerate Disk Disease, Arthritis, Chronic Back Pain Endocrine: Yes (OBESITY) Diabetes, Non-Insulin dep HEENT: No Cancer: No Skin Did You Recieve Any Treatments: Yes What Type of Treatment Did You: Surgical Intervention Psychosocial: Yes Depression Integumentary: No Blood Disorders: Yes (ANEMIA) Adverse Reaction/Blood Tranf: No Family Medical History Arthritis 19 MOTHER Cataracts 19 MOTHER Deafness or hearing loss G8 BROTHER Diabetes mellitus 19 MOTHER Visual disorder 19 MOTHER Diabetes Sepsis Event Evaluation Height, Weight, BMI Height: 5'4.00" Weight: 253lbs. 0.0oz. 114.399623og; 42.00 BMI Method:Stated Exam Exam Vital Signs Date Time Temp Pulse Resp B/P (MAP) Pulse Ox O2 Delivery O2 Flow Rate FiO2 04/11/19 01:07 94 NIV CPAP 2.00 04/10/19 23:40 36.6 87 22 146/75 (98) 94 NIV CPAP 04/10/19 21:28 94 NIV CPAP 2.00 04/10/19 20:00 Room Air 04/10/19 18:47 96 NIV CPAP 2.00 04/10/19 16:20 36.5 88 18 141/65 (90) 96 04/10/19 15:04 36.1 93 94 28 04/10/19 11:02 95 NIV CPAP 2.00 04/10/19 08:00 36.1 80 20 121/56 (77) 91 Room Air 04/10/19 08:00 95 Room Air I & O 04/11/19 07:00 Intake Total 1977.5 ml Output Total 600 ml Balance 1377.5 ml Height & Weight Height: 5'4.00" Weight: 253lbs. 0.0oz. 114.756352ho; 42.00 BMI Method:Stated General Appearance: No Apparent Distress, WD/WN HEENT: PERRL/EOMI, Pharynx Normal Neck: Normal Inspection, Supple Respiratory: Lungs Clear, Normal Breath Sounds, No Respiratory Distress Cardiovascular: Regular Rate, Rhythm, No Edema, No Murmur ( ) Capillary Refill: Less Than 3 Seconds Peripheral Pulses: 2+ Radial Pulses (R), 2+ Radial Pulses (L) Extremity: Normal Inspection, Non Tender, No Pedal Edema Neurologic/Psychiatric: Alert, Oriented x3, No Motor/Sensory Deficits, Normal Mood/Affect Skin: Normal Color, Warm/Dry Lymphatic: No Adenopathy Results Lab Laboratory Tests 04/09/19 09:00 04/10/19 04:28 04/11/19 04:45 Assessment/Plan Assessment/Plan CAP with sepsis -Continue cefepime -D/C vanco -MRSA swab is neg -Graham cultures pending -Influenza is neg Atelectasis -IS -Increase activity COPDAE -DUoneb -Start Advair PARKER -CPAP --He is compliant with his CPAP at home TUSHAR HERNANDEZ DO Apr 11, 2019 07:39
[2019-04-11 08:00] VITALS: BP 162/84
[2019-04-11] MEDS ORDERED: RT-ADVAIR HFA 115/21 MCG PER PUFF IH SCH (08:00)
[2019-04-11] MEDS ORDERED: CEFDINIR 300 MG (OMNICEF) CAP PO SCH (09:00)
[2019-04-11] MEDS: GABAPENTIN 300 MG (NEURONTIN) CAP PO SCH (09:12)
[2019-04-11] MEDS: SERTRALINE 100 MG (ZOLOFT) TAB PO SCH (09:12)
[2019-04-11] MEDS: ASPIRIN E.C. 81 MG (ECOTRIN) TAB PO SCH (09:12)
[2019-04-11] MEDS: MELOXICAM 7.5 MG (MOBIC) TABLET PO SCH (09:12)
[2019-04-11] MEDS ORDERED: CEFD300C3 PO (11:57)
--- NOTE | 2019-04-11 12:32 | Discharge Summary ---
Discharge Summary Hospital Course Was the Problem List Reviewed?: Yes Problems/Dx: (1) Pneumonia Status: Acute Qualifiers: Qualified Codes: J18.1 - Lobar pneumonia, unspecified organism (2) Sepsis Status: Acute Qualifiers: Qualified Codes: A41.9 - Sepsis, unspecified organism; R65.20 - Severe sepsis without septic shock; J96.02 - Acute respiratory failure with hypercapnia Hospital Course Date of Admission: Apr 09, 2019 at 11:00 Admission Diagnosis : Severe sepsis due to pneumonia Family Physician/Provider: No,Local Physician Date of Discharge: 04/11/19 Discharge Diagnosis: Severe sepsis due to pneumonia Hospital Course: Hima Rodriguez is an 84-year-old male who was admitted with severe sepsis due to pneumonia. His low lab work revealed a lactic acidosis which resolved with IV fluid resuscitation. His imaging was consistent with pneumonia. He was started on IV antibiotics and was converted to oral Omnicef on discharge. He was discharged home in stable condition. Labs and Pending Lab Test: Laboratory Tests 04/10/19 16:05: Glucometer 200H 04/10/19 20:14: Glucometer 298H 04/11/19 04:45: White Blood Count 12.1H, Red Blood Count 3.60L, Hemoglobin 9.7L, Hematocrit 30L, Mean Corpuscular Volume 82, Mean Corpuscular Hemoglobin 27, Mean Corpuscular Hemoglobin Concent 33, Red Cell Distribution Width 16.9H, Platelet Count 105L, Mean Platelet Volume 11.3H, Neutrophils (%) (Auto) 78H, Lymphocytes (%) (Auto) 10L, Monocytes (%) (Auto) 12, Eosinophils (%) (Auto) 0, Basophils (%) (Auto) 0, Neutrophils # (Auto) 9.4H, Lymphocytes # (Auto) 1.2, Monocytes # (Auto) 1.5H, Eosinophils # (Auto) 0.0, Basophils # (Auto) 0.0, Sodium Level 135, Potassium Level 4.1, Chloride Level 104, Carbon Dioxide Level 22, Anion Gap 9, Blood Urea Nitrogen 13, Creatinine 0.82, Estimat Glomerular Filtration Rate > 60, BUN/Creatinine Ratio 16, Glucose Level 181H, Calcium Level 8.9, Magnesium Level 1.8 04/11/19 05:12: Glucometer 198H 04/11/19 11:22: Glucometer 313H Microbiology 04/09/19 MRSA Screen - Final, Complete MRSA not isolated 04/09/19 Urine Culture - Final, Complete NO GROWTH 04/09/19 Blood Culture - Preliminary, Resulted No growth Home Meds Active Cefdinir 300 Mg Capsule 300 Mg PO BID 5 Days Reported Lasix (Furosemide) 40 Mg Tablet 80 Mg PO DAILY PRN TAKES 2 TABS ON DAYS WHEN HE IS HOME BUT IF HE IS OUT OF THE HOUSE HE DOESNT TAKE ANY Hydrocodone-Acetamin 5-325 mg (Hydrocodone/Acetaminophen) 1 Each Tablet 1 Tab PO BID PRN Ketoconazole 120 Ml Shampoo 1 Applic TP TWICE WEEKLY Proair Hfa (Albuterol Sulfate) 1 Puff Puff 2 Puff IH Q8H PRN [place] 3 1,000 mg Softgel ([place]-3 Fatty Acids/Fish Oil) 1 Each Capsule 1 Each PO TID Atorvastatin Calcium 80 Mg Tablet 40 Mg PO DAILY TAKES OF A 80MG TO EQUAL 40MG DAILY Ferrous Gluconate 324 Mg Tablet 324 Mg PO DAILY Alogliptin (Alogliptin Benzoate) 25 Mg Tablet 25 Mg PO DAILY Centrum Silver Tablet (Multivit-Min/FA/Lycopene/Lut) 1 Each Tablet 1 Tab PO DAILY Mysoline (Primidone) 250 Mg Tablet 250 Mg PO HS Striverdi Respimat (Olodaterol HCl) 4 Gm Mist.inhal 2 Puff IH DAILY Sertraline HCl 100 Mg Tablet 100 Mg PO DAILY Aspir 81 (Aspirin) 81 Mg Tablet.dr 81 Mg PO DAILY Losartan Potassium 100 Mg Tablet 50 Mg PO DAILY TAKES 1/2 (100MG) TABLET Metformin HCl ER (Metformin HCl) 500 Mg Tab.er.24 2,000 Mg PO 1700 TAKES 4 (500MG) TABLETS BEFORE SUPPER Gabapentin 300 Mg Capsule 600 Mg PO TID TAKES 2 (300MG) CAPSULES Glipizide 10 Mg Tablet 20 Mg PO BID TAKES 2 (10MG) TABLETS Meloxicam 7.5 Mg Tablet 7.5 Mg PO DAILY Assessment/Pt Instructions Take medications as prescribed. Complete her course of antibiotics even if you're feeling better. Follow up with your primary care physician at the [facility]. Follow up with Dr. Mcnamara in the pulmonology clinic. Return with worsening shortness of breath, fevers, or if you feel like you're getting worse. Discharge Planning: <30 minutes discharge planning Discharge Instructions Discharge Diet: No Restrictions Activity as Tolerated: Yes Discharge Physical Examination Vital Signs Vital Signs Date Time Temp Pulse Resp B/P (MAP) Pulse Ox O2 Delivery O2 Flow Rate FiO2 04/11/19 09:43 94 NIV CPAP 2.00 04/11/19 08:00 36.5 93 16 162/84 (110) 04/10/19 15:04 28 General Appearance: No Apparent Distress, WD/WN, Obese HEENT: PERRL/EOMI, Pharynx Normal Respiratory: Lungs Clear, Normal Breath Sounds, No Respiratory Distress Cardiovascular: Regular Rate, Rhythm, No Edema, No Murmur Gastrointestinal: Normal Bowel Sounds, Non Tender, Soft Extremity: Normal Inspection, Non Tender, No Pedal Edema Skin: Warm/Dry, Pallor Neurologic/Psychiatric: Alert, Oriented x3, No Motor/Sensory Deficits, Normal Mood/Affect Allergies: Coded Allergies: lisinopril (Verified Allergy, Unknown, 09/22/15) sildenafil (Verified Allergy, Unknown, 09/22/15) Discharge Summary Date of Admission Apr 09, 2019 at 11:00 Date of Discharge Discharge Date: Apr 11, 2019 Discharge Time: 12:26 Admission Diagnosis Severe sepsis due to pneumonia Consults/Procedures Consulations Pulmonology Discharge Diagnosis Severe sepsis from pneumonia (1) Pneumonia Status: Acute Qualifiers: Qualified Codes: J18.1 - Lobar pneumonia, unspecified organism (2) Sepsis Status: Acute Qualifiers: Qualified Codes: A41.9 - Sepsis, unspecified organism; R65.20 - Severe sepsis without septic shock; J96.02 - Acute respiratory failure with hypercapnia Clinical Quality Measures DVT/VTE Risk/Contraindication: Risk Factor Score Per Nursin RFS Level Per Nursing on Admit: 4+=Very High CHRISTA MCINTOSH MD Apr 11, 2019 12:28
== END 2019-04-11 14:25 | disposition home or self-care (01) | DRG 871 ==
LOC: EDUNIT# 08:50 → ER 08:52 → ICU 11:00 → 4TH 22:19
PROVIDERS: ADMIT Family Medicine; ATTEND Family Medicine
DX: A41.9 Sepsis, unspecified organism (principal); J18.9 Pneumonia, unspecified organism; J96.02 Acute respiratory failure with hypercapnia; E87.2 Acidosis; J98.11 Atelectasis; Z68.41 Body mass index [BMI] 40.0-44.9, adult; R65.20 Severe sepsis without septic shock; J43.9 Emphysema, unspecified; I10 Essential (primary) hypertension; E11.9 Type 2 diabetes mellitus without complications; D69.6 Thrombocytopenia, unspecified; G47.33 Obstructive sleep apnea (adult) (pediatric); E78.00 Pure hypercholesterolemia, unspecified; G51.0 Bell's palsy; E66.9 Obesity, unspecified; M19.91 Primary osteoarthritis, unspecified site; F32.9 Major depressive disorder, single episode, unspecified; M51.36 Other intervertebral disc degeneration, lumbar region; M54.9 Dorsalgia, unspecified; Z87.891 Personal history of nicotine dependence; Z79.84 Long term (current) use of oral hypoglycemic drugs; Z79.82 Long term (current) use of aspirin
CPT/HCPCS: 36415; 36600; 71045; 80048; 80053; 81000; 82805; 82962; 83605; 83735; 83880; 84145; 85007; 85025; 85027; 85610; 85730; 87040; 87081; 87088; 87804; 94640; 94760; 96361; 96365; 96375

== ENCOUNTER 2019-12-17 02:27 | Inpatient (IN) | payer MEDICARE ==
[2019-12-17] VITALS (8 sets, daily range): BP systolic 115–175; BP diastolic 56–78
[~2019-12-17] VITALS: Ht 163 cm; Wt 113.6 kg
[~2019-12-17 02:27] MED LIST changes: +ACHD5005 PO; +FERR324T PO; +FURO-124 PO; +KETO120S13 TP; +OMEG1CAP58 PO; +RT-ALBUINH IH
[2019-12-17] MEDS ORDERED: RT-ALBUTEROL INHALER HFA (VENTOLIN HFA) 18 GM IH ONE (02:44)
[2019-12-17] MEDS ORDERED: ACETAMINOPHEN 500 MG TAB (TYLENOL) ONE (02:44)
[2019-12-17] MEDS ORDERED: ACETAMINOPHEN 500 MG TAB (TYLENOL) PO PRN (02:45)
--- NOTE | 2019-12-17 02:50 | NUR ---
Pt arrives after falling at home; he states he was diagnosed with Covid 4 days ago and he has become progressively weaker; pt became sob after lying on the floor post fall; PFD reports sp02 was in the low 80's. EMS reports after getting pt up his sp02 went into the 90's with NC. Pt is A&OX4, c/o sob and weakness. Pt denies injury from fall.
[2019-12-17] MEDS: RT-ALBUTEROL INHALER HFA (VENTOLIN HFA) 18 GM IH SCH ×5 (02:52→22:50)
[2019-12-17 03:00] LABS: BASOPHILS % (AUTO) 0 % (0-10); EOSINOPHILS % (AUTO) 0 % (0-10); HEMATOCRIT 31 % (40-54); HEMOGLOBIN 10.1 g/dL (13.3-17.7); LYMPHOCYTES # (AUTO) 0.9 10^3/uL (1.0-4.0); LYMPHOCYTES % (AUTO) 43 % (12-44); MEAN CORPUSCULAR HEMOGLOBIN 27 pg (25-34); MEAN CORPUSCULAR HGB CONC 32 g/dL (32-36); MEAN CORPUSCULAR VOLUME 83 fL (80-99); MEAN PLATELET VOLUME 12.2 fL (9.0-12.2); MONOCYTES # (AUTO) 0.8 10^3/uL (0.0-1.0); MONOCYTES % (AUTO) 38 % (0-12); NEUTROPHILS # (AUTO) 0.4 10^3/uL (1.8-7.8); NEUTROPHILS % (AUTO) 20 % (42-75); PLATELET COUNT 72 10^3/uL (130-400)
[2019-12-17 03:13] LABS: ALBUMIN 3.8 GM/DL (3.2-4.5); CHLORIDE 96 MMOL/L (98-107); POTASSIUM 4.7 MMOL/L (3.6-5.0); SODIUM 132 MMOL/L (135-145)
[2019-12-17 03:14] LABS: CALCIUM 8.3 MG/DL (8.5-10.1); FIBRIN DEGRADATION PRODUCTS 0.91 UG/ML (0.00-0.49); PROTHROMBIN TIME PATIENT 13.7 SEC (12.2-14.7)
[2019-12-17 03:15] LABS: GLUCOSE 299 MG/DL (70-105); TOTAL PROTEIN 8.2 GM/DL (6.4-8.2)
[2019-12-17 03:16] LABS: CARBON DIOXIDE 25 MMOL/L (21-32)
[2019-12-17 03:17] LABS: BILIRUBIN,TOTAL 0.3 MG/DL (0.1-1.0)
[2019-12-17 03:18] LABS: ALKALINE PHOSPHATASE 56 U/L (40-136)
[2019-12-17 03:19] LABS: BILIRUBIN,URINE NEGATIVE (NEGATIVE); CLARITY,URINE SL CLOUDY; COLOR,URINE YELLOW; GLUCOSE, URINE (UA) 2+ (NEGATIVE); KETONES,URINE NEGATIVE (NEGATIVE); LEUKOCYTE ESTERASE ,URINE NEGATIVE (NEGATIVE); NITRITE,URINE NEGATIVE (NEGATIVE); PROTEIN,URINE 2+ (NEGATIVE)
[2019-12-17 03:19] LABS: CREATININE SERUM 1.15 MG/DL (0.60-1.30); GFR ESTIMATED > 60
[2019-12-17 03:20] LABS: BUN/CREATININE RATIO 16
[2019-12-17 03:22] LABS: ALANINE AMINOTRANSFERASE 19 U/L (0-55)
[2019-12-17] MEDS ORDERED: NS IV 500 ML 500 ML IV ONE (03:31)
[2019-12-17 03:36] LABS: BACTERIA,URINE TRACE /HPF
[2019-12-17 03:37] LABS: HYALINE CASTS, URINE 0-2 /LPF; SQUAMOUS EPITHELIAL CELL,UR RARE /HPF; YEAST,URINE FEW /HPF
[2019-12-17 03:37] LABS: BAND NEUTROPHILS 1 %; EOSINOPHILS % (MANUAL) 1 %; LYMPHOCYTES % (MANUAL) 42 %; METAMYELOCYTES % 2 %; MONOCYTES % (MANUAL) 33 %; NEUTROPHILS % (MANUAL) 19 %
[2019-12-17 03:38] LABS: ATYPICAL LYMPHOCYTES 2 %; HYPOCHROMASIA SLIGHT; MICROCYTOSIS MODERATE
--- NOTE | 2019-12-17 03:44 | ED General ---
General Chief Complaint: Respiratory Problems Stated Complaint: FALL; SHORTNESS OF BREATH Nursing Triage Note: Pt here after falling and becoming shob. Pt is known Covid positive. Nursing Sepsis Screen: Possible Severe Sepsis Risk Source of Information: Patient Exam Limitations: No Limitations History of Present Illness Date Seen by Provider: Dec 17, 2019 Time Seen by Provider: 02:29 Initial Comments This 84-year-old gentleman presents to the emergency room via EMS after having a fall in his home. He was feeling short of breath at that time. He is known to be COVID 19 positive from a test several days ago. Fire department noted patient to have an oxygen saturation of 82 percent on room air during initial assessment. Patient reports he struck his left frontal scalp that he has a minor neck tenderness as well. C-collar could not be applied due to body structure and body habitus. Manual C-spine precautions are being observed. Patient does not normally use supplemental oxygen at home. He reports history of pneumonia in the past and feeling similar to that. He has COPD and uses inhalers at home. His present temperature is 104.2. Allergies and Home Medications Allergies Coded Allergies: lisinopril (Verified Allergy, Unknown, 09/22/15) sildenafil (Verified Allergy, Unknown, 09/22/15) Home Medications Albuterol Sulfate 1 Puff Puff, 2 PUFF IH Q8H PRN for SHORTNESS OF BREATH, (Reported) Alogliptin Benzoate 25 Mg Tablet, 25 MG PO DAILY, (Reported) Aspirin 81 Mg Tablet.dr, 81 MG PO DAILY, (Reported) Atorvastatin Calcium 80 Mg Tablet, 40 MG PO DAILY, (Reported) TAKES OF A 80MG TO EQUAL 40MG DAILY Cefdinir 300 Mg Capsule, 300 MG PO BID Prescribed by: CHRISTA MCINTOSH on 04/11/19 1157 Ferrous Gluconate 324 Mg Tablet, 324 MG PO DAILY, (Reported) Furosemide 40 Mg Tablet, 80 MG PO DAILY PRN for FLUID RETENTION, (Reported) TAKES 2 TABS ON DAYS WHEN HE IS HOME BUT IF HE IS OUT OF THE HOUSE HE DOESNT TAKE ANY Gabapentin 300 Mg Capsule, 600 MG PO TID, (Reported) TAKES 2 (300MG) CAPSULES Glipizide 10 Mg Tablet, 20 MG PO BID, (Reported) TAKES 2 (10MG) TABLETS Hydrocodone Bit/Acetaminophen 1 Each Tablet, 1 TAB PO BID PRN for PAIN-MODERATE (5-7), (Reported) Ketoconazole 120 Ml Shampoo, 1 APPLIC TP TWICE WEEKLY, (Reported) Losartan Potassium 100 Mg Tablet, 50 MG PO DAILY, (Reported) TAKES 1/2 (100MG) TABLET Meloxicam 7.5 Mg Tablet, 7.5 MG PO DAILY, (Reported) Metformin HCl 500 Mg Tab.er.24, 2,000 MG PO 1700, (Reported) TAKES 4 (500MG) TABLETS BEFORE SUPPER Multivit-Min/FA/Lycopene/Lut 1 Each Tablet, 1 TAB PO DAILY, (Reported) Olodaterol HCl 4 Gm Mist.inhal, 2 PUFF IH DAILY, (Reported) [place]-3 Fatty Acids/Fish Oil 1 Each Capsule, 1 EACH PO TID, (Reported) Primidone 250 Mg Tablet, 250 MG PO HS, (Reported) Sertraline HCl 100 Mg Tablet, 100 MG PO DAILY, (Reported) Patient Home Medication List Home Medication List Reviewed: Yes Review of Systems Review of Systems Constitutional: see HPI EENTM: no symptoms reported Respiratory: see HPI Cardiovascular: no symptoms reported Gastrointestinal: no symptoms reported Genitourinary: no symptoms reported Musculoskeletal: see HPI Skin: no symptoms reported Psychiatric/Neurological: No Symptoms Reported Hematologic/Lymphatic: No Symptoms Reported Immunological/Allergic: no symptoms reported Past Rcehcnj-Jwrwbm-Umuxbh Hx Past Med/Social Hx: Reviewed Nursing Past Med/Soc Hx Patient Social History Alcohol Use: Denies Use Recreational Drug Use: No Smoking Status: Former Smoker Type Used: Cigarettes Former Smoker, Quit: Nov 16, 1992 Recent Foreign Travel: No Contact w/Someone Who Travel: No Recent Infectious Disease Expo: Yes Recent Hopitalizations: Yes (PNEUMONIA 03/2016 and 09/2018) Immunizations Up To Date Tetanus Booster (TDap): Unknown Date of Pneumonia Vaccine: Sep 24, 2015 Date of Influenza Vaccine: Dec 08, 2019 Seasonal Allergies Seasonal Allergies: No Past Medical History Surgeries: Yes (HERNIA) Abdominal, Orthopedic, Tonsillectomy Respiratory: Yes Pneumonia, Sleep Apnea, COPD, Emphysema Currently Using CPAP: Yes Currently Using BIPAP: No Cardiac: Yes High Cholesterol, Hypertension Neurological: Yes ([place] WITH PERMANENT RIGHT FACIAL DROOP) Reproductive Disorders: No Sexually Transmitted Disease: No HIV/AIDS: No Genitourinary: No Gastrointestinal: Yes Abdominal Hernia Musculoskeletal: Yes ("EPIDURAL FOR L3-L4 DEGENERATION"; NECK PAIN) Degenerate Disk Disease, Arthritis, Chronic Back Pain Endocrine: Yes (OBESITY) Diabetes, Non-Insulin dep HEENT: No Cancer: No Skin Did You Recieve Any Treatments: Yes What Type of Treatment Did You: Surgical Intervention Psychosocial: Yes Depression Integumentary: No Blood Disorders: Yes (ANEMIA) Adverse Reaction/Blood Tranf: No Family Medical History Reviewed Nursing Family Hx Arthritis 19 MOTHER Cataracts 19 MOTHER Deafness or hearing loss G8 BROTHER Diabetes mellitus 19 MOTHER Visual disorder 19 MOTHER Diabetes Physical Exam-Suspected Sepsis Physical Exam Vital Signs Vital Signs - First Documented 12/17/19 12/17/19 02:35 02:47 Temp 40.1 Pulse 92 Resp 22 B/P (MAP) 159/97 (117) Pulse Ox 87 O2 Delivery Room Air O2 Flow Rate 3.00 Capillary Refill : Less Than 3 Seconds Blood Pressure Mean: 117 Height, Weight, BMI Height: 5'4.00" Weight: 253lbs. 0.0oz. [id number]; 41.00 BMI Method:Stated General Appearance: No Apparent Distress, WD/WN HEENT: PERRL/EOMI, Normal ENT Inspection, Other (mucous membranes somewhat dry. Superficial abrasion on the left frontal scalp) Neck: Normal Inspection, Tender Midline (mild tenderness posteriorly), Other (very thick short neck) Respiratory: Lungs Clear, Crackles (faint crackles in the bases), Decreased Breath Sounds; No Wheezing Cardiovascular: Regular Rate, Rhythm, No Edema, No Murmur Gastrointestinal: Normal Bowel Sounds, Non Tender, Soft Extremity: Normal Inspection, No Pedal Edema, Other (hips nontender with no pain on rotation. Normal range of motion in the left shoulder with no significant tenderness. Reduced range of motion in the right shoulder due to surgical history) Neurologic/Psychiatric: Alert, Oriented x3, No Motor/Sensory Deficits, Normal Mood/Affect, sealer dry cell II-XII Norm as Tested Skin: normal color, warm/dry Focused Exam Lactate Level 12/17/19 02:41: Lactic Acid Level 1.16 Lactic Acid Level Laboratory Tests Test 12/17/19 02:41 Lactic Acid Level 1.16 MMOL/L (0.50-2.00) Progress/Results/Core Measures Suspected Sepsis Recent Fever Within 48 Hours: Yes Infection Criteria Present: Documented Infection New/Unexplained Altered Menta: No Sepsis Screen: Possible Severe Sepsis Risk SIRS Temperature: Pulse: 92 Respiratory Rate: 22 Laboratory Tests 12/17/19 02:41: White Blood Count 2.0L Blood Pressure 159 /97 Mean: 117 12/17/19 02:41: Lactic Acid Level 1.16 Laboratory Tests 12/17/19 02:41: Creatinine 1.15, INR Comment 1.0, Platelet Count 72L, Total Bilirubin 0.3 Results/Orders Lab Results Laboratory Tests Test 12/17/19 02:41 12/17/19 03:13 Range/Units White Blood Count 2.0 L 4.3-11.0 10^3/uL Red Blood Count 3.77 L 4.30-5.52 10^6/uL Hemoglobin 10.1 L 13.3-17.7 g/dL Hematocrit 31 L 40-54 % Mean Corpuscular Volume 83 80-99 fL Mean Corpuscular Hemoglobin 27 25-34 pg Mean Corpuscular Hemoglobin Concent 32 32-36 g/dL Red Cell Distribution Width 15.5 H 10.0-14.5 % Platelet Count 72 L 130-400 10^3/uL Mean Platelet Volume 12.2 9.0-12.2 fL Immature Granulocyte % (Auto) 0 % Neutrophils (%) (Auto) 20 L 42-75 % Lymphocytes (%) (Auto) 43 12-44 % Monocytes (%) (Auto) 38 H 0-12 % Eosinophils (%) (Auto) 0 0-10 % Basophils (%) (Auto) 0 0-10 % Neutrophils # (Auto) 0.4 L 1.8-7.8 10^3/uL Lymphocytes # (Auto) 0.9 L 1.0-4.0 10^3/uL Monocytes # (Auto) 0.8 0.0-1.0 10^3/uL Eosinophils # (Auto) 0.0 0.0-0.3 10^3/uL Basophils # (Auto) 0.0 0.0-0.1 10^3/uL Immature Granulocyte # (Auto) 0.0 0.0-0.1 10^3/uL Neutrophils % (Manual) 19 % Lymphocytes % (Manual) 42 % Monocytes % (Manual) 33 % Eosinophils % (Manual) 1 % Metamyelocytes % 2 % Band Neutrophils 1 % Atypical Lymphocytes 2 % Hypochromasia SLIGHT Microcytosis MODERATE Prothrombin Time 13.7 12.2-14.7 SEC INR Comment 1.0 0.8-1.4 Activated Partial Thromboplast Time 37 H 24-35 SEC D-Dimer 0.91 H 0.00-0.49 UG/ML Sodium Level 132 L 135-145 MMOL/L Potassium Level 4.7 3.6-5.0 MMOL/L Chloride Level 96 L 98-107 MMOL/L Carbon Dioxide Level 25 21-32 MMOL/L Anion Gap 11 5-14 MMOL/L Blood Urea Nitrogen 18 7-18 MG/DL Creatinine 1.15 0.60-1.30 MG/DL Estimat Glomerular Filtration Rate > 60 BUN/Creatinine Ratio 16 Glucose Level 299 H 70-105 MG/DL Lactic Acid Level 1.16 0.50-2.00 MMOL/L Calcium Level 8.3 L 8.5-10.1 MG/DL Corrected Calcium 8.5 8.5-10.1 MG/DL Total Bilirubin 0.3 0.1-1.0 MG/DL Aspartate Amino Transf (AST/SGOT) 23 5-34 U/L Alanine Aminotransferase (ALT/SGPT) 19 0-55 U/L Alkaline Phosphatase 56 40-136 U/L Lactate Dehydrogenase 188 125-220 U/L C-Reactive Protein High Sensitivity 20.25 H 0.00-0.50 MG/DL Total Protein 8.2 6.4-8.2 GM/DL Albumin 3.8 3.2-4.5 GM/DL Procalcitonin 0.24 H <0.10 NG/ML Urine Color YELLOW Urine Clarity SL CLOUDY Urine pH 6.0 5-9 Urine Specific [place] 1.020 1.016-1.022 Urine Protein 2+ H NEGATIVE Urine Glucose (UA) 2+ H NEGATIVE Urine Ketones NEGATIVE NEGATIVE Urine Nitrite NEGATIVE NEGATIVE Urine Bilirubin NEGATIVE NEGATIVE Urine Urobilinogen 0.2 < = 1.0 MG/DL Urine Leukocyte Esterase NEGATIVE NEGATIVE Urine RBC (Auto) 3+ H NEGATIVE Urine RBC 5-10 H /HPF Urine WBC 2-5 /HPF Urine Squamous Epithelial Cells RARE /HPF Urine Crystals NONE /LPF Urine Bacteria TRACE /HPF Urine Casts PRESENT /LPF Urine Hyaline Casts 0-2 H /LPF Urine Mucus NEGATIVE /LPF Urine Yeast FEW H /HPF Urine Culture Indicated CULTURE PENDING My Orders Orders - BRITTANY COTTO MD Cbc With Automated Diff (12/17/19 02:44) Comprehensive Metabolic Panel (12/17/19 02:44) Blood Culture (12/17/19 02:44) Sputum Culture (12/17/19 02:44) Urinalysis (12/17/19 02:44) Urine Culture (12/17/19 02:44) Protime With Inr (12/17/19 02:44) Partial Thromboplastin Time (12/17/19 02:44) Acetaminophen Tablet (Tylenol Tablet) (12/17/19 02:45) Ed Iv/Invasive Line Start (12/17/19 02:44) Ed Iv/Invasive Line Start (12/17/19 02:44) Vital Signs Adult Sepsis Patie Q15M (12/17/19 02:44) O2 (12/17/19 02:44) Remove Rings In Anticipation O (12/17/19 02:44) Lactic Acid Analyzer (12/17/19 02:44) Dexamethasone Injection (Decadron Inje (12/17/19 02:45) Albuterol Inhaler (Ventolin Hfa) (12/17/19 06:00) Dexamethasone Injection (Decadron Inje (12/17/19 02:44) Acetaminophen Tablet (Tylenol Tablet) (12/17/19 02:44) Albuterol Inhaler (Ventolin Hfa) (12/17/19 02:44) Ct Head/Cervical Spine Wo (12/17/19 02:55) Hs C Reactive Protein (12/17/19 02:55) Fibrin Degradation Products (12/17/19 02:55) LDH (12/17/19 02:55) Procalcitonin (Pct) (12/17/19 02:57) Romero Cath (12/17/19 03:03) Manual Differential (12/17/19 02:41) Ct Angio Chest W (12/17/19 03:31) Ns Iv 500 Ml (Sodium Chloride 0.9%) (12/17/19 03:31) Iohexol Injection (Omnipaque 350 Mg/Ml 1 (12/17/19 04:30) Received Contrast (Hold Metformin- Contr (12/17/19 04:30) Sodium Chloride Flush (Catheter Flush Sy (12/17/19 04:30) Ns (Ivpb) (Sodium Chloride 0.9% Ivpb Bag (12/17/19 04:30) Cefepime Injection (Maxipime Injection) (12/17/19 05:00) Medications Given in ED Current Medications Medications Dose Ordered Sig/Ana Route Start Time Stop Time Status Last Admin Dose Admin Acetaminophen 1,000 mg ONCE PRN PO 12/17/19 02:45 12/17/19 02:59 DC 12/17/19 02:59 1,000 MG Dexamethasone Sodium Phosphate 6 mg ONCE ONCE IV 12/17/19 02:45 12/17/19 02:47 DC 12/17/19 02:55 6 MG Iohexol 100 ml ONCE ONCE IV 12/17/19 04:30 12/17/19 04:31 DC 12/17/19 04:35 100 ML Sodium Chloride 10 ml NEEDED PRN IV 12/17/19 04:30 12/17/19 04:36 10 ML Sodium Chloride 100 ml ONCE ONCE IV 12/17/19 04:30 12/17/19 04:31 DC 12/17/19 04:35 80 ML Sodium Chloride 500 ml @ 0 mls/hr Q0M ONCE IV 12/17/19 03:31 12/17/19 03:34 DC 12/17/19 04:17 500 MLS/HR Vital Signs/I&O 12/17/19 12/17/19 12/17/19 12/17/19 02:35 02:47 04:20 04:21 Temp 40.1 38.8 38.8 Pulse 92 94 92 Resp 22 26 B/P (MAP) 159/97 (117) 147/69 147/69 Pulse Ox 87 97 96 97 O2 Delivery Room Air Nasal Cannula Nasal Cannula Nasal Cannula O2 Flow Rate 3.00 3.00 3.00 Capillary Refill : Less Than 3 Seconds Blood Pressure Mean: 117 Progress Note #1: Time: 03:45 Progress Note Patient was found to have an oxygen saturation of 88 percent when transitioned to the ER bed on room air. He has very poor air movement. O2 was applied by nasal cannula. His oxygen saturations were resuscitated into the 90s. An albuterol inhaler was ordered. Dexamethasone was ordered. D-dimer was elevated and CT angiogram has been ordered. CT of the head and cervical spine are pending. Tylenol was given for fever. Progress Note #2: Time: 05:[address] of the head and C-spine showed no acute injuries. CT angiogram of the chest was obtained due to elevated d-dimer. No pulmonary emboli were identified. There is suspicion of left lower lobe pneumonia based on consolidation seen on CT scan. A dose of cefepime was therefore administered in the ER. Diagnostic Imaging Diagonstic Imaging: CT Plain Films/CT/US/NM/MRI: c-spine, head Comments CT head and cervical spine viewed by me and [facility] report reviewed. No acute injuries identified. Diagonstic Imaging: CT Plain Films/CT/US/NM/MRI: chest Comments CT angiogram of the chest viewed by me and [facility] report reviewed. No pulmonary emboli identified. Consolidation of the left lower lobe consistent with pneumonia. Departure Communication (Admissions) Time/Spoke to Admitting Phy: 04:50 Dr. Meyer Impression Primary Impression: Sepsis Qualified Codes: A41.9 - Sepsis, unspecified organism Additional Impressions: COVID-19 Left lower lobe pneumonia Qualified Codes: J18.9 - Pneumonia, unspecified organism Hypoxia COPD exacerbation Fall on same level Qualified Codes: W18.30XA - Fall on same level, unspecified, initial encounter Disposition: ADMITTED INPATIENT Condition: Improved Admissions Decision to Admit Reason: Admit from ER (General) Decision to Admit/Date: Dec 17, 2019 Time/Decision to Admit Time: 02:35 Departure-Patient Inst. Referrals: NO,LOCAL PHYSICIAN (PCP/Family) Primary Care Physician BRITTANY COTTO MD Dec 17, 2019 03:44
--- NOTE | 2019-12-17 04:00 | NUR ---
Pt to CT with this nurse present.
[2019-12-17] MEDS ORDERED: IOHEXOL 350 MG/ML 100 ML (OMNIPAQUE 350) VIAL IV ONE (04:30)
[2019-12-17] MEDS ORDERED: HOLD METFORMIN - RECEIVED CONTRAST 20 ML VIAL IV SCH (04:30)
[2019-12-17] MEDS ORDERED: NS 100 ML (IVPB) BAG IV ONE (04:30)
[2019-12-17] MEDS ORDERED: CATHETER FLUSH 10 ML SYR IV PRN (04:30)
--- NOTE | 2019-12-17 04:30 | NUR ---
, Ann, called and updated on patient status.
[2019-12-17] MEDS ORDERED: CEFEPIME INJECTION 2,000 MG in WATER (STERILE) FOR INJECTION 20 ML IV ONE (05:00)
[2019-12-17] MEDS ORDERED: LACTATED RINGERS 1,000 ML IV ONE (06:04)
--- NOTE | 2019-12-17 06:05 | NUR ---
EMMANUELLE CARLIN Ebony admitted to room 426-1, with an admitting diagnosis of Sepsis, covid 19, pneumonia, hypoxia, copd exacerbation, on 12/17/19 from er via bed, accompanied by 4th floor staff. EMMANUELLE CARLIN introduced to surroundings, call light, bed controls, phone, TV, temperature control, lights, meal times, smoking policy, visitor policy, side rail policy, bathrooms and showers. Patient Rights given to patient in the handbook. EMMANUELLE CARLIN verbalizes understanding that [facility] is not responsible for the loss or damage to any personal effects or valuables that are kept in the patients possession during their hospitalization.
[2019-12-17] MEDS ORDERED: LACTATED RINGERS 1,000 ML IV SCH (06:15)
[2019-12-17] MEDS ORDERED: ONDANSETRON 4 MG/2 ML (SDV) Z0FRAN IVP PRN (06:15)
--- NOTE | 2019-12-17 06:49 | Diagnostic Imaging Report ---
PROCEDURE: CT head and CT cervical spine without contrast. TECHNIQUE: Multiple contiguous axial images were obtained through the brain and cervical spine without the use of intravenous contrast. Sagittal and coronal reformations through the cervical spine were then performed. Auto Exposure Controls were utilized during the CT exam to meet ALARA standards for radiation dose reduction. INDICATION: Trauma. Fall. COMPARISON: None. FINDINGS: CT HEAD: No intracranial hemorrhage, mass effect, hydrocephalus or extra-axial fluid collections. No CT evidence for territorial infarction. Osseous structures are intact. Mild mucosal thickening in the ethmoid sinuses. Mastoids are clear. CT CERVICAL SPINE: Normal alignment. Vertebral body heights are preserved. No fractures. Moderate diffuse degenerative endplate changes. No evidence of high-grade spinal canal stenosis on soft tissue windows. Moderate atherosclerotic calcifications. Calcified granuloma in the left lung apex. IMPRESSION: No acute intracranial or cervical spine CT findings. Chronic findings as above. Dictated by: Dictated on workstation # [id number]
--- NOTE | 2019-12-17 07:04 | Diagnostic Imaging Report ---
EXAMINATION: CT angiography of the chest. TECHNIQUE: Contrast enhanced thin section helical images were obtained through the chest with intravenous contrast timed for the optimal opacification of the arterial structures per CTA protocol. Post-processing, reconstructions and interpretation of angiographic images of the vessels was performed. 3D MIP reconstructions were performed and reviewed. All CT scans use one or more of the following dose optimizing techniques: automated exposure control, MA and/or KvP adjustment based on a patient size and exam type, or iterative reconstruction. HISTORY: PE suspected, high prob COMPARISON: CTA chest 09/23/2015. FINDINGS: Vascular: Limited evaluation of the distal pulmonary arteries secondary to patient respiratory motion. No visualized filling defects within the pulmonary arteries. Thoracic aorta is normal in caliber. Calcification of the aorta and coronary vessels. Thyroid: The thyroid is normal. Mediastinum: Heart size is normal without significant pericardial effusion. No suspicious lymphadenopathy. Lungs and airways: Consolidation within the superior left lower lobe (series 3 image 66). Bibasilar atelectasis. There is a 0.6 cm right middle lobe pulmonary nodule which is unchanged from 09/05/2015 (series 3 image 98). No pleural effusion or pneumothorax. The airways are normal. Upper abdomen: Granulomas within the spleen. Left renal cyst. Musculoskeletal: Changes of the right humerus. Multilevel degenerative changes of the spine without suspicious osseous lesion or compression fracture. IMPRESSION: 1. No findings of pulmonary embolus. Evaluation for distal pulmonary emboli is limited secondary to patient respiratory motion. 2. Left upper lobe consolidation concerning for pneumonia. 3. Stable 0.6 cm right middle lobe pulmonary nodule compared to 2016. 4. Agree with preliminary interpretation. Dictated by: Dictated on workstation # [id number]
[2019-12-17] MEDS: AZITHROMYCIN 500 MG/NS 250 ML IVPB IV SCH ×2 (08:25)
[2019-12-17] MEDS ORDERED: NS IV 500 ML 500 ML IV SCH (10:35)
--- NOTE | 2019-12-17 10:43 | History & Physical-Hospitalist ---
History of Present Illness HPI/Chief Complaint Pt is an 84yoCM with a PMH NIDDMII, HTN, HLD who presented to the ER due to a fall. He states that he was tested for COVID on 12/14 and found out yesterday he was positive. He has been having a cough and extreme weakness. He was able to check his oxygen at home and knew he was hypoxic at 88%. He was also running fevers at home. EMS was called to assist him in getting up and found him to be hypoxic at 82% and brought him in for evaluation. He was also quite febrile with a temperature of 40.1. CTA was done and revealed left upper pneumonia. This morning he reports he's feeling better now that his fever broke but he's had some diarrhea this morning. Source: patient Date Seen 12/17/19 Time Seen by a Provider: 10:38 Attending Physician Frantz Meyer MD PCP No,Local Physician Referring Physician Date of Admission Dec 17, 2019 at 5:00 am Home Medications & Allergies Home Medications Reviewed patient Home Medication Reconciliation performed by pharmacy medication reconciliations sales and service technician and/or nursing. Patients Allergies have been reviewed. Allergies Allergies Coded Allergies lisinopril (Verified Allergy, Unknown, 09/22/15) sildenafil (Verified Allergy, Unknown, 09/22/15) Past Zhpyhlz-Njloer-Vdtbdw Hx Past Med/Social Hx: Reviewed Nursing Past Med/Soc Hx Patient Social History Marrital Status: Employed/Student: retired Alcohol Use: Denies Use Recreational Drug Use: No Smoking Status: Former Smoker Former Smoker, Quit: Nov 16, 1992 Type Used: Cigarettes Recent Foreign Travel: No Contact w/other who traveled: No Recent Hopitalizations: Yes (PNEUMONIA 03/2016 and 09/2018) Recent Infectious Disease Expo: Yes Immunizations Up To Date Tetanus Booster (TDap): Unknown Date of Pneumonia Vaccine: Dec 16, 2014 Date of Influenza Vaccine: Dec 08, 2019 Seasonal Allergies Seasonal Allergies: No Past Medical History Surgeries: Abdominal, Orthopedic, Tonsillectomy Respiratory: COPD, Emphysema, Pneumonia, Sleep Apnea Currently Using CPAP: Yes Currently Using BIPAP: No Cardiac: High Cholesterol, Hypertension Reproductive: No Sexually Transmitted Disease: No HIV/AIDS: No Gastrointestinal: Abdominal Hernia Musculoskeletal: Degenerate Disk Disease, Arthritis, Chronic Back Pain Endocrine: Diabetes, Non-Insulin dep Cancer: Skin Did You Recieve Any Treatments: Yes What Type of Treatment Did You: Surgical Intervention Psychosocial: Depression History of Blood Disorders: Yes (ANEMIA) Adverse Reaction to Blood Hernandez: No Family History Reviewed Nursing Family Hx Arthritis 19 MOTHER Cataracts 19 MOTHER Deafness or hearing loss G8 BROTHER Diabetes mellitus 19 MOTHER Visual disorder 19 MOTHER Diabetes Review of Systems Constitutional: fever, malaise, weakness EENTM: no symptoms reported Respiratory: see HPI, cough; No short of breath Cardiovascular: No chest pain, No edema, No palpitations, No syncope Gastrointestinal: No abdominal pain, No constipation; diarrhea; No loss of appetite, No nausea, No vomiting Genitourinary: No dysuria, No pain Musculoskeletal: No muscle stiffness; muscle weakness Skin: no symptoms reported Psychiatric/Neurological: No Symptoms Reported Physical Exam Physical Exam Vital Signs Vital Signs - First Documented 12/17/19 12/17/19 02:35 02:47 Temp 40.1 Pulse 92 Resp 22 B/P (MAP) 159/97 (117) Pulse Ox 87 O2 Delivery Room Air O2 Flow Rate 3.00 Capillary Refill : Less Than 3 Seconds Height, Weight, BMI Height: 5'4.00" Weight: 253lbs. 0.0oz. 114.536848uz; 42.75 BMI Method:Stated General Appearance: No Apparent Distress, Chronically ill, Obese HEENT: PERRL/EOMI, Moist Mucous Membranes; No Scleral Icterus (L), No Scleral Icterus (R) Neck: Normal Inspection, Supple Respiratory: No Accessory Muscle Use, Decreased Breath Sounds; No Rhonci, No Wheezing; Other (on 4lpm NC) Cardiovascular: Regular Rate, Rhythm, No Edema, No JVD, No Murmur Gastrointestinal: Normal Bowel Sounds, Non Tender, Soft; No Distended, No Guarding Extremity: Normal Inspection, No Calf Tenderness, No Pedal Edema Neurologic/Psychiatric: Alert, Oriented x3, Normal Mood/Affect Skin: Normal Color, Warm/Dry Results Results/Procedures Labs Laboratory Tests 12/17/19 02:41 Patient resulted labs reviewed. Imaging: Reviewed Imaging Report [facility] [place], [place] NAME: EMMANUELLE CARLIN [facility] REC#: [id number] PT STATUS: ADM IN : 1935 PHYSICIAN: BRITTANY COTTO MD ADMIT DATE: 12/17/19 Draft Date of Exam:12/17/19 CT HEAD/CERVICAL SPINE WO PROCEDURE: CT head and CT cervical spine without contrast. TECHNIQUE: Multiple contiguous axial images were obtained through the brain and cervical spine without the use of intravenous contrast. Sagittal and coronal reformations through the cervical spine were then performed. Auto Exposure Controls were utilized during the CT exam to meet ALARA standards for radiation dose reduction. INDICATION: Trauma. Fall. COMPARISON: None. FINDINGS: CT HEAD: No intracranial hemorrhage, mass effect, hydrocephalus or extra-axial fluid collections. No CT evidence for territorial infarction. Osseous structures are intact. Mild mucosal thickening in the ethmoid sinuses. Mastoids are clear. CT CERVICAL SPINE: Normal alignment. Vertebral body heights are preserved. No fractures. Moderate diffuse degenerative endplate changes. No evidence of high-grade spinal canal stenosis on soft tissue windows. Moderate atherosclerotic calcifications. Calcified granuloma in the left lung apex. IMPRESSION: No acute intracranial or cervical spine CT findings. Chronic findings as above. Dictated on workstation # [id number] Dict: 12/17/19 0643 Trans: 12/17/19 0649 CV [id number] Interpreted by: BHARATI SAMS MD Electronically signed by: [facility] [place] [place] NAME: EMMANUELLE CARLIN [facility] REC#: [id number] PT STATUS: ADM IN : 1935 PHYSICIAN: BRITTANY COTTO MD ADMIT DATE: 12/17/19 Signed Date of Exam:12/17/19 CT ANGIO CHEST W EXAMINATION: CT angiography of the chest. TECHNIQUE: Contrast enhanced thin section helical images were obtained through the chest with intravenous contrast timed for the optimal opacification of the arterial structures per CTA protocol. Post-processing, reconstructions and interpretation of angiographic images of the vessels was performed. 3D MIP reconstructions were performed and reviewed. All CT scans use one or more of the following dose optimizing techniques: automated exposure control, MA and/or KvP adjustment based on a patient size and exam type, or iterative reconstruction. HISTORY: PE suspected, high prob COMPARISON: CTA chest 09/23/2015. FINDINGS: Vascular: Limited evaluation of the distal pulmonary arteries secondary to patient respiratory motion. No visualized filling defects within the pulmonary arteries. Thoracic aorta is normal in caliber. Calcification of the aorta and coronary vessels. Thyroid: The thyroid is normal. Mediastinum: Heart size is normal without significant pericardial effusion. No suspicious lymphadenopathy. Lungs and airways: Consolidation within the superior left lower lobe (series 3 image 66). Bibasilar atelectasis. There is a 0.6 cm right middle lobe pulmonary nodule which is unchanged from 09/05/2015 (series 3 image 98). No pleural effusion or pneumothorax. The airways are normal. Upper abdomen: Granulomas within the spleen. Left renal cyst. Musculoskeletal: Changes of the right humerus. Multilevel degenerative changes of the spine without suspicious osseous lesion or compression fracture. IMPRESSION: 1. No findings of pulmonary embolus. Evaluation for distal pulmonary emboli is limited secondary to patient respiratory motion. 2. Left upper lobe consolidation concerning for pneumonia. 3. Stable 0.6 cm right middle lobe pulmonary nodule compared to 2016. 4. Agree with preliminary interpretation. Dictated by: Dictated on workstation # [id number] Dict: 12/17/19 0653 Trans: 12/17/19 0753 [facility] [id number] Interpreted by: JUDE DICK DO Electronically signed by: JUDE DICK DO 12/17/19 0753 Assessment/Plan Admission Diagnosis Acute Hypoxic Respiratory Failure Admission Status: Inpatient Order (span 2 midnights) Reason for Inpatient Admission: see below Assessment and Plan Acute Hypoxic Respiratory Failure COVID19 ROSA M PNA Continue oxygen supplementation 5 days into symptoms Discussed EUA status of Remdesivir and convalescent plasma and patient agreeable Decadron Continue IV for pneumonia PT/OT IS MAT Diarrhea Imodium ordered probiotic added If continues and is loose will check c diff HTN Home meds NIDDMII SSI DVT ppx: Lovenox Clinical Quality Measures DVT/VTE Risk/Contraindication: Risk Factor Score Per Nursin RFS Level Per Nursing on Admit: 4+=Very High FRANTZ MEYER MD Dec 17, 2019 10:43 am
[2019-12-17] MEDS ORDERED: LOPERAMIDE 2 MG (IMODIUM) TABLET PO PRN (10:45)
[2019-12-17] MEDS ORDERED: FUROSEMIDE 40 MG (LASIX) TAB PO PRN (11:00)
[2019-12-17] MEDS ORDERED: ENOXAPARIN 40 MG/0.4 ML (LOVENOX) SYR SQ SCH (11:00)
[2019-12-17] MEDS ORDERED: REMDESIVIR INJ (NON-FORMULARY) 200 MG in NS (IVPB) 210 ML IV NR (11:15)
[2019-12-17] MEDS: inSUlin ASPART (NovoLOG) 1 UNIT/0.01 ML (CHARGE PER UNIT) SC SCH ×3 (11:23→21:25)
[2019-12-17] MEDS: CEFEPIME 1,000 MG/SWFI 10 ML IV PUSH IV SCH ×6 (11:23→23:55)
[2019-12-17] MEDS: ENOXAPARIN 40 MG/0.4 ML (LOVENOX) SYR SC SCH ×2 (11:23→23:56)
[2019-12-17] MEDS ORDERED: RT-ALBUTEROL INHALER HFA (VENTOLIN HFA) 18 GM IH PRN (11:30)
[2019-12-17] MEDS: ACETAMINOPHEN 500 MG TAB (TYLENOL) PO PRN ×2 (11:34→21:29)
[2019-12-17] MEDS: GABAPENTIN 300 MG (NEURONTIN) CAP PO SCH ×2 (12:06→21:15)
[2019-12-17] MEDS: LACTOBACILLUS ACIDOPHILUS (PROBIOTIC) CAPSULE PO SCH ×2 (12:06→17:49)
[2019-12-17] MEDS: IBUPROFEN 600 MG (MOTRIN) TAB PO PRN ×2 (13:57→23:56)
[2019-12-17] MEDS ORDERED: RT-ALBUTEROL INHALER HFA (VENTOLIN HFA) 18 GM IH SCH (14:00)
[2019-12-17] MEDS: IPRATROPIUM INHALER (ATROVENT) 12.9 GM INH SCH ×3 (15:04→22:50)
[2019-12-17] MEDS: glipiZIDE 5 MG (GLUCOTROL) TAB PO SCH (16:30)
[2019-12-17] MEDS ORDERED: GLIPIZIDE 20 MG PO SCH (21:00)
[2019-12-17] MEDS: PRIMIDONE 250MG (MYSOLINE) TAB PO SCH (21:15)
[2019-12-18] VITALS (9 sets, daily range): BP systolic 120–154; BP diastolic 58–97
[2019-12-18] MEDS: IPRATROPIUM INHALER (ATROVENT) 12.9 GM INH SCH ×5 (02:06→18:50)
[2019-12-18] MEDS: RT-ALBUTEROL INHALER HFA (VENTOLIN HFA) 18 GM IH SCH ×5 (02:06→18:50)
[2019-12-18 06:25] LABS: HEMOGLOBIN 9.5 g/dL (13.3-17.7); WHITE BLOOD COUNT 1.8 10^3/uL (4.3-11.0)
[2019-12-18 06:28] LABS: ALBUMIN 3.4 GM/DL (3.2-4.5)
[2019-12-18 06:29] LABS: POTASSIUM 4.2 MMOL/L (3.6-5.0)
[2019-12-18 06:30] LABS: CALCIUM 7.7 MG/DL (8.5-10.1)
[2019-12-18 06:31] LABS: TOTAL PROTEIN 7.5 GM/DL (6.4-8.2)
[2019-12-18 06:33] LABS: BILIRUBIN,TOTAL 0.2 MG/DL (0.1-1.0)
[2019-12-18 06:35] LABS: CREATININE SERUM 1.16 MG/DL (0.60-1.30)
[2019-12-18] MEDS: inSUlin ASPART (NovoLOG) 1 UNIT/0.01 ML (CHARGE PER UNIT) SC SCH ×4 (07:04→20:17)
[2019-12-18] MEDS: glipiZIDE 5 MG (GLUCOTROL) TAB PO SCH (07:04)
[2019-12-18] MEDS: MULTIVIT W/MINERALS TAB (THERAGRAN M) PO SCH (07:04)
[2019-12-18] MEDS: CEFEPIME 1,000 MG/SWFI 10 ML IV PUSH IV SCH ×6 (07:04→17:55)
[2019-12-18] MEDS: GABAPENTIN 300 MG (NEURONTIN) CAP PO SCH ×3 (08:18→20:16)
[2019-12-18] MEDS: LOSARTAN 50 MG (COZAAR) TAB PO SCH (08:18)
[2019-12-18] MEDS: LACTOBACILLUS ACIDOPHILUS (PROBIOTIC) CAPSULE PO SCH ×3 (08:18→17:55)
[2019-12-18] MEDS: ASPIRIN E.C. 81 MG (ECOTRIN) TAB PO SCH (08:18)
[2019-12-18] MEDS: MELOXICAM 7.5 MG (MOBIC) TABLET PO SCH (08:18)
[2019-12-18] MEDS: SERTRALINE 100 MG (ZOLOFT) TAB PO SCH (08:22)
[2019-12-18] MEDS: AZITHROMYCIN 500 MG/NS 250 ML IVPB IV SCH ×2 (08:23)
[2019-12-18] MEDS ORDERED: LOSARTAN 100 MG (COZAAR) TABLET PO SCH (09:00)
[2019-12-18] MEDS ORDERED: OLODATEROL HCL IH SCH (09:00)
[2019-12-18] MEDS ORDERED: NON-FORMULARY MEDICATION 1 EA EA (Multivit-Min/FA/Lycopene/Lut (Centrum Silver Tablet) 1 T PO SCH (09:00)
[2019-12-18] MEDS: ACETAMINOPHEN 500 MG TAB (TYLENOL) PO PRN (10:17)
[2019-12-18] MEDS: ENOXAPARIN 40 MG/0.4 ML (LOVENOX) SYR SC SCH ×2 (10:21→22:08)
[2019-12-18] MEDS ORDERED: REMDESIVIR INJ (NON-FORMULARY) 100 MG in NS (IVPB) 230 ML IV SCH (11:00)
--- NOTE | 2019-12-18 13:21 | Progress Note - Hospitalist ---
Subjective HPI/CC On Admission Date Seen by Provider: Dec 18, 2019 Time Seen by Provider: 10:30 Pt is an 84yoCM with a PMH NIDDMII, HTN, HLD who presented to the ER due to a fall. He states that he was tested for COVID on 12/14 and found out yesterday he was positive. He has been having a cough and extreme weakness. He was able to c heck his oxygen at home and knew he was hypoxic at 88%. He was also running fevers at home. EMS was called to assist him in getting up and found him to be hypoxic at 82% and brought him in for evaluation. He was also quite febrile with a temperature of 40.1. CTA was done and revealed left upper pneumonia. This morning he reports he's feeling better now that his fever broke but he's had some diarrhea this morning. Subjective/Events-last exam He is feeling a bit better. He is still short of breath. He still has a cough. He is eating and drinking. He denies pain. Focused Exam Lactate Level 12/17/19 02:41: Lactic Acid Level 1.16 Objective Exam Vital Signs Vital Signs Date Time Temp Pulse Resp B/P (MAP) Pulse Ox O2 Delivery O2 Flow Rate FiO2 12/18/19 11:50 37.0 85 18 121/60 (80) 93 Nasal Cannula 3.50 12/17/19 11:19 36 Capillary Refill : Less Than 3 Seconds General Appearance: No Apparent Distress, Obese Respiratory: Lungs Clear, Normal Breath Sounds, No Respiratory Distress Cardiovascular: Regular Rate, Rhythm, No Edema, No Murmur Gastrointestinal: Normal Bowel Sounds, Non Tender, Soft Extremity: Normal Inspection, Non Tender, No Pedal Edema Neurologic/Psychiatric: Alert, Oriented x3, No Motor/Sensory Deficits, Normal Mood/Affect Skin: Normal Color, Warm/Dry Results/Procedures Lab Laboratory Tests 12/18/19 04:44 12/18/19 04:45 Patient resulted labs reviewed. Imaging: Reviewed Imaging Report Assessment/Plan Assessment and Plan Assess & Plan/Chief Complaint Acute respiratory failure COVID-19 ROSA M PNA Continue oxygen supplementation Decadron Remdesivir, patient agreed to EUA use Awaiting plasma, patient agreed to EUA use Antibiotics for pneumonia PT/OT IS MAT Diarrhea Imodium as needed probiotic If continues will check c diff HTN Home meds NIDDMII Steroid induced hyperglycemia SSI Morbid obesity BMI 42.8, clinically significant, no acute management needs DVT ppx: Lovenox Diagnosis/Problems Diagnosis/Problems (1) Acute respiratory failure due to COVID-19 Status: Acute (2) PNA (pneumonia) Status: Acute (3) Non-insulin dependent type 2 diabetes mellitus Status: Chronic (4) Steroid-induced hyperglycemia Status: Acute (5) Morbid obesity Status: Chronic Clinical Quality Measures DVT/VTE Risk/Contraindication: Risk Factor Score Per Nursin RFS Level Per Nursing on Admit: 4+=Very High CHRISTA MCINTOSH MD Dec 18, 2019 13:21
--- NOTE | 2019-12-18 15:00 | NUR ---
"RD ASSESSMENT PMHx: DM; HLD; HTN; COPD; CA(skin) PT INTERACTION: Note pt is in COVID isolation. Note all information for nutrition assessment is gathered per chart review. Note avg PO intake 75% x1d. Note last BM was 12/16, and pt not currently on bowel regimen. Note recent 4# wt gain x8mon. Note unable to determine current level of DM management, and unable to determine recent HbA1c. ABNORMAL NUTRITION-RELATED LAB VALUES LOW: Na 134; Ca 7.7 HIGH: BUN 22; glu 240 Est. kcal needs: 1700 kcal | 15 kcal/kg Est. Pro needs: 91 g Pro | 0.8 g Pro/kg PES STATEMENT: Given current PO intake, no nutrition diagnosis at this time (NO-1.1) INTERVENTION: Continue with current diet order of CHO 60/m 3snack diet. Did not offer diet education on DM management, d/t COVID isolation. Will continue to follow and reassess as pt needs, intake, and status change. Arleen Kenney, MS RD LD"
--- NOTE | 2019-12-18 15:01 | Physical Therapy Evaluation ---
PT Evaluation-General Medical Diagnosis Admission Date Dec 17, 2019 at 05:00 Medical Diagnosis: hypoxia/weakness/Covid (+) Onset Date: Dec 17, 2019 Therapy Diagnosis Therapy Diagnosis: debility Height/Weight Height (Feet): 5 Height (Inches): 4.00 Weight (Pounds): 253 Weight (Ounces): 0.0 Precautions Precautions/Isolations: Contact Isolation, Droplet Isolation, Fall Prevention Referral Physician: Gary Reason for Referral: Evaluation/Treatment Medical History Pertinent Medical History: COPD, DM, HTN, Smoking Current History EMS secondary to fall at home and SOB with known Covid (+) Reviewed History: Yes Social History Home: Single Level Current Living Status: Spouse Entry Into Home: Stairs With Railing PT Steps Into Home: 2 Prior Prior Level of Function SCALE: Activities may be completed with or without assistive devices. 5-Nxgymgedqo-vumbuii completes the activity by him/herself with no assistance from a helper. 5-Set-up or Clean-up Assistance-helper sets up or cleans up; patient completes activity. Wilmar assists only prior to or following the activity. 4-Supervision or Touching Assistance-helper provides verbal cues and/or touching/steadying and/or contact guard assistance as patient completes activity. Assistance may be provided throughout the activity or intermittently. 3-Partial/Moderate Assistance-helper does LESS THAN HALF the effort. Wilmar lifts, holds or supports trunk or limbs, but provides less than half the effort. 2-Substantial/Maximal Assistance-helper does MORE THAN HALF the effort. Wilmar lifts or holds trunk or limbs and provides more than half the effort. 2-Garcydbmf-ryllby does ALL the effort. Patient does none of the effort to complete the activity. Or, the assistance of 2 or more helpers is required for the patient to complete the activity. If activity was not attempted, code reason: 7-Patient Refused. 9-Not Applicable-not attempted and the patient did not perform the activity before the current illness, exacerbation or injury. 10-Not Attempted due to Environmental Limitations-(lack of equipment, weather restraints, etc.). 88-Not Attempted due to Medical Conditions or Safety Concerns. Bed Mobility: 6 Transfers (B,C,W/C): 6 Gait: 6 Stairs: 6 Indoor Mobility (Ambulation): Independent Stairs: Independent Prior Devices Use: None PT Evaluation-Current Subjective Patient reports he is feeling much better today and agrees to PT. Pain Numeric Pain Scale: 0-No Pain Location: No Pain Reported Objective Patient Orientation: Normal For Age Attachments: Oxygen, Romero Catheter ROM/Strength ROM Lower Extremities bilateral LE WFL Strength Lower Extremities 4/5 grossly bilateral LE Integumentary/Posture Integumentary refer to nursing notes Bowel Incontinence: No Bladder Incontinence: Romero Cath Posture WFL Neuromuscular (Tone, Coordination, Reflexes) grossly intact Sensory Vision: Functional Hearing: Functional Transfers Roll Left to Right (QC): 6 Sit to Lying (QC): 6 Lying to Sitting/Side of Bed(Q: 6 Sit to Stand (QC): 6 Chair/Srt-xx-Kzkbr Xfer(QC): 6 Gait Does the Patient Walk?: Yes Mode of Locomotion: Walk Anticipated Mode of Locomotion: Walk Walk 10 feet (QC): 6 Walk 50 ft with 2 Turns(QC): 6 Walk 150 ft (QC): 6 Distance: 150' Gait Assistive Device: FWW Comments/Gait Description safe and functional gait sequence with no deviation Balance Sitting Static: Normal Sitting Dynamic: Normal Standing Static: Normal Standing Dynamic: Normal Assessment/Needs 84 y.o. male, is currently at independent [facility] with all gross motor skills and does not require skilled therapy intervention. Patient to be up PRN in room with nursing staff. Rehab Potential: Fair PT Plan Treatment/Plan Treatment Plan: Discontinue PT, goals met Treatment Duration: Dec 18, 2019 Frequency: 1 time per week Estimated Hrs Per Day: .5 hour per day Patient and/or Family Agrees t: Yes Time/GCodes Time In: 1350 Time Out: 1420 Total Billed Treatment Time: 30 Total Billed Treatment 1 visit EVModC 15 min FA 15 min CY FINNEGAN PT Dec 18, 2019 15:01
--- NOTE | 2019-12-18 16:18 | Physician Query Clarification ---
"Physician Query-General Query to Physician: The medical record reflects the following clinical scenario: History/Risk factors: Pneumonia, COVID 19 pos Clinical Findings: Admission VS HR 92, RR 22, Sp02 87% on RA, T 40.1, WBC 2.0, PLT 72 Treatment: IV ABX, IV Dexamethasone, 500ml IVF bolus Question: Do you agree with the impression of Sepsis per ER physician, Dr. Janelle Briggs? If you agree, please document in Progress Notes or Discharge Summary. 1. Yes; will document Sepsis present on admission due to Covid 19/ROSA M pneumonia in the Progress Notes 2. No; will continue document Covid 19/ROSA M pneumonia in the Progress Notes 3. Other; will document explanation of clinical findings 4. Clinically undetermined; no explanation for clinical findings Please remember a lack of response to the above will prompt a phone page by CDI/coding staff. In responding to this query, please exercise your independent professional judgment. The purpose of this communication is to more accurately reflect the complexity of your patients condition. The fact that a question is asked does not imply that any particular answer is desired or expected. Thank you for timely response to this clarification. Dora Yadav, MSN, RN RN Specialist-Clinical Doc Improvement CD -Health Info Mgmt Operations [address] [facility] t: [phone] | f: [phone] If you are unable to reach me at my extension, I may be working from home. Please contact me at [phone] PHYSICIAN RESPONSE: Based on the clinical findings in the record, please respond to the query above on this document as an addendum. Physician Response: Physician Response Viral sepsis due to COVID-19 If you have questions please contact: Field Hockey And Lacrosse Coach: Ext: Thank you for your time and cooperation. Clinical Radiopharmacist/Field Hockey And Lacrosse Coach This is a permanent part of the medical rec ord DORA YADAV Dec 18, 2019 16:18 CHRISTA MCINTOSH MD Dec 18, 2019 16:54"
[2019-12-18] MEDS ORDERED: VANCOMYCIN INJECTION 0.1 MG in NS (IVPB) 250 ML IV SCH (17:00)
--- NOTE | 2019-12-18 17:51 | NUR ---
PTD VANCOMYCIN LABS: 113.6 KG, SCr 1.16, CrCl 56.4, BMI 42.8 VANCOMYCIN LOADING DOSE 20MG/KG x 113.6 KG ~ 2G; MAINT DOSE 15MG/KG x 113.6 ~ 1500MG Q24H. VANCOMYCIN TROUGH DUE 12/20 @ 1700. IF TROUGH IS >20, HOLD DOSE & NOTIFY PHARMACY FOR ADJUSTMENTS.
[2019-12-18] MEDS ORDERED: VANCOMYCIN 2000 MG/NS 500 ML IVPB IV NR ×2 (18:00)
[2019-12-18] MEDS ORDERED: NS IV 500 ML 500 ML ONE (18:21)
[2019-12-18] MEDS ORDERED: NS IV 500 ML 500 ML IV SCH (18:35)
[2019-12-18] MEDS: PRIMIDONE 250MG (MYSOLINE) TAB PO SCH (20:16)
[2019-12-18] MEDS: IBUPROFEN 600 MG (MOTRIN) TAB PO PRN (21:48)
[2019-12-19] MEDS: CEFEPIME 1,000 MG/SWFI 10 ML IV PUSH IV SCH ×8 (00:01→17:25)
[2019-12-19] MEDS: RT-ALBUTEROL INHALER HFA (VENTOLIN HFA) 18 GM IH SCH ×6 (01:08→21:08)
[2019-12-19] MEDS: IPRATROPIUM INHALER (ATROVENT) 12.9 GM INH SCH ×6 (01:09→18:29)
[2019-12-19 03:10] VITALS: BP 124/58
[2019-12-19] MEDS: MULTIVIT W/MINERALS TAB (THERAGRAN M) PO SCH (06:13)
[2019-12-19] MEDS: inSUlin ASPART (NovoLOG) 1 UNIT/0.01 ML (CHARGE PER UNIT) SC SCH ×4 (06:19→21:36)
[2019-12-19 06:26] LABS: ALBUMIN 3.4 GM/DL (3.2-4.5); CHLORIDE 102 MMOL/L (98-107); POTASSIUM 3.9 MMOL/L (3.6-5.0)
[2019-12-19 06:27] LABS: SODIUM 137 MMOL/L (135-145)
[2019-12-19 06:28] LABS: CALCIUM 7.9 MG/DL (8.5-10.1)
[2019-12-19 06:29] LABS: GLUCOSE 197 MG/DL (70-105); TOTAL PROTEIN 7.5 GM/DL (6.4-8.2)
[2019-12-19 06:30] LABS: CARBON DIOXIDE 24 MMOL/L (21-32)
[2019-12-19 06:31] LABS: BILIRUBIN,TOTAL 0.2 MG/DL (0.1-1.0)
[2019-12-19 06:32] LABS: ALKALINE PHOSPHATASE 45 U/L (40-136)
[2019-12-19 06:33] LABS: CREATININE SERUM 0.92 MG/DL (0.60-1.30); GFR ESTIMATED > 60
[2019-12-19 06:34] LABS: BUN/CREATININE RATIO 22
[2019-12-19 06:35] LABS: ALANINE AMINOTRANSFERASE 17 U/L (0-55)
[2019-12-19 06:36] LABS: MEAN PLATELET VOLUME 11.8 fL (9.0-12.2); WHITE BLOOD COUNT 1.7 10^3/uL (4.3-11.0)
[2019-12-19] MEDS: LACTOBACILLUS ACIDOPHILUS (PROBIOTIC) CAPSULE PO SCH ×3 (07:38→17:25)
[2019-12-19] MEDS: ASPIRIN E.C. 81 MG (ECOTRIN) TAB PO SCH (07:38)
[2019-12-19] MEDS: MELOXICAM 7.5 MG (MOBIC) TABLET PO SCH (07:38)
[2019-12-19] MEDS: LOSARTAN 50 MG (COZAAR) TAB PO SCH (07:38)
[2019-12-19] MEDS: GABAPENTIN 300 MG (NEURONTIN) CAP PO SCH ×3 (07:38→21:36)
[2019-12-19] MEDS: AZITHROMYCIN 500 MG/NS 250 ML IVPB IV SCH ×2 (07:40)
[2019-12-19] MEDS: glipiZIDE 5 MG (GLUCOTROL) TAB PO SCH (07:40)
[2019-12-19 07:44] VITALS: BP 144/68
[2019-12-19] MEDS: SERTRALINE 100 MG (ZOLOFT) TAB PO SCH (07:51)
--- NOTE | 2019-12-19 09:40 | NUR ---
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 WILL CHECK A TROUGH LEVEL PRIOR TO THE 3RD DOSE (12/19 @ 1400)
--- NOTE | 2019-12-19 10:06 | Progress Note - Hospitalist ---
Subjective HPI/CC On Admission Date Seen by Provider: Dec 19, 2019 Time Seen by Provider: 09:30 Pt is an 84yoCM with a PMH NIDDMII, HTN, HLD who presented to the ER due to a fall. He states that he was tested for COVID on 12/14 and found out yesterday he was positive. He has been having a cough and extreme weakness. He was able to c heck his oxygen at home and knew he was hypoxic at 88%. He was also running fevers at home. EMS was called to assist him in getting up and found him to be hypoxic at 82% and brought him in for evaluation. He was also quite febrile with a temperature of 40.1. CTA was done and revealed left upper pneumonia. This morning he reports he's feeling better now that his fever broke but he's had some diarrhea this morning. Subjective/Events-last exam He is feeling well today. He thinks he is about the same as yesterday. He is not feeling short of breath. He has a cough. He has been eating and drinking. He is able to sit on the edge of the bed and will be able to use the urinal when his catheter is taken out. Focused Exam Lactate Level 12/17/19 02:41: Lactic Acid Level 1.16 Objective Exam Vital Signs Vital Signs Date Time Temp Pulse Resp B/P (MAP) Pulse Ox O2 Delivery O2 Flow Rate FiO2 12/19/19 09:59 94 Nasal Cannula 2.00 12/19/19 07:44 37.1 73 20 144/68 (93) 12/17/19 11:19 36 Capillary Refill : Less Than 3 Seconds General Appearance: No Apparent Distress, Obese Respiratory: Lungs Clear, Normal Breath Sounds, No Respiratory Distress Cardiovascular: Regular Rate, Rhythm, No Edema, No Murmur Gastrointestinal: Normal Bowel Sounds, Non Tender, Soft Extremity: Normal Inspection, Non Tender, No Pedal Edema Neurologic/Psychiatric: Alert, Oriented x3, No Motor/Sensory Deficits, Normal Mood/Affect Skin: Normal Color, Warm/Dry Results/Procedures Lab Laboratory Tests 12/19/19 05:45 Patient resulted labs reviewed. Imaging: Reviewed Imaging Report Assessment/Plan Assessment and Plan Assess & Plan/Chief Complaint Acute respiratory failure COVID-19 ROSA M PNA Possible bacteremia Continue oxygen supplementation Decadron Remdesivir day 05/10 s/p 1 unit convalescent plasma Blood cultures 3/4 positive for coag-negative Staph Vancomycin and Cefepime PT/OT IS MAT Diarrhea Imodium as needed probiotic If continues will check c diff HTN Home meds NIDDMII Steroid induced hyperglycemia Add Levemir Hold Glipizide SSI Morbid obesity BMI 42.8, clinically significant, no acute management needs DVT ppx: Lovenox Diagnosis/Problems Diagnosis/Problems (1) Acute respiratory failure due to COVID-19 Status: Acute (2) PNA (pneumonia) Status: Acute (3) Non-insulin dependent type 2 diabetes mellitus Status: Chronic (4) Steroid-induced hyperglycemia Status: Acute (5) Morbid obesity Status: Chronic Clinical Quality Measures DVT/VTE Risk/Contraindication: Risk Factor Score Per Nursin RFS Level Per Nursing on Admit: 4+=Very High CHRISTA MCINTOSH MD Dec 19, 2019 10:06
[2019-12-19] MEDS: REMDESIVIR INJ (NON-FORMULARY) 100 MG in NS (IVPB) 230 ML IV SCH (11:39)
[2019-12-19] MEDS: ENOXAPARIN 40 MG/0.4 ML (LOVENOX) SYR SC SCH ×2 (11:43→21:36)
[2019-12-19 12:00] VITALS: BP 121/65
[2019-12-19] MEDS ORDERED: VANCOMYCIN 2000 MG/NS 500 ML IVPB IV SCH ×2 (15:00)
[2019-12-19 16:53] VITALS: BP 116/70
[2019-12-19] MEDS ORDERED: VANCOMYCIN 1500 MG/NS 500 ML IVPB IV SCH ×2 (18:00)
[2019-12-19 20:07] VITALS: BP 123/64
[2019-12-19] MEDS: PRIMIDONE 250MG (MYSOLINE) TAB PO SCH (21:36)
[2019-12-19 23:24] VITALS: BP 118/68
[2019-12-20] MEDS: CEFEPIME 1,000 MG/SWFI 10 ML IV PUSH IV SCH ×4 (00:33→06:12)
[2019-12-20] MEDS: RT-ALBUTEROL INHALER HFA (VENTOLIN HFA) 18 GM IH SCH ×6 (02:18→21:59)
[2019-12-20] MEDS: IPRATROPIUM INHALER (ATROVENT) 12.9 GM INH SCH ×6 (02:19→21:58)
[2019-12-20 06:01] LABS: HEMOGLOBIN 8.6 g/dL (13.3-17.7); MEAN PLATELET VOLUME 12.4 fL (9.0-12.2); WHITE BLOOD COUNT 1.7 10^3/uL (4.3-11.0)
[2019-12-20] MEDS: MULTIVIT W/MINERALS TAB (THERAGRAN M) PO SCH (06:12)
[2019-12-20 06:25] LABS: ALANINE AMINOTRANSFERASE 23 U/L (0-55); ALBUMIN 3.1 GM/DL (3.2-4.5); ALKALINE PHOSPHATASE 40 U/L (40-136); BILIRUBIN,TOTAL 0.2 MG/DL (0.1-1.0); BUN/CREATININE RATIO 22; CALCIUM 7.8 MG/DL (8.5-10.1); CARBON DIOXIDE 23 MMOL/L (21-32); CHLORIDE 104 MMOL/L (98-107); CREATININE SERUM 0.81 MG/DL (0.60-1.30); GFR ESTIMATED > 60; GLUCOSE 220 MG/DL (70-105); SODIUM 137 MMOL/L (135-145); TOTAL PROTEIN 7.2 GM/DL (6.4-8.2)
[2019-12-20] MEDS: inSUlin ASPART (NovoLOG) 1 UNIT/0.01 ML (CHARGE PER UNIT) SC SCH ×7 (06:36→20:23)
[2019-12-20 07:37] VITALS: BP 134/80
[2019-12-20] MEDS: LOSARTAN 50 MG (COZAAR) TAB PO SCH (08:27)
[2019-12-20] MEDS: AZITHROMYCIN 250 MG TAB (ZITHROMAX) PO SCH (08:27)
[2019-12-20] MEDS: ASPIRIN E.C. 81 MG (ECOTRIN) TAB PO SCH (08:27)
[2019-12-20] MEDS: SERTRALINE 100 MG (ZOLOFT) TAB PO SCH (08:27)
[2019-12-20] MEDS: GABAPENTIN 300 MG (NEURONTIN) CAP PO SCH ×3 (08:27→20:22)
[2019-12-20] MEDS: MELOXICAM 7.5 MG (MOBIC) TABLET PO SCH (08:27)
[2019-12-20] MEDS: LACTOBACILLUS ACIDOPHILUS (PROBIOTIC) CAPSULE PO SCH ×3 (08:27→16:53)
[2019-12-20] MEDS: dexAMETHasone 6 MG TAB (DECADRON) PO SCH (08:28)
--- NOTE | 2019-12-20 09:44 | Progress Note - Hospitalist ---
Subjective HPI/CC On Admission Date Seen by Provider: Dec 20, 2019 Time Seen by Provider: 09:15 Pt is an 84yoCM with a PMH NIDDMII, HTN, HLD who presented to the ER due to a fall. He states that he was tested for COVID on 12/14 and found out yesterday he was positive. He has been having a cough and extreme weakness. He was able to c heck his oxygen at home and knew he was hypoxic at 88%. He was also running fevers at home. EMS was called to assist him in getting up and found him to be hypoxic at 82% and brought him in for evaluation. He was also quite febrile with a temperature of 40.1. CTA was done and revealed left upper pneumonia. This morning he reports he's feeling better now that his fever broke but he's had some diarrhea this morning. Subjective/Events-last exam He is feeling better. He is not short of breath. He has a bit of a cough. He denies fevers. He has been eating and drinking. He has not been up moving much. Objective Exam Vital Signs Vital Signs Date Time Temp Pulse Resp B/P (MAP) Pulse Ox O2 Delivery O2 Flow Rate FiO2 12/20/19 07:37 36.4 62 16 134/80 (98) 97 Nasal Cannula 1.00 12/17/19 11:19 36 Capillary Refill : Less Than 3 Seconds General Appearance: No Apparent Distress, Obese Respiratory: Lungs Clear, Normal Breath Sounds, No Respiratory Distress Cardiovascular: Regular Rate, Rhythm, No Edema, No Murmur Gastrointestinal: Normal Bowel Sounds, Non Tender, Soft Extremity: Normal Inspection, Non Tender, No Pedal Edema Neurologic/Psychiatric: Alert, Oriented x3, No Motor/Sensory Deficits, Normal Mood/Affect Skin: Normal Color, Warm/Dry Results/Procedures Lab Laboratory Tests 12/20/19 05:12 Patient resulted labs reviewed. Imaging: Reviewed Imaging Report Assessment/Plan Assessment and Plan Assess & Plan/Chief Complaint Acute respiratory failure COVID-19 ROSA M PNA Contamination of blood cultures Continue oxygen supplementation, requirements improving Decadron Remdesivir day 4/5 s/p 1 unit convalescent plasma Blood cultures 3/4 positive for coag-negative Staph, appears to be contaminants Discontinue Vancomycin Transition from Cefepime to Omnicef IS MAT HTN Home meds NIDDMII Steroid induced hyperglycemia Continue Levemir Add Novolog with meals Hold Glipizide SSI Morbid obesity BMI 42.8, clinically significant, no acute management needs DVT ppx: Lovenox Diarrhea, resolved Diagnosis/Problems Diagnosis/Problems (1) Acute respiratory failure due to COVID-19 Status: Acute (2) PNA (pneumonia) Status: Acute (3) Non-insulin dependent type 2 diabetes mellitus Status: Chronic (4) Steroid-induced hyperglycemia Status: Acute (5) Morbid obesity Status: Chronic (6) Contamination of blood culture Status: Acute Clinical Quality Measures DVT/VTE Risk/Contraindication: Risk Factor Score Per Nursin RFS Level Per Nursing on Admit: 4+=Very High CHRISTA MCINTOSH MD Dec 20, 2019 09:44
[2019-12-20] MEDS ORDERED: CEFDINIR 300 MG (OMNICEF) CAP PO NR (09:45)
--- NOTE | 2019-12-20 11:24 | NUR ---
REMDESIVIR REQUESTED FROM PHARMACY
[2019-12-20] MEDS: REMDESIVIR INJ (NON-FORMULARY) 100 MG in NS (IVPB) 230 ML IV SCH (11:50)
[2019-12-20] MEDS: ENOXAPARIN 40 MG/0.4 ML (LOVENOX) SYR SC SCH ×2 (11:51→23:08)
--- NOTE | 2019-12-20 13:47 | NUR ---
SPO2 DROPPED TO 88% ON ROOM AIR @ REST AFTER 2 MINUTES. PLACED PT ON O2 @ 2 LPM. SPO2 INCREASED TO 92%. Addendum: 12/20/19 at 1350 by SUHAS MCCOY RT Amended: Links added.
[2019-12-20] MEDS ORDERED: TROUGH ORDER-PHARMACY XX NR (14:00)
[2019-12-20 16:00] VITALS: BP 146/75
[2019-12-20] MEDS: PRIMIDONE 250MG (MYSOLINE) TAB PO SCH (20:15)
[2019-12-20] MEDS: CEFDINIR 300 MG (OMNICEF) CAP PO SCH (20:16)
[2019-12-20 23:05] VITALS: BP 146/68
[2019-12-21] MEDS: IPRATROPIUM INHALER (ATROVENT) 12.9 GM INH SCH ×3 (02:10→10:42)
[2019-12-21] MEDS: RT-ALBUTEROL INHALER HFA (VENTOLIN HFA) 18 GM IH SCH ×3 (02:10→10:43)
[2019-12-21] MEDS: inSUlin ASPART (NovoLOG) 1 UNIT/0.01 ML (CHARGE PER UNIT) SC SCH ×4 (06:01→12:21)
[2019-12-21] MEDS: MULTIVIT W/MINERALS TAB (THERAGRAN M) PO SCH (06:02)
[2019-12-21 07:17] LABS: MEAN PLATELET VOLUME 11.8 fL (9.0-12.2)
[2019-12-21 07:37] LABS: ALANINE AMINOTRANSFERASE 48 U/L (0-55); ALBUMIN 3.3 GM/DL (3.2-4.5); ALKALINE PHOSPHATASE 45 U/L (40-136); BILIRUBIN,TOTAL 0.3 MG/DL (0.1-1.0); BUN/CREATININE RATIO 21; CALCIUM 8.2 MG/DL (8.5-10.1); CARBON DIOXIDE 28 MMOL/L (21-32); CHLORIDE 101 MMOL/L (98-107); CREATININE SERUM 0.75 MG/DL (0.60-1.30); GFR ESTIMATED > 60; GLUCOSE 154 MG/DL (70-105); POTASSIUM 4.1 MMOL/L (3.6-5.0); SODIUM 136 MMOL/L (135-145); TOTAL PROTEIN 7.5 GM/DL (6.4-8.2)
[2019-12-21 08:00] VITALS: BP 142/67
[2019-12-21] MEDS: SERTRALINE 100 MG (ZOLOFT) TAB PO SCH (08:19)
[2019-12-21] MEDS: LACTOBACILLUS ACIDOPHILUS (PROBIOTIC) CAPSULE PO SCH ×2 (08:19→12:20)
[2019-12-21] MEDS: MELOXICAM 7.5 MG (MOBIC) TABLET PO SCH (08:19)
[2019-12-21] MEDS: GABAPENTIN 300 MG (NEURONTIN) CAP PO SCH ×2 (08:19→12:20)
[2019-12-21] MEDS: ASPIRIN E.C. 81 MG (ECOTRIN) TAB PO SCH (08:19)
[2019-12-21] MEDS: LOSARTAN 50 MG (COZAAR) TAB PO SCH (08:19)
[2019-12-21] MEDS: dexAMETHasone 6 MG TAB (DECADRON) PO SCH (08:19)
[2019-12-21] MEDS: CEFDINIR 300 MG (OMNICEF) CAP PO SCH (08:19)
[2019-12-21] MEDS: AZITHROMYCIN 250 MG TAB (ZITHROMAX) PO SCH (08:20)
[2019-12-21] MEDS ORDERED: CEFD300C3 PO ×2 (10:44→10:46)
[2019-12-21] MEDS: ENOXAPARIN 40 MG/0.4 ML (LOVENOX) SYR SC SCH (11:28)
[2019-12-21] MEDS: REMDESIVIR INJ (NON-FORMULARY) 100 MG in NS (IVPB) 230 ML IV SCH (11:29)
--- NOTE | 2019-12-21 11:56 | Discharge Summary ---
Discharge Summary Hospital Course Was the Problem List Reviewed?: Yes Problems/Dx: (1) Acute respiratory failure due to COVID-19 Status: Acute (2) PNA (pneumonia) Status: Acute (3) Non-insulin dependent type 2 diabetes mellitus Status: Chronic (4) Steroid-induced hyperglycemia Status: Acute (5) Morbid obesity Status: Chronic (6) Contamination of blood culture Status: Acute Hospital Course Date of Admission: Dec 17, 2019 at 05:00 Admission Diagnosis : Acute respiratory failure due to COVID-19 Family Physician/Provider: No,Local Physician Date of Discharge: 12/21/19 Discharge Diagnosis: Acute respiratory failure due to COVID-19 Hospital Course: Hima Rodriguez is an 84-year-old male who was admitted with acute respiratory failure due to COVID-19. He was treated with IV Decadron and Remdesivir. He was also given one unit of convalescent plasma. His course is complicated by a bacterial pneumonia for which she was treated with IV antibiotics and transitioned to oral Omnicef on discharge. He also had issues with steroid-i nduced hyperglycemia on top of his underlying diabetes. He had issues with pancytopenia which are thought to be due to COVID. This should continue to be monitored as an outpatient. An oxygen evaluation was performed by respiratory therapy and he required 2 L continuously. He was discharged home in stable condition. Labs and Pending Lab Test: Laboratory Tests 12/20/19 16:03: Glucometer 307H 12/20/19 20:14: Glucometer 316H 12/21/19 06:00: Glucometer 145H 12/21/19 07:00: White Blood Count 2.0L, Red Blood Count 3.33L, Hemoglobin 9.0L, Hematocrit 28L, Mean Corpuscular Volume 83, Mean Corpuscular Hemoglobin 27, Mean Corpuscular Hemoglobin Concent 33, Red Cell Distribution Width 15.5H, Platelet Count 101L, Mean Platelet Volume 11.8, Sodium Level 136, Potassium Level 4.1, Chloride Level 101, Carbon Dioxide Level 28, Anion Gap 7, Blood Urea Nitrogen 16, Creatinine 0.75, Estimat Glomerular Filtration Rate > 60, BUN/Creatinine Ratio 21, Glucose Level 154H, Calcium Level 8.2L, Corrected Calcium 8.8, Total Bilirubin 0.3, Aspartate Amino Transf (AST/SGOT) 77H, Alanine Aminotransferase (ALT/SGPT) 48, Alkaline Phosphatase 45, Total Protein 7.5, Albumin 3.3 Microbiology 12/17/19 Urine Culture - Final, Complete NO GROWTH 12/17/19 Blood Culture - Final, Complete Staphylococcus hominis Home Meds Active Cefdinir 300 Mg Capsule 300 Mg PO BID 3 Days Reported Lasix (Furosemide) 40 Mg Tablet 80 Mg PO DAILY PRN TAKES 2 TABS ON DAYS WHEN HE IS HOME BUT IF HE IS OUT OF THE HOUSE HE DOESNT TAKE ANY Ketoconazole 120 Ml Shampoo 1 Applic TP TWICE WEEKLY Proair Hfa (Albuterol Sulfate) 1 Puff Puff 2 Puff IH Q8H PRN [place] 3 1,000 mg Softgel ([place]-3 Fatty Acids/Fish Oil) 1 Each Capsule 1 Each PO TID Atorvastatin Calcium 80 Mg Tablet 40 Mg PO DAILY TAKES OF A 80MG TO EQUAL 40MG DAILY Ferrous Gluconate 324 Mg Tablet 324 Mg PO DAILY Alogliptin (Alogliptin Benzoate) 25 Mg Tablet 25 Mg PO DAILY Centrum Silver Tablet (Multivit-Min/FA/Lycopene/Lut) 1 Each Tablet 1 Tab PO DAILY Mysoline (Primidone) 250 Mg Tablet 250 Mg PO HS Striverdi Respimat (Olodaterol HCl) 4 Gm Mist.inhal 2 Puff IH DAILY Sertraline HCl 100 Mg Tablet 100 Mg PO DAILY Aspir 81 (Aspirin) 81 Mg Tablet.dr 81 Mg PO DAILY Losartan Potassium 100 Mg Tablet 50 Mg PO DAILY TAKES 1/2 (100MG) TABLET Metformin HCl ER (Metformin HCl) 500 Mg Tab.er.24 2,000 Mg PO 1700 TAKES 4 (500MG) TABLETS BEFORE SUPPER Gabapentin 300 Mg Capsule 600 Mg PO TID TAKES 2 (300MG) CAPSULES Glipizide 10 Mg Tablet 20 Mg PO BID TAKES 2 (10MG) TABLETS Meloxicam 7.5 Mg Tablet 7.5 Mg PO DAILY Assessment/Pt Instructions take medications as prescribed. Complete her course of antibiotics even if you're feeling better. Wear supplemental oxygen 2 L continuously. Follow-up with your primary care physician. Return with worsening shortness of breath or if you feel like you're getting worse. Discharge Planning: <30 minutes discharge planning Discharge Instructions Discharge Diet: No Restrictions Activity as Tolerated: Yes Discharge Physical Examination Vital Signs Vital Signs Date Time Temp Pulse Resp B/P (MAP) Pulse Ox O2 Delivery O2 Flow Rate FiO2 12/21/19 10:45 Nasal Cannula 2.00 12/21/19 10:43 92 12/21/19 08:00 36.5 67 16 142/67 (92) 12/17/19 11:19 36 General Appearance: No Apparent Distress, Obese Respiratory: Lungs Clear, Normal Breath Sounds, No Respiratory Distress Cardiovascular: Regular Rate, Rhythm, No Edema, No Murmur Gastrointestinal: Normal Bowel Sounds, Non Tender, Soft Extremity: Normal Inspection, Non Tender, No Pedal Edema Skin: Normal Color, Warm/Dry Neurologic/Psychiatric: Alert, Oriented x3, No Motor/Sensory Deficits, Normal Mood/Affect Allergies: Coded Allergies: lisinopril (Verified Allergy, Unknown, 09/22/15) sildenafil (Verified Allergy, Unknown, 09/22/15) Copy Copies To 1: LUCAS GARCIA DO Discharge Summary Date of Admission Dec 17, 2019 at 05:00 Date of Discharge Discharge Date: Dec 21, 2019 Discharge Time: 11:55 Admission Diagnosis Acute respiratory failure due to COVID-19 Discharge Diagnosis Acute respiratory failure due to COVID-19 (1) Acute respiratory failure due to COVID-19 Status: Acute (2) PNA (pneumonia) Status: Acute (3) Non-insulin dependent type 2 diabetes mellitus Status: Chronic (4) Steroid-induced hyperglycemia Status: Acute (5) Morbid obesity Status: Chronic (6) Contamination of blood culture Status: Acute Clinical Quality Measures DVT/VTE Risk/Contraindication: Risk Factor Score Per Nursin RFS Level Per Nursing on Admit: 4+=Very High CHRISTA MCINTOSH MD Dec 21, 2019 11:55
--- NOTE | 2019-12-21 13:10 | NUR ---
Report from Nathalia AYERS, will assume care of patient at this time.
[2019-12-21] MEDS ORDERED: TROUGH ORDER-PHARMACY XX NR (17:00)
== END 2019-12-21 15:40 | disposition home or self-care (01) | DRG 871 ==
LOC: EDUNIT# 02:27 → ER 02:29 → 4TH 05:00
PROVIDERS: ADMIT Family Medicine; ATTEND Internal Medicine
PROC: XW033E5 Introduction of Remdesivir Anti-infective into Peripheral Vein, Percutaneous Approach, New Technology Group 5 (ICD-10-PCS; principal; 2019-12-17)
PROC: XW13325 Transfusion of Convalescent Plasma (Nonautologous) into Peripheral Vein, Percutaneous Approach, New Technology Group 5 (ICD-10-PCS; 2019-12-18)
DX: A41.89 Other specified sepsis (principal); U07.1 COVID-19; J96.01 Acute respiratory failure with hypoxia; J15.9 Unspecified bacterial pneumonia; D61.818 Other pancytopenia; Z68.41 Body mass index [BMI] 40.0-44.9, adult; J43.9 Emphysema, unspecified; E66.01 Morbid (severe) obesity due to excess calories; E11.65 Type 2 diabetes mellitus with hyperglycemia; I10 Essential (primary) hypertension; E78.00 Pure hypercholesterolemia, unspecified; E78.5 Hyperlipidemia, unspecified; S00.01XA Abrasion of scalp, initial encounter; G51.0 Bell's palsy; M19.91 Primary osteoarthritis, unspecified site; F32.9 Major depressive disorder, single episode, unspecified; R19.7 Diarrhea, unspecified; Z79.84 Long term (current) use of oral hypoglycemic drugs; Z87.891 Personal history of nicotine dependence; T38.0X5A Adverse effect of glucocorticoids and synthetic analogues, initial encounter; W18.30XA Fall on same level, unspecified, initial encounter; Y92.009 Unspecified place in unspecified non-institutional (private) residence as the place of occurrence of the external cause
CPT/HCPCS: 36415; 51702; 70450; 71275; 72125; 80053; 81000; 82728; 82746; 82962; 83036; 83540; 83605; 83615; 84145; 85007; 85027; 85379; 85610; 85730; 86141; 86900; 86901; 87040; 87077; 87088; 87186; 94010; 94640; 94760; 94761

== ENCOUNTER → 2019-12-29 | Outpatient (CLI) | payer MEDICARE ==
[2019-12-29 12:39] LABS: BASOPHILS % (AUTO) 0 % (0-10); EOSINOPHILS % (AUTO) 0 % (0-10); HEMATOCRIT 32 % (40-54); HEMOGLOBIN 10.4 g/dL (13.3-17.7); LYMPHOCYTES # (AUTO) 1.2 10^3/uL (1.0-4.0); LYMPHOCYTES % (AUTO) 41 % (12-44); MEAN CORPUSCULAR HEMOGLOBIN 27 pg (25-34); MEAN CORPUSCULAR HGB CONC 33 g/dL (32-36); MEAN CORPUSCULAR VOLUME 82 fL (80-99); MEAN PLATELET VOLUME 11.5 fL (9.0-12.2); MONOCYTES # (AUTO) 0.4 10^3/uL (0.0-1.0); MONOCYTES % (AUTO) 14 % (0-12); NEUTROPHILS # (AUTO) 1.3 10^3/uL (1.8-7.8); NEUTROPHILS % (AUTO) 44 % (42-75); PLATELET COUNT 178 10^3/uL (130-400)
== END ==
LOC: LAB 12:14
PROVIDERS: ATTEND Internal Medicine
DX: D61.818 Other pancytopenia (principal)
CPT/HCPCS: 36415; 85025

== ENCOUNTER 2021-11-28 08:09 | Inpatient (IN) | payer OTHER, MEDICARE ==
[~2021-11-28] VITALS: Ht 162.6 cm; Wt 108.6 kg
[~2021-11-28 08:09] MED LIST changes: -POTA99TA21 PO; +POTA99TA26 PO; +SERT-414 PO; -SERT100T8 PO
[2021-11-28] MEDS ORDERED: RT-ALBUTEROL HFA 8.5 GM INHALER IH STA (09:07)
[2021-11-28 09:13] LABS: BASOPHILS % (AUTO) 0 % (0-10); HEMOGLOBIN 11.5 g/dL (13.3-17.7); LYMPHOCYTES # (AUTO) 0.6 10^3/uL (1.0-4.0)
[2021-11-28 09:15] LABS: EOSINOPHILS % (AUTO) 0 % (0-10); HEMATOCRIT 36 % (40-54); LYMPHOCYTES % (AUTO) 6 % (12-44); MEAN CORPUSCULAR HEMOGLOBIN 27 pg (25-34); MEAN CORPUSCULAR HGB CONC 32 g/dL (32-36); MEAN CORPUSCULAR VOLUME 84 fL (80-99); MEAN PLATELET VOLUME 11.7 fL (9.0-12.2); MONOCYTES # (AUTO) 1.6 10^3/uL (0.0-1.0); MONOCYTES % (AUTO) 17 % (0-12); NEUTROPHILS # (AUTO) 6.7 10^3/uL (1.8-7.8); NEUTROPHILS % (AUTO) 75 % (42-75); PLATELET COUNT 108 10^3/uL (130-400)
[2021-11-28] MEDS ORDERED: LACTATED RINGERS 1,000 ML IV ONE ×2 (09:15→11:15)
[2021-11-28 09:26] LABS: ALBUMIN 3.9 GM/DL (3.2-4.5); POTASSIUM 4.3 MMOL/L (3.6-5.0)
--- NOTE | 2021-11-28 09:26 | Diagnostic Imaging Report ---
EXAMINATION: Chest 1 view HISTORY: SOA, Hypoxia COMPARISON: 04/10/2019 FINDINGS: Heart size and pulmonary vasculature are normal. There are patchy interstitial opacities within the mid and lower lungs. No significant pleural effusion or pneumothorax. Surgical changes from right shoulder arthroplasty. IMPRESSION: 1. Patchy interstitial opacities within the mid and lower lungs which can be seen with atelectasis, pulmonary edema, or atypical infection. Dictated by: Dictated on workstation # [id number]
[2021-11-28 09:27] LABS: CALCIUM 8.7 MG/DL (8.5-10.1)
[2021-11-28 09:28] LABS: TOTAL PROTEIN 8.1 GM/DL (6.4-8.2)
[2021-11-28 09:30] LABS: BILIRUBIN,TOTAL 0.5 MG/DL (0.1-1.0); INR 1.1 (0.8-1.4); PROTHROMBIN TIME PATIENT 14.6 SEC (12.2-14.7)
[2021-11-28 09:32] LABS: CREATININE SERUM 0.86 MG/DL (0.60-1.30)
[2021-11-28 09:45] LABS: BAND NEUTROPHILS 2 %; EOSINOPHILS % (MANUAL) 1 %; LYMPHOCYTES % (MANUAL) 5 %; MONOCYTES % (MANUAL) 18 %; NEUTROPHILS % (MANUAL) 74 %; RBC MORPH NORMAL
[2021-11-28] MEDS ORDERED: CEFEPIME INJECTION 2,000 MG in NS (IVPB) 50 ML IV ONE (10:30)
--- NOTE | 2021-11-28 11:15 | ED General ---
General Chief Complaint: COVID19 Suspect/Confirmed Stated Complaint: COUGH/FEVER/CHILLS/SORE THROAT Nursing Triage Note: PT TO RM 9 W C/O COUGH, SOA, SCRATCHY THROAT, WEAKNESS, BODY ACHES, AND FEVER. PT A&OX4. Source of Information: Patient, Old Records Exam Limitations: No Limitations History of Present Illness Date Seen by Provider: Nov 28, 2021 Time Seen by Provider: 08:13 Initial Comments This 86-year-old gentleman presents to the emergency room with febrile illness, shortness of breath, and oxygen saturation in the upper 80s on room air on arrival. He started not feeling well yesterday. He has had a "scratchy" throat along with cough, weakness, and body aches. He is febrile on arrival. He does have history of COPD and episodes of pneumonia. He does not normally use oxygen at home. He uses the [facility] clinic for primary care and is a [facility] patient. He is alert and oriented and in no acute distress. Allergies and Home Medications Allergies Coded Allergies: lisinopril (Verified Allergy, Unknown, 09/22/15) sildenafil (Verified Allergy, Unknown, 09/22/15) Patient Home Medication List Home Medication List Reviewed: Yes Albuterol Sulfate (Proair Hfa) 1 Puff Puff, 2 PUFF IH Q8H PRN for SHORTNESS OF BREATH, (Reported) Entered as Reported by: CAIO MUELLER on 04/10/19 1136 Alogliptin Benzoate (Alogliptin) 25 Mg Tablet, 25 MG PO DAILY, (Reported) Entered as Reported by: TABBY ROSE on 09/23/18 1548 Aspirin (Aspir 81) 81 Mg Tablet.dr, 81 MG PO DAILY, (Reported) Entered as Reported by: LIZET PRO on 09/04/15 194 Atorvastatin Calcium (Atorvastatin Calcium) 80 Mg Tablet, 40 MG PO DAILY, (Reported) Entered as Reported by: JOSHUA BILLS on 04/09/19 182 Cefdinir (Cefdinir) 300 Mg Capsule, 300 MG PO BID Prescribed by: CHRISTA MCINTOSH on 12/21/19 1046 Ferrous Gluconate (Ferrous Gluconate) 324 Mg Tablet, 324 MG PO DAILY, (Reported) Entered as Reported by: JOSHUA BILLS on 04/09/191812 Furosemide (Lasix) 40 Mg Tablet, 80 MG PO DAILY PRN for FLUID RETENTION, (Reported) Entered as Reported by: CAIO MUELLER on 04/10/19 114 Gabapentin (Gabapentin) 300 Mg Capsule, 600 MG PO TID, (Reported) Entered as Reported by: LIZET PRO on 09/04/151944 Glipizide (Glipizide) 10 Mg Tablet, 20 MG PO BID, (Reported) Entered as Reported by: LIZET PRO on 09/04/151940 Ketoconazole (Ketoconazole) 120 Ml Shampoo, 1 APPLIC TP TWICE WEEKLY, (Reported) Entered as Reported by: CAIO MUELLER on 04/10/19 114 Losartan Potassium (Losartan Potassium) 100 Mg Tablet, 50 MG PO DAILY, (Reported) Entered as Reported by: LIZET PRO on 09/04/151944 Meloxicam (Meloxicam) 7.5 Mg Tablet, 7.5 MG PO DAILY, (Reported) Entered as Reported by: LIZET PRO on 09/04/151940 Metformin HCl (Metformin HCl ER) 500 Mg Tab.er.24, 2,000 MG PO 1700, (Reported) Entered as Reported by: LIZET PRO on 09/04/151944 Multivit-Min/FA/Lycopene/Lut (Centrum Silver Tablet) 1 Each Tablet, 1 TAB PO DAILY, (Reported) Entered as Reported by: TABBY ROSE on 09/23/18 154 Olodaterol HCl (Striverdi Respimat) 4 Gm Mist.inhal, 2 PUFF IH DAILY, (Reported) Entered as Reported by: TABBY ROSE on 03/03/16 1233 [place]-3 Fatty Acids/Fish Oil ([place] 3 1,000 mg Softgel) 1 Each Capsule, 1 EACH PO TID, (Reported) Entered as Reported by: JOSHUA BILLS on 04/09/19 182 Primidone (Mysoline) 250 Mg Tablet, 250 MG PO HS, (Reported) Entered as Reported by: TABBY ROSE on 09/23/18 154 Sertraline HCl (Sertraline HCl) 100 Mg Tablet, 100 MG PO DAILY, (Reported) Entered as Reported by: LIZET PRO on 09/04/151946 Review of Systems Review of Systems Constitutional: see HPI EENTM: see HPI Respiratory: see HPI Cardiovascular: no symptoms reported Gastrointestinal: no symptoms reported Genitourinary: no symptoms reported Musculoskeletal: see HPI Skin: no symptoms reported Psychiatric/Neurological: No Symptoms Reported Hematologic/Lymphatic: No Symptoms Reported Immunological/Allergic: no symptoms reported Past Winajee-Zvffsx-Kuazib Hx Patient Social History Tobacco Use?: No Use of E-Cig and/or Vaping dev: No Substance use?: No Alcohol Use?: No Immunizations Up To Date Tetanus Booster (TDap): Unknown First/Initial COVID19 Vaccinat: 2020 Second COVID19 Vaccination Joao: 201 Third COVID19 Vaccination Date: 2020 COVID19 Vaccine 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: [employer] Seasonal Allergies Seasonal Allergies: No Past Medical History Surgeries: Yes (HERNIA) Abdominal, Orthopedic, Tonsillectomy Respiratory: Yes Pneumonia, Sleep Apnea (Uses CPAP), COPD, Emphysema Currently Using CPAP: Yes Currently Using BIPAP: No Cardiac: Yes High Cholesterol, Hypertension Neurological: Yes ([place] WITH PERMANENT RIGHT FACIAL DROOP) Reproductive Disorders: No Sexually Transmitted Disease: No HIV/AIDS: No Genitourinary: No Gastrointestinal: Yes Abdominal Hernia Musculoskeletal: Yes ("EPIDURAL FOR L3-L4 DEGENERATION"; NECK PAIN) Degenerate Disk Disease, Arthritis, Chronic Back Pain Endocrine: Yes (OBESITY) Diabetes, Non-Insulin dep HEENT: No Cancer: No Skin Did You Recieve Any Treatments: Yes What Type of Treatment Did You: Surgical Intervention Psychosocial: Yes Depression Integumentary: No Blood Disorders: Yes (ANEMIA) Adverse Reaction/Blood Tranf: No Family Medical History Reviewed Nursing Family Hx Arthritis 19 MOTHER Cataracts 19 MOTHER Deafness or hearing loss G8 BROTHER Diabetes mellitus 19 MOTHER Visual disorder 19 MOTHER Diabetes Physical Exam-Suspected Sepsis Physical Exam Vital Signs Vital Signs - First Documented 11/28/21 08:35 Temp 38.6 Pulse 113 Resp 22 B/P (MAP) 145/69 (94) Pulse Ox 92 O2 Delivery Nasal Cannula O2 Flow Rate 2.00 Capillary Refill : Less Than 3 Seconds Blood Pressure Mean: 94 Height, Weight, BMI Height: 5'4.00" Weight: 253lbs. 0.0oz. 114.195235ms; 39.00 BMI Method:Stated General Appearance: No Apparent Distress, WD/WN HEENT: PERRL/EOMI, Other (Oropharynx quite dry) Neck: Normal Inspection; No JVD Respiratory: No Accessory Muscle Use, No Respiratory Distress; No Crackles; Decreased Breath Sounds; No Wheezing Cardiovascular: Regular Rate, Rhythm, No Edema, No Murmur Gastrointestinal: Non Tender, Soft Extremity: Normal Inspection, No Calf Tenderness, No Pedal Edema Neurologic/Psychiatric: Alert, Oriented x3, No Motor/Sensory Deficits, Normal Mood/Affect Skin: normal color, warm/dry Focused Exam Sepsis Stage: Sepsis Possible Source: Pulmonary Lactate Level 11/28/21 08:48: Lactic Acid Level 3.55*H 11/28/21 10:56: Lactic Acid Level 1.46 Time of Focused Exam: 11:57 Respiratory: Lungs Clear, No Respiratory Distress Cardiovascular: Regular Rate, Rhythm, No Edema Capillary Refill: Less Than 3 Seconds Skin: normal color, warm/dry Lactic Acid Level Laboratory Tests Test 11/28/21 08:48 11/28/21 10:56 Lactic Acid Level 3.55 MMOL/L (0.50-2.00) *H 1.46 MMOL/L (0.50-2.00) Within 3hrs of presentation: Admin ABX, Blood cultures prior to ABX's, Focus exam, Lactate level Progress/Results/Core Measures Suspected Sepsis SIRS Temperature: Pulse: 113 Respiratory Rate: 22 Laboratory Tests 11/28/21 08:48: White Blood Count 9.0 Blood Pressure 145 /69 Mean: 94 11/28/21 08:48: Lactic Acid Level 3.55*H 11/28/21 10:56: Lactic Acid Level 1.46 Laboratory Tests 11/28/21 08:48: Creatinine 0.86, INR Comment 1.1, Platelet Count 108L, Total Bilirubin 0.5 Results/Orders Lab Results Laboratory Tests Test 11/28/21 08:38 11/28/21 08:48 11/28/21 10:56 Range/Units Influenza Type A (RT-PCR) Not Detected Not Detecte Influenza Type B (RT-PCR) Not Detected Not Detecte SARS-CoV-2 RNA (RT-PCR) Not Detected Not Detecte White Blood Count 9.0 4.3-11.0 10^3/uL Red Blood Count 4.21 L 4.30-5.52 10^6/uL Hemoglobin 11.5 L 13.3-17.7 g/dL Hematocrit 36 L 40-54 % Mean Corpuscular Volume 84 80-99 fL Mean Corpuscular Hemoglobin 27 25-34 pg Mean Corpuscular Hemoglobin Concent 32 32-36 g/dL Red Cell Distribution Width 15.9 H 10.0-14.5 % Platelet Count 108 L 130-400 10^3/uL Mean Platelet Volume 11.7 9.0-12.2 fL Immature Granulocyte % (Auto) 2 % Neutrophils (%) (Auto) 75 42-75 % Lymphocytes (%) (Auto) 6 L 12-44 % Monocytes (%) (Auto) 17 H 0-12 % Eosinophils (%) (Auto) 0 0-10 % Basophils (%) (Auto) 0 0-10 % Neutrophils # (Auto) 6.7 1.8-7.8 10^3/uL Lymphocytes # (Auto) 0.6 L 1.0-4.0 10^3/uL Monocytes # (Auto) 1.6 H 0.0-1.0 10^3/uL Eosinophils # (Auto) 0.0 0.0-0.3 10^3/uL Basophils # (Auto) 0.0 0.0-0.1 10^3/uL Immature Granulocyte # (Auto) 0.1 0.0-0.1 10^3/uL Neutrophils % (Manual) 74 % Lymphocytes % (Manual) 5 % Monocytes % (Manual) 18 % Eosinophils % (Manual) 1 % Band Neutrophils 2 % Percent Immature Platelet Fraction 9.9 H 0.0-7.6 % Blood Morphology Comment NORMAL Prothrombin Time 14.6 12.2-14.7 SEC INR Comment 1.1 0.8-1.4 Activated Partial Thromboplast Time 30 24-35 SEC Sodium Level 140 135-145 MMOL/L Potassium Level 4.3 3.6-5.0 MMOL/L Chloride Level 102 98-107 MMOL/L Carbon Dioxide Level 22 21-32 MMOL/L Anion Gap 16 H 5-14 MMOL/L Blood Urea Nitrogen 15 7-18 MG/DL Creatinine 0.86 0.60-1.30 MG/DL Estimat Glomerular Filtration Rate 85 BUN/Creatinine Ratio 17 Glucose Level 231 H 70-105 MG/DL Lactic Acid Level 3.55 *H 1.46 0.50-2.00 MMOL/L Calcium Level 8.7 8.5-10.1 MG/DL Corrected Calcium 8.8 8.5-10.1 MG/DL Total Bilirubin 0.5 0.1-1.0 MG/DL Aspartate Amino Transf (AST/SGOT) 20 5-34 U/L Alanine Aminotransferase (ALT/SGPT) 18 0-55 U/L Alkaline Phosphatase 59 40-136 U/L C-Reactive Protein High Sensitivity 1.59 H 0.00-0.50 MG/DL Total Protein 8.1 6.4-8.2 GM/DL Albumin 3.9 3.2-4.5 GM/DL Procalcitonin 0.15 H <0.10 NG/ML My Orders Orders - BRITTANY COTTO MD Covid 19 Inhouse Test (11/28/21 08:13) Influenza A And B By Pcr (11/28/21 08:13) Cbc With Automated Diff (11/28/21 08:45) Comprehensive Metabolic Panel (11/28/21 08:45) Blood Culture (11/28/21 08:45) Sputum Culture (11/28/21 08:45) Urinalysis (11/28/21 08:45) Urine Culture (11/28/21 08:45) Protime With Inr (11/28/21 08:45) Partial Thromboplastin Time (11/28/21 08:45) Chest 1 View, Ap/Pa Only (11/28/21 08:45) Ed Iv/Invasive Line Start (11/28/21 08:45) Vital Signs Adult Sepsis Patie Q15M (11/28/21 08:45) O2 (11/28/21 08:45) Remove Rings In Anticipation O (11/28/21 08:45) Lactic Acid Analyzer (11/28/21 08:45) Hs C Reactive Protein (11/28/21 08:45) Procalcitonin (Pct) (11/28/21 08:45) Lactated Ringers (Lr 1000 Ml Iv Solution (11/28/21 09:15) Albuterol Inhaler (Albuterol) (11/28/21 09:07) Manual Differential (11/28/21 08:48) Cefepime Injection (Maxipime Injection) (11/28/21 10:30) Bnp Deuel (11/28/21 11:15) Lactated Ringers (Lr 1000 Ml Iv Solution (11/28/21 11:15) Ed Admission (Communication) (11/28/21 11:38) Medications Given in ED Current Medications Medications Dose Ordered Sig/Ana Route Start Time Stop Time Status Last Admin Dose Admin Cefepime HCl 2000 mg/Sodium Chloride 50 ml @ 100 mls/hr ONCE ONCE IV 11/28/21 10:30 11/28/21 10:59 DC 11/28/21 10:40 100 MLS/HR Lactated Ringer's 1,000 ml @ 0 mls/hr Q0M ONCE IV 11/28/21 09:15 11/28/21 09:16 DC 11/28/21 09:22 0 MLS/HR Lactated Ringer's 1,000 ml @ 0 mls/hr Q0M ONCE IV 11/28/21 11:15 11/28/21 11:16 DC 11/28/21 11:28 0 MLS/HR Vital Signs/I&O 11/28/21 08:35 Temp 38.6 Pulse 113 Resp 22 B/P (MAP) 145/69 (94) Pulse Ox 92 O2 Delivery Nasal Cannula O2 Flow Rate 2.00 Capillary Refill : Less Than 3 Seconds Blood Pressure Mean: 94 Progress Note #1: Time: 11:13 Progress Note Patient was found to have possible pneumonia based on chest x-ray. Cefepime is being administered for initial antibiotic therapy after blood cultures. Albuterol inhaler was given x4 puffs for decreased air movement. Patient remained stable, alert, and comfortable. He technically meets criteria for severe sepsis due to his high lactic acid and mild hypoxia. Progress Note #2: Time: 11:59 Progress Note Case was discussed with Dr. Zheng. She would like him admitted to the ICU. Patient would like to remain full code at this time. BNP is pending. Since he is not hypoxic or tachycardic at this time. We are not administering high- volume fluids until BNP is known. Lactic acid has also corrected to normal on repeat draw. Patient did receive 1 L of LR. Currently giving report to eICU. Diagnostic Imaging Diagonstic Imaging: Xray Plain Films/CT/US/NM/MRI: chest Comments NAME: [facility] REC#: [id number] PT STATUS: REG ER : 1935 PHYSICIAN: BRITTANY COTTO MD ADMIT DATE: 11/28/21/ER Signed Date of Exam:11/28/21 CHEST 1 VIEW, AP/PA ONLY EXAMINATION: Chest 1 view HISTORY: SOA, Hypoxia COMPARISON: 04/10/2019 FINDINGS: Heart size and pulmonary vasculature are normal. There are patchy interstitial opacities within the mid and lower lungs. No significant pleural effusion or pneumothorax. Surgical changes from right shoulder arthroplasty. IMPRESSION: 1. Patchy interstitial opacities within the mid and lower lungs which can be seen with atelectasis, pulmonary edema, or atypical infection. Dictated by: Dictated on workstation # [id number] Dict: 11/28/21918 Trans: 11/28/21926 [facility] [id number] Interpreted by: JUDE DICK DO Electronically signed by: JUDE DICK DO 11/28/21926 Departure Communication (Admissions) Time/Spoke to Admitting Phy: 11:17 Dr. Zheng Impression Primary Impression: Severe sepsis Additional Impressions: PNA (pneumonia) Qualified Codes: J18.9 - Pneumonia, unspecified organism Hypoxia COPD exacerbation Disposition: ADMITTED INPATIENT Condition: Improved Admissions Decision to Admit Reason: Admit from ER (General) Decision to Admit/Date: Nov 28, 2021 Time/Decision to Admit Time: 11:17 Departure-Patient Inst. Referrals: NO,LOCAL PHYSICIAN (PCP/Family) Primary Care Physician BRITTANY COTTO MD Nov 28, 2021 11:14
--- NOTE | 2021-11-28 13:01 | History & Physical-Hospitalist ---
JORGITO CONTRERAS 11/28/21 1301: History of Present Illness HPI/Chief Complaint Patient is an 86 y/o M with history of COPD, CHF, HTN, Type 2 DM, and history of pneumonia who presented to the ER this morning with difficulty breathing and fever. When he presented his O2 sats were in the 80s. Patient reports that his throat was sore yesterday and that this morning he woke up at 3 AM feeling feverish and short of air. He states he has some chills and a dry cough. He also states he has not had any sick contacts to his knowledge. He is on oxygen at present but does not use any at home usually. His reports that he has a CPAP machine. COVID results were negative. CXR today shows patchy interstitial opacities within the mid and lower lungs consistent with pneumonia. Lactic Acid: 3.55 Procalcitonin: 0.15 Source: patient, spouse Exam Limitations: no limitations Date Seen 11/28/21 Time Seen by a Provider: 12:56 Attending Physician No,Local Physician PCP Admitting Physician: Tatum Zheng DO Attending Physician: Tatum Zheng DO Referring Physician Date of Admission Nov 28, 2021 at 11:38 Home Medications & Allergies Home Medications Reviewed patient Home Medication Reconciliation performed by pharmacy medication reconciliations lock technician and/or nursing. Patients Allergies have been reviewed. Allergies Allergies Coded Allergies lisinopril (Verified Allergy, Unknown, 09/22/15) sildenafil (Verified Allergy, Unknown, 09/22/15) Past Wiwdyic-Xiefua-Oidvfz Hx Patient Social History Marrital Status: Tobacco Use?: No Use of E-Cig and/or Vaping dev: No Substance use?: No Alcohol Use?: No Immunizations Up To Date Date of Influenza Vaccine: Dec 08, 2019 First/Initial COVID19 Vaccinat: 2020 Second COVID19 Vaccination Joao: 201 Tetanus Booster (TDap): Unknown Date of Pneumonia Vaccine: Dec 16, 2014 Seasonal Allergies Seasonal Allergies: No Current Status Advance Directives: No Communicates: Verbally Primary Language: Prydeinig Preferred Spoken Language: Prydeinig Past Medical History Surgeries: Abdominal, Orthopedic, Tonsillectomy Pneumonia, Sleep Apnea (Uses CPAP), COPD, Emphysema Currently Using CPAP: Yes Currently Using BIPAP: No High Cholesterol, Hypertension Sexually Transmitted Disease: No HIV/AIDS: No Abdominal Hernia Degenerate Disk Disease, Arthritis, Chronic Back Pain Diabetes, Non-Insulin dep Skin Did You Recieve Any Treatments: Yes What Type of Treatment Did You: Surgical Intervention Depression Blood Disorders: Yes (ANEMIA) Adverse Reaction/Blood Tranf: No Family Medical History Reviewed Nursing Family Hx Arthritis 19 MOTHER Cataracts 19 MOTHER Deafness or hearing loss G8 BROTHER Diabetes mellitus 19 MOTHER Visual disorder 19 MOTHER Diabetes Review of Systems Constitutional: chills, fever, weakness Respiratory: cough; No phlegm; short of breath Cardiovascular: No chest pain, No palpitations Physical Exam Physical Exam Vital Signs Vital Signs - First Documented 11/28/21 08:35 Temp 38.6 Pulse 113 Resp 22 B/P (MAP) 145/69 (94) Pulse Ox 92 O2 Delivery Nasal Cannula O2 Flow Rate 2.00 Capillary Refill : Less Than 3 Seconds Height, Weight, BMI Height: 5'4.00" Weight: 253lbs. 0.0oz. [id number]; 39.00 BMI Method:Stated General Appearance: No Apparent Distress HEENT: Moist Mucous Membranes Respiratory: Chest Non Tender, No Accessory Muscle Use, No Respiratory Distress Cardiovascular: Tachycardia Neurologic/Psychiatric: Alert, Normal Mood/Affect Results Results/Procedures Labs Laboratory Tests 11/28/21 08:48 Patient resulted labs reviewed. Assessment/Plan Admission Diagnosis Admission Status: Inpatient Order (span 2 midnights) Assessment and Plan Assessment: Pneumonia Dyspnea CHF HTN Type 2 Diabetes Mellitus COPD history Plan: Supportive Care IVF Cefapime Azithromycin Tessalon Pearls Pain control Pepcid Home Meds Cardiology consulted for echoTATUM BARNDT DO 11/29/21 0748: Past Mgtipiq-Oqblhz-Bdohhg Hx Family Medical History Arthritis 19 MOTHER Cataracts 19 MOTHER Deafness or hearing loss G8 BROTHER Diabetes mellitus 19 MOTHER Visual disorder 19 MOTHER Assessment/Plan Admission Diagnosis Assessment: Acute hypoxic respiratory failure requiring biPAP Severe sepsis PNA CHF HTN HLP Obesity PARKER on CPAP Plan: IV abx ICU Cardiology IVF Admission Status: Inpatient Order (span 2 midnights) Reason for Inpatient Admission: resp failure Supervisory-Addendum Brief Verification & Attestation Participated in pt care: history, MDM, physical Personally performed: exam, history, MDM, supervision of care Care discussed with: Medical Student Procedures: n/a Results interpretation: Verified all documentation Verification and Attestation of Medical Student E/M Service A medical student performed and documented this service in my presence. I reviewed and verified all information documented by the medical student and made modifications to such information, when appropriate. I personally performed the physical exam and medical decision making. Tatum Zheng, Nov 29, 2021,07:48 JORGITO CONTRERAS Nov 28, 2021 13:01 TATUM ZHENG DO Nov 29, 2021 07:48
[2021-11-28 13:45] VITALS: BP 153/73
[2021-11-28 14:00] VITALS: BP 142/75
[2021-11-28] MEDS ORDERED: diphenhydrAMINE 25 MG TAB (BENADRYL) PO PRN (14:00)
[2021-11-28] MEDS ORDERED: BENZONATATE 100 MG (TESSALON) CAPSULE PO PRN (14:00)
[2021-11-28] MEDS ORDERED: LACTULOSE SYRUP 10GM/15ML (ENULOSE) 30ML UDC PO PRN (14:00)
[2021-11-28] MEDS ORDERED: MELATONIN 3 MG TABLET PO PRN (14:00)
[2021-11-28] MEDS ORDERED: LORazepam 0.5 MG (ATIVAN) TABLET PO PRN (14:00)
[2021-11-28] MEDS ORDERED: polyethylene glycoL POWDER 17 GM (MIRALAX) PACK PO PRN (14:00)
[2021-11-28] MEDS ORDERED: ONDANSETRON 4 MG/2 ML (SDV) Z0FRAN IV PRN (14:00)
[2021-11-28] MEDS ORDERED: ENOXAPARIN 40 MG/0.4 ML (LOVENOX) SYR SC SCH (14:00)
[2021-11-28] MEDS ORDERED: MILK OF MAGNESIA 400 MG/5 ML 30 ML UDC PO PRN (14:00)
[2021-11-28] MEDS ORDERED: cloNIDine 0.1 MG (CATAPRES) TAB PO PRN (14:00)
[2021-11-28] MEDS ORDERED: morphine INJ 4 MG/ML 1 ML (VIAL/SYRINGE) IV PRN (14:00)
[2021-11-28] MEDS ORDERED: morphine IMMEDIATE RELEASE 15 MG TABLET PO PRN (14:00)
[2021-11-28] MEDS ORDERED: ANTACID SUSP 30 ML UDC (MYLANTA) PO PRN (14:00)
[2021-11-28] MEDS ORDERED: ONDANSETRON 4 MG (ZOFRAN) ORAL DISSOLVE TAB PO PRN (14:00)
[2021-11-28] MEDS ORDERED: CALCIUM CARBONATE 500 MG (TUMS) TAB.CHEW PO PRN (14:00)
[2021-11-28] MEDS ORDERED: diphenhydrAMINE 50 MG/ML INJ (BENADRYL) IVP PRN (14:00)
[2021-11-28] MEDS ORDERED: BISACODYL 10 MG SUPP (DULCOLAX) PR PRN (14:00)
[2021-11-28] MEDS ORDERED: NS IV 1000 ML 1,000 ML IV SCH ×2 (14:00→15:11)
[2021-11-28] MEDS ORDERED: NS IV 500 ML 500 ML IV PRN (14:00)
[2021-11-28] MEDS ORDERED: SEMA1PEN3 SQ (14:05)
[2021-11-28] MEDS ORDERED: ACET-2267 PO (14:05)
[2021-11-28] MEDS ORDERED: PREG150C46 PO (14:05)
[2021-11-28] MEDS ORDERED: ATOR80TA76 PO (14:05)
[2021-11-28] MEDS ORDERED: CARB15DR2 OU (14:05)
[2021-11-28] MEDS ORDERED: LOSA50TA63 PO (14:05)
[2021-11-28] MEDS ORDERED: ASPI-1238 PO (14:05)
[2021-11-28] MEDS ORDERED: DICL100G13 TP (14:05)
[2021-11-28] MEDS ORDERED: ACHD5005 PO (14:05)
[2021-11-28] MEDS ORDERED: EMPA25TA PO (14:05)
[2021-11-28 14:15] VITALS: BP 126/59
[2021-11-28] MEDS: AZITHROMYCIN INJECTION 500 MG in NS (IVPB) 250 ML IV SCH (14:15)
[2021-11-28] MEDS: ACETAMINOPHEN 325 MG TABLET PO PRN ×2 (14:27→18:48)
[2021-11-28 14:49] LABS: ABG BASE EXCESS 0.1 MMOL/L (-2.5-2.5); ABG OXYGEN SATURATION 88 % (94-100); ABG PCO2 40 MMHG (35-45); ABG PH 7.41 (7.37-7.43); ABG PO2 57 MMHG (79-93); ABG TCO2 25.2 MMOL/L (21.0-31.0)
[2021-11-28 14:50] LABS: ALLENS TEST POSITIVE; INSPIRED O2 8 L; PATIENT TEMP 38; VENTILATOR NO
--- NOTE | 2021-11-28 15:18 | Tele-ICU Consult ---
History of Present Illness History of Present Illness Date Seen by Provider: Nov 28, 2021 Time Seen by Provider: 15:17 Date of Admission (Tele-ICU Physician , consultation) Available chart/ vitals / labs / Images reviewed H&P is from ER notes Patient's information available about PMH, Shx, Fhx allergy reviewed inEMR. ROS as per chart and RN report Now in ICU, hemodynamically stable Video assessment done using teleICU camera, rest of exam as per RN Discussed with RN. Consultants: harry Hospital course: (11/28) 86y/o M admitted with hypoxia , admit with pneumonia & AECOPD. 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 Discussed with RN to reach out if any questions or concerns A total of 31 minutes of critical care time was devoted to this patient today, required to treat and/or prevent further deterioration of critical care condition ( as above ) . Allergies and Home Medications Allergies Coded Allergies: lisinopril (Verified Allergy, Unknown, 09/22/15) sildenafil (Verified Allergy, Unknown, 09/22/15) Home Medications Acetaminophen 500 Mg Tablet, 1,000 MG PO BID PRN for PAIN-MILD (1-4), (Reported) Albuterol Sulfate 1 Puff Puff, 2 PUFF IH Q6H PRN for SHORTNESS OF BREATH, ( Reported) Aspirin 81 Mg Tablet.dr, 81 MG PO DAILY, (Reported) Atorvastatin Calcium 80 Mg Tablet, 40 MG PO HS, (Reported) TAKES OF A 80MG Carboxymethylcellulos/Glycerin 0.5 %-0.9 % Drops, 1 DROP OU BID, (Reported) Diclofenac Sodium 1 % Gel..gram., 4 GM TP BID PRN for PAIN-BREAKTHROUGH, (Reported) APPLY TO LEFT KNEE AND BACK Empagliflozin 25 Mg Tablet, 25 MG PO DAILY, (Reported) Ferrous Gluconate 324 Mg Tablet, 324 MG PO DAILY, (Reported) Furosemide 40 Mg Tablet, 40 MG PO DAILY PRN for FLUID RETENTION, (Reported) Glipizide 10 Mg Tablet, 10 MG PO BID, (Reported) Hydrocodone/Acetaminophen 5 Mg-325 Mg Tablet, 1 TAB PO BID PRN for PAIN-MODERATE (5-7), (Reported) Losartan Potassium 50 Mg Tablet, 50 MG PO DAILY, (Reported) Metformin HCl 500 Mg Tab.er.24, 2,000 MG PO 1700, (Reported) TAKES 4 (500MG) TABLETS BEFORE SUPPER Multivit-Min/FA/Lycopene/Lut 1 Each Tablet, 1 TAB PO DAILY, (Reported) Olodaterol HCl 4 Gm Mist.inhal, 2 PUFF IH DAILY, (Reported) [place]-3 Fatty Acids/Fish Oil 300 Mg-1,000 Mg Capsule, 1 EACH PO BID, (Reported) Pregabalin 150 Mg Capsule, 150 MG PO BID, (Reported) Primidone 250 Mg Tablet, 250 MG PO HS, (Reported) Semaglutide 1 Mg/0.75 Ml (4 Mg/3 Ml) Pen.injctr, 1 MG SQ SUN, (Reported) Sertraline HCl 100 Mg Tablet, 100 MG PO DAILY, (Reported) Past Medical/Social/Family Hx Patient Social History Marrital Status: Tobacco Use?: No Use of E-Cig and/or Vaping dev: No Substance use?: No Alcohol Use?: No Immunizations Up To Date First/Initial COVID19 Vaccinat: 2020 Second COVID19 Vaccination Joao: 201 Tetanus Booster (TDap): Unknown Date of Pneumonia Vaccine: Dec 16, 2014 Current Status Advance Directives: No Communicates: Verbally Primary Language: Zimbabwean Preferred Spoken Language: Zimbabwean Review of Systems Constitutional: see HPI Focused Exam Lactate Level 11/28/21 08:48: Lactic Acid Level 3.55*H 11/28/21 10:56: Lactic Acid Level 1.46 Height, Weight, BMI Height: 5'4.00" Weight: 253lbs. 0.0oz. 114.083774il; 39.00 BMI Method:Stated Time of Focused Exam: 11:57 Exam Exam Patient acknowledged, consented, and participated in this virtual visit which was conducted using real time audio/video Vital Signs Date Time Temp Pulse Resp B/P (MAP) Pulse Ox O2 Delivery O2 Flow Rate FiO2 11/28/21 14:27 38.0 11/28/21 13:33 101 24 131/56 92 Nasal Cannula 2.00 11/28/21 08:35 38.6 113 22 145/69 (94) 92 Nasal Cannula 2.00 Height & Weight Height: 5'4.00" Weight: 253lbs. 0.0oz. 114.549622gw; 39.00 BMI Method:Stated General Appearance: No Apparent Distress HEENT: Moist Mucous Membranes Neck: Normal Inspection; No JVD Respiratory: Chest Non Tender, No Accessory Muscle Use, No Respiratory Distress Cardiovascular: Tachycardia Capillary Refill: Less Than 3 Seconds Extremity: Normal Inspection, No Calf Tenderness, No Pedal Edema Neurologic/Psychiatric: Alert, Normal Mood/Affect Results Lab Laboratory Tests 11/28/21 08:48 Assessment/Plan Assessment/Plan 1 VÍCTOR COOPER MD Nov 28, 2021 15:18
--- NOTE | 2021-11-28 15:56 | Consultation-Cardiology ---
HPI-Cardiology Cardiology Consultation: Date of Consultation 11/28/21 Date of Admission 11/28/21 Attending Physician Doreen,Local Physician Admitting Physician Admitting Physician: Tatum Zheng DO Attending Physician: Tatum Zheng DO Consulting Physician SUSAN MARRUFO JR, MD HPI: Time Seen by a Provider: 16:28 Chief Complaint: REASON FOR CONSULTATION: Respiratory failure. I had the pleasure of seeing Hima in the intensive care unit at [facility] in [place], [place] today. He has no known history of coronary artery disease and denies any other significant cardiac history other than hypertension. He states that every couple of years he gets pneumonia. He has chronic dyspnea on exertion which he states is due to his chronic obstructive pulmonary disease. He was in his usual state of health until last evening when he started developing a cough and fever. He did not necessarily notice that he was any more short of breath than usual. However, this morning the cough and fever persisted so he came to the hospital for further evaluation. During his evaluation, he was felt to be in sepsis and was admitted to the intensive care unit. He denies chest discomfort, paroxysmal nocturnal dyspnea, orthopnea, palpitations, lightheadedness, or syncope. He does get some occasional, mild ankle edema and takes Lasix as needed. Because of the dyspnea, a cardiology consultation was requested. Certain portions of this document may have been dictated utilizing voice recognition technology. Inherent to this technology, typographical and grammatical errors may exist. As much as I am diligent to identify and correct these mistakes, some errors may remain in the document. Review of Systems-Cardiology Review of Systems Other comments Review of 10 organ systems is as per the history of present illness, otherwise negative. HXQ-Brzozq-Chwivg Hx Patient Social History Marrital Status: Smoking Status: Former Smoker Former smoker/When Quit: Jun 19, 1992 Have you traveled recently?: No Alcohol Use?: No Immunizations Up To Date Tetanus Booster (TDap): Unknown Date of Pneumonia Vaccine: Dec 16, 2014 Date of Influenza Vaccine: Dec 08, 2019 Past Medical History PMH As described under Assessment. Family Medical History Family Medical History: The patient does not know of any family history of premature coronary artery disease in first-degree relatives. Family History: Arthritis 19 MOTHER Cataracts 19 MOTHER Deafness or hearing loss G8 BROTHER Diabetes mellitus 19 MOTHER Visual disorder 19 MOTHER Allergies and Home Medications Allergies Coded Allergies: lisinopril (Verified Allergy, Unknown, 09/22/15) sildenafil (Verified Allergy, Unknown, 09/22/15) Patient Home Medication List Home Medication List Reviewed: Yes Acetaminophen (Tylenol Extra Strength) 500 Mg Tablet, 1,000 MG PO BID PRN for PAIN-MILD (1-4), (Reported) Entered as Reported by: CAIO MUELLER on 11/28/211404 Last Action: Reviewed Albuterol Sulfate (Proair Hfa) 1 Puff Puff, 2 PUFF IH Q6H PRN for SHORTNESS OF BREATH, (Reported) Entered as Reported by: CAIO MUELLER on 04/10/19 113 Last Action: Reviewed Aspirin (Aspirin EC) 81 Mg Tablet.dr, 81 MG PO DAILY, (Reported) Entered as Reported by: ACIO MUELLER on 11/28/211404 Last Action: Reviewed Atorvastatin Calcium (Atorvastatin Calcium) 80 Mg Tablet, 40 MG PO HS, (Reported) Entered as Reported by: CAIO MUELLER on 11/28/211404 Last Action: Reviewed Carboxymethylcellulos/Glycerin (Refresh Optive Eye Drops) 0.5 %-0.9 % Drops, 1 DROP OU BID, (Reported) Entered as Reported by: CAIO MUELLER on 11/28/211404 Last Action: Reviewed Diclofenac Sodium (Diclofenac Sodium) 1 % Gel..gram., 4 GM TP BID PRN for PAIN- BREAKTHROUGH, (Reported) Entered as Reported by: CAIO MUELLER on 11/28/211404 Last Action: Reviewed Empagliflozin (Jardiance) 25 Mg Tablet, 25 MG PO DAILY, (Reported) Entered as Reported by: CAIO MUELLER on 11/28/211404 Last Action: Reviewed Ferrous Gluconate (Ferrous Gluconate) 324 Mg Tablet, 324 MG PO DAILY, (Reported) Entered as Reported by: JOSHUA BILLS on 04/09/19 1813 Last Action: Reviewed Furosemide (Lasix) 40 Mg Tablet, 40 MG PO DAILY PRN for FLUID RETENTION, (Reported) Entered as Reported by: CAIO MUELLER on 04/10/19 1148 Last Action: Reviewed Glipizide (Glipizide) 10 Mg Tablet, 10 MG PO BID, (Reported) Entered as Reported by: LIZET PRO on 09/04/151940 Last Action: Reviewed Hydrocodone/Acetaminophen (Hydrocodone-Acetamin 5-325 mg) 5 Mg-325 Mg Tablet, 1 TAB PO BID PRN for PAIN-MODERATE (5-7), (Reported) Entered as Reported by: CAIO MUELLER on 11/28/211404 Last Action: Reviewed Losartan Potassium (Losartan Potassium) 50 Mg Tablet, 50 MG PO DAILY, (Reported) Entered as Reported by: CAIO MUELLER on 11/28/211404 Last Action: Reviewed Metformin HCl (Metformin HCl ER) 500 Mg Tab.er.24, 2,000 MG PO 1700, (Reported) Entered as Reported by: LIZET PRO on 09/04/151944 Last Action: Reviewed Multivit-Min/FA/Lycopene/Lut (Centrum Silver Tablet) 1 Each Tablet, 1 TAB PO DAILY, (Reported) Entered as Reported by: TABBY ROSE on 09/23/181539 Last Action: Reviewed Olodaterol HCl (Striverdi Respimat) 4 Gm Mist.inhal, 2 PUFF IH DAILY, (Reported) Entered as Reported by: TABBY ROSE on 03/03/16 1233 Last Action: Reviewed [place]-3 Fatty Acids/Fish Oil ([place] 3 1,000 mg Softgel) 300 Mg-1,000 Mg Capsule, 1 EACH PO BID, (Reported) Entered as Reported by: JOSHUA BILLS on 04/09/191823 Last Action: Reviewed Pregabalin (Pregabalin) 150 Mg Capsule, 150 MG PO BID, (Reported) Entered as Reported by: CAIO MUELLER on 11/28/211404 Last Action: Reviewed Primidone (Mysoline) 250 Mg Tablet, 250 MG PO HS, (Reported) Entered as Reported by: TABBY ROSE on 09/23/181539 Last Action: Reviewed Semaglutide (Ozempic) 1 Mg/0.75 Ml (4 Mg/3 Ml) Pen.injctr, 1 MG SQ SUN, (Reported) Entered as Reported by: CAIO MUELLER on 11/28/211404 Last Action: Reviewed Sertraline HCl (Sertraline HCl) 100 Mg Tablet, 100 MG PO DAILY, (Reported) Entered as Reported by: LIZET PRO on 09/04/151946 Last Action: Reviewed Discontinued Medications Alogliptin Benzoate (Alogliptin) 25 Mg Tablet, 25 MG PO DAILY, (Reported) Discontinued Reason: No Longer Taking Entered as Reported by: TABBY ROSE on 09/23/18 1548 Last Action: Discontinued Atorvastatin Calcium (Atorvastatin Calcium) 80 Mg Tablet, 40 MG PO DAILY, (Reported) Discontinued Reason: Duplicate Order Entered as Reported by: JOSHUA BILLS on 04/09/19 1824 Last Action: Discontinued Cefdinir (Cefdinir) 300 Mg Capsule, 300 MG PO BID Discontinued Reason: No Longer Taking Prescribed by: CHRISTA MCINTOSH on 12/21/19 1046 Last Action: Discontinued Gabapentin (Gabapentin) 300 Mg Capsule, 600 MG PO TID, (Reported) Discontinued Reason: No Longer Taking Entered as Reported by: LIZET PRO on 09/04/151944 Last Action: Discontinued Losartan Potassium (Losartan Potassium) 100 Mg Tablet, 50 MG PO DAILY, (Reported) Discontinued Reason: Prescription changed Entered as Reported by: LIZET PRO on 09/04/151944 Exam Vital Signs Vital Signs Date Time Temp Pulse Resp B/P (MAP) Pulse Ox O2 Delivery O2 Flow Rate FiO2 11/28/21 16:14 38.8 100 High Flow N/C 4.00 11/28/21 16:07 113 2 11/28/21 15:00 18 138/66 (90) Physical Exam General: Alert. No acute distress. Well nourished and appears stated age. He is obese. Eye: Extraocular movements are intact. Conjunctivae are clear. There are no xanthelasma. Slight right lid lag. HENT: Normocephalic. Atraumatic. Carotid pulsations 2/2 without bruits. Neck: Jugular venous pressure does not appear elevated. No thyromegaly appreciated. Respiratory: Lungs have diffusely decreased breath sounds with some scattered wheezes. Respirations are non-labored. Breath sounds are equal. Symmetrical chest wall expansion. Cardiovascular: Normal rate. Regular rhythm. Distant S1/S2. No murmur. No gallop. Point of maximal impulse is not appear displaced. Good pulses equal in all extremities. No edema. Gastrointestinal: Soft. Normal bowel sounds. Skin: Skin turgor is normal. There is no pallor. Musculoskeletal: No kyphosis or scoliosis appreciated. Neurologic: Alert and oriented to person, place, time. Cranial nerves 3-12 appear grossly intact. The patient has good motor tone strength in the upper and lower extremities bilaterally. Psychiatric: Cooperative. Appropriate mood & affect. Labs Laboratory Tests Test 11/28/21 08:38 11/28/21 08:48 11/28/21 10:56 11/28/21 14:45 Range/Units Influenza Type A (RT-PCR) Not Detected Not Detecte Influenza Type B (RT-PCR) Not Detected Not Detecte SARS-CoV-2 RNA (RT-PCR) Not Detected Not Detecte White Blood Count 9.0 4.3-11.0 10^3/uL Red Blood Count 4.21 L 4.30-5.52 10^6/uL Hemoglobin 11.5 L 13.3-17.7 g/dL Hematocrit 36 L 40-54 % Mean Corpuscular Volume 84 80-99 fL Mean Corpuscular Hemoglobin 27 25-34 pg Mean Corpuscular Hemoglobin Concent 32 32-36 g/dL Red Cell Distribution Width 15.9 H 10.0-14.5 % Platelet Count 108 L 130-400 10^3/uL Mean Platelet Volume 11.7 9.0-12.2 fL Immature Granulocyte % (Auto) 2 % Neutrophils (%) (Auto) 75 42-75 % Lymphocytes (%) (Auto) 6 L 12-44 % Monocytes (%) (Auto) 17 H 0-12 % Eosinophils (%) (Auto) 0 0-10 % Basophils (%) (Auto) 0 0-10 % Neutrophils # (Auto) 6.7 1.8-7.8 10^3/uL Lymphocytes # (Auto) 0.6 L 1.0-4.0 10^3/uL Monocytes # (Auto) 1.6 H 0.0-1.0 10^3/uL Eosinophils # (Auto) 0.0 0.0-0.3 10^3/uL Basophils # (Auto) 0.0 0.0-0.1 10^3/uL Immature Granulocyte # (Auto) 0.1 0.0-0.1 10^3/uL Neutrophils % (Manual) 74 % Lymphocytes % (Manual) 5 % Monocytes % (Manual) 18 % Eosinophils % (Manual) 1 % Band Neutrophils 2 % Percent Immature Platelet Fraction 9.9 H 0.0-7.6 % Blood Morphology Comment NORMAL Prothrombin Time 14.6 12.2-14.7 SEC INR Comment 1.1 0.8-1.4 Activated Partial Thromboplast Time 30 24-35 SEC Sodium Level 140 135-145 MMOL/L Potassium Level 4.3 3.6-5.0 MMOL/L Chloride Level 102 98-107 MMOL/L Carbon Dioxide Level 22 21-32 MMOL/L Anion Gap 16 H 5-14 MMOL/L Blood Urea Nitrogen 15 7-18 MG/DL Creatinine 0.86 0.60-1.30 MG/DL Estimat Glomerular Filtration Rate 85 BUN/Creatinine Ratio 17 Glucose Level 231 H 70-105 MG/DL Lactic Acid Level 3.55 *H 1.46 0.50-2.00 MMOL/L Calcium Level 8.7 8.5-10.1 MG/DL Corrected Calcium 8.8 8.5-10.1 MG/DL Total Bilirubin 0.5 0.1-1.0 MG/DL Aspartate Amino Transf (AST/SGOT) 20 5-34 U/L Alanine Aminotransferase (ALT/SGPT) 18 0-55 U/L Alkaline Phosphatase 59 40-136 U/L C-Reactive Protein High Sensitivity 1.59 H 0.00-0.50 MG/DL B-Type Natriuretic Peptide 29.0 <100.0 PG/ML Total Protein 8.1 6.4-8.2 GM/DL Albumin 3.9 3.2-4.5 GM/DL Procalcitonin 0.15 H <0.10 NG/ML Blood Gas Puncture Site RIGHT RADIAL Blood Gas Patient Temperature 38 Arterial Blood pH 7.41 7.37-7.43 Arterial Blood Partial Pressure CO2 40 35-45 MMHG Arterial Blood Partial Pressure O2 57 L 79-93 MMHG Arterial Blood HCO3 24 23-27 MMOL/L Arterial Blood Total CO2 25.2 21.0-31.0 MMOL/L Arterial Blood Oxygen Saturation 88 L 94-100 % Arterial Blood Base Excess 0.1 -2.5-2.5 MMOL/L Rudy Test POSITIVE Blood Gas Ventilator Setting NO Blood Gas Inspired Oxygen 8 L Test 11/28/21 16:08 Range/Units Glucometer 169 H 70-110 MG/DL Radiology ECHOCARDIOGRAM (11/28/2021): 1. This is a technically difficult study due to poor image quality secondary to patient's body habitus. Intravenous contrast was administered to enhance image quality. 2. Left ventricle: The cavity size is normal. There is mild concentric hypertrophy. Systolic function is normal. The estimated ejection fraction is 60- 65%. Regional wall motion abnormalities cannot be excluded due to poor endocardial definition. The left ventricular diastolic function could not be determined on this technically difficult study. 3. Aortic root: The aortic root is mildly dilated with a diameter of 3.9 cm. 4. Pulmonary arteries: The pulmonary artery pressure cannot be estimated on this study due to inadequate tricuspid regurgitant envelope. Diagnosis/Problems Diagnosis/Problems (1) Acute on chronic respiratory failure with hypoxemia Assessment & Plan: I suspect this is due to his chronic obstructive pulmonary disease with superimposed pneumonia. His BNP level was normal which suggests he has no component of heart failure causing his shortness of breath. His echocardiogram did not show any significant structural heart disease that would explain heart failure. I would just be cautious with the IV fluids that might be given for his sepsis so as to help prevent volume overload. (2) Primary hypertension Assessment & Plan: He takes losartan at home. This is currently on hold due to his sepsis. We will continue to monitor his blood pressure and resume the losartan when able. (3) Mixed hyperlipidemia Assessment & Plan: I have restarted the atorvastatin that he takes at home. (4) Chronic obstructive pulmonary disease Assessment & Plan: As above, I suspect this is the majority of what is causing his shortness of breath along with possible superimposed pneumonia. (5) Type 2 diabetes mellitus with complication Assessment & Plan: This is being managed by the hospitalist. (6) Morbid obesity Status: Chronic Assessment & Plan: He needs to work on weight loss. SUSAN MARRUFO JR, MD Nov 28, 2021 15:56
[2021-11-28] MEDS: inSUlin ASPART (NovoLOG) 1 UNIT/0.01 ML (CHARGE PER UNIT) SC SCH ×2 (16:00→20:07)
[2021-11-28 16:07] VITALS: BP 145/69
[2021-11-28 16:39] LABS: BILIRUBIN,URINE NEGATIVE (NEGATIVE); CLARITY,URINE CLEAR; COLOR,URINE YELLOW; GLUCOSE, URINE (UA) 3+ (NEGATIVE); KETONES,URINE NEGATIVE (NEGATIVE); LEUKOCYTE ESTERASE ,URINE NEGATIVE (NEGATIVE); NITRITE,URINE NEGATIVE (NEGATIVE); PROTEIN,URINE NEGATIVE (NEGATIVE)
[2021-11-28] MEDS ORDERED: FUROSEMIDE 40 MG (LASIX) TAB PO PRN (16:45)
[2021-11-28 17:00] LABS: BACTERIA,URINE NEGATIVE /HPF
[2021-11-28] MEDS: CEFEPIME INJECTION 1,000 MG in NS (IVPB) 50 ML IV SCH (17:48)
[2021-11-28] MEDS ORDERED: RT-ALBUTEROL HFA 8.5 GM INHALER IH SCH (18:00)
[2021-11-28] MEDS ORDERED: NON-FORMULARY MEDICATION 1 EA EA (Semaglutide (Ozempic) 1 MG) SQ SCH (18:00)
[2021-11-28] MEDS ORDERED: DICLOFENAC 1% GEL 100 GM (VOLTAREN) TUBE TP PRN (18:00)
[2021-11-28] MEDS ORDERED: HYDROcodone/APAP 5 MG/325 MG (LORTAB) TAB PO PRN (18:00)
[2021-11-28] MEDS: RT-ALBUTEROL HFA 8.5 GM INHALER IH PRN (19:18)
[2021-11-28] MEDS: FAMOTIDINE 20 MG (PEPCID) TABLET PO SCH (20:04)
[2021-11-28] MEDS: glipiZIDE 5 MG (GLUCOTROL) TAB PO SCH (20:04)
[2021-11-28] MEDS: PRIMIDONE 250MG (MYSOLINE) TAB PO SCH (20:04)
[2021-11-28] MEDS: OMEGA 3 (FISH OIL) 1000 MG CAP PO SCH (20:04)
[2021-11-28] MEDS: DOCUSATE SODIUM 100 MG (COLACE) CAP PO SCH (20:05)
[2021-11-28] MEDS: PREGABALIN 150 MG (LYRICA) CAPSULE PO SCH (20:05)
[2021-11-28] MEDS: SENNOSIDES 8.6 MG (SENOKOT) TAB PO SCH (20:05)
[2021-11-28] MEDS: ARTIFICAL TEARS 0.4 ML UNIT DOSE (REFRESH PLUS) OU SCH (20:06)
[2021-11-28] MEDS ORDERED: NON-FORMULARY MEDICATION 1 EA EA (Carboxymethylcellulos/Glycerin (Refresh Optive Eye Drops OU SCH (21:00)
[2021-11-28] MEDS: RT-ALBUTEROL HFA 8.5 GM INHALER IH SCH (23:15)
[2021-11-28] MEDS: RT--FLUTICASONE/SALMETEROL 232-14 (AIRDUO RespiCLICK) IH SCH (23:16)
[2021-11-29] MEDS ORDERED: RT-ALBUTEROL HFA 8.5 GM INHALER IH SCH
[2021-11-29] MEDS: CEFEPIME INJECTION 1,000 MG in NS (IVPB) 50 ML IV SCH ×5 (00:32→23:55)
[2021-11-29] MEDS: RT-ALBUTEROL HFA 8.5 GM INHALER IH SCH ×6 (03:11→22:06)
[2021-11-29 05:02] LABS: PLATELET COUNT 98 10^3/uL (130-400)
[2021-11-29 05:05] LABS: BASOPHILS % (AUTO) 0 % (0-10); EOSINOPHILS # (AUTO) 0.3 10^3/uL (0.0-0.3); EOSINOPHILS % (AUTO) 2 % (0-10); HEMATOCRIT 37 % (40-54); HEMOGLOBIN 11.5 g/dL (13.3-17.7); LYMPHOCYTES # (AUTO) 1.7 10^3/uL (1.0-4.0); LYMPHOCYTES % (AUTO) 9 % (12-44); MEAN CORPUSCULAR HEMOGLOBIN 27 pg (25-34); MEAN CORPUSCULAR HGB CONC 31 g/dL (32-36); MEAN CORPUSCULAR VOLUME 86 fL (80-99); MEAN PLATELET VOLUME 12.4 fL (9.0-12.2); MONOCYTES # (AUTO) 2.8 10^3/uL (0.0-1.0); MONOCYTES % (AUTO) 16 % (0-12); NEUTROPHILS # (AUTO) 12.7 10^3/uL (1.8-7.8); NEUTROPHILS % (AUTO) 71 % (42-75); WHITE BLOOD COUNT 17.8 10^3/uL (4.3-11.0)
[2021-11-29 05:26] LABS: ALBUMIN 3.5 GM/DL (3.2-4.5); BILIRUBIN,TOTAL 0.6 MG/DL (0.1-1.0); CALCIUM 8.8 MG/DL (8.5-10.1); CREATININE SERUM 0.94 MG/DL (0.60-1.30); MAGNESIUM 1.7 MG/DL (1.6-2.4); PHOSPHORUS 2.6 MG/DL (2.3-4.7); POTASSIUM 3.8 MMOL/L (3.6-5.0); TOTAL PROTEIN 7.7 GM/DL (6.4-8.2)
[2021-11-29] MEDS: POTASSIUM CL 10MEQ/50ML IVPB 50 ML IV SCH (05:28)
[2021-11-29 05:29] LABS: BAND NEUTROPHILS 29 %; LYMPHOCYTES % (MANUAL) 9 %; MONOCYTES % (MANUAL) 14 %; NEUTROPHILS % (MANUAL) 48 %; PLATELET ESTIMATE DECREASED
[2021-11-29 05:30] LABS: ANISOCYTOSIS SLIGHT; POIKILOCYTOSIS SLIGHT
[2021-11-29] MEDS: KCL 20 MEQ TAB (K-DUR) PO SCH (05:30)
[2021-11-29] MEDS: MAGNESIUM 1 GM/100 ML IVPB 100 ML IV SCH ×3 (05:52→10:44)
[2021-11-29] MEDS: RT--FLUTICASONE/SALMETEROL 232-14 (AIRDUO RespiCLICK) IH SCH ×2 (06:43→22:06)
[2021-11-29] MEDS: MULTIVIT W/MINERALS TAB (THERAGRAN M) PO SCH (07:06)
[2021-11-29] MEDS: inSUlin ASPART (NovoLOG) 1 UNIT/0.01 ML (CHARGE PER UNIT) SC SCH ×4 (07:07→20:30)
--- NOTE | 2021-11-29 07:50 | Diagnostic Imaging Report ---
INDICATION: Pneumonia. Comparison is made with prior exam of 11/28/2021. FINDINGS: The heart size is normal. There are patchy bibasilar infiltrates. There is a left pleural effusion. No pneumothorax. Mediastinum unremarkable. IMPRESSION: Bibasilar pulmonary infiltrates and small left pleural effusion. Dictated by: Dictated on workstation # [id number]
--- NOTE | 2021-11-29 07:56 | Progress Note - Hospitalist ---
Subjective HPI/CC On Admission Date Seen by Provider: Nov 29, 2021 Time Seen by Provider: 11:00 Patient is an 86 y/o M with history of COPD, CHF, HTN, Type 2 DM, and history of pneumonia who presented to the ER this morning with difficulty breathing and fever. When he presented his O2 sats were in the 80s. Patient reports that his throat was sore yesterday and that this morning he woke up at 3 AM feeling feverish and short of air. He states he has some chills and a dry cough. He also states he has not had any sick contacts to his knowledge. He is on oxygen at present but does not use any at home usually. His reports that he has a CPAP machine. COVID results were negative. CXR today shows patchy interstitial opacities within the mid and lower lungs consistent with pneumonia. Lactic Acid: 3.55 Procalcitonin: 0.15 Subjective/Events-last exam Much improved status Still in ICU No fever Labs reviewed Elevated white count Antibiotics tolerated Review of Systems Pulmonary: Dyspnea, Cough Focused Exam Lactate Level 11/28/21 08:48: Lactic Acid Level 3.55*H 11/28/21 10:56: Lactic Acid Level 1.46 Time of Focused Exam: 11:57 Objective Exam Vital Signs Vital Signs Date Time Temp Pulse Resp B/P (MAP) Pulse Ox O2 Delivery O2 Flow Rate FiO2 11/30/21 06:00 88 115/63 (80) 95 Nasal Cannula 2.00 11/30/21 00:01 37.6 11/30/21 00:00 33 11/28/21 16:07 2 Capillary Refill : Less Than 3 Seconds General Appearance: No Apparent Distress, WD/WN, Chronically ill, Obese Respiratory: No Accessory Muscle Use, No Respiratory Distress, Decreased Breath Sounds Cardiovascular: Regular Rate, Rhythm Neurologic/Psychiatric: Alert, Oriented x3, No Motor/Sensory Deficits, Normal Mood/Affect Results/Procedures Lab Laboratory Tests 11/30/21 03:57 Patient resulted labs reviewed. Assessment/Plan Assessment and Plan Assess & Plan/Chief Complaint Assessment: Pneumonia Acute hypoxic respiratory failure requiring BiPAP Sepsis Volume overload Hypertension Plan: IV antibiotics ICU BRENDEN GEORGE DO Nov 29, 2021 07:56
[2021-11-29] MEDS ORDERED: NON-FORMULARY MEDICATION 1 EA EA (Empagliflozin (Jardiance) 25 MG) PO SCH (09:00)
[2021-11-29] MEDS ORDERED: OLODATEROL HCL IH SCH (09:00)
[2021-11-29] MEDS ORDERED: FERROUS GLUCONATE 324 MG PO SCH (09:00)
[2021-11-29] MEDS ORDERED: NON-FORMULARY MEDICATION 1 EA EA (Multivit-Min/FA/Lycopene/Lut (Centrum Silver Tablet) 1 T PO SCH (09:00)
--- NOTE | 2021-11-29 09:25 | Tele-ICU Progress Note ---
Subjective Date Seen by a Provider: Nov 29, 2021 Subjective/Events-last exam This virtual visit was conducted using real time audio/video. Thank you for asking us to see this patient for respiratory insufficiency due to AECOPD, sepsis and pna. Recent events: O2 requirements decreased. PE: VSS. O2 sat 95% on 2 LPM NC. HEENT: No obvious masses, adenopathy or JVD. Chest: coarse BS on auscultation. CV: RRR S1 S2 No murmur or added sounds. Abd: Non-tender. Bowel sounds Y. : Unremarkable. Romero Y. 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 No obvious focal findings. Extremities: No edema. Capillary refill < 3 seconds. Skin: unremarkable. Results: Elevated WCC 17.8. Decreased Hb 11.5, Plts 98K. B.41/40/57 on 8 LPM. CXR: B int infilts. Available chart/ vitals / labs / images reviewed. Video assessment done using teleICU camera, rest of exam as per RN. A/P: Respiratory insufficiency: Continue present management with NC, albuterol, airduo Monitor for increasing oxygenation needs and/or need for intubation. Critical Care: critically ill patient. Cont. SSI, Kirit., Pepcid, statin, abx, ASA, lasix, metf., glipizide, Jardiance. Discussed with RN Denise. Could consider transfer later if improvment sustained. Asked RN to reach out to eICU if any questions or concerns later. Time spent with patient/coordination of care with other health professionals (mins): 28 Sepsis Event Evaluation Height, Weight, BMI Height: 5'4.00" Weight: 253lbs. 0.0oz. [id number]; 41.07 BMI Method:Stated Focused Exam Lactate Level 11/28/21 08:48: Lactic Acid Level 3.55*H 11/28/21 10:56: Lactic Acid Level 1.46 Time of Focused Exam: 11:57 Exam Exam Patient acknowledged, consented, and participated in this virtual visit which was conducted using real time audio/video Vital Signs Date Time Temp Pulse Resp B/P (MAP) Pulse Ox O2 Delivery O2 Flow Rate FiO2 11/29/21 08:00 90 25 121/59 (79) 93 NIV CPAP 5.00 11/29/21 07:40 36.9 11/29/21 07:00 91 11/29/21 07:00 91 124/55 (78) 93 NIV CPAP 5.00 11/29/21 06:43 93 NIV CPAP 5.00 11/29/21 06:00 92 117/56 (76) 96 NIV CPAP 5.00 11/29/21 05:00 95 22 117/57 (77) 97 NIV CPAP 5.00 11/29/21 04:00 99 22 121/56 (77) 95 NIV CPAP 5.00 11/29/21 04:00 94 High Flow N/C 2.00 11/29/21 03:11 94 NIV CPAP 5.00 11/29/21 03:00 96 23 127/58 (81) 95 NIV CPAP 5.00 11/29/21 02:00 98 23 123/55 (77) 90 NIV CPAP 5.00 11/29/21 01:21 NIV CPAP 5.00 11/29/21 01:20 92 NIV CPAP 5.00 11/29/21 01:00 100 11/29/21 01:00 98 21 119/57 (77) 87 NIV CPAP 11/29/21 00:00 94 High Flow N/C 2.00 11/29/21 00:00 100 23 121/57 (78) 90 NIV CPAP 11/28/21 23:19 92 NIV CPAP 11/28/21 23:00 98 18 113/56 (75) 89 NIV CPAP 11/28/21 22:51 36.5 11/28/21 22:00 100 23 109/53 (71) 92 NIV CPAP 11/28/21 21:00 105 24 101/52 (68) 94 NIV CPAP 11/28/21 20:15 37.4 11/28/21 20:00 94 High Flow N/C 2.00 11/28/21 20:00 113 16 93/49 (64) 91 NIV CPAP 11/28/21 19:36 NIV CPAP 11/28/21 19:33 93 NIV CPAP 11/28/21 19:19 94 High Flow N/C 2.00 11/28/21 19:18 37.2 11/28/21 19:00 111 11/28/21 19:00 112 25 99/51 (67) 96 High Flow N/C 2.00 11/28/21 18:48 97 High Flow N/C 2.00 11/28/21 18:48 37.2 11/28/21 18:44 37.2 11/28/21 18:00 112 10 110/73 (85) 93 High Flow N/C 3.00 11/28/21 17:30 37.8 97 High Flow N/C 3.00 11/28/21 17:00 108 20 112/61 (78) 94 High Flow N/C 4.00 11/28/21 16:14 38.8 100 High Flow N/C 4.00 11/28/21 16:07 38.6 113 92 2 11/28/21 16:00 90 High Flow N/C 4.00 11/28/21 16:00 110 18 120/66 (84) 98 High Flow N/C 8.00 11/28/21 15:48 39.3 11/28/21 15:00 125 18 138/66 (90) 90 High Flow N/C 8.00 11/28/21 14:57 38.8 11/28/21 14:50 92 High Flow N/C 8.00 11/28/21 14:45 113 11/28/21 14:30 115 24 90 High Flow N/C 6.00 11/28/21 14:27 38.0 11/28/21 14:15 113 22 126/59 (81) 89 High Flow N/C 6.00 11/28/21 14:00 113 18 142/75 (97) 95 High Flow N/C 6.00 11/28/21 14:00 113 18 142/75 (97) 89 High Flow N/C 8.00 11/28/21 13:45 90 High Flow N/C 8.00 11/28/21 13:45 116 24 153/73 (99) 95 High Flow N/C 6.00 11/28/21 13:33 101 24 131/56 92 Nasal Cannula 2.00 I & O 11/29/21 07:00 Intake Total 2450 ml Output Total 1825 ml Balance 625 ml Height & Weight Height: 5'4.00" Weight: 253lbs. 0.0oz. 114.437199cs; 41.07 BMI Method:Stated General Appearance: No Apparent Distress HEENT: Moist Mucous Membranes Neck: Normal Inspection; No JVD Respiratory: Chest Non Tender, No Accessory Muscle Use, No Respiratory Distress Cardiovascular: Tachycardia Capillary Refill: Less Than 3 Seconds Extremity: Normal Inspection, No Calf Tenderness, No Pedal Edema Neurologic/Psychiatric: Alert, Normal Mood/Affect Results Lab Laboratory Tests 11/28/21 08:48 11/29/21 04:39 Assessment/Plan Assessment/Plan See free text. Critical Care: Critically Ill Patient KANA DENNEY MD Nov 29, 2021 09:25
[2021-11-29] MEDS: FAMOTIDINE 20 MG (PEPCID) TABLET PO SCH ×2 (09:55→20:29)
[2021-11-29] MEDS: OMEGA 3 (FISH OIL) 1000 MG CAP PO SCH ×2 (09:55→20:29)
[2021-11-29] MEDS: SENNOSIDES 8.6 MG (SENOKOT) TAB PO SCH ×2 (09:55→20:29)
[2021-11-29] MEDS: DOCUSATE SODIUM 100 MG (COLACE) CAP PO SCH ×2 (09:55→20:29)
[2021-11-29] MEDS: ENOXAPARIN 40 MG/0.4 ML (LOVENOX) SYR SC SCH ×2 (09:55→20:29)
[2021-11-29] MEDS: LOSARTAN 50 MG (COZAAR) TAB PO SCH (09:56)
[2021-11-29] MEDS: ASPIRIN E.C. 81 MG (ECOTRIN) TAB PO SCH (09:56)
[2021-11-29] MEDS: SERTRALINE 100 MG (ZOLOFT) TAB PO SCH (09:56)
[2021-11-29] MEDS: EMPAGLIFLOZIN 10 MG TABLET (JARDIANCE) PO SCH (09:56)
[2021-11-29] MEDS: ARTIFICAL TEARS 0.4 ML UNIT DOSE (REFRESH PLUS) OU SCH ×2 (09:56→20:30)
[2021-11-29] MEDS: PREGABALIN 150 MG (LYRICA) CAPSULE PO SCH ×2 (09:56→20:29)
[2021-11-29] MEDS: AZITHROMYCIN INJECTION 500 MG in NS (IVPB) 250 ML IV SCH (09:57)
[2021-11-29] MEDS: FERROUS SULF 325 MG (IRON) TAB PO SCH (10:44)
[2021-11-29] MEDS: glipiZIDE 5 MG (GLUCOTROL) TAB PO SCH ×2 (10:44→20:29)
--- NOTE | 2021-11-29 10:46 | Cardiology Progress Note ---
Progress Note-Cardiology Events since last exam Date Seen by Provider: Nov 29, 2021 Time Seen by Provider: 10:41 Events since last exam I am following him due to respiratory failure. He states his breathing and cough have improved. He denies chest pain, palpitations, syncope, or ankle edema. Certain portions of this document may have been dictated utilizing voice recognition technology. Inherent to this technology, typographical and grammatical errors may exist. As much as I am diligent to identify and correct these mistakes, some errors may remain in the document. Vitals Last set of Vitals Signs Vital Signs 11/28/21 11/29/21 11/29/21 16:07 07:40 10:00 Temp 36.9 Pulse 96 Resp 21 B/P (MAP) 148/66 (93) Pulse Ox 92 O2 Delivery NIV CPAP O2 Flow Rate 5.00 FiO2 2 Labs Labs Laboratory Tests 11/29/21 04:39 Exam Vital Signs Vital Signs Date Time Temp Pulse Resp B/P (MAP) Pulse Ox O2 Delivery O2 Flow Rate FiO2 11/29/21 10:00 96 21 148/66 (93) 92 NIV CPAP 5.00 11/29/21 07:40 36.9 11/28/21 16:07 2 Physical Exam General: Alert. No acute distress. He is obese. He is on oxygen by nasal cannula. Eye: No xanthelasma. HENT: Normocephalic. Neck: Jugular venous pressure does not appear elevated. Respiratory: Lungs are clear to auscultation but decreased at the bases bilaterally. Respirations are non-labored. Breath sounds are equal. Symmetrical chest wall expansion. Cardiovascular: Normal rate. Regular rhythm. Distant S1/S2. No murmur. No gallop. No edema. Gastrointestinal: Soft. Normal bowel sounds. Skin: Warm. Dry. Neurologic: Alert and oriented to person, place, time. Cranial nerves 3-11 grossly intact. Psychiatric: Cooperative. Appropriate mood & affect. Labs Laboratory Tests Test 11/28/21 10:56 11/28/21 14:45 11/28/21 16:08 11/28/21 16:30 Range/Units Lactic Acid Level 1.46 0.50-2.00 MMOL/L Blood Gas Puncture Site RIGHT RADIAL Blood Gas Patient Temperature 38 Arterial Blood pH 7.41 7.37-7.43 Arterial Blood Partial Pressure CO2 40 35-45 MMHG Arterial Blood Partial Pressure O2 57 L 79-93 MMHG Arterial Blood HCO3 24 23-27 MMOL/L Arterial Blood Total CO2 25.2 21.0-31.0 MMOL/L Arterial Blood Oxygen Saturation 88 L 94-100 % Arterial Blood Base Excess 0.1 -2.5-2.5 MMOL/L Rudy Test POSITIVE Blood Gas Ventilator Setting NO Blood Gas Inspired Oxygen 8 L Glucometer 169 H 70-110 MG/DL Urine Color YELLOW Urine Clarity CLEAR Urine pH 6.0 5-9 Urine Specific [place] <=1.005 1.016-1.022 Urine Protein NEGATIVE NEGATIVE Urine Glucose (UA) 3+ H NEGATIVE Urine Ketones NEGATIVE NEGATIVE Urine Nitrite NEGATIVE NEGATIVE Urine Bilirubin NEGATIVE NEGATIVE Urine Urobilinogen 0.2 < = 1.0 MG/DL Urine Leukocyte Esterase NEGATIVE NEGATIVE Urine RBC (Auto) NEGATIVE NEGATIVE Urine RBC NONE /HPF Urine WBC NONE /HPF Urine Squamous Epithelial Cells NONE /HPF Urine Crystals NONE /LPF Urine Bacteria NEGATIVE /HPF Urine Casts NONE /LPF Urine Mucus NEGATIVE /LPF Urine Culture Indicated NO Test 11/28/21 20:06 11/29/21 04:39 11/29/21 10:32 Range/Units Glucometer 153 H 164 H 70-110 MG/DL White Blood Count 17.8 H 4.3-11.0 10^3/uL Red Blood Count 4.28 L 4.30-5.52 10^6/uL Hemoglobin 11.5 L 13.3-17.7 g/dL Hematocrit 37 L 40-54 % Mean Corpuscular Volume 86 80-99 fL Mean Corpuscular Hemoglobin 27 25-34 pg Mean Corpuscular Hemoglobin Concent 31 L 32-36 g/dL Red Cell Distribution Width 16.6 H 10.0-14.5 % Platelet Count 98 L 130-400 10^3/uL Mean Platelet Volume 12.4 H 9.0-12.2 fL Immature Granulocyte % (Auto) 3 % Neutrophils (%) (Auto) 71 42-75 % Lymphocytes (%) (Auto) 9 L 12-44 % Monocytes (%) (Auto) 16 H 0-12 % Eosinophils (%) (Auto) 2 0-10 % Basophils (%) (Auto) 0 0-10 % Neutrophils # (Auto) 12.7 H 1.8-7.8 10^3/uL Lymphocytes # (Auto) 1.7 1.0-4.0 10^3/uL Monocytes # (Auto) 2.8 H 0.0-1.0 10^3/uL Eosinophils # (Auto) 0.3 0.0-0.3 10^3/uL Basophils # (Auto) 0.0 0.0-0.1 10^3/uL Immature Granulocyte # (Auto) 0.5 H 0.0-0.1 10^3/uL Neutrophils % (Manual) 48 % Lymphocytes % (Manual) 9 % Monocytes % (Manual) 14 % Band Neutrophils 29 % Platelet Estimate DECREASED Clumped Platelets Percent Immature Platelet Fraction 10.0 H 0.0-7.6 % Poikilocytosis SLIGHT Anisocytosis SLIGHT Sodium Level 139 135-145 MMOL/L Potassium Level 3.8 3.6-5.0 MMOL/L Chloride Level 106 98-107 MMOL/L Carbon Dioxide Level 19 L 21-32 MMOL/L Anion Gap 14 5-14 MMOL/L Blood Urea Nitrogen 16 7-18 MG/DL Creatinine 0.94 0.60-1.30 MG/DL Estimat Glomerular Filtration Rate 80 BUN/Creatinine Ratio 17 Glucose Level 102 70-105 MG/DL Calcium Level 8.8 8.5-10.1 MG/DL Corrected Calcium 9.2 8.5-10.1 MG/DL Phosphorus Level 2.6 2.3-4.7 MG/DL Magnesium Level 1.7 1.6-2.4 MG/DL Total Bilirubin 0.6 0.1-1.0 MG/DL Aspartate Amino Transf (AST/SGOT) 28 5-34 U/L Alanine Aminotransferase (ALT/SGPT) 18 0-55 U/L Alkaline Phosphatase 55 40-136 U/L Total Protein 7.7 6.4-8.2 GM/DL Albumin 3.5 3.2-4.5 GM/DL Diagnosis/Problems Diagnosis/Problems (1) Acute on chronic respiratory failure with hypoxemia Assessment & Plan: I suspect this is due to his chronic obstructive pulmonary disease with superimposed pneumonia. His BNP level was normal which suggests he has no component of heart failure causing his shortness of breath. His echocardiogram from this admission did not show any significant structural heart disease that would explain heart failure. I would just be cautious with the IV fluids that might be given for his sepsis so as to help prevent volume overload. At this time, he is eating and drinking and I will therefore, stop the IV fluids. (2) Primary hypertension Assessment & Plan: His losartan has been resumed. (3) Mixed hyperlipidemia Assessment & Plan: Continue home dose of atorvastatin. (4) Chronic obstructive pulmonary disease Assessment & Plan: As above, I suspect this is the majority of what is causing his shortness of breath along with possible superimposed pneumonia. (5) Type 2 diabetes mellitus with complication Assessment & Plan: This is being managed by the hospitalist. (6) Morbid obesity Status: Chronic Assessment & Plan: He needs to work on weight loss. SUSAN MARRUFO JR, MD Nov 29, 2021 10:46
[2021-11-29 11:00] LABS: ABG BASE EXCESS -0.4 MMOL/L (-2.5-2.5); ABG OXYGEN SATURATION 94 % (94-100); ABG PCO2 41 MMHG (35-45); ABG PH 7.39 (7.37-7.43); ABG PO2 69 MMHG (79-93); ABG TCO2 25.2 MMOL/L (21.0-31.0); ALLENS TEST YES-POS; INSPIRED O2 2 L; VENTILATOR NO
[2021-11-29] MEDS: metFORMIN XR 500 MG (GLUCOPHAGE XR) TAB PO SCH (18:28)
[2021-11-29] MEDS: RT-ALBUTEROL HFA 8.5 GM INHALER IH PRN (18:29)
[2021-11-29] MEDS: PRIMIDONE 250MG (MYSOLINE) TAB PO SCH (20:29)
[2021-11-30] MEDS: RT-ALBUTEROL HFA 8.5 GM INHALER IH SCH ×6 (03:11→22:08)
[2021-11-30 04:25] LABS: EOSINOPHILS % (AUTO) 0 % (0-10); HEMOGLOBIN 10.4 g/dL (13.3-17.7)
[2021-11-30 04:27] LABS: BASOPHILS % (AUTO) 0 % (0-10); HEMATOCRIT 32 % (40-54); LYMPHOCYTES % (AUTO) 7 % (12-44); MEAN CORPUSCULAR HEMOGLOBIN 27 pg (25-34); MEAN CORPUSCULAR HGB CONC 33 g/dL (32-36); MEAN CORPUSCULAR VOLUME 84 fL (80-99); MONOCYTES # (AUTO) 1.6 10^3/uL (0.0-1.0); MONOCYTES % (AUTO) 12 % (0-12); NEUTROPHILS # (AUTO) 10.4 10^3/uL (1.8-7.8); NEUTROPHILS % (AUTO) 79 % (42-75); PLATELET COUNT 91 10^3/uL (130-400); WHITE BLOOD COUNT 13.2 10^3/uL (4.3-11.0)
[2021-11-30 04:49] LABS: ALBUMIN 3.1 GM/DL (3.2-4.5); BILIRUBIN,TOTAL 0.5 MG/DL (0.1-1.0); CALCIUM 8.8 MG/DL (8.5-10.1); CREATININE SERUM 0.86 MG/DL (0.60-1.30); PHOSPHORUS 2.2 MG/DL (2.3-4.7); POTASSIUM 3.4 MMOL/L (3.6-5.0); TOTAL PROTEIN 7.1 GM/DL (6.4-8.2)
[2021-11-30] MEDS: POTASSIUM CL 10MEQ/50ML IVPB 50 ML IV SCH (05:28)
[2021-11-30] MEDS: MAGNESIUM 1 GM/100 ML IVPB 100 ML IV SCH (05:28)
[2021-11-30] MEDS: inSUlin ASPART (NovoLOG) 1 UNIT/0.01 ML (CHARGE PER UNIT) SC SCH ×4 (05:29→21:30)
[2021-11-30] MEDS: KCL 20 MEQ TAB (K-DUR) PO SCH (05:29)
[2021-11-30] MEDS ORDERED: KCL 20 MEQ TAB (K-DUR) PO ONE (05:30)
[2021-11-30] MEDS: CEFEPIME INJECTION 1,000 MG in NS (IVPB) 50 ML IV SCH ×3 (06:18→17:19)
[2021-11-30] MEDS: MULTIVIT W/MINERALS TAB (THERAGRAN M) PO SCH (06:18)
--- NOTE | 2021-11-30 06:59 | Progress Note - Hospitalist ---
Subjective HPI/CC On Admission Date Seen by Provider: Nov 30, 2021 Time Seen by Provider: 11:00 Patient is an 86 y/o M with history of COPD, CHF, HTN, Type 2 DM, and history of pneumonia who presented to the ER this morning with difficulty breathing and fever. When he presented his O2 sats were in the 80s. Patient reports that his throat was sore yesterday and that this morning he woke up at 3 AM feeling feverish and short of air. He states he has some chills and a dry cough. He also states he has not had any sick contacts to his knowledge. He is on oxygen at present but does not use any at home usually. His reports that he has a CPAP machine. COVID results were negative. CXR today shows patchy interstitial opacities within the mid and lower lungs consistent with pneumonia. Lactic Acid: 3.55 Procalcitonin: 0.15 Subjective/Events-last exam Improved status Monitoring closely Loose stools and was incontinent earlier Imodium and lactinex started Move to 4th Review of Systems General: Fatigue, Malaise Focused Exam Lactate Level 11/28/21 08:48: Lactic Acid Level 3.55*H 11/28/21 10:56: Lactic Acid Level 1.46 Time of Focused Exam: 11:57 Objective Exam Vital Signs Vital Signs Date Time Temp Pulse Resp B/P (MAP) Pulse Ox O2 Delivery O2 Flow Rate FiO2 11/30/21 14:00 Room Air 11/30/21 12:39 36.9 11/30/21 12:15 95 11/30/21 12:00 94 21 126/63 (84) 2.00 11/28/21 16:07 2 Capillary Refill : Less Than 3 Seconds General Appearance: No Apparent Distress, WD/WN, Chronically ill Respiratory: Lungs Clear, Normal Breath Sounds, Decreased Breath Sounds Cardiovascular: Regular Rate, Rhythm Neurologic/Psychiatric: Alert, Oriented x3, No Motor/Sensory Deficits, Normal Mood/Affect Results/Procedures Lab Laboratory Tests 11/30/21 03:57 Patient resulted labs reviewed. Assessment/Plan Assessment and Plan Assess & Plan/Chief Complaint Assessment: Pneumonia Acute hypoxic respiratory failure requiring BiPAP Sepsis Volume overload Hypertension Plan: IV antibiotics ICU Critical Care Critically Ill Patient GEORGEHOWARD PRATTTiesha ALBA Nov 30, 2021 06:59
[2021-11-30] MEDS: RT-ALBUTEROL HFA 8.5 GM INHALER IH PRN (08:13)
[2021-11-30] MEDS: RT--FLUTICASONE/SALMETEROL 232-14 (AIRDUO RespiCLICK) IH SCH ×2 (08:13→18:43)
[2021-11-30] MEDS: AZITHROMYCIN INJECTION 500 MG in NS (IVPB) 250 ML IV SCH (08:29)
[2021-11-30] MEDS: ENOXAPARIN 40 MG/0.4 ML (LOVENOX) SYR SC SCH ×2 (08:29→20:01)
[2021-11-30] MEDS: PREGABALIN 150 MG (LYRICA) CAPSULE PO SCH ×2 (08:30→20:01)
[2021-11-30] MEDS: glipiZIDE 5 MG (GLUCOTROL) TAB PO SCH ×2 (08:30→20:01)
[2021-11-30] MEDS: ASPIRIN E.C. 81 MG (ECOTRIN) TAB PO SCH (08:30)
[2021-11-30] MEDS: EMPAGLIFLOZIN 10 MG TABLET (JARDIANCE) PO SCH (08:30)
[2021-11-30] MEDS: LOSARTAN 50 MG (COZAAR) TAB PO SCH (08:30)
[2021-11-30] MEDS: FAMOTIDINE 20 MG (PEPCID) TABLET PO SCH ×2 (08:30→20:02)
[2021-11-30] MEDS: FERROUS SULF 325 MG (IRON) TAB PO SCH (08:30)
[2021-11-30] MEDS: OMEGA 3 (FISH OIL) 1000 MG CAP PO SCH ×2 (08:30→20:02)
[2021-11-30] MEDS: SERTRALINE 100 MG (ZOLOFT) TAB PO SCH (08:30)
[2021-11-30] MEDS: ARTIFICAL TEARS 0.4 ML UNIT DOSE (REFRESH PLUS) OU SCH ×2 (08:33→20:02)
[2021-11-30] MEDS: SENNOSIDES 8.6 MG (SENOKOT) TAB PO SCH ×2 (08:33→20:06)
[2021-11-30] MEDS: DOCUSATE SODIUM 100 MG (COLACE) CAP PO SCH ×2 (08:33→20:06)
--- NOTE | 2021-11-30 08:41 | Diagnostic Imaging Report ---
INDICATION: Pneumonia, sepsis. COMPARISON: 11/29/2021. TECHNIQUE: Single radiograph of the chest dated 11/30/2021. FINDINGS: The cardiac silhouette is enlarged, though stable. No significant pulmonary vascular congestion. Bibasilar pulmonary opacities are again identified with associated small left pleural effusion. This appears slightly improved since the prior examination. No large volume right pleural effusion. No pneumothorax. Right shoulder arthroplasty again seen. No new acute osseous abnormality. IMPRESSION: Persistent though minimally improved left greater than right bibasilar pulmonary opacities with associated tiny left pleural effusion. Dictated by: Dictated on workstation # [id number]
--- NOTE | 2021-11-30 09:27 | Tele-ICU Progress Note ---
Subjective Date Seen by a Provider: Nov 30, 2021 Time Seen by a Provider: 09:27 Subjective/Events-last exam (Tele-ICU Physician , Progress Note ) Available chart/ vitals / labs / Images reviewed Video assessment done using teleICU camera, rest of exam as per RN Discussed with RN Events overnight : Afebrile hemodynamically stable Respiratory - 2L I/O = neg 600 Drips: Pressors- no Consultants: cards Hospital course: (11/28) 86y/o M admitted with hypoxia , admit with pneumonia & AECOPD. 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 Discussed with RN to reach out if any questions or concerns A total of 25 minutes of critical care time was devoted to this patient today, required to treat and/or prevent further deterioration of critical care condition ( as above ) . Sepsis Event Evaluation Height, Weight, BMI Height: 5'4.00" Weight: 253lbs. 0.0oz. 114.426198un; 41.07 BMI Method:Stated Focused Exam Lactate Level 11/28/21 08:48: Lactic Acid Level 3.55*H 11/28/21 10:56: Lactic Acid Level 1.46 Time of Focused Exam: 11:57 Exam Exam Patient acknowledged, consented, and participated in this virtual visit which was conducted using real time audio/video Vital Signs Date Time Temp Pulse Resp B/P (MAP) Pulse Ox O2 Delivery O2 Flow Rate FiO2 11/30/21 08:18 98 Nasal Cannula 2.00 11/30/21 08:13 100 NIV CPAP 10.00 11/30/21 08:00 98 Nasal Cannula 2.00 11/30/21 07:46 36.6 11/30/21 07:00 82 11/30/21 06:00 88 115/63 (80) 95 Nasal Cannula 2.00 11/30/21 05:00 87 116/56 (76) 95 Nasal Cannula 2.00 11/30/21 04:00 93 Nasal Cannula 2.00 11/30/21 04:00 85 114/52 (72) 93 Nasal Cannula 2.00 11/30/21 03:12 93 NIV CPAP 10.00 11/30/21 03:00 87 106/55 (72) 93 Nasal Cannula 2.00 11/30/21 02:00 93 108/55 (72) 92 Nasal Cannula 2.00 11/30/21 01:00 92 105/54 (71) 91 Nasal Cannula 2.00 11/30/21 00:51 94 11/30/21 00:16 93 Nasal Cannula 2.00 11/30/21 00:01 37.6 11/30/21 00:00 95 33 100/48 (65) 91 Nasal Cannula 2.00 11/29/21 23:00 96 23 107/59 (75) 90 Nasal Cannula 2.00 11/29/21 22:06 87 NIV CPAP 5.00 11/29/21 22:00 96 24 98/51 (67) 88 Nasal Cannula 2.00 11/29/21 21:00 96 22 107/54 (71) 95 Nasal Cannula 2.00 11/29/21 20:00 98 19 104/50 (68) 92 Nasal Cannula 2.00 11/29/21 20:00 93 Nasal Cannula 2.00 11/29/21 20:00 37.9 11/29/21 19:46 37.9 11/29/21 19:00 97 19 122/61 (81) 92 Nasal Cannula 2.00 11/29/21 18:48 98 11/29/21 18:30 93 Nasal Cannula 2.00 11/29/21 18:00 95 26 127/68 (87) 91 Nasal Cannula 2.00 11/29/21 17:00 86 10 113/55 (74) 90 Nasal Cannula 2.00 11/29/21 16:00 101 118/60 (79) 90 Nasal Cannula 2.00 11/29/21 16:00 95 Nasal Cannula 2.00 11/29/21 15:46 38.1 11/29/21 15:00 98 27 109/55 (73) 91 Nasal Cannula 2.00 11/29/21 14:51 93 Nasal Cannula 2.00 11/29/21 14:00 101 21 124/59 (80) 94 Nasal Cannula 2.00 11/29/21 13:00 88 15 124/59 (80) 94 Nasal Cannula 2.00 11/29/21 12:31 37.3 11/29/21 12:26 94 11/29/21 12:02 37.6 11/29/21 12:00 95 Nasal Cannula 2.00 11/29/21 12:00 93 21 123/63 (83) 92 Nasal Cannula 2.00 11/29/21 11:00 90 114/55 (74) 93 Nasal Cannula 2.00 11/29/21 10:50 93 Nasal Cannula 2.00 11/29/21 10:00 96 21 148/66 (93) 92 Nasal Cannula 2.00 I & O 11/30/21 07:00 Intake Total 2205 ml Output Total 3050 ml Balance -845 ml Height & Weight Height: 5'4.00" Weight: 253lbs. 0.0oz. 114.144583wj; 41.07 BMI Method:Stated General Appearance: No Apparent Distress, WD/WN, Chronically ill, Obese HEENT: Moist Mucous Membranes Neck: Normal Inspection; No JVD Respiratory: No Accessory Muscle Use, No Respiratory Distress, Decreased Breath Sounds Cardiovascular: Regular Rate, Rhythm Capillary Refill: Less Than 3 Seconds Extremity: Normal Inspection, No Calf Tenderness, No Pedal Edema Neurologic/Psychiatric: Alert, Oriented x3, No Motor/Sensory Deficits, Normal Mood/Affect Results Lab Laboratory Tests 11/29/21 04:39 11/30/21 03:57 Assessment/Plan Assessment/Plan 1 VÍCTOR COOPER MD Nov 30, 2021 09:27
--- NOTE | 2021-11-30 11:18 | Cardiology Progress Note ---
Progress Note-Cardiology Events since last exam Date Seen by Provider: Nov 30, 2021 Time Seen by Provider: 11:13 Events since last exam I am following him due to respiratory failure. He remains in the intensive care unit. His breathing and cough continue to improve. He denies chest pain, palpitations, syncope, or ankle edema. Certain portions of this document may have been dictated utilizing voice recogni tion technology. Inherent to this technology, typographical and grammatical errors may exist. As much as I am diligent to identify and correct these mistakes, some errors may remain in the document. Vitals Last set of Vitals Signs Vital Signs 11/28/21 11/30/21 11/30/21 11/30/21 16:07 07:46 09:00 11:02 Temp 36.6 Pulse 86 Resp 16 B/P (MAP) 121/61 (81) Pulse Ox 97 O2 Delivery Nasal Cannula O2 Flow Rate 2.00 FiO2 2 Labs Labs Laboratory Tests 11/30/21 03:57 Exam Vital Signs Vital Signs Date Time Temp Pulse Resp B/P (MAP) Pulse Ox O2 Delivery O2 Flow Rate FiO2 11/30/21 11:02 97 Nasal Cannula 2.00 11/30/21 09:00 86 16 121/61 (81) 11/30/21 07:46 36.6 11/28/21 16:07 2 Physical Exam General: Alert. No acute distress. He is obese. He is wearing oxygen by nasal cannula. Eye: No xanthelasma. HENT: Normocephalic. Neck: Jugular venous pressure does not appear elevated. Respiratory: Lungs are clear to auscultation. Respirations are non-labored. Breath sounds are equal. Symmetrical chest wall expansion. Cardiovascular: Normal rate. Regular rhythm. Distant S1/S2. No murmur. No gallop. No edema. Gastrointestinal: Soft. Normal bowel sounds. Skin: Warm. Dry. Neurologic: Alert and oriented to person, place, time. Cranial nerves 3-11 grossly intact. Psychiatric: Cooperative. Appropriate mood & affect. Labs Laboratory Tests Test 11/29/21 15:24 11/29/21 20:28 11/30/21 03:57 Range/Units Glucometer 181 H 131 H 70-110 MG/DL White Blood Count 13.2 H 4.3-11.0 10^3/uL Red Blood Count 3.79 L 4.30-5.52 10^6/uL Hemoglobin 10.4 L 13.3-17.7 g/dL Hematocrit 32 L 40-54 % Mean Corpuscular Volume 84 80-99 fL Mean Corpuscular Hemoglobin 27 25-34 pg Mean Corpuscular Hemoglobin Concent 33 32-36 g/dL Red Cell Distribution Width 16.6 H 10.0-14.5 % Platelet Count 91 L 130-400 10^3/uL Mean Platelet Volume 12.0 9.0-12.2 fL Immature Granulocyte % (Auto) 1 % Neutrophils (%) (Auto) 79 H 42-75 % Lymphocytes (%) (Auto) 7 L 12-44 % Monocytes (%) (Auto) 12 0-12 % Eosinophils (%) (Auto) 0 0-10 % Basophils (%) (Auto) 0 0-10 % Neutrophils # (Auto) 10.4 H 1.8-7.8 10^3/uL Lymphocytes # (Auto) 1.0 1.0-4.0 10^3/uL Monocytes # (Auto) 1.6 H 0.0-1.0 10^3/uL Eosinophils # (Auto) 0.0 0.0-0.3 10^3/uL Basophils # (Auto) 0.0 0.0-0.1 10^3/uL Immature Granulocyte # (Auto) 0.2 H 0.0-0.1 10^3/uL Percent Immature Platelet Fraction 10.9 H 0.0-7.6 % Sodium Level 138 135-145 MMOL/L Potassium Level 3.4 L 3.6-5.0 MMOL/L Chloride Level 106 98-107 MMOL/L Carbon Dioxide Level 21 21-32 MMOL/L Anion Gap 11 5-14 MMOL/L Blood Urea Nitrogen 17 7-18 MG/DL Creatinine 0.86 0.60-1.30 MG/DL Estimat Glomerular Filtration Rate 85 BUN/Creatinine Ratio 20 Glucose Level 99 70-105 MG/DL Calcium Level 8.8 8.5-10.1 MG/DL Corrected Calcium 9.5 8.5-10.1 MG/DL Phosphorus Level 2.2 L 2.3-4.7 MG/DL Magnesium Level 2.0 1.6-2.4 MG/DL Total Bilirubin 0.5 0.1-1.0 MG/DL Aspartate Amino Transf (AST/SGOT) 35 H 5-34 U/L Alanine Aminotransferase (ALT/SGPT) 20 0-55 U/L Alkaline Phosphatase 52 40-136 U/L Total Protein 7.1 6.4-8.2 GM/DL Albumin 3.1 L 3.2-4.5 GM/DL Diagnosis/Problems Diagnosis/Problems (1) Acute on chronic respiratory failure with hypoxemia Assessment & Plan: I suspect this is due to his chronic obstructive pulmonary disease with superimposed pneumonia. His BNP level was normal which suggests he has no component of heart failure causing his shortness of breath. His echocardiogram from this admission did not show any significant structural heart disease that would explain heart failure. I would just be cautious with the IV fluids that might be given for his sepsis so as to help prevent volume overload. I stopped his IV fluids on 11/29. (2) Primary hypertension Assessment & Plan: He has been normotensive on his home dose of losartan. (3) Mixed hyperlipidemia Assessment & Plan: Continue home dose of atorvastatin. I added a lipid panel to the blood sample from this morning. (4) Chronic obstructive pulmonary disease Assessment & Plan: As above, I suspect this is the majority of what is causing his shortness of breath along with possible superimposed pneumonia. (5) Type 2 diabetes mellitus with complication Assessment & Plan: This is being managed by the hospitalist. (6) Morbid obesity Status: Chronic Assessment & Plan: He needs to work on weight loss. His obesity is likely contributing to his chronic dyspnea. SUSAN MARRUFO JR, MD Nov 30, 2021 11:18
[2021-11-30 11:28] LABS: TRIGLYCERIDES 99 MG/DL (<150); VLDL CHOLESTEROL 20 MG/DL (5-40)
[2021-11-30 11:33] LABS: CHOLESTEROL 97 MG/DL (< 200)
[2021-11-30 11:34] LABS: HDL CHOLESTEROL 33 MG/DL (40-60)
[2021-11-30] MEDS ORDERED: LOPERAMIDE 2 MG (IMODIUM) TABLET PO PRN (11:45)
[2021-11-30] MEDS ORDERED: LOPERAMIDE 2 MG (IMODIUM) TABLET PO NR (12:00)
[2021-11-30] MEDS: LACTOBACILLUS ACIDOPHILUS (PROBIOTIC) CAPSULE PO SCH ×3 (12:03→17:18)
[2021-11-30 16:28] VITALS: BP 131/69
[2021-11-30] MEDS: metFORMIN XR 500 MG (GLUCOPHAGE XR) TAB PO SCH (17:18)
[2021-11-30] MEDS: PRIMIDONE 250MG (MYSOLINE) TAB PO SCH (20:01)
[2021-11-30 20:19] VITALS: BP 144/75
[2021-11-30 23:00] VITALS: BP 116/65
[2021-12-01] MEDS: CEFEPIME INJECTION 1,000 MG in NS (IVPB) 50 ML IV SCH ×3 (00:30→12:15)
[2021-12-01] MEDS: RT-ALBUTEROL HFA 8.5 GM INHALER IH SCH ×3 (02:22→11:28)
[2021-12-01 04:00] VITALS: BP 133/74
[2021-12-01] MEDS: MULTIVIT W/MINERALS TAB (THERAGRAN M) PO SCH (05:26)
[2021-12-01 05:44] LABS: PLATELET COUNT 84 10^3/uL (130-400)
[2021-12-01 05:46] LABS: BASOPHILS % (AUTO) 0 % (0-10); EOSINOPHILS % (AUTO) 0 % (0-10); HEMATOCRIT 32 % (40-54); HEMOGLOBIN 10.2 g/dL (13.3-17.7); LYMPHOCYTES % (AUTO) 13 % (12-44); MEAN CORPUSCULAR HEMOGLOBIN 27 pg (25-34); MEAN CORPUSCULAR HGB CONC 32 g/dL (32-36); MEAN CORPUSCULAR VOLUME 85 fL (80-99); MEAN PLATELET VOLUME 12.7 fL (9.0-12.2); MONOCYTES # (AUTO) 0.7 10^3/uL (0.0-1.0); MONOCYTES % (AUTO) 9 % (0-12); NEUTROPHILS # (AUTO) 6.1 10^3/uL (1.8-7.8); NEUTROPHILS % (AUTO) 77 % (42-75); WHITE BLOOD COUNT 7.8 10^3/uL (4.3-11.0)
[2021-12-01 06:11] LABS: ALBUMIN 3.2 GM/DL (3.2-4.5); BILIRUBIN,TOTAL 0.5 MG/DL (0.1-1.0); CALCIUM 8.8 MG/DL (8.5-10.1); CREATININE SERUM 0.76 MG/DL (0.60-1.30); MAGNESIUM 1.8 MG/DL (1.6-2.4); POTASSIUM 3.8 MMOL/L (3.6-5.0); TOTAL PROTEIN 7.4 GM/DL (6.4-8.2)
[2021-12-01] MEDS: inSUlin ASPART (NovoLOG) 1 UNIT/0.01 ML (CHARGE PER UNIT) SC SCH ×2 (06:21→12:15)
[2021-12-01] MEDS: RT--FLUTICASONE/SALMETEROL 232-14 (AIRDUO RespiCLICK) IH SCH (06:57)
[2021-12-01 07:50] VITALS: BP 141/67
[2021-12-01] MEDS: SENNOSIDES 8.6 MG (SENOKOT) TAB PO SCH (09:01)
[2021-12-01] MEDS: DOCUSATE SODIUM 100 MG (COLACE) CAP PO SCH (09:01)
[2021-12-01] MEDS: AZITHROMYCIN INJECTION 500 MG in NS (IVPB) 250 ML IV SCH (09:05)
[2021-12-01] MEDS: FERROUS SULF 325 MG (IRON) TAB PO SCH (09:06)
[2021-12-01] MEDS: SERTRALINE 100 MG (ZOLOFT) TAB PO SCH (09:06)
[2021-12-01] MEDS: LOSARTAN 50 MG (COZAAR) TAB PO SCH (09:06)
[2021-12-01] MEDS: glipiZIDE 5 MG (GLUCOTROL) TAB PO SCH (09:06)
[2021-12-01] MEDS: ASPIRIN E.C. 81 MG (ECOTRIN) TAB PO SCH (09:06)
[2021-12-01] MEDS: EMPAGLIFLOZIN 10 MG TABLET (JARDIANCE) PO SCH (09:06)
[2021-12-01] MEDS: OMEGA 3 (FISH OIL) 1000 MG CAP PO SCH (09:06)
[2021-12-01] MEDS: PREGABALIN 150 MG (LYRICA) CAPSULE PO SCH (09:06)
[2021-12-01] MEDS: LACTOBACILLUS ACIDOPHILUS (PROBIOTIC) CAPSULE PO SCH ×2 (09:06→12:15)
[2021-12-01] MEDS: ENOXAPARIN 40 MG/0.4 ML (LOVENOX) SYR SC SCH (09:07)
[2021-12-01] MEDS: ARTIFICAL TEARS 0.4 ML UNIT DOSE (REFRESH PLUS) OU SCH (09:07)
[2021-12-01] MEDS: FAMOTIDINE 20 MG (PEPCID) TABLET PO SCH (09:07)
--- NOTE | 2021-12-01 09:32 | Cardiology Progress Note ---
Progress Note-Cardiology Events since last exam Date Seen by Provider: Dec 01, 2021 Time Seen by Provider: 09:30 Events since last exam I am following him due to respiratory failure. He was also noted to have mild dilatation of the aortic root on his echocardiogram obtained from this admission. He feels much better. He has been up walking in the halls without assistance. He denies chest pain. His shortness of breath has improved. He denies palpitations, syncope, or ankle edema. He hopes to go home today. Certain portions of this document may have been dictated utilizing voice recognition technology. Inherent to this technology, typographical and grammatical errors may exist. As much as I am diligent to identify and correct these mistakes, some errors may remain in the document. Vitals Last set of Vitals Signs Vital Signs 12/01/21 12/01/21 06:58 15:04 Temp 36.9 Pulse 88 Resp 20 B/P (MAP) 134/67 Pulse Ox 95 O2 Delivery NIV CPAP O2 Flow Rate 2.00 FiO2 28 Labs Labs Laboratory Tests 12/01/21 05:35 Exam Vital Signs Vital Signs Date Time Temp Pulse Resp B/P (MAP) Pulse Ox O2 Delivery O2 Flow Rate FiO2 12/01/21 15:04 36.9 88 20 134/67 95 NIV CPAP 2.00 12/01/21 06:58 28 Physical Exam General: Alert. No acute distress. He is obese. Eye: No xanthelasma. HENT: Normocephalic. Neck: Jugular venous pressure does not appear elevated. Respiratory: Lungs are clear to auscultation. Respirations are non-labored. Breath sounds are equal. Symmetrical chest wall expansion. Cardiovascular: Normal rate. Regular rhythm. No murmur. No gallop. No edema. Gastrointestinal: Soft. Normal bowel sounds. Skin: Warm. Dry. Neurologic: Alert and oriented to person, place, time. Cranial nerves 3-11 grossly intact. Psychiatric: Cooperative. Appropriate mood & affect. Labs Laboratory Tests Test 11/30/21 16:59 11/30/21 20:52 12/01/21 05:35 12/01/21 05:53 Range/Units Glucometer 102 147 H 99 70-110 MG/DL White Blood Count 7.8 4.3-11.0 10^3/uL Red Blood Count 3.78 L 4.30-5.52 10^6/uL Hemoglobin 10.2 L 13.3-17.7 g/dL Hematocrit 32 L 40-54 % Mean Corpuscular Volume 85 80-99 fL Mean Corpuscular Hemoglobin 27 25-34 pg Mean Corpuscular Hemoglobin Concent 32 32-36 g/dL Red Cell Distribution Width 16.6 H 10.0-14.5 % Platelet Count 84 L 130-400 10^3/uL Mean Platelet Volume 12.7 H 9.0-12.2 fL Immature Granulocyte % (Auto) 1 % Neutrophils (%) (Auto) 77 H 42-75 % Lymphocytes (%) (Auto) 13 12-44 % Monocytes (%) (Auto) 9 0-12 % Eosinophils (%) (Auto) 0 0-10 % Basophils (%) (Auto) 0 0-10 % Neutrophils # (Auto) 6.1 1.8-7.8 10^3/uL Lymphocytes # (Auto) 1.0 1.0-4.0 10^3/uL Monocytes # (Auto) 0.7 0.0-1.0 10^3/uL Eosinophils # (Auto) 0.0 0.0-0.3 10^3/uL Basophils # (Auto) 0.0 0.0-0.1 10^3/uL Immature Granulocyte # (Auto) 0.1 0.0-0.1 10^3/uL Percent Immature Platelet Fraction 10.6 H 0.0-7.6 % Sodium Level 141 135-145 MMOL/L Potassium Level 3.8 3.6-5.0 MMOL/L Chloride Level 109 H 98-107 MMOL/L Carbon Dioxide Level 19 L 21-32 MMOL/L Anion Gap 13 5-14 MMOL/L Blood Urea Nitrogen 15 7-18 MG/DL Creatinine 0.76 0.60-1.30 MG/DL Estimat Glomerular Filtration Rate 89 BUN/Creatinine Ratio 20 Glucose Level 99 70-105 MG/DL Calcium Level 8.8 8.5-10.1 MG/DL Corrected Calcium 9.4 8.5-10.1 MG/DL Magnesium Level 1.8 1.6-2.4 MG/DL Total Bilirubin 0.5 0.1-1.0 MG/DL Aspartate Amino Transf (AST/SGOT) 48 H 5-34 U/L Alanine Aminotransferase (ALT/SGPT) 35 0-55 U/L Alkaline Phosphatase 50 40-136 U/L Total Protein 7.4 6.4-8.2 GM/DL Albumin 3.2 3.2-4.5 GM/DL Test 12/01/21 11:08 Range/Units Glucometer 190 H 70-110 MG/DL Diagnosis/Problems Diagnosis/Problems (1) Acute on chronic respiratory failure with hypoxemia Assessment & Plan: I suspect this is due to his chronic obstructive pulmonary disease with superimposed pneumonia. His BNP level was normal which suggests he has no component of heart failure causing his shortness of breath. His echoca rdiogram from this admission did not show any significant structural heart disease that would explain heart failure. I would just be cautious with the IV fluids that might be given for his sepsis so as to help prevent volume overload. I stopped his IV fluids on 11/29. (2) Primary hypertension Assessment & Plan: He has been normotensive on his home dose of losartan. (3) Mixed hyperlipidemia Assessment & Plan: Continue home dose of atorvastatin. His cholesterol level from this admission looks great. (4) Thoracic aortic aneurysm without rupture Assessment & Plan: His echocardiogram from 11/28/2021 showed mild dilatation of the aortic root. His aortic root measured just 2 mm above normal. This will need to be followed longitudinally. (5) Chronic obstructive pulmonary disease Assessment & Plan: As above, I suspect this is the majority of what is causing his shortness of breath along with possible superimposed pneumonia. (6) Type 2 diabetes mellitus with complication Assessment & Plan: This is being managed by the hospitalist. (7) Morbid obesity Status: Chronic Assessment & Plan: He needs to work on weight loss. His obesity is likely contributing to his chronic dyspnea. SUSAN MARRUFO JR, MD Dec 01, 2021 09:32
--- NOTE | 2021-12-01 10:30 | Physical Therapy Evaluation ---
PT Evaluation-General Medical Diagnosis Admission Date Nov 28, 2021 at 11:38 Medical Diagnosis: pneumonia/sepsis Onset Date: Nov 28, 2021 Therapy Diagnosis Therapy Diagnosis: debility/weakness Height/Weight Height (Feet): 5 Height (Inches): 4.00 Weight (Pounds): 253 Weight (Ounces): 0.0 Precautions Precautions/Isolations: Fall Prevention, Standard Precautions Referral Physician: Marce Reason for Referral: Evaluation/Treatment Medical History Pertinent Medical History: COPD, DM, Heart Failure, HTN, Smoking History of Falls (past yr): No Prior Surgery (last 100 days): No Current History ER secondary to SOA, cough, scratchy throat, body aches, fever Reviewed History: Yes Social History Home: Single Level Current Living Status: Spouse Prior Prior Level of Function SCALE: Activities may be completed with or without assistive devices. 2-Sjxdlzmlnq-ghxphxr completes the activity by him/herself with no assistance from a helper. 5-Set-up or Clean-up Assistance-helper sets up or cleans up; patient completes activity. [place] assists only prior to or following the activity. 4-Supervision or Touching Assistance-helper provides verbal cues and/or touching/steadying and/or contact guard assistance as patient completes activity. Assistance may be provided throughout the activity or intermittently. 3-Partial/Moderate Assistance-helper does LESS THAN HALF the effort. Clinton lifts, holds or supports trunk or limbs, but provides less than half the effort. 2-Substantial/Maximal Assistance-helper does MORE THAN HALF the effort. [place] lifts or holds trunk or limbs and provides more than half the effort. 2-Wygwzstcj-pcyvvj does ALL the effort. Patient does none of the effort to complete the activity. Or, the assistance of 2 or more helpers is required for the patient to complete the activity. If activity was not attempted, code reason: 7-Patient Refused. 9-Not Applicable-not attempted and the patient did not perform the activity before the current illness, exacerbation or injury. 10-Not Attempted due to Environmental Limitations-(lack of equipment, weather restraints, etc.). 88-Not Attempted due to Medical Conditions or Safety Concerns. Bed Mobility: 6 Transfers (B,C,W/C): 6 Gait: 6 Stairs: 6 Indoor Mobility (Ambulation): Independent Stairs: Independent Prior Devices Use: None PT Evaluation-Current Subjective Patient up independently in room upon PT arrival. Agrees to PT. Objective Patient Orientation: Normal For Age ROM/Strength ROM Lower Extremities bilateral LE WFL Strength Lower Extremities 4/5 grossly bilateral LE all planes Integumentary/Posture Bowel Incontinence: No Bladder Incontinence: No Posture kyphotic Neuromuscular (Tone, Coordination, Reflexes) grossly intact Sensory Vision: Functional Hearing: Hearing Aid/Aides Transfers Sit to Stand (QC): 6 Chair/Xgl-in-Uymbj Xfer(QC): 6 Gait Mode of Locomotion: Walk Anticipated Mode of Locomotion: Walk Walk 10 feet (QC): 6 Walk 50 ft with 2 Turns(QC): 6 Walk 150 ft (QC): 6 Distance: 300' Gait Assistive Device: None Comments/Gait Description safe and functional with no deviation Balance Sitting Static: Normal Sitting Dynamic: Normal Standing Static: Normal Standing Dynamic: Normal Assessment/Needs Patient is currently at independent [facility] with all gross motor skills safely and does not require skilled PT intervention. Rehab Potential: Fair PT Plan Treatment/Plan Treatment Plan: Discontinue PT, goals met Treatment Duration: Dec 01, 2021 Frequency: 1 time per week Estimated Hrs Per Day: .25 hour per day Patient and/or Family Agrees t: Yes Time/GCodes Time In: 925 Time Out: 935 Total Billed Treatment Time: 10 Total Billed Treatment 1 visit EVLowC 10 min CY FINNEGAN PT Dec 01, 2021 10:30
[2021-12-01 11:11] VITALS: BP 134/67
--- NOTE | 2021-12-01 11:54 | Occ Therapy Progress Note ---
Therapy Progress Note OT orders received and chart reviewed. OT visited with pt who indicates he is independent with ADLs and at his PLOF. Pt just returned from bathroom where he completed toileting independently, he is independent with eating, and has no concerns with his ability to complete other ADLS including dressing and showering. D/C from OT at this time, as pt is at his PLOF and independent with ADLs. 1, visit D/C ELDA PATEL OT Dec 01, 2021 11:54
[2021-12-01] MEDS ORDERED: CEFD300C3 PO (13:50)
[2021-12-01] MEDS ORDERED: AZIT250T12 PO (13:50)
--- NOTE | 2021-12-01 13:50 | Discharge Summary ---
Discharge [facility] Reconcile Patient Problems Problems Reviewed?: Yes Discharge Medications New, Converted or Re-Newed RX: Transmitted to Pharmacy New Medications: Azithromycin (Azithromycin) 250 Mg Tablet 250 MG PO DAILY for 3 Days, #3 TAB Cefdinir (Cefdinir) 300 Mg Capsule 300 MG PO BID for 5 Days, #10 CAP Continued Medications: Acetaminophen (Tylenol Extra Strength) 500 Mg Tablet 1000 MG PO BID PRN for PAIN-MILD (1-4), TAB Albuterol Sulfate (Proair Hfa) 1 Puff Puff 2 PUFF IH Q6H PRN for SHORTNESS OF BREATH, PUFF Aspirin (Aspirin EC) 81 Mg Tablet.dr 81 MG PO DAILY, TAB Atorvastatin Calcium (Atorvastatin Calcium) 80 Mg Tablet 40 MG PO HS, TAB TAKES OF A 80MG Carboxymethylcellulos/Glycerin (Refresh Optive Eye Drops) 0.5 %-0.9 % Drops 1 DROP OU BID, DROPS Diclofenac Sodium (Diclofenac Sodium) 1 % Gel..gram. 4 GM TP BID PRN for PAIN-BREAKTHROUGH, TUBE APPLY TO LEFT KNEE AND BACK Empagliflozin (Jardiance) 25 Mg Tablet 25 MG PO DAILY, TAB Ferrous Gluconate (Ferrous Gluconate) 324 Mg Tablet 324 MG PO DAILY, TAB Furosemide (Lasix) 40 Mg Tablet 40 MG PO DAILY PRN for FLUID RETENTION, TAB Glipizide (Glipizide) 10 Mg Tablet 10 MG PO BID, TAB Hydrocodone/Acetaminophen (Hydrocodone-Acetamin 5-325 mg) 5 Mg-325 Mg Tablet 1 TAB PO BID PRN for PAIN-MODERATE (5-7), TAB Losartan Potassium (Losartan Potassium) 50 Mg Tablet 50 MG PO DAILY, TAB Metformin HCl (Metformin HCl ER) 500 Mg Tab.er.24 2000 MG PO 1700, TAB TAKES 4 (500MG) TABLETS BEFORE SUPPER Multivit-Min/FA/Lycopene/Lut (Centrum Silver Tablet) 1 Each Tablet 1 TAB PO DAILY, TAB Olodaterol HCl (Striverdi Respimat) 4 Gm Mist.inhal 2 PUFF IH DAILY, INHALER Bussey-3 Fatty Acids/Fish Oil (Bussey 3 1,000 mg Softgel) 300 Mg-1,000 Mg Capsule 1 EACH PO BID, CAP Pregabalin (Pregabalin) 150 Mg Capsule 150 MG PO BID, CAP Primidone (Mysoline) 250 Mg Tablet 250 MG PO HS, TAB Semaglutide (Ozempic) 1 Mg/0.75 Ml (4 Mg/3 Ml) Pen.injctr 1 MG SQ SUN, EA Sertraline HCl (Sertraline HCl) 100 Mg Tablet 100 MG PO DAILY, TAB Patient Instructions Goal/Follow Up Appt: F.u with PCP 1-2 weeks Patient Instructions: - Sent home with oxygen for exertion, would test in clinic for future needs Activity & Diet Discharge Diet: ADA Diet Activity as Tolerated: Yes MADELINE LEE MD Dec 01, 2021 13:50
--- NOTE | 2021-12-01 13:51 | Discharge Summary ---
Diagnosis/Chief Complaint Date of Admission Nov 28, 2021 at 11:38 Date of Discharge 12/01/21 Admission Diagnosis Admission Diagnosis Acute hypoxic respiratory Failure PNA Sepsis Volume Overload HTN COPD HLD NIDDM Discharge Diagnosis See above Discharge Summary-Simple/Stand Consultations Dr Alvarado: Cardiology Discharge Physical Examination Allergies: Coded Allergies: lisinopril (Verified Allergy, Unknown, 09/22/15) sildenafil (Verified Allergy, Unknown, 09/22/15) Vitals & I&Os Vital Sign - Last 12Hours Date Time Temp Pulse Resp B/P (MAP) Pulse Ox O2 Delivery O2 Flow Rate FiO2 12/01/21 11:28 95 NIV CPAP 2.00 12/01/21 11:11 36.9 88 20 134/67 (89) 12/01/21 06:58 28 Intake and Output 12/01/21 00:00 Intake Total 1150 ml Output Total 1200 ml Balance -50 ml General Appearance: Alert, Oriented X3, No Acute Distress Respiratory: Clear to Auscultation, Normal Air Movement Cardiovascular: Regular Rate, No Murmurs Abdominal: Normal Bowel Sounds, Soft, No Tenderness, No Masses Extremities: Other (1+ pitting edema equal bilaterally) Neuro: Normal Speech, Strength at 5/5 X4 Ext, Cranial Nerves 3-12 NL Psych/Mental Status: Mood NL Hospital Course See final discharge diagnosis. Discharge Condition at discharge Stable Instructions to patient/family Please see electronic discharge instructions given to patient. Discharge Medications Reviewed and agree with Discharge Medication list on patient's Discharge Instruction sheet MADELINE LEE MD Dec 01, 2021 13:51
[2021-12-01 15:04] VITALS: BP 134/67
== END 2021-12-01 15:52 | disposition home or self-care (01) | DRG 871 ==
LOC: EDUNIT# 08:09 → ER 08:12 → ICU 11:38 → 4TH 11-30 13:50
PROVIDERS: ADMIT Internal Medicine; ATTEND Family Medicine
PROC: 5A0935A Assistance with Respiratory Ventilation, Less than 24 Consecutive Hours, High Flow/Velocity Cannula (ICD-10-PCS; principal; 2021-11-28)
PROC: 5A09457 Assistance with Respiratory Ventilation, 24-96 Consecutive Hours, Continuous Positive Airway Pressure (ICD-10-PCS; 2021-11-28)
DX: A41.9 Sepsis, unspecified organism (principal); J18.9 Pneumonia, unspecified organism; J96.21 Acute and chronic respiratory failure with hypoxia; Z68.41 Body mass index [BMI] 40.0-44.9, adult; R65.20 Severe sepsis without septic shock; I11.0 Hypertensive heart disease with heart failure; I50.9 Heart failure, unspecified; G47.33 Obstructive sleep apnea (adult) (pediatric); E11.9 Type 2 diabetes mellitus without complications; Z20.822 Contact with and (suspected) exposure to COVID-19; J43.9 Emphysema, unspecified; M19.90 Unspecified osteoarthritis, unspecified site; F32.A Depression, unspecified; D69.6 Thrombocytopenia, unspecified; E78.2 Mixed hyperlipidemia; E66.01 Morbid (severe) obesity due to excess calories; E87.70 Fluid overload, unspecified; D64.9 Anemia, unspecified; I71.2 Thoracic aortic aneurysm, without rupture; G51.0 Bell's palsy; R15.9 Full incontinence of feces; R19.7 Diarrhea, unspecified; Z79.82 Long term (current) use of aspirin; Z79.899 Other long term (current) drug therapy; Z79.84 Long term (current) use of oral hypoglycemic drugs; Z87.891 Personal history of nicotine dependence; Z85.828 Personal history of other malignant neoplasm of skin; Z88.8 Allergy status to other drugs, medicaments and biological substances
CPT/HCPCS: 36415; 36600; 71045; 80053; 80061; 81000; 82805; 82947; 83605; 83735; 83880; 84100; 84145; 85007; 85025; 85027; 85610; 85730; 86141; 87040; 87081; 87636; 93306; 94640; 94664; 94760; 94761; 96361; 96374

== ENCOUNTER 2022-06-03 12:01 | Inpatient (IN) | payer MEDICARE, OTHER ==
[~2022-06-03] VITALS: Ht 162 cm; Wt 107.7 kg
[~2022-06-03 12:01] MED LIST changes: +ACET-2267 PO; +ALBU8.5H6 IH; +ASPI-1238 PO; +AZIT250T12 PO; +CARB15DR2 OU; +DICL100G13 TP; +EMPA25TA PO; +LOSA50TA63 PO; +PREG150C46 PO; -RT-ALBUINH IH; +SEMA1PEN3 SQ
--- NOTE | 2022-06-03 12:22 | ED Respiratory ---
General Chief Complaint: Respiratory Problems Stated Complaint: CHEST CONGESTION | COUGH Nursing Triage Note: PT TO RM 7 WITH WITH C/O FEELING SOB, SLIGHT COUGH AND FEVER LAST NIGHT Source: patient, family Exam Limitations: no limitations History of Present Illness Date Seen by Provider: Jun 03, 2022 Time Seen by Provider: 12:10 Initial Comments Patient is an 87-year-old male with a history of COPD and diabetes who presents to the emergency department feeling short of breath with a cough productive of sputum, fever to [id number] onset last night. He does use a nebulizer and inhalers at home. He has been hospitalized multiple times for respiratory complaints/pneumonia. His last hospitalization was in November 2021. Patient took some aspirin at 5 AM this morning for fever. Denies chest pain, abdominal pain, nausea, vomiting or diarrhea. No urinary complaints. No swelling in his legs. States he does not have a history of heart disease or cardiac intervention. He does wear CPAP at night and was wearing it throughout the morning but became so short of breath he decided to come in and be evaluated. Room air oxygen saturations 71% on arrival. Is not very dyspneic clinically looks fairly okay. Lung sounds diminished in the bases bilaterally with crackles more right than left. No lower extremity edema. Abdomen is soft. Mentating appropriately. Placed on 6 L initially oxygen up into the high 70s, changed to 10 L oxygen levels 81. Placed on BiPAP currently oxygen levels increasing. Timing/Duration: other (last night) Severity: severe Prior Episodes/Possible Cause: occasional episodes Modifying Factors: Improves With Albuterol Inhaler Associated Symptoms: fever/chills, shortness of breath, other (cough) Allergies and Home Medications Allergies Coded Allergies: lisinopril (Verified Allergy, Unknown, 09/22/15) sildenafil (Verified Allergy, Unknown, 09/22/15) Patient Home Medication List Home Medication List Reviewed: Yes Acetaminophen (Tylenol Extra Strength) 500 Mg Tablet, 1,000 MG PO BID PRN for PAIN-MILD (1-4), (Reported) Entered as Reported by: CAIO MUELLER on 11/28/21 1405 Albuterol Sulfate (Ventolin Hfa) 1 Puff Puff, 2 PUFF IH Q6H PRN for SHORTNESS OF BREATH, (Reported) Entered as Reported by: CAIO MUELLER on 04/10/19 1136 Aspirin (Aspirin EC) 81 Mg Tablet.dr, 81 MG PO DAILY, (Reported) Entered as Reported by: CAIO MUELLER on 11/28/21 140 Atorvastatin Calcium (Atorvastatin Calcium) 80 Mg Tablet, 40 MG PO HS, (Reported) Entered as Reported by: CAIO MUELLER on 11/28/211404 Azithromycin (Azithromycin) 250 Mg Tablet, 250 MG PO DAILY Prescribed by: MADELINE LEE on 12/01/21 135 Carboxymethylcellulos/Glycerin (Refresh Optive Eye Drops) 0.5 %-0.9 % Drops, 1 DROP OU BID, (Reported) Entered as Reported by: CAIO MUELLER on 11/28/211404 Cefdinir (Cefdinir) 300 Mg Capsule, 300 MG PO BID Prescribed by: MADELINE LEE on 12/01/21 135 Diclofenac Sodium (Diclofenac Sodium) 1 % Gel..gram., 4 GM TP BID PRN for PAIN- BREAKTHROUGH, (Reported) Entered as Reported by: CAIO MUELLER on 11/28/211404 Empagliflozin (Jardiance) 25 Mg Tablet, 25 MG PO DAILY, (Reported) Entered as Reported by: CAIO MUELLER on 11/28/211404 Ferrous Gluconate (Ferrous Gluconate) 324 Mg Tablet, 324 MG PO DAILY, (Reported) Entered as Reported by: JOSHUA BILLS on 04/09/19 181 Furosemide (Lasix) 40 Mg Tablet, 40 MG PO DAILY PRN for FLUID RETENTION, (Reported) Entered as Reported by: CAIO MUELLER on 04/10/19 1148 Glipizide (Glipizide) 10 Mg Tablet, 10 MG PO BID, (Reported) Entered as Reported by: LIZET PRO on 09/04/15 194 Hydrocodone/Acetaminophen (Hydrocodone-Acetamin 5-325 mg) 5 Mg-325 Mg Tablet, 1 TAB PO BID PRN for PAIN-MODERATE (5-7), (Reported) Entered as Reported by: CAIO MUELLER on 11/28/21 140 Losartan Potassium (Losartan Potassium) 50 Mg Tablet, 50 MG PO DAILY, (Reported) Entered as Reported by: CAIO MUELLER on 11/28/21 140 Metformin HCl (Metformin HCl ER) 500 Mg Tab.er.24, 2,000 MG PO 1700, (Reported) Entered as Reported by: LIZET PRO on 09/04/151944 Multivit-Min/FA/Lycopene/Lut (Centrum Silver Tablet) 1 Each Tablet, 1 TAB PO DAILY, (Reported) Entered as Reported by: TABBY ROSE on 09/23/18 154 Olodaterol HCl (Striverdi Respimat) 4 Gm Mist.inhal, 2 PUFF IH DAILY, (Reported) Entered as Reported by: TABBY ROSE on 03/03/16 1233 Troy-3 Fatty Acids/Fish Oil (Troy 3 1,000 mg Softgel) 300 Mg-1,000 Mg Capsule, 1 EACH PO BID, (Reported) Entered as Reported by: JOSHUA BILLS on 04/09/19 182 Pregabalin (Pregabalin) 150 Mg Capsule, 150 MG PO BID, (Reported) Entered as Reported by: CAIO MUELLER on 11/28/21 140 Primidone (Mysoline) 250 Mg Tablet, 250 MG PO HS, (Reported) Entered as Reported by: TABBY ROSE on 09/23/18 154 Semaglutide (Ozempic) 1 Mg/0.75 Ml (4 Mg/3 Ml) Pen.injctr, 1 MG SQ SUN, (Reported) Entered as Reported by: CAIO MUELLER on 11/28/21 140 Sertraline HCl (Sertraline HCl) 100 Mg Tablet, 100 MG PO DAILY, (Reported) Entered as Reported by: LIZET PRO on 09/04/151946 Review of Systems Review of Systems Constitutional: see HPI, dizziness, fever EENTM: no symptoms reported Respiratory: cough, phlegm, short of breath Cardiovascular: no symptoms reported Gastrointestinal: no symptoms reported Genitourinary: no symptoms reported Musculoskeletal: no symptoms reported Skin: no symptoms reported Psychiatric/Neurological: No Symptoms Reported Past Otmfymj-Qhyagh-Wboukg Hx Patient Social History Tobacco Use?: No Use of E-Cig and/or Vaping dev: No Substance use?: No Alcohol Use?: No Pt feels they are or have been: No Immunizations Up To Date Tetanus Booster (TDap): Unknown Influenza Vaccine Up-to-Date: Yes; Up-to-Date First/Initial COVID19 Vaccinat: 2020 Second COVID19 Vaccination Joao: 201 Third COVID19 Vaccination Date: 2020 Seasonal Allergies Seasonal Allergies: No Past Medical History Surgery/Hospitalization HX: HTN. HLD, COPD, PNEUMONIA, DM Surgeries: Yes (HERNIA) Abdominal, Orthopedic, Tonsillectomy Respiratory: Yes Pneumonia, Sleep Apnea, COPD, Emphysema Currently Using CPAP: Yes Currently Using BIPAP: No Cardiac: Yes High Cholesterol, Hypertension Neurological: Yes ([place] WITH PERMANENT RIGHT FACIAL DROOP) Reproductive Disorders: No Sexually Transmitted Disease: No HIV/AIDS: No Genitourinary: No Gastrointestinal: Yes Abdominal Hernia Musculoskeletal: Yes ("EPIDURAL FOR L3-L4 DEGENERATION"; NECK PAIN) Degenerate Disk Disease, Arthritis, Chronic Back Pain Endocrine: Yes (OBESITY) Diabetes, Non-Insulin dep HEENT: No Cancer: No Skin Did You Recieve Any Treatments: Yes What Type of Treatment Did You: Surgical Intervention Psychosocial: Yes Depression Integumentary: No Blood Disorders: Yes (ANEMIA) Adverse Reaction/Blood Tranf: No Family Medical History Arthritis 19 MOTHER Cataracts 19 MOTHER Deafness or hearing loss G8 BROTHER Diabetes mellitus 19 MOTHER Visual disorder 19 MOTHER Diabetes Physical Exam Vital Signs - First Documented 06/03/22 12:10 Temp 36.6 Pulse 114 Resp 25 B/P (MAP) 136/54 (81) Pulse Ox 97 O2 Delivery OxyMask O2 Flow Rate 10.00 Capillary Refill : Height: 5'4.00" Weight: 253lbs. 0.0oz. [id number]; 41.07 BMI Method:Stated General Appearance: WD/WN, no apparent distress, obese Eyes: Bilateral Eye Normal Inspection, Bilateral Eye PERRL, Bilateral Eye EOMI HEENT: PERRL/EOMI Neck: normal inspection Respiratory: crackles (bases/diminished/ R>L), rhonchi, other (slight conversational dyspnea) Cardiovascular: regular rate, rhythm, tachycardia, other (2+ radial pulses bilaterally) Gastrointestinal: soft, other (onese; soft) Extremities: normal range of motion, normal inspection, no pedal edema Neurologic/Psychiatric: alert, normal mood/affect, oriented x 3 Skin: normal color, warm/dry, pallor (slightly pale) Focused Exam Lactate Level 06/03/22 12:40: Lactic Acid Level 3.21*H Time of Focused Exam: 13:00 Respiratory: Crackles, Decreased Breath Sounds, Other (tachypnea) Cardiovascular: Regular Rate, Rhythm, Tachycardia (112) Capillary Refill: Less Than 3 Seconds Peripheral Pulses: 2+ Radial Pulses (R), 2+ Radial Pulses (L) Skin: normal color Lactic Acid Level Laboratory Tests Test 06/03/22 12:40 Lactic Acid Level 3.21 MMOL/L (0.50-2.00) *H Within 3hrs of presentation: Admin fluids, Admin ABX, Blood cultures prior to ABX's, Focus exam, Lactate level Progress/Results/Core Measures Suspected Sepsis SIRS Temperature: Pulse: 114 Respiratory Rate: 25 Laboratory Tests 06/03/22 12:40: White Blood Count 22.0H Blood Pressure 136 /54 Mean: 81 06/03/22 12:40: Lactic Acid Level 3.21*H Laboratory Tests 06/03/22 12:40: Creatinine 2.00H, Platelet Count 161, Total Bilirubin 0.5 Results/Orders Lab Results Laboratory Tests Test 06/03/22 12:22 06/03/22 12:40 Range/Units Blood Gas Puncture Site LWRIST Blood Gas Patient Temperature 36.6 Arterial Blood pH 7.38 7.37-7.43 Arterial Blood Partial Pressure CO2 39 35-45 MMHG Arterial Blood Partial Pressure O2 60 L 79-93 MMHG Arterial Blood HCO3 23 23-27 MMOL/L Arterial Blood Total CO2 23.7 21.0-31.0 MMOL/L Arterial Blood Oxygen Saturation 87 L 94-100 % Arterial Blood Base Excess -1.9 -2.5-2.5 MMOL/L Rudy Test YES-POS Blood Gas Ventilator Setting NO Blood Gas Inspired Oxygen RA Glucometer 268 H 70-110 MG/DL White Blood Count 22.0 H 4.3-11.0 10^3/uL Red Blood Count 4.60 4.30-5.52 10^6/uL Hemoglobin 12.4 L 13.3-17.7 g/dL Hematocrit 37 L 40-54 % Mean Corpuscular Volume 81 80-99 fL Mean Corpuscular Hemoglobin 27 25-34 pg Mean Corpuscular Hemoglobin Concent 33 32-36 g/dL Red Cell Distribution Width 16.3 H 10.0-14.5 % Platelet Count 161 130-400 10^3/uL Mean Platelet Volume 12.3 H 9.0-12.2 fL Immature Granulocyte % (Auto) 3 % Neutrophils (%) (Auto) 83 H 42-75 % Lymphocytes (%) (Auto) 3 L 12-44 % Monocytes (%) (Auto) 11 0-12 % Eosinophils (%) (Auto) 1 0-10 % Basophils (%) (Auto) 0 0-10 % Neutrophils # (Auto) 18.2 H 1.8-7.8 10^3/uL Lymphocytes # (Auto) 0.6 L 1.0-4.0 10^3/uL Monocytes # (Auto) 2.3 H 0.0-1.0 10^3/uL Eosinophils # (Auto) 0.2 0.0-0.3 10^3/uL Basophils # (Auto) 0.0 0.0-0.1 10^3/uL Immature Granulocyte # (Auto) 0.7 H 0.0-0.1 10^3/uL Neutrophils % (Manual) 63 % Lymphocytes % (Manual) 3 % Monocytes % (Manual) 14 % Band Neutrophils 20 % Platelet Estimate FEW GIANT/LARGE Percent Immature Platelet Fraction 11.2 H 0.0-7.6 % Anisocytosis MODERATE Sodium Level 132 L 135-145 MMOL/L Potassium Level 4.9 3.6-5.0 MMOL/L Chloride Level 96 L 98-107 MMOL/L Carbon Dioxide Level 22 21-32 MMOL/L Anion Gap 14 5-14 MMOL/L Blood Urea Nitrogen 33 H 7-18 MG/DL Creatinine 2.00 H 0.60-1.30 MG/DL Estimat Glomerular Filtration Rate 32 BUN/Creatinine Ratio 17 Glucose Level 254 H 70-105 MG/DL Lactic Acid Level 3.21 *H 0.50-2.00 MMOL/L Calcium Level 9.3 8.5-10.1 MG/DL Corrected Calcium 9.4 8.5-10.1 MG/DL Total Bilirubin 0.5 0.1-1.0 MG/DL Aspartate Amino Transf (AST/SGOT) 22 5-34 U/L Alanine Aminotransferase (ALT/SGPT) 19 0-55 U/L Alkaline Phosphatase 60 40-136 U/L B-Type Natriuretic Peptide 118.8 H <100.0 PG/ML Total Protein 8.9 H 6.4-8.2 GM/DL Albumin 3.9 3.2-4.5 GM/DL My Orders Orders - CHAPIS MCCORMICK MD Cbc With Automated Diff (06/03/22 12:19) Comprehensive Metabolic Panel (06/03/22 12:19) Blood Culture (06/03/22 12:19) Sputum Culture (06/03/22 12:19) Urinalysis (06/03/22 12:19) Urine Culture (06/03/22 12:19) Protime With Inr (06/03/22 12:19) Partial Thromboplastin Time (06/03/22 12:19) Chest 1 View, Ap/Pa Only (06/03/22 12:19) Ed Iv/Invasive Line Start (06/03/22 12:19) Ed Iv/Invasive Line Start (06/03/22 12:19) Vital Signs Adult Sepsis Patie Q15M (06/03/22 12:19) O2 (06/03/22 12:19) Remove Rings In Anticipation O (06/03/22 12:19) Lactic Acid Analyzer (06/03/22 12:19) Ekg Tracing (06/03/22 12:19) Bnp Eliana (06/03/22 12:19) Arterial Blood Gas (06/03/22 12:22) Manual Differential (06/03/22 12:40) Cefepime Injection (Maxipime Injection) (06/03/22 13:15) Ns Iv 1000 Ml (Sodium Chloride 0.9%) (06/03/22 13:22) Medications Given in ED Current Medications Medications Dose Ordered Sig/Ana Route Start Time Stop Time Status Last Admin Dose Admin Cefepime HCl 1000 mg/Sodium Chloride 50 ml @ 100 mls/hr ONCE ONCE IV 06/03/22 13:15 06/03/22 13:44 DC 06/03/22 13:30 100 MLS/HR Vital Signs/I&O 06/03/22 06/03/22 06/03/22 06/03/22 12:10 12:10 12:27 13:33 Temp 36.6 Pulse 114 113 112 Resp 25 29 16 B/P (MAP) 136/54 (81) 109/56 Pulse Ox 97 82 96 97 O2 Delivery OxyMask OxyMask NIV CPAP O2 Flow Rate 10.00 100.00 Capillary Refill : Blood Pressure Mean: 81 Progress Note : Time: 13:53 Progress Note Patient seen and evaluated by me. Evaluation today includes physical examination, sepsis labs including CBC, Chem-12, lactic acid, coags urinalysis, EKG, chest x-ray, BNP. Pertinent physical exam findings, elderly appearing obes e male in mild to moderate respiratory distress, initial room air sats at 70 to 71%. Tachypneic. Crackles at the bases right greater than left with increased work of breathing/labored breathing. Alert and oriented, is hard of hearing. Heart is regular and tachycardic at 115. Abdomen is soft. No lower extremity edema. No rashes. No focal neurologic deficits. Differential diagnosis based on history and physical exam, acute pulmonary embolism, sepsis, CHF, pneumonia, Labs reviewed by me. CBC shows a leukocytosis of 22,000, hemoglobin of 12.4. Chemistry sodium of 132 BUN and creatinine of 33 and 2.0. Serum blood sugar 254. Lactic acid 3.21. BNP 118. As of this dictation the patient had not produced a urine and his coag panel needed to be redrawn so those results are not available at this time. ABG shows a pH of 7.38, PCO2 of 39, PO2 of 60 bicarb 23.7 this is on 10 L per simple facemask. Patient's chest x-ray shows bibasilar infiltrates right greater than left and EKG shows normal sinus tachycardia without ectopy or ST segment change. Patient has clear and convincing evidence of severe sepsis with pneumonia as the etiology. No consideration at this time for acute pulmonary embolism. The patient does not have leg swelling, history of clot, recent surgery, prolonged immobility etc. No chest pain. Chest x-ray consistent with pneumonia not vascular congestion to suggest CHF. Patient is given cefepime 1 g following sepsis protocol for patient with structural lung disease and pneumonia he will be placed in the ICU due to needing BiPAP at this time. I have discussed findings and plan of care with the patient and his . They are comfortable with the plan of care. I discussed the case with Dr. Seay on for [facility] hospitalist service as well as Dr. Nevaeh Trujillo. ECG Initial ECG Impression Date: Jun 03, 2022 Initial ECG Impression Time: 12:19 Initial ECG Rate: 113 Initial ECG Rhythm: Normal Sinus Initial ECG Intervals RI interval 208 QRS 90 QTc 424 Comment First-degree AV block with a RI of 208, nonspecific ST-T wave changes throughout. No ST segment elevation or depression is noted. Diagnostic Imaging Diagonstic Imaging: Xray Plain Films/CT/US/NM/MRI: chest Comments [facility], [facility]. [place], [place] NAME: EMMANUELLE [facility] REC#: [id number] PT STATUS: REG ER : 1935 PHYSICIAN: CHAPIS MCCORMICK MD ADMIT DATE: 06/03/22/ER Draft Date of Exam:06/03/22 CHEST 1 VIEW, AP/PA ONLY INDICATION: Shortness of breath, cough, fever. TECHNIQUE: Single view chest 12:52 PM. CORRELATION STUDY: 11/30/2021 FINDINGS: Heart size borderline enlarged with normal vasculature. Calcification of the aortic arch. Bibasilar infiltrate-like opacities right greater than left favoring pneumonia. Upper lung avelar relatively clear. Postoperative right reverse shoulder arthroplasty hardware partially visualized. IMPRESSION: 1. Bibasilar infiltrates right greater than left most compatible with pneumonia. Aspiration would be consideration. Clinical correlation recommended. Dictated on workstation # [id number] Dict: 06/03/22 1312 Trans: 06/03/22 1314 [facility] [id number] Interpreted by: GRACIE SAENZ DO Electronically signed by: Critical Care Note Critical Care Start Time: 12:10 Stop Time: 13:30 Total Time (minutes) 30 minutes critical care time in the evaluation and management of this patient in acute respiratory failure. Time includes initial evaluation, management of hypoxemia with BiPAP. Time includes review of the medical record, further history obtained from the spouse who is at the bedside as the patient is quite dyspneic. Review and interpretation of x-ray, EKG, laboratory studies. Discussion with admitting provider, Dr. Seay [facility] hospitalist as well as eICU urban design consultant. Departure Communication (Admissions) Time/Spoke to Admitting Phy: 12:[address] Seay ([facility] HOspitalist) admit to ICU Impression Primary Impression: Acute respiratory failure Qualified Codes: J96.00 - Acute respiratory failure, unspecified whether with hypoxia or hypercapnia Additional Impressions: Pneumonia Qualified Codes: J18.9 - Pneumonia, unspecified organism Severe sepsis Disposition: ADMITTED INPATIENT Condition: Critical Admissions Decision to Admit Reason: Admit from ER (General) Decision to Admit/Date: Jun 03, 2022 Time/Decision to Admit Time: 12:51 Departure-Patient Inst. Referrals: NO,LOCAL PHYSICIAN (PCP/Family) Primary Care Physician CHAPIS MCCORMICK MD Jun 03, 2022 12:22
[2022-06-03 12:27] VITALS: BP 111/58
[2022-06-03 12:32] LABS: ABG BASE EXCESS -1.9 MMOL/L (-2.5-2.5); ABG OXYGEN SATURATION 87 % (94-100); ABG PCO2 39 MMHG (35-45); ABG PH 7.38 (7.37-7.43); ABG PO2 60 MMHG (79-93); ABG TCO2 23.7 MMOL/L (21.0-31.0); ALLENS TEST YES-POS; INSPIRED O2 RA; PATIENT TEMP 36.6; VENTILATOR NO
[2022-06-03 12:56] LABS: BASOPHILS % (AUTO) 0 % (0-10); HEMOGLOBIN 12.4 g/dL (13.3-17.7)
[2022-06-03 12:58] LABS: EOSINOPHILS # (AUTO) 0.2 10^3/uL (0.0-0.3); EOSINOPHILS % (AUTO) 1 % (0-10); HEMATOCRIT 37 % (40-54); LYMPHOCYTES # (AUTO) 0.6 10^3/uL (1.0-4.0); LYMPHOCYTES % (AUTO) 3 % (12-44); MEAN CORPUSCULAR HEMOGLOBIN 27 pg (25-34); MEAN CORPUSCULAR HGB CONC 33 g/dL (32-36); MEAN CORPUSCULAR VOLUME 81 fL (80-99); MEAN PLATELET VOLUME 12.3 fL (9.0-12.2); MONOCYTES # (AUTO) 2.3 10^3/uL (0.0-1.0); MONOCYTES % (AUTO) 11 % (0-12); NEUTROPHILS # (AUTO) 18.2 10^3/uL (1.8-7.8); NEUTROPHILS % (AUTO) 83 % (42-75); PLATELET COUNT 161 10^3/uL (130-400)
[2022-06-03 13:05] LABS: ALBUMIN 3.9 GM/DL (3.2-4.5)
[2022-06-03 13:07] LABS: CALCIUM 9.3 MG/DL (8.5-10.1); POTASSIUM 4.9 MMOL/L (3.6-5.0)
[2022-06-03 13:08] LABS: TOTAL PROTEIN 8.9 GM/DL (6.4-8.2)
[2022-06-03 13:10] LABS: BILIRUBIN,TOTAL 0.5 MG/DL (0.1-1.0)
[2022-06-03 13:14] LABS: BAND NEUTROPHILS 20 %; LYMPHOCYTES % (MANUAL) 3 %; MONOCYTES % (MANUAL) 14 %; NEUTROPHILS % (MANUAL) 63 %
[2022-06-03 13:15] LABS: ANISOCYTOSIS MODERATE; PLATELET ESTIMATE FEW GIANT/LARGE PLTS
[2022-06-03] MEDS ORDERED: CEFEPIME INJECTION 1,000 MG in NS (IVPB) 50 ML IV ONE (13:15)
--- NOTE | 2022-06-03 13:15 | Diagnostic Imaging Report ---
INDICATION: Shortness of breath, cough, fever. TECHNIQUE: Single view chest 12:52 PM. CORRELATION STUDY: 11/30/2021 FINDINGS: Heart size borderline enlarged with normal vasculature. Calcification of the aortic arch. Bibasilar infiltrate-like opacities right greater than left favoring pneumonia. Upper lung avelar relatively clear. Postoperative right reverse shoulder arthroplasty hardware partially visualized. IMPRESSION: 1. Bibasilar infiltrates right greater than left most compatible with pneumonia. Aspiration would be consideration. Clinical correlation recommended. Dictated by: Dictated on workstation # [id number]
[2022-06-03] MEDS ORDERED: NS IV 1000 ML 1,000 ML IV STA (13:22)
[2022-06-03 14:11] LABS: INR 1.1 (0.8-1.4); PROTHROMBIN TIME PATIENT 14.8 SEC (12.2-14.7)
--- NOTE | 2022-06-03 14:39 | History & Physical ---
HPI History of Present Illness: 87 yo male states he came to the ER due to shortness of breath that started last night. He notes a history of recurrent pneumonia. He has COPD, has not been out of any inhalers. Does not use supplemental oxygen at baseline, is on CPAP at night for sleep apnea but does not use supplemental oxygen with that either. He admits mild cough, non-productive. [place] a little feverish last night. Source: patient Date seen by provider: Jun 03, 2022 Time Seen by Provider: 14:40 Attending Physician No,Local Physician PCP Admitting Physician: Arun Seay MD Attending Physician: Arun Seay MD Consult Date of Admission Jun 03, 2022 at 13:38 Home Medications Home Medications Reviewed patient Home Medication Reconciliation performed by pharmacy medication reconciliations tire maintenance technician and/or nursing. Patients Allergies have been reviewed. Allergies Coded Allergies: lisinopril (Verified Allergy, Unknown, 09/22/15) sildenafil (Verified Allergy, Unknown, 09/22/15) [id number] Hx Patient Social History Smoking Status: Former Smoker Former smoker/When Quit: Jun 19, 1992 Recent Hopitalizations: Yes (PNEUMONIA 03/2016 and 09/2018) Alcohol Use?: No Have you traveled recently?: No Immunizations Up To Date Tetanus Booster (TDap): Unknown Influenza Vaccine Up-to-Date: Yes; Up-to-Date First/Initial COVID19 Vaccinat: 2020 Second COVID19 Vaccination Joao: 2020 Third COVID19 Vaccination Date: 2020 Past Medical History PMHx: DMII HTN COPD 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 SurgHx: Right shoulder replacement Inguinal hernia repair 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 Family Medical History Significant Family History: Diabetes (mother, brother, grandmothers) Review of Systems ([facility]C) Constitutional: fever Respiratory: cough, short of breath Cardiovascular: No chest pain Gastrointestinal: No constipation, No diarrhea, No nausea, No vomiting Genitourinary: No dysuria Musculoskeletal: joint pain (states chronic) Skin: No rash Reviewed Test Results Reviewed Test Results Lab Laboratory Tests Test 06/03/22 12:22 06/03/22 12:40 06/03/22 13:53 Range/Units Blood Gas Puncture Site LWRIST Blood Gas Patient Temperature 36.6 Arterial Blood pH 7.38 7.37-7.43 Arterial Blood Partial Pressure CO2 39 35-45 MMHG Arterial Blood Partial Pressure O2 60 L 79-93 MMHG Arterial Blood HCO3 23 23-27 MMOL/L Arterial Blood Total CO2 23.7 21.0-31.0 MMOL/L Arterial Blood Oxygen Saturation 87 L 94-100 % Arterial Blood Base Excess -1.9 -2.5-2.5 MMOL/L Rudy Test YES-POS Blood Gas Ventilator Setting NO Blood Gas Inspired Oxygen RA Glucometer 268 H 70-110 MG/DL White Blood Count 22.0 H 4.3-11.0 10^3/uL Red Blood Count 4.60 4.30-5.52 10^6/uL Hemoglobin 12.4 L 13.3-17.7 g/dL Hematocrit 37 L 40-54 % Mean Corpuscular Volume 81 80-99 fL Mean Corpuscular Hemoglobin 27 25-34 pg Mean Corpuscular Hemoglobin Concent 33 32-36 g/dL Red Cell Distribution Width 16.3 H 10.0-14.5 % Platelet Count 161 130-400 10^3/uL Mean Platelet Volume 12.3 H 9.0-12.2 fL Immature Granulocyte % (Auto) 3 % Neutrophils (%) (Auto) 83 H 42-75 % Lymphocytes (%) (Auto) 3 L 12-44 % Monocytes (%) (Auto) 11 0-12 % Eosinophils (%) (Auto) 1 0-10 % Basophils (%) (Auto) 0 0-10 % Neutrophils # (Auto) 18.2 H 1.8-7.8 10^3/uL Lymphocytes # (Auto) 0.6 L 1.0-4.0 10^3/uL Monocytes # (Auto) 2.3 H 0.0-1.0 10^3/uL Eosinophils # (Auto) 0.2 0.0-0.3 10^3/uL Basophils # (Auto) 0.0 0.0-0.1 10^3/uL Immature Granulocyte # (Auto) 0.7 H 0.0-0.1 10^3/uL Neutrophils % (Manual) 63 % Lymphocytes % (Manual) 3 % Monocytes % (Manual) 14 % Band Neutrophils 20 % Platelet Estimate FEW GIANT/LARGE Percent Immature Platelet Fraction 11.2 H 0.0-7.6 % Anisocytosis MODERATE Sodium Level 132 L 135-145 MMOL/L Potassium Level 4.9 3.6-5.0 MMOL/L Chloride Level 96 L 98-107 MMOL/L Carbon Dioxide Level 22 21-32 MMOL/L Anion Gap 14 5-14 MMOL/L Blood Urea Nitrogen 33 H 7-18 MG/DL Creatinine 2.00 H 0.60-1.30 MG/DL Estimat Glomerular Filtration Rate 32 BUN/Creatinine Ratio 17 Glucose Level 254 H 70-105 MG/DL Lactic Acid Level 3.21 *H 0.50-2.00 MMOL/L Calcium Level 9.3 8.5-10.1 MG/DL Corrected Calcium 9.4 8.5-10.1 MG/DL Total Bilirubin 0.5 0.1-1.0 MG/DL Aspartate Amino Transf (AST/SGOT) 22 5-34 U/L Alanine Aminotransferase (ALT/SGPT) 19 0-55 U/L Alkaline Phosphatase 60 40-136 U/L B-Type Natriuretic Peptide 118.8 H <100.0 PG/ML Total Protein 8.9 H 6.4-8.2 GM/DL Albumin 3.9 3.2-4.5 GM/DL Prothrombin Time 14.8 H 12.2-14.7 SEC INR Comment 1.1 0.8-1.4 Activated Partial Thromboplast Time 30 24-35 SEC Radiology CXR 06/03/22: "IMPRESSION: 1. Bibasilar infiltrates right greater than left most compatible with pneumonia. Aspiration would be consideration. Clinical correlation recommended." Physical Exam-([facility]C) Physical Exam Vital Signs VS - Last 72 Hours, by Label 06/03/22 06/03/22 06/03/22 06/03/22 12:10 12:10 12:27 13:33 Temp 36.6 Pulse 114 113 112 Resp 25 29 16 B/P (MAP) 136/54 (81) 109/56 Pulse Ox 97 82 96 97 O2 Delivery OxyMask OxyMask NIV CPAP O2 Flow Rate 10.00 100.00 06/03/22 06/03/22 14:10 14:35 Pulse 112 112 Resp 36 B/P (MAP) 118/60 (79) Pulse Ox 91 O2 Delivery NIV Bilevel O2 Flow Rate 80.00 Capillary Refill : Less Than 3 Seconds General Appearance: mild distress Respiratory: lungs clear, accessory muscle use Cardiovascular: regular rate, rhythm, no murmur Gastrointestinal: normal bowel sounds, non tender, soft Extremities: no pedal edema Neurologic/Psychiatric: alert, normal mood/affect Skin: normal color, warm/dry Assessment/Plan Assessment/Plan Admission Status: Inpatient Order (span 2 midnights) Reason for Inpatient Admission: Pneumonia with underlying COPD (1) Pneumonia Status: Acute Assessment & Plan: Cefepime and doxycycline started in ER. Blood cultures pending. Qualifiers: Qualified Codes: J18.9 - Pneumonia, unspecified organism (2) Acute respiratory failure Status: Acute Assessment & Plan: Secondary to pneumonia and COPD exacerbation. Flu and COVID testing pending. Improving with bipap, antibiotics Qualifiers: Qualified Codes: J96.01 - Acute respiratory failure with hypoxia (3) Severe sepsis Status: Acute Assessment & Plan: Leukocytosis, tachycardia and tachypnea on admit with elevated lactic acid and SHANE. Secondary to pneumonia. Treating with antibiotics, received bolus in ER, now on NS @ 150 mls/hr, follow up repeat lactic acid. (4) COPD exacerbation Status: Acute Assessment & Plan: Prednisone. RT MAT protocol. (5) Acute renal failure Status: Acute Assessment & Plan: Secondary to sepsis. IVF and treat underlying cause, monitor. (6) COPD (chronic obstructive pulmonary disease) Status: Chronic (7) Essential (primary) hypertension Status: Chronic (8) Chronic anemia Status: Chronic Assessment & Plan: Iron studies 12/2019 with normal iron, ferritin and low TIBC consistent with anemia of chronic disease. (9) Morbid obesity Status: Chronic (10) Mixed hyperlipidemia Status: Chronic (11) Type 2 diabetes mellitus with complication Status: Chronic Assessment & Plan: Diabetic diet, sliding scale insulin. (12) Thoracic aortic aneurysm without rupture Status: Chronic Assessment & Plan: Mild dilation of aortic root noted on echo 11/2021 per Cardiology notes needs followed longitudinally (13) DVT prophylaxis Status: Acute Assessment & Plan: Enoxaparin ARUN SEAY MD Jun 03, 2022 14:39
[2022-06-03] MEDS ORDERED: RT-ALBUTEROL/IPRATROPIUM 3 ML (DUONEB) VIAL INH PRN ×2 (14:45→15:15)
--- NOTE | 2022-06-03 14:53 | Tele-ICU Consult ---
History of Present Illness History of Present Illness Date Seen by Provider: Jun 03, 2022 Time Seen by Provider: 17:54 Date of Admission 06/03/22 Reason for Visit: dyspnea, pneumonia History of Present Illness (Tele-ICU Physician , Progress Note ) Service provided via interactive audio and video [employer] E-CARE system to a patient admitted to ICU bed in [facility]. Patient is seen today due to persistent need of ICU care Available chart/ vitals / labs / Images reviewed Video assessment done using teleICU camera, rest of exam as per RN He is a 87-year-old male with past medical history of COPD, possible sleep apnea on a CPAP mask apparently had a fever last night of 202 degrees followed by and he took aspirin at about 5 AM but this afternoon he came with shortness of breath and EMS was called and he was found to have a oxygen saturation of 71% and subsequently he was placed on a BiPAP ventilation. Chest x-ray showed bibasilar infiltrate. I have discussed with the patient's emergency room physician and apparently his mentation was appropriate. He is admitted to the intensive care unit with diagnosis of respiratory failure and pneumonia with possible sepsis. He is given IV fluid bolus. Also he received 1 dose of cefepime in the ED. Impression 1. Community-acquired pneumonia 2. Acute hypoxic respiratory failure 3. Underlying COPD with exacerbation 4. Moderate obesity with possible sleep apnea. Recommendations 1. Continue BiPAP ventilation and keep saturation over 90% 2. IV fluids for hydration 3. We will continue cefepime and add doxycycline for atypical coverage 4. We will get urine for Legionella and strep pneumonia antigens 5. DVT prophylaxis and ulcer prophylaxis. 6. We will give DuoNeb nebulizer treatments. We have reviewed the care with ICU nurse and advised her to reach out to telemetry ICU in case she needs any further orders. Care coordination with primary care physician and bedside consultants. I am remotely monitoring this patient from Tele icu station in [place]. I am unable to do the bedside exam, and history/physical and pertinent information is taken from other notes in the computer and bedside staff. Certain portions of this document may have been dictated utilizing voice recognition technology such as [employer]. Inherent to this technology, typo graphical and grammatical errors may exist. As much as I am diligent to identify and correct to these mistakes, some errors may remain in the document. Critical care time due to gated to this patient today is- 40 minutes approximately-- Allergies and Home Medications Allergies Coded Allergies: lisinopril (Verified Allergy, Unknown, 09/22/15) sildenafil (Verified Allergy, Unknown, 09/22/15) Home Medications Albuterol Sulfate 1 Puff Puff, 2 PUFF IH Q6H PRN for SHORTNESS OF BREATH, (Reported) Aspirin 81 Mg Tablet.dr, 81 MG PO DAILY, (Reported) Atorvastatin Calcium 80 Mg Tablet, 40 MG PO HS, (Reported) TAKES OF A 80MG Empagliflozin 25 Mg Tablet, 25 MG PO DAILY, (Reported) Glipizide 10 Mg Tablet, 10 MG PO DAILY, (Reported) Losartan Potassium 50 Mg Tablet, 50 MG PO DAILY, (Reported) Metformin HCl 500 Mg Tab.er.24, 500 MG PO BID, (Reported) Multivit-Min/FA/Lycopene/Lut 0.4 Mg-300 Mcg-250 Mcg Tablet, 1 EA PO DAILY, (Reported) Primidone 250 Mg Tablet, 250 MG PO HS, (Reported) Semaglutide 1 Mg/0.75 Ml (4 Mg/3 Ml) Pen.injctr, 1 MG SQ SUN, (Reported) Sertraline HCl 100 Mg Tablet, 100 MG PO DAILY, (Reported) Tiotropium Br/Olodaterol HCl 2.5 Mcg-2.5 Mcg/Actuation Mist.inhal, 2 PUFF IH DAILY, (Reported) Past Medical/Social/Family Hx Patient Social History Tobacco Use?: No Smoking Status: Former Smoker Use of E-Cig and/or Vaping dev: No Substance use?: No Alcohol Use?: No Pt stated abuse/neglect: No Immunizations Up To Date Influenza Vaccine Up-to-Date: Yes; Up-to-Date First/Initial COVID19 Vaccinat: 2020 Second COVID19 Vaccination Joao: 201 Tetanus Booster (TDap): Less Than 5 Years Hepatitis A: No Hepatitis B: No Date of Pneumonia Vaccine: Dec 16, 2014 Current Status Advance Directives: No Communicates: Verbally Primary Language: Lao Preferred Spoken Language: Lao Review of Systems Constitutional: fever, malaise Focused Exam Lactate Level 06/03/22 12:40: Lactic Acid Level 3.21*H Height, Weight, BMI Height: 5'4.00" Weight: 253lbs. 0.0oz. 114.575421dw; 36.19 BMI Method:Stated Time of Focused Exam: 13:00 Lactic Acid Level Laboratory Tests Test 06/03/22 12:40 Lactic Acid Level 3.21 MMOL/L (0.50-2.00) *H Exam Exam Patient acknowledged, consented, and participated in this virtual visit which was conducted using real time audio/video Vital Signs Date Time Temp Pulse Resp B/P (MAP) Pulse Ox O2 Delivery O2 Flow Rate FiO2 06/03/22 14:35 112 06/03/22 14:10 112 36 118/60 (79) 91 NIV Bilevel 80.00 06/03/22 13:33 112 16 109/56 97 NIV CPAP 06/03/22 12:27 113 29 96 100.00 06/03/22 12:10 36.6 114 25 136/54 (81) 82 OxyMask 06/03/22 12:10 97 OxyMask 10.00 Height & Weight Height: 5'4.00" Weight: 253lbs. 0.0oz. 114.686274tn; 36.19 BMI Method:Stated General Appearance: Anxious, Chronically ill, Moderate Distress Respiratory: Crackles, Decreased Breath Sounds, Other (tachypnea) Cardiovascular: Regular Rate, Rhythm, Tachycardia (112) Capillary Refill: Less Than 3 Seconds Peripheral Pulses: 2+ Radial Pulses (R), 2+ Radial Pulses (L) Gastrointestinal: soft, other (onese; soft) Other comments pe per rn Results Lab Laboratory Tests 06/03/22 12:40 Assessment/Plan Assessment/Plan as above Critical Care: Critically Ill Patient Time spent with patient (mins): 40 DANIKA LÓPEZ MD Jun 03, 2022 14:53
[2022-06-03] MEDS ORDERED: ENOXAPARIN INJECTION 30 MG/0.3 ML SYR SC SCH (15:00)
[2022-06-03 15:08] VITALS: BP 118/60
[2022-06-03] MEDS: NS IV 1000 ML 1,000 ML IV SCH ×2 (15:29→20:32)
[2022-06-03] MEDS ORDERED: ENOXAPARIN 40 MG/0.4 ML (LOVENOX) SYR SQ SCH (15:30)
[2022-06-03] MEDS: DOXYCYCLINE INJECTION 100 MG in NS (IVPB) 100 ML IV SCH (15:30)
[2022-06-03] MEDS: predniSONE 20 MG TAB PO SCH (15:41)
[2022-06-03] MEDS ORDERED: TIOT4MIS3 IH (15:58)
--- NOTE | 2022-06-03 16:26 | Tele-ICU Consult ---
History of Present Illness History of Present Illness Date Seen by Provider: Jun 03, 2022 Time Seen by Provider: 16:26 Reason for Visit: dyspnea, pneumonia Allergies and Home Medications Allergies Coded Allergies: lisinopril (Verified Allergy, Unknown, 09/22/15) sildenafil (Verified Allergy, Unknown, 09/22/15) Home Medications Albuterol Sulfate 1 Puff Puff, 2 PUFF IH Q6H PRN for SHORTNESS OF BREATH, (Reported) Aspirin 81 Mg Tablet.dr, 81 MG PO DAILY, (Reported) Atorvastatin Calcium 80 Mg Tablet, 40 MG PO HS, (Reported) TAKES OF A 80MG Empagliflozin 25 Mg Tablet, 25 MG PO DAILY, (Reported) Glipizide 10 Mg Tablet, 10 MG PO DAILY, (Reported) Losartan Potassium 50 Mg Tablet, 50 MG PO DAILY, (Reported) Metformin HCl 500 Mg Tab.er.24, 500 MG PO BID, (Reported) Multivit-Min/FA/Lycopene/Lut 0.4 Mg-300 Mcg-250 Mcg Tablet, 1 EA PO DAILY, (Reported) Primidone 250 Mg Tablet, 250 MG PO HS, (Reported) Semaglutide 1 Mg/0.75 Ml (4 Mg/3 Ml) Pen.injctr, 1 MG SQ SUN, (Reported) Sertraline HCl 100 Mg Tablet, 100 MG PO DAILY, (Reported) Tiotropium Br/Olodaterol HCl 2.5 Mcg-2.5 Mcg/Actuation Mist.inhal, 2 PUFF IH DAILY, (Reported) Past Medical/Social/Family Hx Patient Social History Tobacco Use?: No Smoking Status: Former Smoker Use of E-Cig and/or Vaping dev: No Substance use?: No Alcohol Use?: No Pt stated abuse/neglect: No Immunizations Up To Date Influenza Vaccine Up-to-Date: Yes; Up-to-Date First/Initial COVID19 Vaccinat: 2020 Second COVID19 Vaccination Joao: 2020 Tetanus Booster (TDap): Less Than 5 Years Hepatitis A: No Hepatitis B: No Date of Pneumonia Vaccine: Dec 16, 2014 Current Status Advance Directives: No Communicates: Verbally Primary Language: Malian Preferred Spoken Language: Malian Past Medical History PMHx: DMII HTN COPD PARKER SurgHx: Right shoulder replacement Inguinal hernia repair 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 0.0oz. 114.732966vz; 36.19 BMI Method:Stated Time of Focused Exam: 13:00 Lactic Acid Level Laboratory Tests Test 06/03/22 12:40 06/03/22 15:00 Lactic Acid Level 3.21 MMOL/L (0.50-2.00) *H 3.56 MMOL/L (0.50-2.00) *H Exam Exam Patient acknowledged, consented, and participated in this virtual visit which was conducted using real time audio/video Vital Signs Date Time Temp Pulse Resp B/P (MAP) Pulse Ox O2 Delivery O2 Flow Rate FiO2 06/03/22 16:06 36.9 06/03/22 16:00 103 26 95/57 (70) 96 NIV Bilevel 80.00 06/03/22 15:08 36.6 114 91 80 06/03/22 15:00 105 28 98 NIV Bilevel 80.00 06/03/22 14:35 112 06/03/22 14:10 112 36 118/60 (79) 91 NIV Bilevel 80.00 06/03/22 14:10 111 20 94 80.00 06/03/22 13:54 80.00 06/03/22 13:33 112 16 109/56 97 NIV CPAP 06/03/22 12:27 113 29 96 100.00 06/03/22 12:10 36.6 114 25 136/54 (81) 82 OxyMask 06/03/22 12:10 97 OxyMask 10.00 Height & Weight Height: 5'4.00" Weight: 253lbs. 0.0oz. 114.240173js; 36.19 BMI Method:Stated Respiratory: Crackles, Decreased Breath Sounds, Other (tachypnea) Cardiovascular: Regular Rate, Rhythm, Tachycardia (112) Capillary Refill: Less Than 3 Seconds Peripheral Pulses: 2+ Radial Pulses (R), 2+ Radial Pulses (L) Gastrointestinal: normal bowel sounds, non tender, soft Results Lab Laboratory Tests 06/03/22 12:40 DANIKA LÓPEZ MD Jun 03, 2022 16:26
[2022-06-03] MEDS ORDERED: 1/2 NS IV SOLUTION 2,000 ML IV NR (17:00)
[2022-06-03] MEDS: inSUlin ASPART (NovoLOG) 1 UNIT/0.01 ML (CHARGE PER UNIT) SC SCH ×2 (17:08→20:32)
[2022-06-03] MEDS ORDERED: NS IV NR (17:08)
[2022-06-03] MEDS ORDERED: NS IV 1000 ML 2,000 ML IV NR (17:30)
[2022-06-03] MEDS: RT-ALBUTEROL/IPRATROPIUM 3 ML (DUONEB) VIAL INH SCH ×2 (19:17→21:54)
[2022-06-03] MEDS: ACETAMINOPHEN 500 MG TAB (TYLENOL) PO PRN (21:30)
[2022-06-03] MEDS ORDERED: LACTATED RINGERS 1,000 ML IV SCH (23:45)
[2022-06-04] MEDS ORDERED: CEFEPIME 1,000 MG/NS 50 ML IVPB IV SCH ×2 (01:00)
[2022-06-04] MEDS: RT-ALBUTEROL/IPRATROPIUM 3 ML (DUONEB) VIAL INH SCH ×6 (02:32→22:13)
[2022-06-04 02:36] LABS: BILIRUBIN,URINE NEGATIVE (NEGATIVE); CLARITY,URINE CLEAR; COLOR,URINE YELLOW; GLUCOSE, URINE (UA) 3+ (NEGATIVE); KETONES,URINE NEGATIVE (NEGATIVE); LEUKOCYTE ESTERASE ,URINE NEGATIVE (NEGATIVE); NITRITE,URINE NEGATIVE (NEGATIVE); PROTEIN,URINE NEGATIVE (NEGATIVE)
[2022-06-04 02:44] LABS: BACTERIA,URINE TRACE /HPF; RBC,URINE RARE /HPF; WBC,URINE RARE /HPF
[2022-06-04] MEDS: NS IV 1000 ML 1,000 ML IV SCH ×3 (03:13→17:17)
[2022-06-04] MEDS: DOXYCYCLINE INJECTION 100 MG in NS (IVPB) 100 ML IV SCH ×2 (03:14→14:48)
[2022-06-04 05:42] LABS: HEMATOCRIT 28 % (40-54); MEAN CORPUSCULAR HEMOGLOBIN 27 pg (25-34); MEAN CORPUSCULAR HGB CONC 33 g/dL (32-36); MEAN CORPUSCULAR VOLUME 81 fL (80-99); MEAN PLATELET VOLUME 12.4 fL (9.0-12.2); PLATELET COUNT 117 10^3/uL (130-400); WHITE BLOOD COUNT 19.7 10^3/uL (4.3-11.0)
[2022-06-04 05:46] LABS: POTASSIUM 4.2 MMOL/L (3.6-5.0)
[2022-06-04 05:47] LABS: CALCIUM 7.9 MG/DL (8.5-10.1)
[2022-06-04 05:51] LABS: CREATININE SERUM 1.24 MG/DL (0.60-1.30)
[2022-06-04] MEDS: predniSONE 20 MG TAB PO SCH (06:07)
[2022-06-04] MEDS: inSUlin ASPART (NovoLOG) 1 UNIT/0.01 ML (CHARGE PER UNIT) SC SCH ×4 (06:08→20:41)
[2022-06-04 07:29] LABS: BASOPHILS % (AUTO) 0 % (0-10); EOSINOPHILS # (AUTO) 0.1 10^3/uL (0.0-0.3); EOSINOPHILS % (AUTO) 1 % (0-10); LYMPHOCYTES # (AUTO) 0.7 10^3/uL (1.0-4.0); LYMPHOCYTES % (AUTO) 4 % (12-44); MEAN CORPUSCULAR HEMOGLOBIN 27 pg (25-34); MEAN CORPUSCULAR VOLUME 81 fL (80-99); MONOCYTES # (AUTO) 1.4 10^3/uL (0.0-1.0); MONOCYTES % (AUTO) 7 % (0-12); NEUTROPHILS # (AUTO) 15.8 10^3/uL (1.8-7.8); NEUTROPHILS % (AUTO) 81 % (42-75); WHITE BLOOD COUNT 19.6 10^3/uL (4.3-11.0)
[2022-06-04 07:30] VITALS: BP 99/51
[2022-06-04 07:31] LABS: HEMATOCRIT 28 % (40-54)
[2022-06-04 07:32] LABS: MEAN CORPUSCULAR HGB CONC 33 g/dL (32-36); PLATELET COUNT 122 10^3/uL (130-400)
[2022-06-04 07:33] LABS: BAND NEUTROPHILS 20 %; LYMPHOCYTES % (MANUAL) 1 %; METAMYELOCYTES % 4 %; MONOCYTES % (MANUAL) 10 %; NEUTROPHILS % (MANUAL) 64 %; REACTIVE LYMPHOCYTES 1 %
[2022-06-04 07:34] LABS: ANISOCYTOSIS SLIGHT; ELLIPT/OVALOCYTES SLIGHT
[2022-06-04 08:09] LABS: MAGNESIUM 1.5 MG/DL (1.6-2.4); PHOSPHORUS 2.9 MG/DL (2.3-4.7)
[2022-06-04] MEDS ORDERED: NS IV 500 ML 500 ML IV PRN (08:30)
[2022-06-04] MEDS: CEFEPIME 1,000 MG/NS 50 ML IVPB IV SCH ×4 (08:39→17:17)
[2022-06-04] MEDS: MAGNESIUM 1 GM/100 ML IVPB 100 ML IV SCH ×4 (09:29→12:16)
--- NOTE | 2022-06-04 09:51 | Tele-ICU Progress Note ---
Subjective Date Seen by a Provider: Jun 04, 2022 Time Seen by a Provider: 09:51 Subjective/Events-last exam (Tele-ICU Physician , consultation as per request of PCP Service provided via interactive audio and video telecommunications E-CARE system to a patient admitted to ICU bed in [facility]. Available chart/ vitals / labs / Images reviewed H&P is from ER notes Patient's information available about PMH, Shx, Fhx allergy reviewed inEMR. ROS as per chart and RN report Now in ICU, hemodynamically stable Video assessment done using teleICU camera, rest of exam as per RN Discussed with RN. Hospital course: 06/04 VT 20L 50% , night BIIPAP 50 % A/P Acute resp failure, with PNA - on VT 20L 50% , night BIIPAP 50 % -CPM Sepsis -receiving IVF , not on pressors PNA., bilat , CAP - doxy and cefepime AECOPD - prednisone 50 po + nebs Anemia - delitional Thrombocytopenis - ? delitional ( contr lovenox and monitor DM -ISS PARKER - cont NIPPV sleep time Lines : , (Central Line Necessity Reviewed) Romero: 05/24 OG: Nutrition: Analgesia: Anxiety/ delirium VTE Prophylaxis: ceferino Stress Ulcer Prophylaxis: h2bl Plans in collaboration with bedside consultants and IM MDs. Discussed with RN to reach out if any questions or concerns A total of 20 minutes of critical care time was devoted to this patient today, required to treat and/or prevent further deterioration of critical care condition ( as above ) . I am remotely monitoring this patient from another state. I am unable to do the bedside exam, and history/physical and pertinent information is taken from other notes in the computer and bedside staff. . Sepsis Event Evaluation Height, Weight, BMI Height: 5'4.00" Weight: 253lbs. 0.0oz. 114.972860dz; 36.19 BMI Method:Stated Focused Exam Lactate Level 06/03/22 12:40: Lactic Acid Level 3.21*H 06/03/22 15:00: Lactic Acid Level 3.56*H 06/03/22 17:30: Lactic Acid Level 1.92 Time of Focused Exam: 13:00 Exam Exam Patient acknowledged, consented, and participated in this virtual visit which was conducted using real time audio/video Vital Signs Date Time Temp Pulse Resp B/P (MAP) Pulse Ox O2 Delivery O2 Flow Rate FiO2 06/04/22 09:00 102 21 101/52 (68) 92 Vapotherm 20.00 50.00 06/04/22 08:16 36.7 Vapotherm 20.00 50.00 06/04/22 08:00 95 22 108/55 (72) 96 NIV Bilevel 50.00 06/04/22 07:35 NIV Bilevel 50.00 06/04/22 07:30 86 19 97 70.00 06/04/22 07:05 87 06/04/22 07:00 88 16 97/54 (68) 97 NIV Bilevel 70.00 06/04/22 04:00 97 NIV Bilevel 80 06/04/22 02:32 103 21 98 80.00 06/04/22 02:14 NIV Bilevel 70.00 06/04/22 02:00 93 29 90/49 (63) 99 NIV Bilevel 80.00 06/04/22 01:00 100 06/04/22 01:00 96 21 91/48 (62) 99 NIV Bilevel 80.00 06/04/22 00:00 103 24 97/48 (64) 98 NIV Bilevel 80.00 06/04/22 00:00 96 NIV Bilevel 80 06/03/22 23:00 109 26 90/47 (61) 99 NIV Bilevel 80.00 06/03/22 22:00 37.3 06/03/22 22:00 104 20 93/55 (68) 96 NIV Bilevel 80.00 06/03/22 21:55 104 25 96 80.00 06/03/22 21:30 37.9 06/03/22 21:00 112 28 85/49 (61) 96 NIV Bilevel 80.00 06/03/22 20:06 37.8 06/03/22 20:00 115 27 85/51 (62) 94 NIV Bilevel 80.00 06/03/22 20:00 97 NIV Bilevel 80 06/03/22 19:17 112 30 95 80.00 06/03/22 19:00 113 06/03/22 19:00 110 30 125/57 (79) 96 NIV Bilevel 80.00 06/03/22 18:00 107 24 105/52 (69) 92 NIV Bilevel 80.00 06/03/22 17:00 105 22 118/105 (109) 96 NIV Bilevel 80.00 06/03/22 16:06 36.9 06/03/22 16:00 103 26 95/57 (70) 96 NIV Bilevel 80.00 06/03/22 15:08 36.6 114 91 80 06/03/22 15:00 105 28 98 NIV Bilevel 80.00 06/03/22 14:35 112 06/03/22 14:10 112 36 118/60 (79) 91 NIV Bilevel 80.00 06/03/22 14:10 111 20 94 80.00 06/03/22 13:54 80.00 06/03/22 13:33 112 16 109/56 97 NIV CPAP 06/03/22 12:27 113 29 96 100.00 06/03/22 12:10 36.6 114 25 136/54 (81) 82 OxyMask 06/03/22 12:10 97 OxyMask 10.00 I & O 06/04/22 07:00 Intake Total 3195 ml Output Total 900 ml Balance 2295 ml Height & Weight Height: 5'4.00" Weight: 253lbs. 0.0oz. 114.429510mi; 36.19 BMI Method:Stated General Appearance: Anxious, Chronically ill, Moderate Distress Respiratory: Crackles, Decreased Breath Sounds, Other (tachypnea) Cardiovascular: Regular Rate, Rhythm, Tachycardia (112) Capillary Refill: Less Than 3 Seconds Peripheral Pulses: 2+ Radial Pulses (R), 2+ Radial Pulses (L) Gastrointestinal: soft, other (onese; soft) Results Lab Laboratory Tests 06/03/22 12:40 06/04/22 04:20 Assessment/Plan Assessment/Plan 1 VÍCTOR COOPER MD Jun 04, 2022 09:51
--- NOTE | 2022-06-04 10:22 | Progress Note ---
Subjective Subjective/Events-last exam Patient reclined in bed, using vapotherm. States he feels his breathing is a little better than yesterday. Denies concerns. Had low BP last night, improved with fluid resuscitation. Focused Exam Lactate Level 06/03/22 12:40: Lactic Acid Level 3.21*H 06/03/22 15:00: Lactic Acid Level 3.56*H 06/03/22 17:30: Lactic Acid Level 1.92 Time of Focused Exam: 13:00 Objective Exam Last Set of Vital Signs Vital Signs Date Time Temp Pulse Resp B/P (MAP) Pulse Ox O2 Delivery O2 Flow Rate FiO2 06/04/22 10:00 99 20 106/52 (70) 88 Vapotherm 20.00 50.00 06/04/22 08:16 36.7 06/04/22 08:00 50 Capillary Refill : Less Than 3 Seconds I&O Intake and Output 06/04/22 00:00 Intake Total 935 ml Output Total 550 ml Balance 385 ml Intake Oral 885 ml IV Total 50 ml Output Urine Total 550 ml Daily Weight Change No General: Alert, No Acute Distress Lungs: Other (decreased air movement throughout) Heart: Regular Rate Extremities: No Edema Neuro: Normal Speech Psych/Mental Status: Mood NL Results/Procedures Lab Laboratory Tests 06/03/22 12:22: Blood Gas Puncture Site LWRIST, Blood Gas Patient Temperature 36.6, Arterial Blood pH 7.38, Arterial Blood Partial Pressure CO2 39, Arterial Blood Partial Pressure O2 60L, Arterial Blood HCO3 23, Arterial Blood Total CO2 23.7, Arterial Blood Oxygen Saturation 87L, Arterial Blood Base Excess -1.9, Rudy Test YES- POS, Blood Gas Ventilator Setting NO, Blood Gas Inspired Oxygen RA, Glucometer 268H 06/03/22 12:40: White Blood Count 22.0H, Red Blood Count 4.60, Hemoglobin 12.4L, Hematocrit 37L, Mean Corpuscular Volume 81, Mean Corpuscular Hemoglobin 27, Mean Corpuscular Hemoglobin Concent 33, Red Cell Distribution Width 16.3H, Platelet Count 161, Mean Platelet Volume 12.3H, Immature Granulocyte % (Auto) 3, Neutrophils (%) (Auto) 83H, Lymphocytes (%) (Auto) 3L, Monocytes (%) (Auto) 11, Eosinophils (%) (Auto) 1, Basophils (%) (Auto) 0, Neutrophils # (Auto) 18.2H, Lymphocytes # (Auto) 0.6L, Monocytes # (Auto) 2.3H, Eosinophils # (Auto) 0.2, Basophils # (Auto) 0.0, Immature Granulocyte # (Auto) 0.7H, Neutrophils % (Manual) 63, Lymphocytes % (Manual) 3, Monocytes % (Manual) 14, Band Neutrophils 20, Platelet Estimate FEW GIANT/LARGE PLTS, Percent Immature Platelet Fraction 11.2H, Anisocytosis MODERATE, Sodium Level 132L, Potassium Level 4.9, Chloride Level 96L, Carbon Dioxide Level 22, Anion Gap 14, Blood Urea Nitrogen 33H, Creatinine 2.00H, Estimat Glomerular Filtration Rate 32, BUN/Creatinine Ratio 17, Glucose Level 254H, Lactic Acid Level 3.21*H, Calcium Level 9.3, Corrected Calcium 9.4, Total Bilirubin 0.5, Aspartate Amino Transf (AST/SGOT) 22, Alanine Aminotransferase (ALT/SGPT) 19, Alkaline Phosphatase 60, B-Type Natriuretic Peptide 118.8H, Total Protein 8.9H, Albumin 3.9 06/03/22 13:53: Prothrombin Time 14.8H, INR Comment 1.1, Activated Partial Thromboplast Time 30 06/03/22 15:00: Lactic Acid Level 3.56*H 06/03/22 15:50: Glucometer 179H 06/03/22 17:30: Lactic Acid Level 1.92 06/03/22 18:00: Influenza Type A (RT-PCR) Not Detected, Influenza Type B (RT-PCR) Not Detected, SARS-CoV-2 RNA (RT-PCR) Not Detected 06/03/22 20:22: Glucometer 228H 06/04/22 04:20: White Blood Count 19.6H, Red Blood Count 3.39L, Hemoglobin 9.0L, Hematocrit 28L, Mean Corpuscular Volume 81, Mean Corpuscular Hemoglobin 27, Mean Corpuscular Hemoglobin Concent 33, Red Cell Distribution Width 16.9H, Platelet Count 122L, Mean Platelet Volume 12.0, Immature Granulocyte % (Auto) 8, Neutrophils (%) (Auto) 81H, Lymphocytes (%) (Auto) 4L, Monocytes (%) (Auto) 7, Eosinophils (%) (Auto) 1, Basophils (%) (Auto) 0, Neutrophils # (Auto) 15.8H, Lymphocytes # (Auto) 0.7L, Monocytes # (Auto) 1.4H, Eosinophils # (Auto) 0.1, Basophils # (Au to) 0.0, Immature Granulocyte # (Auto) 1.6H, Neutrophils % (Manual) 64, Lymphocytes % (Manual) 1, Monocytes % (Manual) 10, Metamyelocytes % 4, Band Neutrophils 20, Reactive Lymphocytes 1, Percent Immature Platelet Fraction 11.3H , Anisocytosis SLIGHT, Elliptocytes SLIGHT, Sodium Level 135, Potassium Level 4.2, Chloride Level 106, Carbon Dioxide Level 18L, Anion Gap 11, Blood Urea Nitrogen 33H, Creatinine 1.24, Estimat Glomerular Filtration Rate 57, BUN/Creatinine Ratio 27, Glucose Level 215H, Calcium Level 7.9L, Phosphorus Level 2.9, Magnesium Level 1.5L Microbiology 06/03/22 MRSA Screen - Final, Complete MRSA not isolated 06/03/22 Blood Culture - Preliminary, Resulted Gram Positive Cocci in Cluster See Comments Radiology CXR 06/03/22: "IMPRESSION: 1. Bibasilar infiltrates right greater than left most compatible with pneumonia. Aspiration would be consideration. Clinical correlation recommended. Assessment/Plan Assessment/Plan (1) Pneumonia Status: Acute Assessment & Plan: Cefepime and doxycycline started in ER. Blood cultures pending. Qualifiers: Qualified Codes: J18.9 - Pneumonia, unspecified organism (2) Acute respiratory failure Status: Acute Assessment & Plan: Secondary to pneumonia and COPD exacerbation. Flu and COVID testing negative. Strep pneumo and legionella pending. Improved with bipap, antibiotics, now on vapotherm, continue to wean as tolerated. Qualifiers: Qualified Codes: J96.01 - Acute respiratory failure with hypoxia (3) Severe sepsis Status: Acute Assessment & Plan: Leukocytosis, tachycardia and tachypnea on admit with elevated lactic acid and SHANE. Secondary to pneumonia. Treating with antibiotics, received bolus in ER, now on NS @ 150 mls/hr, follow up repeat lactic acid. 06/04- lactic acid normalized, BP improved and renal function trending to normal. (4) COPD exacerbation Status: Acute Assessment & Plan: Prednisone. RT MAT protocol. Vapotherm. (5) Acute renal failure Status: Acute Assessment & Plan: Secondary to sepsis. IVF and treat underlying cause, monitor. 3/30 improving (6) COPD (chronic obstructive pulmonary disease) Status: Chronic (7) Essential (primary) hypertension Status: Chronic (8) Chronic anemia Status: Chronic Assessment & Plan: Iron studies 12/2019 with normal iron, ferritin and low TIBC consistent with anemia of chronic disease. (9) Morbid obesity Status: Chronic (10) Mixed hyperlipidemia Status: Chronic (11) Type 2 diabetes mellitus with complication Status: Chronic Assessment & Plan: Diabetic diet, sliding scale insulin. (12) Thoracic aortic aneurysm without rupture Status: Chronic Assessment & Plan: Mild dilation of aortic root noted on echo 11/2021 per Cardiology notes needs followed longitudinally (13) DVT prophylaxis Status: Acute Assessment & Plan: Enoxaparin ARUN CABRERA MD Jun 04, 2022 10:22
[2022-06-04] MEDS ORDERED: FAMOTIDINE 20 MG (PEPCID) TABLET PO SCH (12:00)
[2022-06-04] MEDS: ENOXAPARIN 40 MG/0.4 ML (LOVENOX) SYR SC SCH (14:48)
[2022-06-04] MEDS: FAMOTIDINE 20 MG (PEPCID) TABLET PO SCH (20:41)
[2022-06-04] MEDS: PRIMIDONE 250MG (MYSOLINE) TAB PO SCH (20:41)
[2022-06-05] MEDS: NS IV 1000 ML 1,000 ML IV SCH ×3 (01:07→08:22)
[2022-06-05] MEDS: CEFEPIME 1,000 MG/NS 50 ML IVPB IV SCH ×8 (01:07→19:31)
[2022-06-05] MEDS: RT-ALBUTEROL/IPRATROPIUM 3 ML (DUONEB) VIAL INH SCH ×6 (02:22→21:59)
[2022-06-05] MEDS: DOXYCYCLINE INJECTION 100 MG in NS (IVPB) 100 ML IV SCH (03:58)
[2022-06-05 05:50] LABS: BASOPHILS % (AUTO) 0 % (0-10)
[2022-06-05 05:53] LABS: EOSINOPHILS # (AUTO) 0.1 10^3/uL (0.0-0.3); EOSINOPHILS % (AUTO) 0 % (0-10); HEMATOCRIT 30 % (40-54); HEMOGLOBIN 9.6 g/dL (13.3-17.7); LYMPHOCYTES # (AUTO) 0.7 10^3/uL (1.0-4.0); LYMPHOCYTES % (AUTO) 4 % (12-44); MEAN CORPUSCULAR HEMOGLOBIN 26 pg (25-34); MEAN CORPUSCULAR HGB CONC 32 g/dL (32-36); MEAN CORPUSCULAR VOLUME 82 fL (80-99); MEAN PLATELET VOLUME 12.1 fL (9.0-12.2); MONOCYTES % (AUTO) 6 % (0-12); NEUTROPHILS % (AUTO) 86 % (42-75); PLATELET COUNT 115 10^3/uL (130-400); WHITE BLOOD COUNT 16.2 10^3/uL (4.3-11.0)
[2022-06-05] MEDS ORDERED: KCL 20 MEQ TAB (K-DUR) PO SCH (06:00)
[2022-06-05] MEDS ORDERED: POTASSIUM CL 10MEQ/50ML IVPB 50 ML IV SCH (06:00)
[2022-06-05] MEDS ORDERED: MAGNESIUM 1 GM/100 ML IVPB 100 ML IV SCH (06:00)
[2022-06-05 06:03] LABS: CALCIUM 8.8 MG/DL (8.5-10.1)
[2022-06-05 06:07] LABS: CREATININE SERUM 0.75 MG/DL (0.60-1.30); PHOSPHORUS 1.8 MG/DL (2.3-4.7)
[2022-06-05 06:09] LABS: MAGNESIUM 2.5 MG/DL (1.6-2.4)
[2022-06-05] MEDS: inSUlin ASPART (NovoLOG) 1 UNIT/0.01 ML (CHARGE PER UNIT) SC SCH ×4 (06:21→20:34)
[2022-06-05] MEDS: predniSONE 20 MG TAB PO SCH (06:44)
[2022-06-05] MEDS: UMECLIDINIUM BROMIDE (INCRUSE ELLIPTA) 7'S IH SCH (07:20)
[2022-06-05] MEDS: ASPIRIN E.C. 81 MG (ECOTRIN) TAB PO SCH (08:21)
[2022-06-05] MEDS: FAMOTIDINE 20 MG (PEPCID) TABLET PO SCH ×2 (08:22→19:31)
[2022-06-05] MEDS: SERTRALINE 100 MG (ZOLOFT) TAB PO SCH (08:22)
[2022-06-05] MEDS ORDERED: NON-FORMULARY MEDICATION 1 EA EA (Tiotropium Br/Olodaterol HCl (Stiolto Respimat Inhal Spr IH SCH (09:00)
--- NOTE | 2022-06-05 09:07 | Progress Note ---
Subjective Subjective/Events-last exam Feeling a little better again today, able to wean down to 3 lpm supplemental oxygen with CPAP overnight and on 3 lpm this morning. Denies concerns. Focused Exam Lactate Level 06/03/22 12:40: Lactic Acid Level 3.21*H 06/03/22 15:00: Lactic Acid Level 3.56*H 06/03/22 17:30: Lactic Acid Level 1.92 Time of Focused Exam: 13:00 Objective Exam Last Set of Vital Signs Vital Signs Date Time Temp Pulse Resp B/P (MAP) Pulse Ox O2 Delivery O2 Flow Rate FiO2 06/05/22 08:00 92 19 145/83 (111) 93 Nasal Cannula 3.00 06/05/22 07:32 36.4 06/04/22 12:00 50 Capillary Refill : Less Than 3 Seconds I&O Intake and Output 06/05/22 00:00 Intake Total 6390 ml Output Total 3720 ml Balance 2670 ml Intake Oral 1690 ml IV Total 4700 ml Output Urine Total 3720 ml General: Alert, No Acute Distress Lungs: Clear to Auscultation, Normal Air Movement Heart: Regular Rate, No Murmurs Psych/Mental Status: Mood NL Results/Procedures Lab Laboratory Tests 06/04/22 10:33: Glucometer 230H 06/04/22 15:14: Glucometer 199H 06/04/22 20:03: Glucometer 161H 06/05/22 05:13: White Blood Count 16.2H, Red Blood Count 3.64L, Hemoglobin 9.6L, Hematocrit 30L, Mean Corpuscular Volume 82, Mean Corpuscular Hemoglobin 26, Mean Corpuscular Hemoglobin Concent 32, Red Cell Distribution Width 17.6H, Platelet Count 115L, Mean Platelet Volume 12.1, Immature Granulocyte % (Auto) 3, Neutrophils (%) (Auto) 86H, Lymphocytes (%) (Auto) 4L, Monocytes (%) (Auto) 6, Eosinophils (%) (Auto) 0, Basophils (%) (Auto) 0, Neutrophils # (Auto) 14.0H, Lymphocytes # (Auto) 0.7L, Monocytes # (Auto) 1.0, Eosinophils # (Auto) 0.1, Basophils # (Auto) 0.0, Immature Granulocyte # (Auto) 0.4H, Percent Immature Platelet Fraction 10.3H, Sodium Level 138, Potassium Level 4.0, Chloride Level 110H, Carbon Dioxide Level 18L, Anion Gap 10, Blood Urea Nitrogen 21H, Creatinine 0.75, Estimat Glomerular Filtration Rate 88, BUN/Creatinine Ratio 28, Glucose Level 107H, Calcium Level 8.8, Phosphorus Level 1.8L, Magnesium Level 2.5H Microbiology 06/03/22 MRSA Screen - Final, Complete MRSA not isolated 06/03/22 Blood Culture - Preliminary, Resulted Probable Coag Negative Staph See Comments Radiology CXR 06/03/22: "IMPRESSION: 1. Bibasilar infiltrates right greater than left most compatible with pneumonia. Aspiration would be consideration. Clinical correlation recommended. Assessment/Plan Assessment/Plan (1) Pneumonia Status: Acute Assessment & Plan: Cefepime and doxycycline started in ER. Blood cultures pending. Qualifiers: Qualified Codes: J18.9 - Pneumonia, unspecified organism (2) Acute respiratory failure Status: Acute Assessment & Plan: Secondary to pneumonia and COPD exacerbation. Flu and COVID testing negative. Strep pneumo and legionella negative. Improved with bipap, antibiotics, now weaned off of vapotherm, continue to wean supplemental oxygen as tolerated. Qualifiers: Qualified Codes: J96.01 - Acute respiratory failure with hypoxia (3) Severe sepsis Status: Resolved Assessment & Plan: Leukocytosis, tachycardia and tachypnea on admit with elevated lactic acid and SHANE. Secondary to pneumonia. Treating with antibiotics, received bolus in ER, now on NS @ 150 mls/hr, follow up repeat lactic acid. 06/04- lactic acid normalized, BP improved and renal function trending to normal. 06/05- resolved (4) COPD exacerbation Status: Acute Assessment & Plan: Prednisone. RT MAT protocol. Supplemental oxygen as needed. (5) Acute renal failure Status: Resolved Assessment & Plan: Secondary to sepsis. IVF and treat underlying cause, monitor. 06/04 improving (6) COPD (chronic obstructive pulmonary disease) Status: Chronic (7) Essential (primary) hypertension Status: Chronic (8) Chronic anemia Status: Chronic Assessment & Plan: Iron studies 12/2019 with normal iron, ferritin and low TIBC consistent with anemia of chronic disease. (9) Morbid obesity Status: Chronic (10) Mixed hyperlipidemia Status: Chronic (11) Type 2 diabetes mellitus with complication Status: Chronic Assessment & Plan: Diabetic diet, sliding scale insulin. (12) Thoracic aortic aneurysm without rupture Status: Chronic Assessment & Plan: Mild dilation of aortic root noted on echo 11/2021 per Cardiology notes needs followed longitudinally (13) DVT prophylaxis Status: Acute Assessment & Plan: Enoxaparin ARUN CABRERA MD Jun 05, 2022 09:07
[2022-06-05] MEDS ORDERED: CATHETER FLUSH 10 ML SYR IV PRN (09:15)
--- NOTE | 2022-06-05 09:20 | Tele-ICU Progress Note ---
Subjective Date Seen by a Provider: Jun 05, 2022 Time Seen by a Provider: 09:20 Subjective/Events-last exam (Tele-ICU Physician , consultation as per request of PCP Service provided via interactive audio and video telecommunications E-CARE system to a patient admitted to ICU bed in [facility]. Available chart/ vitals / labs / Images reviewed H&P is from ER notes Patient's information available about PMH, Shx, Fhx allergy reviewed inEMR. ROS as per chart and RN report Now in ICU, hemodynamically stable Video assessment done using teleICU camera, rest of exam as per RN Discussed with RN. Hospital course: 06/04 VT 20L 50% , night BIIPAP 50 % 06/05 - NC 3 L 06/05- on 3 l NC , Stop IVF A/P Acute resp failure, with PNA -OFF VT 20L 50% , - NC 3 l ( to cont use night own CPAP at night ) -CPM Sepsis - resolved -Stop IVF 06/05 PNA., bilat , CAP - doxy and cefepime AECOPD - prednisone 50 po + nebs Anemia - delitional Thrombocytopenis - ? delitional ( contr lovenox and monitor - stable DM -ISS PARKER - cont home NIPPV sleep time Lines : , (Central Line Necessity Reviewed) Romero: 05/24 OG: Nutrition: Analgesia: Anxiety/ delirium VTE Prophylaxis: ceferino Stress Ulcer Prophylaxis: h2bl Plans in collaboration with bedside consultants and IM MDs. Discussed with RN to reach out if any questions or concerns A total of 20 minutes of critical care time was devoted to this patient today, required to treat and/or prevent further deterioration of critical care condition ( as above ) . I am remotely monitoring this patient from another state. I am unable to do the bedside exam, and history/physical and pertinent information is taken from other notes in the computer and bedside staff. . Sepsis Event Evaluation Height, Weight, BMI Height: 5'4.00" Weight: 253lbs. 0.0oz. 114.001806em; 41.03 BMI Method:Stated Focused Exam Lactate Level 06/03/22 12:40: Lactic Acid Level 3.21*H 06/03/22 15:00: Lactic Acid Level 3.56*H 06/03/22 17:30: Lactic Acid Level 1.92 Time of Focused Exam: 13:00 Exam Exam Patient acknowledged, consented, and participated in this virtual visit which was conducted using real time audio/video Vital Signs Date Time Temp Pulse Resp B/P (MAP) Pulse Ox O2 Delivery O2 Flow Rate FiO2 06/05/22 09:00 95 10 130/69 (94) 94 Nasal Cannula 3.00 06/05/22 08:00 92 19 145/83 (111) 93 Nasal Cannula 3.00 06/05/22 07:51 Nasal Cannula 3.00 06/05/22 07:32 36.4 06/05/22 07:21 93 NIV CPAP 3.00 06/05/22 07:00 85 06/05/22 07:00 82 17 133/74 (98) 92 Nasal Cannula 5.00 06/05/22 06:00 86 21 132/76 (94) 91 Nasal Cannula 5.00 06/05/22 05:52 87 NIV CPAP 06/05/22 05:00 85 21 127/67 (87) 93 Nasal Cannula 5.00 06/05/22 04:00 94 NIV CPAP 06/05/22 04:00 82 21 141/72 (95) 93 Nasal Cannula 5.00 06/05/22 03:28 36.4 06/05/22 03:00 82 20 132/68 (89) 94 Nasal Cannula 5.00 06/05/22 02:22 93 06/05/22 02:00 82 22 127/64 (85) 93 Nasal Cannula 5.00 06/05/22 01:00 85 06/05/22 01:00 87 22 121/63 (82) 93 Nasal Cannula 5.00 06/05/22 00:00 89 17 112/60 (77) 92 Nasal Cannula 5.00 06/04/22 23:59 92 NIV CPAP 06/04/22 23:28 37.2 06/04/22 23:00 92 20 119/62 (81) 91 Nasal Cannula 5.00 06/04/22 22:14 97 Nasal Cannula 3.00 06/04/22 22:00 95 24 122/67 (85) 97 Nasal Cannula 5.00 06/04/22 21:00 94 23 120/67 (84) 97 Nasal Cannula 5.00 06/04/22 20:00 97 Nasal Cannula 5.00 06/04/22 20:00 97 22 113/61 (78) 97 Nasal Cannula 5.00 06/04/22 19:03 37.1 06/04/22 19:00 97 26 117/60 (79) 97 Nasal Cannula 5.00 06/04/22 19:00 100 06/04/22 18:49 97 Nasal Cannula 3.00 06/04/22 18:00 97 20 111/61 (78) 95 Nasal Cannula 5.00 06/04/22 17:00 100 20 96/73 (81) 96 Nasal Cannula 5.00 06/04/22 16:00 94 19 118/68 (85) 95 Nasal Cannula 5.00 06/04/22 15:28 37.0 06/04/22 15:23 95 Nasal Cannula 5.00 06/04/22 15:00 99 22 104/54 (71) 96 Nasal Cannula 5.00 06/04/22 14:42 Nasal Cannula 5.00 06/04/22 14:27 97 Nasal Cannula 5.00 06/04/22 14:00 101 22 110/59 (76) 92 Vapotherm 20.00 50.00 06/04/22 13:00 100 20 103/61 (75) 96 Vapotherm 20.00 50.00 06/04/22 12:59 100 06/04/22 12:00 103 22 109/59 (76) 95 Vapotherm 20.00 50.00 06/04/22 12:00 97 Vapotherm 20.00 50 06/04/22 11:07 36.9 06/04/22 11:00 102 21 104/60 (75) 94 Vapotherm 20.00 50.00 06/04/22 10:53 95 Vapotherm 20.00 50 06/04/22 10:00 99 20 106/52 (70) 88 Vapotherm 20.00 50.00 I & O 06/05/22 06:59 Intake Total 4630 ml Output Total 5370 ml Balance -740 ml Height & Weight Height: 5'4.00" Weight: 253lbs. 0.0oz. 114.398362uy; 41.03 BMI Method:Stated General Appearance: Anxious, Chronically ill, Moderate Distress Respiratory: Crackles, Decreased Breath Sounds, Other (tachypnea) Cardiovascular: Regular Rate, Rhythm, Tachycardia (112) Capillary Refill: Less Than 3 Seconds Peripheral Pulses: 2+ Radial Pulses (R), 2+ Radial Pulses (L) Gastrointestinal: soft, other (onese; soft) Results Lab Laboratory Tests 06/03/22 12:40 06/04/22 04:20 06/05/22 05:13 Assessment/Plan Assessment/Plan 1 VÍCTOR COOPER MD Jun 05, 2022 09:20
[2022-06-05] MEDS ORDERED: CHLORASEPTIC LOZENGE MM PRN (10:30)
[2022-06-05 10:55] VITALS: BP 136/65
[2022-06-05] MEDS: CATHETER FLUSH 10 ML SYR IV SCH ×2 (14:31→19:32)
[2022-06-05] MEDS: ENOXAPARIN 40 MG/0.4 ML (LOVENOX) SYR SC SCH (14:32)
[2022-06-05 16:03] VITALS: BP 148/71
[2022-06-05] MEDS: DOXYCYCLINE 100 MG (VIBRAMYCIN) TABLET PO SCH (16:49)
[2022-06-05] MEDS: PRIMIDONE 250MG (MYSOLINE) TAB PO SCH (19:31)
[2022-06-05 20:24] VITALS: BP 140/70
[2022-06-05 23:54] VITALS: BP 136/72
[2022-06-06] VITALS (7 sets, daily range): BP systolic 133–153; BP diastolic 65–79
[2022-06-06] MEDS: CEFEPIME 1,000 MG/NS 50 ML IVPB IV SCH ×8 (01:54→19:26)
[2022-06-06] MEDS: CATHETER FLUSH 10 ML SYR IV SCH ×3 (01:55→19:27)
[2022-06-06] MEDS: RT-ALBUTEROL/IPRATROPIUM 3 ML (DUONEB) VIAL INH SCH ×4 (02:01→21:29)
[2022-06-06] MEDS: predniSONE 20 MG TAB PO SCH (05:28)
[2022-06-06] MEDS: DOXYCYCLINE 100 MG (VIBRAMYCIN) TABLET PO SCH ×2 (05:28→17:13)
[2022-06-06 05:33] LABS: BASOPHILS % (AUTO) 0 % (0-10); EOSINOPHILS % (AUTO) 0 % (0-10); HEMATOCRIT 29 % (40-54)
[2022-06-06 05:35] LABS: HEMOGLOBIN 9.5 g/dL (13.3-17.7); LYMPHOCYTES # (AUTO) 1.1 10^3/uL (1.0-4.0); LYMPHOCYTES % (AUTO) 10 % (12-44); MEAN CORPUSCULAR HEMOGLOBIN 27 pg (25-34); MEAN CORPUSCULAR HGB CONC 33 g/dL (32-36); MEAN CORPUSCULAR VOLUME 80 fL (80-99); MEAN PLATELET VOLUME 12.1 fL (9.0-12.2); MONOCYTES # (AUTO) 0.7 10^3/uL (0.0-1.0); MONOCYTES % (AUTO) 6 % (0-12); NEUTROPHILS # (AUTO) 10.1 10^3/uL (1.8-7.8); NEUTROPHILS % (AUTO) 84 % (42-75); PLATELET COUNT 127 10^3/uL (130-400)
[2022-06-06] MEDS: inSUlin ASPART (NovoLOG) 1 UNIT/0.01 ML (CHARGE PER UNIT) SC SCH ×4 (05:38→20:26)
[2022-06-06 05:51] LABS: ALBUMIN 2.9 GM/DL (3.2-4.5); BILIRUBIN,TOTAL 0.4 MG/DL (0.1-1.0); CREATININE SERUM 0.76 MG/DL (0.60-1.30); POTASSIUM 3.5 MMOL/L (3.6-5.0)
[2022-06-06] MEDS: UMECLIDINIUM BROMIDE (INCRUSE ELLIPTA) 7'S IH SCH (06:44)
--- NOTE | 2022-06-06 07:22 | Progress Note - Hospitalist ---
Subjective HPI/CC On Admission Date Seen by Provider: Jun 06, 2022 Time Seen by Provider: 11:00 Subjective/Events-last exam Patient doing well Less dyspnea Romero will be DC tomorrow No new issues Checked meds Review of Systems General: Fatigue, Malaise Focused Exam Lactate Level Time of Focused Exam: 13:00 Objective Exam Vital Signs Vital Signs Date Time Temp Pulse Resp B/P (MAP) Pulse Ox O2 Delivery O2 Flow Rate FiO2 06/06/22 16:05 36.7 94 18 133/65 (87) 96 Nasal Cannula 3.00 06/04/22 12:00 50 Capillary Refill : Less Than 3 Seconds General Appearance: No Apparent Distress, WD/WN, Chronically ill Respiratory: Lungs Clear, No Accessory Muscle Use, No Respiratory Distress, Decreased Breath Sounds Neurologic/Psychiatric: Alert, Oriented x3, No Motor/Sensory Deficits, Normal M ood/Affect Results/Procedures Lab Laboratory Tests 06/06/22 05:07 Patient resulted labs reviewed. Assessment/Plan Assessment and Plan Assess & Plan/Chief Complaint (1) Pneumonia Status: Acute Assessment & Plan: Cefepime and doxycycline started in ER. Blood cultures pending. Qualifiers: Qualified Codes: J18.9 - Pneumonia, unspecified organism (2) Acute respiratory failure Status: Acute Assessment & Plan: Secondary to pneumonia and COPD exacerbation. Flu and COVID testing negative. Strep pneumo and legionella negative. Improved with bipap, antibiotics, now weaned off of vapotherm, continue to wean supplemental oxygen as tolerated. Qualifiers: Qualified Codes: J96.01 - Acute respiratory failure with hypoxia (3) Severe sepsis Status: Resolved Assessment & Plan: Leukocytosis, tachycardia and tachypnea on admit with elevated lactic acid and SHANE. Secondary to pneumonia. Treating with antibiotics, received bolus in ER, now on NS @ 150 mls/hr, follow up repeat lactic acid. 06/04- lactic acid normalized, BP improved and renal function trending to normal. 06/05- resolved (4) COPD exacerbation Status: Acute Assessment & Plan: Prednisone. RT MAT protocol. Supplemental oxygen as needed. (5) Acute renal failure Status: Resolved Assessment & Plan: Secondary to sepsis. IVF and treat underlying cause, monitor. 06/04 improving (6) COPD (chronic obstructive pulmonary disease) Status: Chronic (7) Essential (primary) hypertension Status: Chronic (8) Chronic anemia Status: Chronic Assessment & Plan: Iron studies 12/2019 with normal iron, ferritin and low TIBC consistent with anemia of chronic disease. (9) Morbid obesity Status: Chronic (10) Mixed hyperlipidemia Status: Chronic (11) Type 2 diabetes mellitus with complication Status: Chronic Assessment & Plan: Diabetic diet, sliding scale insulin. (12) Thoracic aortic aneurysm without rupture Status: Chronic Assessment & Plan: Mild dilation of aortic root noted on echo 11/2021 per Cardiology notes needs followed longitudinally (13) DVT prophylaxis Status: Acute Assessment & Plan: Enoxaparin Critical Care Critically Ill Patient BRENDEN GEORGE DO Jun 06, 2022 07:22
[2022-06-06] MEDS: SERTRALINE 100 MG (ZOLOFT) TAB PO SCH (09:12)
[2022-06-06] MEDS: FAMOTIDINE 20 MG (PEPCID) TABLET PO SCH ×2 (09:12→19:26)
[2022-06-06] MEDS: ASPIRIN E.C. 81 MG (ECOTRIN) TAB PO SCH (09:12)
[2022-06-06] MEDS: ENOXAPARIN 40 MG/0.4 ML (LOVENOX) SYR SC SCH (14:25)
[2022-06-06] MEDS: ACETAMINOPHEN 500 MG TAB (TYLENOL) PO PRN (17:14)
[2022-06-06] MEDS: PRIMIDONE 250MG (MYSOLINE) TAB PO SCH (19:26)
[2022-06-07] MEDS: CEFEPIME 1,000 MG/NS 50 ML IVPB IV SCH ×8 (02:22→19:11)
[2022-06-07] MEDS: CATHETER FLUSH 10 ML SYR IV SCH ×3 (02:22→19:12)
[2022-06-07 03:19] VITALS: BP 159/74
[2022-06-07] MEDS: DOXYCYCLINE 100 MG (VIBRAMYCIN) TABLET PO SCH ×2 (05:17→17:16)
[2022-06-07] MEDS: predniSONE 20 MG TAB PO SCH (05:17)
[2022-06-07] MEDS: inSUlin ASPART (NovoLOG) 1 UNIT/0.01 ML (CHARGE PER UNIT) SC SCH ×4 (05:27→20:16)
[2022-06-07 05:43] LABS: BASOPHILS % (AUTO) 0 % (0-10); EOSINOPHILS % (AUTO) 0 % (0-10); HEMATOCRIT 31 % (40-54); HEMOGLOBIN 10.4 g/dL (13.3-17.7); LYMPHOCYTES # (AUTO) 1.2 10^3/uL (1.0-4.0); LYMPHOCYTES % (AUTO) 11 % (12-44); MEAN CORPUSCULAR HEMOGLOBIN 27 pg (25-34); MEAN CORPUSCULAR HGB CONC 34 g/dL (32-36); MEAN CORPUSCULAR VOLUME 80 fL (80-99); MEAN PLATELET VOLUME 11.8 fL (9.0-12.2); MONOCYTES # (AUTO) 1.1 10^3/uL (0.0-1.0); MONOCYTES % (AUTO) 11 % (0-12); NEUTROPHILS # (AUTO) 8.2 10^3/uL (1.8-7.8); NEUTROPHILS % (AUTO) 77 % (42-75); PLATELET COUNT 141 10^3/uL (130-400); WHITE BLOOD COUNT 10.7 10^3/uL (4.3-11.0)
[2022-06-07 06:05] LABS: ALBUMIN 3.1 GM/DL (3.2-4.5); BILIRUBIN,TOTAL 0.4 MG/DL (0.1-1.0); CALCIUM 9.1 MG/DL (8.5-10.1); CREATININE SERUM 0.71 MG/DL (0.60-1.30); POTASSIUM 3.4 MMOL/L (3.6-5.0); TOTAL PROTEIN 7.1 GM/DL (6.4-8.2)
--- NOTE | 2022-06-07 06:24 | Progress Note - Hospitalist ---
Subjective HPI/CC On Admission Date Seen by Provider: Jun 07, 2022 Time Seen by Provider: 11:00 Subjective/Events-last exam No major issues DC catheter today No BM so added meds Lungs clear PT OT ordered Rehab consult? Review of Systems General: Fatigue, Malaise Pulmonary: Dyspnea Focused Exam Time of Focused Exam: 13:00 Objective Exam Vital Signs Vital Signs Date Time Temp Pulse Resp B/P (MAP) Pulse Ox O2 Delivery O2 Flow Rate FiO2 06/08/22 03:35 36.8 69 16 155/82 (106) 90 NIV CPAP 06/07/22 22:16 3.00 06/04/22 12:00 50 Capillary Refill : Less Than 3 Seconds General Appearance: No Apparent Distress, WD/WN, Chronically ill Respiratory: Lungs Clear, Normal Breath Sounds, No Accessory Muscle Use, No Respiratory Distress, Decreased Breath Sounds Cardiovascular: Regular Rate, Rhythm Neurologic/Psychiatric: Alert, Oriented x3 Results/Procedures Lab Laboratory Tests 06/07/22 05:25 Patient resulted labs reviewed. Assessment/Plan Assessment and Plan Assess & Plan/Chief Complaint (1) Pneumonia Status: Acute Assessment & Plan: Cefepime and doxycycline started in ER. Blood cultures pending. Qualifiers: Qualified Codes: J18.9 - Pneumonia, unspecified organism (2) Acute respiratory failure Status: Acute Assessment & Plan: Secondary to pneumonia and COPD exacerbation. Flu and COVID testing negative. Strep pneumo and legionella negative. Improved with bipap, antibiotics, now weaned off of vapotherm, continue to wean supplemental oxygen as tolerated. Qualifiers: Qualified Codes: J96.01 - Acute respiratory failure with hypoxia (3) Severe sepsis Status: Resolved Assessment & Plan: Leukocytosis, tachycardia and tachypnea on admit with elevated lactic acid and SHANE. Secondary to pneumonia. Treating with antibiotics, received bolus in ER, now on NS @ 150 mls/hr, follow up repeat lactic acid. 06/04- lactic acid normalized, BP improved and renal function trending to normal. 06/05- resolved (4) COPD exacerbation Status: Acute Assessment & Plan: Prednisone. RT MAT protocol. Supplemental oxygen as needed. (5) Acute renal failure Status: Resolved Assessment & Plan: Secondary to sepsis. IVF and treat underlying cause, monitor. 06/04 improving (6) COPD (chronic obstructive pulmonary disease) Status: Chronic (7) Essential (primary) hypertension Status: Chronic (8) Chronic anemia Status: Chronic Assessment & Plan: Iron studies 12/2019 with normal iron, ferritin and low TIBC consistent with anemia of chronic disease. (9) Morbid obesity Status: Chronic (10) Mixed hyperlipidemia Status: Chronic (11) Type 2 diabetes mellitus with complication Status: Chronic Assessment & Plan: Diabetic diet, sliding scale insulin. (12) Thoracic aortic aneurysm without rupture Status: Chronic Assessment & Plan: Mild dilation of aortic root noted on echo 11/2021 per Cardiology notes needs followed longitudinally (13) DVT prophylaxis Status: Acute Assessment & Plan: Enoxaparin Critical Care Critically Ill Patient BRENDEN GEORGE DO Jun 07, 2022 06:24
[2022-06-07] MEDS: RT-ALBUTEROL/IPRATROPIUM 3 ML (DUONEB) VIAL INH SCH ×2 (07:17→22:16)
[2022-06-07] MEDS: UMECLIDINIUM BROMIDE (INCRUSE ELLIPTA) 7'S IH SCH (07:18)
[2022-06-07 07:25] VITALS: BP 174/82
[2022-06-07] MEDS: ASPIRIN E.C. 81 MG (ECOTRIN) TAB PO SCH (08:00)
[2022-06-07] MEDS: SERTRALINE 100 MG (ZOLOFT) TAB PO SCH (08:00)
[2022-06-07] MEDS: FAMOTIDINE 20 MG (PEPCID) TABLET PO SCH ×2 (08:00→19:11)
[2022-06-07] MEDS ORDERED: KCL 10 MEQ TAB (MICRO K) PO ONE (11:15)
[2022-06-07] MEDS ORDERED: SENNA W/DOCUSATE (SENOKOT S) TABLET PO ONE (11:15)
[2022-06-07] MEDS ORDERED: LACTULOSE SYRUP 10GM/15ML (ENULOSE) 30ML UDC PO ONE (11:15)
[2022-06-07] MEDS ORDERED: BISACODYL 10 MG SUPP (DULCOLAX) PR ONE (11:15)
[2022-06-07 11:18] VITALS: BP 163/80
[2022-06-07] MEDS: DOCUSATE SODIUM 100 MG (COLACE) CAP PO SCH ×2 (13:11→19:11)
[2022-06-07] MEDS: ENOXAPARIN 40 MG/0.4 ML (LOVENOX) SYR SC SCH (14:27)
[2022-06-07 15:40] VITALS: BP 138/70
[2022-06-07] MEDS: PRIMIDONE 250MG (MYSOLINE) TAB PO SCH (19:11)
[2022-06-07 19:33] VITALS: BP 151/74
[2022-06-07 23:47] VITALS: BP 153/78
[2022-06-08] MEDS: CEFEPIME 1,000 MG/NS 50 ML IVPB IV SCH ×4 (01:30→07:52)
[2022-06-08] MEDS: CATHETER FLUSH 10 ML SYR IV SCH ×3 (01:31→19:26)
[2022-06-08 03:35] VITALS: BP 155/82
[2022-06-08 05:29] LABS: BASOPHILS % (AUTO) 0 % (0-10); EOSINOPHILS % (AUTO) 0 % (0-10); HEMATOCRIT 30 % (40-54); HEMOGLOBIN 10.1 g/dL (13.3-17.7); LYMPHOCYTES # (AUTO) 1.9 10^3/uL (1.0-4.0); LYMPHOCYTES % (AUTO) 24 % (12-44); MEAN CORPUSCULAR HEMOGLOBIN 27 pg (25-34); MEAN CORPUSCULAR HGB CONC 34 g/dL (32-36); MEAN CORPUSCULAR VOLUME 79 fL (80-99); MEAN PLATELET VOLUME 11.8 fL (9.0-12.2); MONOCYTES # (AUTO) 1.3 10^3/uL (0.0-1.0); MONOCYTES % (AUTO) 16 % (0-12); NEUTROPHILS # (AUTO) 4.6 10^3/uL (1.8-7.8); NEUTROPHILS % (AUTO) 58 % (42-75); PLATELET COUNT 148 10^3/uL (130-400); WHITE BLOOD COUNT 7.9 10^3/uL (4.3-11.0)
[2022-06-08] MEDS: inSUlin ASPART (NovoLOG) 1 UNIT/0.01 ML (CHARGE PER UNIT) SC SCH ×4 (05:35→20:22)
[2022-06-08] MEDS: KCL 10 MEQ TAB (MICRO K) PO SCH (05:59)
[2022-06-08] MEDS: predniSONE 20 MG TAB PO SCH (05:59)
[2022-06-08] MEDS: DOXYCYCLINE 100 MG (VIBRAMYCIN) TABLET PO SCH (05:59)
[2022-06-08 06:02] LABS: BILIRUBIN,TOTAL 0.4 MG/DL (0.1-1.0); CREATININE SERUM 0.68 MG/DL (0.60-1.30); POTASSIUM 3.3 MMOL/L (3.6-5.0)
[2022-06-08 06:39] LABS: NEUTROPHILS % (MANUAL) 63 %
[2022-06-08 06:40] LABS: EOSINOPHILS % (MANUAL) 1 %; HYPOCHROMASIA SLIGHT; LYMPHOCYTES % (MANUAL) 23 %; METAMYELOCYTES % 2 %; MICROCYTOSIS SLIGHT; MONOCYTES % (MANUAL) 11 %
--- NOTE | 2022-06-08 06:59 | Progress Note - Hospitalist ---
Subjective HPI/CC On Admission Date Seen by Provider: Jun 08, 2022 Time Seen by Provider: 10:00 Subjective/Events-last exam Doing well O2 will be needed at DC NO pain Voiding well BM+ x 2 Review of Systems General: Fatigue, Malaise Focused Exam Time of Focused Exam: 13:00 Objective Exam Vital Signs Vital Signs Date Time Temp Pulse Resp B/P (MAP) Pulse Ox O2 Delivery O2 Flow Rate FiO2 06/08/22 19:24 Nasal Cannula 2.00 06/08/22 19:07 36.8 77 18 139/72 (94) 92 06/04/22 12:00 50 Capillary Refill : Less Than 3 Seconds General Appearance: No Apparent Distress, WD/WN Respiratory: Lungs Clear, Normal Breath Sounds Cardiovascular: Regular Rate, Rhythm Neurologic/Psychiatric: Alert, Oriented x3 Results/Procedures Lab Laboratory Tests 06/08/22 05:12 Patient resulted labs reviewed. Assessment/Plan Assessment and Plan Assess & Plan/Chief Complaint (1) Pneumonia Status: Acute Assessment & Plan: Cefepime and doxycycline started in ER. Blood cultures pending. Qualifiers: Qualified Codes: J18.9 - Pneumonia, unspecified organism (2) Acute respiratory failure Status: Acute Assessment & Plan: Secondary to pneumonia and COPD exacerbation. Flu and COVID testing negative. Strep pneumo and legionella negative. Improved with bipap, antibiotics, now weaned off of vapotherm, continue to wean supplemental oxygen as tolerated. Qualifiers: Qualified Codes: J96.01 - Acute respiratory failure with hypoxia (3) Severe sepsis Status: Resolved Assessment & Plan: Leukocytosis, tachycardia and tachypnea on admit with elevated lactic acid and SHANE. Secondary to pneumonia. Treating with antibiotics, received bolus in ER, now on NS @ 150 mls/hr, follow up repeat lactic acid. 06/04- lactic acid normalized, BP improved and renal function trending to normal. 06/05- resolved (4) COPD exacerbation Status: Acute Assessment & Plan: Prednisone. RT MAT protocol. Supplemental oxygen as needed. (5) Acute renal failure Status: Resolved Assessment & Plan: Secondary to sepsis. IVF and treat underlying cause, monitor. 06/04 improving (6) COPD (chronic obstructive pulmonary disease) Status: Chronic (7) Essential (primary) hypertension Status: Chronic (8) Chronic anemia Status: Chronic Assessment & Plan: Iron studies 12/2019 with normal iron, ferritin and low TIBC consistent with anemia of chronic disease. (9) Morbid obesity Status: Chronic (10) Mixed hyperlipidemia Status: Chronic (11) Type 2 diabetes mellitus with complication Status: Chronic Assessment & Plan: Diabetic diet, sliding scale insulin. (12) Thoracic aortic aneurysm without rupture Status: Chronic Assessment & Plan: Mild dilation of aortic root noted on echo 11/2021 per Cardiology notes needs followed longitudinally (13) DVT prophylaxis Status: Acute Assessment & Plan: Enoxaparin Critical Care Critically Ill Patient BRENDEN GEORGE DO Jun 08, 2022 06:59
[2022-06-08 07:36] VITALS: BP 161/74
[2022-06-08] MEDS: UMECLIDINIUM BROMIDE (INCRUSE ELLIPTA) 7'S IH SCH (07:37)
[2022-06-08] MEDS: RT-ALBUTEROL/IPRATROPIUM 3 ML (DUONEB) VIAL INH SCH ×2 (07:37→22:10)
[2022-06-08] MEDS: ENOXAPARIN 40 MG/0.4 ML (LOVENOX) SYR SC SCH ×2 (07:51→19:25)
[2022-06-08] MEDS: ASPIRIN E.C. 81 MG (ECOTRIN) TAB PO SCH (09:11)
[2022-06-08] MEDS: FAMOTIDINE 20 MG (PEPCID) TABLET PO SCH ×2 (09:11→19:25)
[2022-06-08] MEDS: DOCUSATE SODIUM 100 MG (COLACE) CAP PO SCH ×2 (09:11→19:25)
[2022-06-08] MEDS: SERTRALINE 100 MG (ZOLOFT) TAB PO SCH (09:11)
--- NOTE | 2022-06-08 11:06 | Physical Therapy Evaluation ---
PT Evaluation-General Medical Diagnosis Admission Date Jun 03, 2022 at 13:38 Medical Diagnosis: pneumonia/severe sepsis/DM Onset Date: Jun 03, 2022 Therapy Diagnosis Therapy Diagnosis: debility Height/Weight Height (Feet): 5 Height (Inches): 4.00 Weight (Pounds): 253 Weight (Ounces): 0.0 Precautions Precautions/Isolations: Standard Precautions Weight Bear Status Right Lower Extremity: Right Weight Bearing/Tolerated Left Lower Extremity: Left Weight Bearing/Tolerated Referral Physician: Marce Reason for Referral: Evaluation/Treatment Medical History Pertinent Medical History: COPD, DM, Heart Failure, HTN, Smoking Current History ER secondary to SOA/cough Reviewed History: Yes Social History Home: Single Level Current Living Status: Spouse Entry Into Home: Stairs With Railing PT Steps Into Home: 2 Prior Prior Level of Function SCALE: Activities may be completed with or without assistive devices. 3-Fanfcfyfdh-gjwaznx completes the activity by him/herself with no assistance from a helper. 5-Set-up or Clean-up Assistance-helper sets up or cleans up; patient completes activity. [place] assists only prior to or following the activity. 4-Supervision or Touching Assistance-helper provides verbal cues and/or touching/steadying and/or contact guard assistance as patient completes activity. Assistance may be provided throughout the activity or intermittently. 3-Partial/Moderate Assistance-helper does LESS THAN HALF the effort. Theodore lifts, holds or supports trunk or limbs, but provides less than half the effort. 2-Substantial/Maximal Assistance-helper does MORE THAN HALF the effort. [place] lifts or holds trunk or limbs and provides more than half the effort. 6-[place]-jemole does ALL the effort. Patient does none of the effort to complete the activity. Or, the assistance of 2 or more helpers is required for the patient to complete the activity. If activity was not attempted, code reason: 7-Patient Refused. 9-Not Applicable-not attempted and the patient did not perform the activity before the current illness, exacerbation or injury. 10-Not Attempted due to Environmental Limitations-(lack of equipment, weather restraints, etc.). 88-Not Attempted due to Medical Conditions or Safety Concerns. Bed Mobility: 6 Transfers (B,C,W/C): 6 Gait: 6 Stairs: 6 Indoor Mobility (Ambulation): Independent Stairs: Independent Prior Devices Use: None PT Evaluation-Current Subjective Patient agrees to PT. RT present for O2 home study Objective Patient Orientation: Normal For Age Attachments: Oxygen (2L NC at rest/3L with activity) ROM/Strength ROM Lower Extremities bilateral LE WFL all planes Strength Lower Extremities 4/5 grossly bilateral LE all planes Integumentary/Posture Integumentary refer to nursing notes Bowel Incontinence: No Bladder Incontinence: No Posture kyphotic Neuromuscular (Tone, Coordination, Reflexes) grossly intact Sensory Vision: Functional Hearing: Functional Transfers Lying to Sitting/Side of Bed(Q: 6 Sit to Stand (QC): 6 Gait Mode of Locomotion: Walk Anticipated Mode of Locomotion: Walk Walk 10 feet (QC): 6 Walk 50 ft with 2 Turns(QC): 6 Walk 150 ft (QC): 6 Distance: 350' Gait Assistive Device: FWW Comments/Gait Description PT assist for O2 tank only/safe and functional gait sequence Balance Sitting Static: Normal Sitting Dynamic: Normal Standing Static: Normal Standing Dynamic: Normal Assessment/Needs Patient is currently at independent [facility] with all gross motor skills and does not require skilled PT intervention at this time. Rehab Potential: Fair PT Plan Treatment/Plan Treatment Plan: Discontinue PT, goals met Treatment Duration: Jun 08, 2022 Frequency: 1 time per week Estimated Hrs Per Day: .25 hour per day Patient and/or Family Agrees t: Yes Time Time In: 1040 Time Out: 1053 DATE: Jun 08, 2022 Total Billed Treatment Time: 13 Total Billed Treatment 1 visit [facility] 13 min CY FINNEGAN PT Jun 08, 2022 11:06
--- NOTE | 2022-06-08 11:13 | Occupational Therapy Eval ---
OT Evaluation-General/PLF Medical Diagnosis Admission Date Jun 03, 2022 at 13:38 Medical Diagnosis: pneumonia/severe sepsis/DM Onset Date: Jun 03, 2022 Therapy Diagnosis Therapy Diagnosis: weakness, SOA Height/Weight Height (Feet): 5 Height (Inches): 4.00 Weight (Pounds): 253 Weight (Ounces): 0.0 Precautions Precautions/Isolations: Standard Precautions Weight Bear Status Weight Bearing Restriction: Full Weight Bearing Referral Physician: Marce Referral Reason: Evaluation/Treatment Medical History Pertinent Medical History: COPD, DM, Heart Failure, HTN, Smoking Current History 87 yo male states he came to the ER due to shortness of breath He notes a history of recurrent pneumonia. He has COPD, has not been out of any inhalers. Does not use supplemental oxygen at baseline, is on CPAP at night for sleep apnea but does not use supplemental oxygen with that either. He admits mild cough, non-productive Reviewed History: Yes Social History Home: Single Level Current Living Status: Spouse Entry Into Home: Stairs With Railing Steps Into Home: 2 ADL-Prior Level of Function SCALE: Activities may be completed with or without assistive devices. 1-Ylkvqsxsat-jcrqiop completes the activity by him/herself with no assistance from a helper. 5-Set-up or Clean-up Assistance-helper sets up or cleans up; patient completes activity. [place] assists only prior to or following the activity. 4-Supervision or Touching Assistance-helper provides verbal cues and/or touching/steadying and/or contact guard assistance as patient completes activity. Assistance may be provided throughout the activity or intermittently. 3-Partial/Moderate Assistance-helper does LESS THAN HALF the effort. [place] lifts, holds or supports trunk or limbs, but provides less than half the effort. 2-Substantial/Maximal Assistance-helper does MORE THAN HALF the effort. [place] lifts or holds trunk or limbs and provides more than half the effort. 5-Eunjcauwo-sgxkcy does ALL the effort. Patient does none of the effort to complete the activity. Or, the assistance of 2 or more helpers is required for the patient to complete the activity. If activity was not attempted, code reason: 7-Patient Refused. 9-Not Applicable-not attempted and the patient did not perform the activity before the current illness, exacerbation or injury. 10-Not Attempted due to Environmental Limitations-(lack of equipment, weather restraints, etc.). 88-Not Attempted due to Medical Conditions or Safety Concerns. Self Care: Needed Some Help (spouse assists w/ shoes and socks) Functional Cognition: Independent DME/Equipment: [address] Self: Yes OT Current Status Subjective Sitting upright in bed, agreeable to OT Mental Status/Objective Patient Orientation: Person, Place, Time, Situation, Normal For Age Attachments: Oxygen Current Glasses/Contacts: Yes Upper Extremity ROM OLD Reverse TSA limited ROM to RUE. LUE WFLS Upper Extremity Strength WFLs of ROM ADL-Treatment Eating (QC): 6 Oral Hygiene (QC): 6 Shower/Bathe Self (QC): 7 (declined, assists with back and feet at home) Upper Body Dressing (QC): 6 Lower Body Dressing (QC): 5 On/Off Footwear (QC): 3 (Patietn does RLE OT performs LLE as spouse does at home) Toileting Hygiene (QC): 5 Other Treatments Education in PLB Education OT Patient Education: Correct positioning, Energy conservation, Modified ADL techniques, Progress toward Goal/Update tx plan, Purpose of tx/functional activities, Reviewed precautions, Rehab process, Safety issues Teaching Recipient: Patient Teaching Methods: Demonstration Response to Teaching: Return Demonstration OT Longterm Goals Internal Control Manager Goals 1=Demonstrate adherence to instructed precautions during ADL tasks. 2=Patient will verbalize/demonstrate understanding of assistive devices/modifications for ADL. 3=Patient will improve strength/tolerance for activity to enable patient to perform ADL's. OT Education/Plan Problem List/Assessment Assessment: No Skilled OT Needs ID'd Discharge Recommendations Plan/Recommendations: Discontinue OT Treatment Plan/Plan of Care Treatment,Training & Education: Yes Patient would benefit from OT for education, treatment and training to promote independence in ADL's, mobility, safety and/or upper extremity function for ADL's. Plan of Care: OTHER (EVAL ONLY) Treatment Duration: Jun 08, 2022 Frequency: 1 time per week Estimated Hrs Per Day: .25 hour per day Agreement: Yes Rehab Potential: Good up EOB, all needs met Time Start Time: 10:55 Stop Time: 11:10 DATE: Jun 08, 2022 Total Time Billed (hr/min): 15 Billed Treatment Time EVL 15 min AMRIT BUSH OT Jun 08, 2022 11:13
[2022-06-08 11:57] VITALS: BP 157/71
[2022-06-08 15:50] VITALS: BP 161/76
[2022-06-08 19:07] VITALS: BP 139/72
[2022-06-08] MEDS: PRIMIDONE 250MG (MYSOLINE) TAB PO SCH (19:25)
[2022-06-08 23:29] VITALS: BP 156/73
[2022-06-09 05:25] LABS: BASOPHILS % (AUTO) 0 % (0-10); EOSINOPHILS % (AUTO) 0 % (0-10); HEMATOCRIT 31 % (40-54); HEMOGLOBIN 10.5 g/dL (13.3-17.7); LYMPHOCYTES # (AUTO) 2.4 10^3/uL (1.0-4.0); LYMPHOCYTES % (AUTO) 39 % (12-44); MEAN CORPUSCULAR HEMOGLOBIN 27 pg (25-34); MEAN CORPUSCULAR HGB CONC 33 g/dL (32-36); MEAN CORPUSCULAR VOLUME 79 fL (80-99); MEAN PLATELET VOLUME 12.1 fL (9.0-12.2); MONOCYTES # (AUTO) 0.9 10^3/uL (0.0-1.0); MONOCYTES % (AUTO) 14 % (0-12); NEUTROPHILS # (AUTO) 2.7 10^3/uL (1.8-7.8); NEUTROPHILS % (AUTO) 44 % (42-75); PLATELET COUNT 156 10^3/uL (130-400); WHITE BLOOD COUNT 6.1 10^3/uL (4.3-11.0)
[2022-06-09] MEDS: inSUlin ASPART (NovoLOG) 1 UNIT/0.01 ML (CHARGE PER UNIT) SC SCH ×3 (05:44→16:16)
[2022-06-09 05:49] LABS: BILIRUBIN,TOTAL 0.4 MG/DL (0.1-1.0); CREATININE SERUM 0.68 MG/DL (0.60-1.30); POTASSIUM 3.5 MMOL/L (3.6-5.0); TOTAL PROTEIN 7.2 GM/DL (6.4-8.2)
[2022-06-09] MEDS: CATHETER FLUSH 10 ML SYR IV SCH ×2 (06:01→15:21)
[2022-06-09] MEDS: KCL 10 MEQ TAB (MICRO K) PO SCH (06:01)
[2022-06-09 07:35] VITALS: BP 148/72
[2022-06-09] MEDS: DOCUSATE SODIUM 100 MG (COLACE) CAP PO SCH (08:39)
[2022-06-09] MEDS: ASPIRIN E.C. 81 MG (ECOTRIN) TAB PO SCH (08:39)
[2022-06-09] MEDS: ENOXAPARIN 40 MG/0.4 ML (LOVENOX) SYR SC SCH (08:39)
[2022-06-09] MEDS: FAMOTIDINE 20 MG (PEPCID) TABLET PO SCH (08:39)
[2022-06-09] MEDS: SERTRALINE 100 MG (ZOLOFT) TAB PO SCH (08:39)
[2022-06-09] MEDS ORDERED: FAMO20TA5 PO (10:28)
[2022-06-09] MEDS ORDERED: POTA-160 PO (10:28)
[2022-06-09] MEDS ORDERED: DOCU100C37 PO (10:28)
--- NOTE | 2022-06-09 10:28 | Discharge Summary ---
Diagnosis/Chief Complaint Date of Admission Jun 03, 2022 at 13:38 Date of Discharge Discharge Date: Jun 09, 2022 Discharge Diagnosis Assess & Plan/Chief Complaint (1) Pneumonia Status: Acute Assessment & Plan: Cefepime and doxycycline started in ER. Blood cultures pending. Qualifiers: Qualified Codes: J18.9 - Pneumonia, unspecified organism (2) Acute respiratory failure Status: Acute Assessment & Plan: Secondary to pneumonia and COPD exacerbation. Flu and COVID testing negative. Strep pneumo and legionella negative. Improved with bipap, antibiotics, now weaned off of vapotherm, continue to wean supplemental oxygen as tolerated. Qualifiers: Qualified Codes: J96.01 - Acute respiratory failure with hypoxia (3) Severe sepsis Status: Resolved Assessment & Plan: Leukocytosis, tachycardia and tachypnea on admit with elevated lactic acid and SHANE. Secondary to pneumonia. Treating with antibiotics, received bolus in ER, now on NS @ 150 mls/hr, follow up repeat lactic acid. 06/04- lactic acid normalized, BP improved and renal function trending to normal. 06/05- resolved (4) COPD exacerbation Status: Acute Assessment & Plan: Prednisone. RT MAT protocol. Supplemental oxygen as needed. (5) Acute renal failure Status: Resolved Assessment & Plan: Secondary to sepsis. IVF and treat underlying cause, monitor. 06/04 improving (6) COPD (chronic obstructive pulmonary disease) Status: Chronic (7) Essential (primary) hypertension Status: Chronic (8) Chronic anemia Status: Chronic Assessment & Plan: Iron studies 12/2019 with normal iron, ferritin and low TIBC consistent with anemia of chronic disease. (9) Morbid obesity Status: Chronic (10) Mixed hyperlipidemia Status: Chronic (11) Type 2 diabetes mellitus with complication Status: Chronic Assessment & Plan: Diabetic diet, sliding scale insulin. (12) Thoracic aortic aneurysm without rupture Status: Chronic Assessment & Plan: Mild dilation of aortic root noted on echo 11/2021 per Cardiology notes needs followed longitudinally (13) DVT prophylaxis Status: Acute Assessment & Plan: Enoxaparin Discharge Summary Discharge Physical Examination Allergies: Coded Allergies: lisinopril (Verified Allergy, Unknown, 09/22/15) sildenafil (Verified Allergy, Unknown, 09/22/15) Vitals & I&Os Vital Signs Date Time Temp Pulse Resp B/P (MAP) Pulse Ox O2 Delivery O2 Flow Rate FiO2 4/4/23 16:07 36.4 80 16 144/75 (98) 88 NIV CPAP 3.00 06/04/22 12:00 50 General Appearance: Alert, Oriented X3, Cooperative Respiratory: Clear to Auscultation Cardiovascular: Regular Rate Psych/Mental Status: Mental Status NL Hospital Course Was the Problem List Reviewed?: Yes Uneventful course after he was admitted to ICU for acute respiratory failure and placed on biPAP and IV steroids and IV abx. Overall he improved rapidly and was able to move to 4th floor where he was improved overall an able to participate in therapy and weakn down to PO steroids and was deemed stable for DC on home O2. Labs (last 24 hrs) Laboratory Tests 06/03/22 02:25: Urine Color YELLOW, Urine Clarity CLEAR, Urine pH 6.0, Urine Specific [place] <=1.005, Urine Protein NEGATIVE, Urine Glucose (UA) 3+H, Urine Ketones NEGATIVE, Urine Nitrite NEGATIVE, Urine Bilirubin NEGATIVE, Urine Urobilinogen 0.2, Urine Leukocyte Esterase NEGATIVE, Urine RBC (Auto) TRACE-IH, Urine RBC RARE, Urine WBC RARE, Urine Squamous Epithelial Cells NONE, Urine Crystals NONE, Urine Bacteria TRACE, Urine Casts NONE, Urine Mucus SMALLH, Urine Culture Indicated NO, Urine Legionella pneumophilia Ag Negative, Streptococcus pneumoniae Antigen Negative 06/03/22 12:22: Blood Gas Puncture Site LWRIST, Blood Gas Patient Temperature 36.6, Arterial Blood pH 7.38, Arterial Blood Partial Pressure CO2 39, Arterial Blood Partial Pressure O2 60L, Arterial Blood HCO3 23, Arterial Blood Total CO2 23.7, Arterial Blood Oxygen Saturation 87L, Arterial Blood Base Excess -1.9, Rudy Test YES- POS, Blood Gas Ventilator Setting NO, Blood Gas Inspired Oxygen RA, Glucometer 268H 06/03/22 12:40: White Blood Count 22.0H, Red Blood Count 4.60, Hemoglobin 12.4L, Hematocrit 37L, Mean Corpuscular Volume 81, Mean Corpuscular Hemoglobin 27, Mean Corpuscular Hemoglobin Concent 33, Red Cell Distribution Width 16.3H, Platelet Count 161, Mean Platelet Volume 12.3H, Immature Granulocyte % (Auto) 3, Neutrophils (%) (Auto) 83H, Lymphocytes (%) (Auto) 3L, Monocytes (%) (Auto) 11, Eosinophils (%) (Auto) 1, Basophils (%) (Auto) 0, Neutrophils # (Auto) 18.2H, Lymphocytes # (Auto) 0.6L, Monocytes # (Auto) 2.3H, Eosinophils # (Auto) 0.2, Basophils # (Auto) 0.0, Immature Granulocyte # (Auto) 0.7H, Neutrophils % (Manual) 63, Lymphocytes % (Manual) 3, Monocytes % (Manual) 14, Band Neutrophils 20, Platelet Estimate FEW GIANT/LARGE PLTS, Percent Immature Platelet Fraction 11.2H, Anisocytosis MODERATE, Sodium Level 132L, Potassium Level 4.9, Chloride Level 96L, Carbon Dioxide Level 22, Anion Gap 14, Blood Urea Nitrogen 33H, Creatinine 2.00H, Estimat Glomerular Filtration Rate 32, BUN/Creatinine Ratio 17, Glucose Level 254H, Lactic Acid Level 3.21*H, Calcium Level 9.3, Corrected Calcium 9.4, Total Bilirubin 0.5, Aspartate Amino Transf (AST/SGOT) 22, Alanine Aminotransferase (ALT/SGPT) 19, Alkaline Phosphatase 60, B-Type Natriuretic Peptide 118.8H, Total Protein 8.9H, Albumin 3.9 06/03/22 13:38: Lab Scanned Report Referred Lab Report 06/03/22 13:53: Prothrombin Time 14.8H, INR Comment 1.1, Activated Partial Thromboplast Time 30 06/03/22 15:00: Lactic Acid Level 3.56*H 06/03/22 15:50: Glucometer 179H 06/03/22 17:30: Lactic Acid Level 1.92 06/03/22 18:00: Influenza Type A (RT-PCR) Not Detected, Influenza Type B (RT-PCR) Not Detected, SARS-CoV-2 RNA (RT-PCR) Not Detected 06/03/22 20:22: Glucometer 228H 06/04/22 04:20: White Blood Count 19.6H, Red Blood Count 3.39L, Hemoglobin 9.0L, Hematocrit 28L, Mean Corpuscular Volume 81, Mean Corpuscular Hemoglobin 27, Mean Corpuscular Hemoglobin Concent 33, Red Cell Distribution Width 16.9H, Platelet Count 122L, Mean Platelet Volume 12.0, Immature Granulocyte % (Auto) 8, Neutrophils (%) (Auto) 81H, Lymphocytes (%) (Auto) 4L, Monocytes (%) (Auto) 7, Eosinophils (%) (Auto) 1, Basophils (%) (Auto) 0, Neutrophils # (Auto) 15.8H, Lymphocytes # (Auto) 0.7L, Monocytes # (Auto) 1.4H, Eosinophils # (Auto) 0.1, Basophils # (Auto) 0.0, Immature Granulocyte # (Auto) 1.6H, Neutrophils % (Manual) 64, Lymphocytes % (Manual) 1, Monocytes % (Manual) 10, Metamyelocytes % 4, Band Neutrophils 20, Reactive Lymphocytes 1, Percent Immature Platelet Fraction 11.3H , Anisocytosis SLIGHT, Elliptocytes SLIGHT, Sodium Level 135, Potassium Level 4.2, Chloride Level 106, Carbon Dioxide Level 18L, Anion Gap 11, Blood Urea Nitrogen 33H, Creatinine 1.24, Estimat Glomerular Filtration Rate 57, BUN/Creatinine Ratio 27, Glucose Level 215H, Calcium Level 7.9L, Phosphorus Level 2.9, Magnesium Level 1.5L 06/04/22 10:33: Glucometer 230H 06/04/22 15:14: Glucometer 199H 06/04/22 20:03: Glucometer 161H 06/05/22 05:13: White Blood Count 16.2H, Red Blood Count 3.64L, Hemoglobin 9.6L, Hematocrit 30L, Mean Corpuscular Volume 82, Mean Corpuscular Hemoglobin 26, Mean Corpuscular Hemoglobin Concent 32, Red Cell Distribution Width 17.6H, Platelet Count 115L, Mean Platelet Volume 12.1, Immature Granulocyte % (Auto) 3, Neutrophils (%) (Auto) 86H, Lymphocytes (%) (Auto) 4L, Monocytes (%) (Auto) 6, Eosinophils (%) (Auto) 0, Basophils (%) (Auto) 0, Neutrophils # (Auto) 14.0H, Lymphocytes # (Auto) 0.7L, Monocytes # (Auto) 1.0, Eosinophils # (Auto) 0.1, Basophils # (Auto) 0.0, Immature Granulocyte # (Auto) 0.4H, Percent Immature Platelet Fraction 10.3H, Sodium Level 138, Potassium Level 4.0, Chloride Level 110H, Carbon Dioxide Level 18L, Anion Gap 10, Blood Urea Nitrogen 21H, Creatinine 0.75, Estimat Glomerular Filtration Rate 88, BUN/Creatinine Ratio 28, Glucose Level 107H, Calcium Level 8.8, Phosphorus Level 1.8L, Magnesium Level 2.5H 06/05/22 11:01: Glucometer 245H 06/05/22 16:02: Glucometer 194H 06/06/22 05:07: White Blood Count 12.0H, Red Blood Count 3.56L, Hemoglobin 9.5L, Hematocrit 29L, Mean Corpuscular Volume 80, Mean Corpuscular Hemoglobin 27, Mean Corpuscular Hemoglobin Concent 33, Red Cell Distribution Width 17.2H, Platelet Count 127L, Mean Platelet Volume 12.1, Immature Granulocyte % (Auto) 1, Neutrophils (%) (Auto) 84H, Lymphocytes (%) (Auto) 10L, Monocytes (%) (Auto) 6, Eosinophils (%) (Auto) 0, Basophils (%) (Auto) 0, Neutrophils # (Auto) 10.1H, Lymphocytes # (Auto) 1.1, Monocytes # (Auto) 0.7, Eosinophils # (Auto) 0.0, Basophils # (Auto) 0.0, Immature Granulocyte # (Auto) 0.1, Percent Immature Platelet Fraction 13.0H , Sodium Level 138, Potassium Level 3.5L, Chloride Level 108H, Carbon Dioxide Level 21, Anion Gap 9, Blood Urea Nitrogen 19H, Creatinine 0.76, Estimat Glomerular Filtration Rate 88, BUN/Creatinine Ratio 25, Glucose Level 132H, Calcium Level 9.0, Corrected Calcium 9.9, Total Bilirubin 0.4, Aspartate Amino Transf (AST/SGOT) 82H, Alanine Aminotransferase (ALT/SGPT) 86H, Alkaline Phosphatase 56, Total Protein 7.0, Albumin 2.9L 06/06/22 05:33: Glucometer 146H 06/06/22 10:30: Glucometer 191H 06/06/22 16:04: Glucometer 269H 06/06/22 20:21: Glucometer 183H 06/07/22 05:25: Glucometer 139H, White Blood Count 10.7, Red Blood Count 3.87L, Hemoglobin 10.4L , Hematocrit 31L, Mean Corpuscular Volume 80, Mean Corpuscular Hemoglobin 27, Mean Corpuscular Hemoglobin Concent 34, Red Cell Distribution Width 17.1H, Platelet Count 141, Mean Platelet Volume 11.8, Immature Granulocyte % (Auto) 1, Neutrophils (%) (Auto) 77H, Lymphocytes (%) (Auto) 11L, Monocytes (%) (Auto) 11, Eosinophils (%) (Auto) 0, Basophils (%) (Auto) 0, Neutrophils # (Auto) 8.2H, Lymphocytes # (Auto) 1.2, Monocytes # (Auto) 1.1H, Eosinophils # (Auto) 0.0, Basophils # (Auto) 0.0, Immature Granulocyte # (Auto) 0.2H, Sodium Level 136, Potassium Level 3.4L, Chloride Level 105, Carbon Dioxide Level 20L, Anion Gap 11, Blood Urea Nitrogen 19H, Creatinine 0.71, Estimat Glomerular Filtration Rate 90, BUN/Creatinine Ratio 27, Glucose Level 137H, Calcium Level 9.1, Corrected Calcium 9.8, Total Bilirubin 0.4, Aspartate Amino Transf (AST/SGOT) 47H, Alanine Aminotransferase (ALT/SGPT) 78H, Alkaline Phosphatase 56, Total Protein 7.1, Albumin 3.1L 06/07/22 11:06: Glucometer 265H 06/07/22 16:38: Glucometer 241H 06/07/22 20:08: Glucometer 176H 06/08/22 05:12: White Blood Count 7.9, Red Blood Count 3.78L, Hemoglobin 10.1L, Hematocrit 30L, Mean Corpuscular Volume 79L, Mean Corpuscular Hemoglobin 27, Mean Corpuscular Hemoglobin Concent 34, Red Cell Distribution Width 16.6H, Platelet Count 148, Mean Platelet Volume 11.8, Immature Granulocyte % (Auto) 2, Neutrophils (%) (Auto) 58, Lymphocytes (%) (Auto) 24, Monocytes (%) (Auto) 16H, Eosinophils (%) (Auto) 0, Basophils (%) (Auto) 0, Neutrophils # (Auto) 4.6, Lymphocytes # (Auto) 1.9, Monocytes # (Auto) 1.3H, Eosinophils # (Auto) 0.0, Basophils # (Auto) 0.0, Immature Granulocyte # (Auto) 0.1, Neutrophils % (Manual) 63, Lymphocytes % (Manual) 23, Monocytes % (Manual) 11, Eosinophils % (Manual) 1, Metamyelocytes % 2, Hypochromasia SLIGHT, Microcytosis SLIGHT, Sodium Level 136, Potassium Level 3.3L, Chloride Level 103, Carbon Dioxide Level 23, Anion Gap 10, Blood Urea Nit rogen 16, Creatinine 0.68, Estimat Glomerular Filtration Rate 91, BUN/Creatinine Ratio 24, Glucose Level 138H, Calcium Level 9.0, Corrected Calcium 9.8, Total Bilirubin 0.4, Aspartate Amino Transf (AST/SGOT) 32, Alanine Aminotransferase (ALT/SGPT) 64H, Alkaline Phosphatase 50, Total Protein 7.0, Albumin 3.0L 06/08/22 05:27: Glucometer 136H 06/08/22 10:58: Glucometer 263H 06/08/22 15:40: Glucometer 252H 06/08/22 20:16: Glucometer 235H 06/09/22 05:11: White Blood Count 6.1, Red Blood Count 3.96L, Hemoglobin 10.5L, Hematocrit 31L, Mean Corpuscular Volume 79L, Mean Corpuscular Hemoglobin 27, Mean Corpuscular Hemoglobin Concent 33, Red Cell Distribution Width 16.5H, Platelet Count 156, Mean Platelet Volume 12.1, Immature Granulocyte % (Auto) 3, Neutrophils (%) (Auto) 44, Lymphocytes (%) (Auto) 39, Monocytes (%) (Auto) 14H, Eosinophils (%) (Auto) 0, Basophils (%) (Auto) 0, Neutrophils # (Auto) 2.7, Lymphocytes # (Auto) 2.4, Monocytes # (Auto) 0.9, Eosinophils # (Auto) 0.0, Basophils # (Auto) 0.0, Immature Granulocyte # (Auto) 0.2H, Sodium Level 137, Potassium Level 3.5L, Chloride Level 104, Carbon Dioxide Level 21, Anion Gap 12, Blood Urea Nitrogen 14, Creatinine 0.68, Estimat Glomerular Filtration Rate 91, BUN/Creatinine Ratio 21, Glucose Level 146H, Calcium Level 9.0, Corrected Calcium 9.8, Total Bilirubin 0.4, Aspartate Amino Transf (AST/SGOT) 25, Alanine Aminotransferase (ALT/SGPT) 54, Alkaline Phosphatase 50, Total Protein 7.2, Albumin 3.0L 06/09/22 05:22: Glucometer 140H 06/09/22 10:48: Glucometer 215H Microbiology 06/03/22 MRSA Screen - Final, Complete MRSA not isolated 06/03/22 Blood Culture - Final, Complete Staphylococcus capitis See Comments 06/03/22 Urine Culture - Final, Complete NO GROWTH Pending Labs Microbiology Date/Time Source Procedure Growth Status 06/03/22 14:30 Nasal MRSA Screen - Final MRSA not isolated Complete 06/03/22 12:43 Peripheral :Lab Indicates After Collectio Blood Culture - Final Staphylococcus capitis See Comments Complete 06/03/22 12:40 Peripheral Rt Ac Blood Culture - Final Staphylococcus capitis Staphylococcus epidermidis Staphylococcus hominis See Comments Complete 06/03/22 02:25 Urine Clean Catch Urine Culture - Final NO GROWTH Complete Laboratory Tests 06/03/22 02:25: Urine Color YELLOW, Urine Clarity CLEAR, Urine pH 6.0, Urine Specific [place] <=1.005, Urine Protein NEGATIVE, Urine Glucose (UA) 3+, Urine Ketones NEGATIVE, Urine Nitrite NEGATIVE, Urine Bilirubin NEGATIVE, Urine Urobilinogen 0.2, Urine Leukocyte Esterase NEGATIVE, Urine RBC (Auto) TRACE-I, Urine RBC RARE, Urine WBC RARE, Urine Squamous Epithelial Cells NONE, Urine Crystals NONE, Urine Bacteria TRACE, Urine Casts NONE, Urine Mucus SMALL, Urine Culture Indicated NO, Urine Legionella pneumophilia Ag Negative, Streptococcus pneumoniae Antigen Negative 06/03/22 12:22: Blood Gas Puncture Site LWRIST, Blood Gas Patient Temperature 36.6, Arterial Blood pH 7.38, Arterial Blood Partial Pressure CO2 39, Arterial Blood Partial Pressure O2 60, Arterial Blood HCO3 23, Arterial Blood Total CO2 23.7, Arterial Blood Oxygen Saturation 87, Arterial Blood Base Excess -1.9, Rudy Test YES-POS, Blood Gas Ventilator Setting NO, Blood Gas Inspired Oxygen RA, Glucometer 268 06/03/22 12:40: White Blood Count 22.0, Red Blood Count 4.60, Hemoglobin 12.4, Hematocrit 37, Mean Corpuscular Volume 81, Mean Corpuscular Hemoglobin 27, Mean Corpuscular Hemoglobin Concent 33, Red Cell Distribution Width 16.3, Platelet Count 161, Mean Platelet Volume 12.3, Immature Granulocyte % (Auto) 3, Neutrophils (%) (Auto) 83, Lymphocytes (%) (Auto) 3, Monocytes (%) (Auto) 11, Eosinophils (%) (Auto) 1, Basophils (%) (Auto) 0, Neutrophils # (Auto) 18.2, Lymphocytes # (Auto) 0.6, Monocytes # (Auto) 2.3, Eosinophils # (Auto) 0.2, Basophils # (Auto) 0.0, Immature Granulocyte # (Auto) 0.7, Neutrophils % (Manual) 63, Lymphocytes % (Manual) 3, Monocytes % (Manual) 14, Band Neutrophils 20, Platelet Estimate FEW GIANT/LARGE PLTS, Percent Immature Platelet Fraction 11.2, Anisocytosis MODERATE, Sodium Level 132, Potassium Level 4.9, Chloride Level 96, Carbon Dioxide Level 22, Anion Gap 14, Blood Urea Nitrogen 33, Creatinine 2.00, Estimat Glomerular Filtration Rate 32, BUN/Creatinine Ratio 17, Glucose Level 254, Lactic Acid Level 3.21, Calcium Level 9.3, Corrected Calcium 9.4, Total Bilirubin 0.5, Aspartate Amino Transf (AST/SGOT) 22, Alanine Aminotransferase (ALT/SGPT) 19, Alkaline Phosphatase 60, B-Type Natriuretic Peptide 118.8, Total Protein 8.9, Albumin 3.9 06/03/22 13:38: Lab Scanned Report Referred Lab Report 06/03/22 13:53: Prothrombin Time 14.8, INR Comment 1.1, Activated Partial Thromboplast Time 30 06/03/22 15:00: Lactic Acid Level 3.56 06/03/22 15:50: Glucometer 179 06/03/22 17:30: Lactic Acid Level 1.92 06/03/22 18:00: Influenza Type A (RT-PCR) Not Detected, Influenza Type B (RT-PCR) Not Detected, SARS-CoV-2 RNA (RT-PCR) Not Detected 06/03/22 20:22: Glucometer 228 06/04/22 04:20: White Blood Count 19.6, Red Blood Count 3.39, Hemoglobin 9.0, Hematocrit 28, Mean Corpuscular Volume 81, Mean Corpuscular Hemoglobin 27, Mean Corpuscular Hemoglobin Concent 33, Red Cell Distribution Width 16.9, Platelet Count 122, Mean Platelet Volume 12.0, Immature Granulocyte % (Auto) 8, Neutrophils (%) (Auto) 81, Lymphocytes (%) (Auto) 4, Monocytes (%) (Auto) 7, Eosinophils (%) (Auto) 1, Basophils (%) (Auto) 0, Neutrophils # (Auto) 15.8, Lymphocytes # (Auto) 0.7, Monocytes # (Auto) 1.4, Eosinophils # (Auto) 0.1, Basophils # (Auto) 0.0, Immature Granulocyte # (Auto) 1.6, Neutrophils % (Manual) 64, Lymphocytes % (Manual) 1, Monocytes % (Manual) 10, Metamyelocytes % 4, Band Neutrophils 20, Reactive Lymphocytes 1, Percent Immature Platelet Fraction 11.3, Anisocytosis SLIGHT, Elliptocytes SLIGHT, Sodium Level 135, Potassium Level 4.2, Chloride Level 106, Carbon Dioxide Level 18, Anion Gap 11, Blood Urea Nitrogen 33, Creatinine 1.24, Estimat Glomerular Filtration Rate 57, BUN/Creatinine Ratio 27, Glucose Level 215, Calcium Level 7.9, Phosphorus Level 2.9, Magnesium Level 1.5 06/04/22 10:33: Glucometer 230 06/04/22 15:14: Glucometer 199 06/04/22 20:03: Glucometer 161 06/05/22 05:13: White Blood Count 16.2, Red Blood Count 3.64, Hemoglobin 9.6, Hematocrit 30, Mean Corpuscular Volume 82, Mean Corpuscular Hemoglobin 26, Mean Corpuscular Hemoglobin Concent 32, Red Cell Distribution Width 17.6, Platelet Count 115, Mean Platelet Volume 12.1, Immature Granulocyte % (Auto) 3, Neutrophils (%) (Auto) 86, Lymphocytes (%) (Auto) 4, Monocytes (%) (Auto) 6, Eosinophils (%) (Auto) 0, Basophils (%) (Auto) 0, Neutrophils # (Auto) 14.0, Lymphocytes # (Auto) 0.7, Monocytes # (Auto) 1.0, Eosinophils # (Auto) 0.1, Basophils # (Auto) 0.0, Immature Granulocyte # (Auto) 0.4, Percent Immature Platelet Fraction 10.3, Sodium Level 138, Potassium Level 4.0, Chloride Level 110, Carbon Dioxide Level 18, Anion Gap 10, Blood Urea Nitrogen 21, Creatinine 0.75, Estimat Glomerular Filtration Rate 88, BUN/Creatinine Ratio 28, Glucose Level 107, Calcium Level 8.8, Phosphorus Level 1.8, Magnesium Level 2.5 06/05/22 11:01: Glucometer 245 06/05/22 16:02: Glucometer 194 06/06/22 05:07: White Blood Count 12.0, Red Blood Count 3.56, Hemoglobin 9.5, Hematocrit 29, Mean Corpuscular Volume 80, Mean Corpuscular Hemoglobin 27, Mean Corpuscular Hemoglobin Concent 33, Red Cell Distribution Width 17.2, Platelet Count 127, Mean Platelet Volume 12.1, Immature Granulocyte % (Auto) 1, Neutrophils (%) (Auto) 84, Lymphocytes (%) (Auto) 10, Monocytes (%) (Auto) 6, Eosinophils (%) (Auto) 0, Basophils (%) (Auto) 0, Neutrophils # (Auto) 10.1, Lymphocytes # (Auto) 1.1, Monocytes # (Auto) 0.7, Eosinophils # (Auto) 0.0, Basophils # (Auto) 0.0, Immature Granulocyte # (Auto) 0.1, Percent Immature Platelet Fraction 13.0, Sodium Level 138, Potassium Level 3.5, Chloride Level 108, Carbon Dioxide Level 21, Anion Gap 9, Blood Urea Nitrogen 19, Creatinine 0.76, Estimat Glomerular Filtration Rate 88, BUN/Creatinine Ratio 25, Glucose Level 132, Calcium Level 9 .0, Corrected Calcium 9.9, Total Bilirubin 0.4, Aspartate Amino Transf (AST/SGOT) 82, Alanine Aminotransferase (ALT/SGPT) 86, Alkaline Phosphatase 56, Total Protein 7.0, Albumin 2.9 06/06/22 05:33: Glucometer 146 06/06/22 10:30: Glucometer 191 06/06/22 16:04: Glucometer 269 06/06/22 20:21: Glucometer 183 06/07/22 05:25: Glucometer 139, White Blood Count 10.7, Red Blood Count 3.87, Hemoglobin 10.4, Hematocrit 31, Mean Corpuscular Volume 80, Mean Corpuscular Hemoglobin 27, Mean Corpuscular Hemoglobin Concent 34, Red Cell Distribution Width 17.1, Platelet Count 141, Mean Platelet Volume 11.8, Immature Granulocyte % (Auto) 1, Neutrophils (%) (Auto) 77, Lymphocytes (%) (Auto) 11, Monocytes (%) (Auto) 11, Eosinophils (%) (Auto) 0, Basophils (%) (Auto) 0, Neutrophils # (Auto) 8.2, Lymphocytes # (Auto) 1.2, Monocytes # (Auto) 1.1, Eosinophils # (Auto) 0.0, Basophils # (Auto) 0.0, Immature Granulocyte # (Auto) 0.2, Sodium Level 136, Potassium Level 3.4, Chloride Level 105, Carbon Dioxide Level 20, Anion Gap 11, Blood Urea Nitrogen 19, Creatinine 0.71, Estimat Glomerular Filtration Rate 90, BUN/Creatinine Ratio 27, Glucose Level 137, Calcium Level 9.1, Corrected Calcium 9.8, Total Bilirubin 0.4, Aspartate Amino Transf (AST/SGOT) 47, Alanine Aminotransferase (ALT/SGPT) 78, Alkaline Phosphatase 56, Total Protein 7.1, Albumin 3.1 06/07/22 11:06: Glucometer 265 06/07/22 16:38: Glucometer 241 06/07/22 20:08: Glucometer 176 06/08/22 05:12: White Blood Count 7.9, Red Blood Count 3.78, Hemoglobin 10.1, Hematocrit 30, Mean Corpuscular Volume 79, Mean Corpuscular Hemoglobin 27, Mean Corpuscular Hemoglobin Concent 34, Red Cell Distribution Width 16.6, Platelet Count 148, Mean Platelet Volume 11.8, Immature Granulocyte % (Auto) 2, Neutrophils (%) (Auto) 58, Lymphocytes (%) (Auto) 24, Monocytes (%) (Auto) 16, Eosinophils (%) (Auto) 0, Basophils (%) (Auto) 0, Neutrophils # (Auto) 4.6, Lymphocytes # (Auto) 1.9, Monocytes # (Auto) 1.3, Eosinophils # (Auto) 0.0, Basophils # (Auto) 0.0, Immature Granulocyte # (Auto) 0.1, Neutrophils % (Manual) 63, Lymphocytes % (Manual) 23, Monocytes % (Manual) 11, Eosinophils % (Manual) 1, Metamyelocytes % 2, Hypochromasia SLIGHT, Microcytosis SLIGHT, Sodium Level 136, Potassium Level 3.3, Chloride Level 103, Carbon Dioxide Level 23, Anion Gap 10, Blood Urea Nitrogen 16, Creatinine 0.68, Estimat Glomerular Filtration Rate 91, BUN/Creatinine Ratio 24, Glucose Level 138, Calcium Level 9.0, Corrected Calcium 9.8, Total Bilirubin 0.4, Aspartate Amino Transf (AST/SGOT) 32, Alanine Aminotransferase (ALT/SGPT) 64, Alkaline Phosphatase 50, Total Protein 7.0, Albumin 3.0 06/08/22 05:27: Glucometer 136 06/08/22 10:58: Glucometer 263 06/08/22 15:40: Glucometer 252 06/08/22 20:16: Glucometer 235 06/09/22 05:11: White Blood Count 6.1, Red Blood Count 3.96, Hemoglobin 10.5, Hematocrit 31, Mean Corpuscular Volume 79, Mean Corpuscular Hemoglobin 27, Mean Corpuscular Hemoglobin Concent 33, Red Cell Distribution Width 16.5, Platelet Count 156, Mean Platelet Volume 12.1, Immature Granulocyte % (Auto) 3, Neutrophils (%) (Auto) 44, Lymphocytes (%) (Auto) 39, Monocytes (%) (Auto) 14, Eosinophils (%) (Auto) 0, Basophils (%) (Auto) 0, Neutrophils # (Auto) 2.7, Lymphocytes # (Auto) 2.4, Monocytes # (Auto) 0.9, Eosinophils # (Auto) 0.0, Basophils # (Auto) 0.0, Immature Granulocyte # (Auto) 0.2, Sodium Level 137, Potassium Level 3.5, Chloride Level 104, Carbon Dioxide Level 21, Anion Gap 12, Blood Urea Nitrogen 14, Creatinine 0.68, Estimat Glomerular Filtration Rate 91, BUN/Creatinine Ratio 21, Glucose Level 146, Calcium Level 9.0, Corrected Calcium 9.8, Total Bilirubin 0.4, Aspartate Amino Transf (AST/SGOT) 25, Alanine Aminotransferase (ALT/SGPT) 54, Alkaline Phosphatase 50, Total Protein 7.2, Albumin 3.0 06/09/22 05:22: Glucometer 140 06/09/22 10:48: Glucometer 215 Discharge Home Medications: Active Scripts Active Famotidine 20 Mg Tablet 20 Mg PO BID Docusate Sodium 100 Mg Capsule 100 Mg PO BID Klor-Con 10 (Potassium Chloride) 10 Meq Tablet.er 10 Meq PO DAILY@0700 Reported Stiolto Respimat Inhal Hollis (Tiotropium Br/Olodaterol HCl) 2.5 Mcg-2.5 Mcg/Actuation Mist.inhal 2 Puff IH DAILY Atorvastatin Calcium 80 Mg Tablet 40 Mg PO HS TAKES OF A 80MG Ozempic (Semaglutide) 1 Mg/0.75 Ml (4 Mg/3 Ml) Pen.injctr 1 Mg SQ SUN Jardiance (Empagliflozin) 25 Mg Tablet 25 Mg PO DAILY Aspirin EC (Aspirin) 81 Mg Tablet.dr 81 Mg PO DAILY Ventolin Hfa (Albuterol Sulfate) 1 Puff Puff 2 Puff IH Q6H PRN Centrum Silver Tablet (Multivit-Min/FA/Lycopene/Lut) 0.4 Mg-300 Mcg-250 Mcg Tablet 1 Ea PO DAILY Mysoline (Primidone) 250 Mg Tablet 250 Mg PO HS Sertraline HCl 100 Mg Tablet 100 Mg PO DAILY Metformin HCl ER (Metformin HCl) 500 Mg Tab.er.24 500 Mg PO BID Glipizide 10 Mg Tablet 10 Mg PO DAILY Instructions to patient/family Please see electronic discharge instructions given to patient. BRENDEN GEORGE DO Jun 09, 2022 10:28
[2022-06-09] MEDS ORDERED: BENZOCAINE LOZENGES 1 EACH LOZENGE PO PRN (12:30)
[2022-06-09 16:03] VITALS: BP 148/72
[2022-06-09 16:07] VITALS: BP 144/75
== END 2022-06-09 15:00 | disposition home or self-care (01) | DRG 871 ==
LOC: EDUNIT# 12:01 → ER 12:04 → ICU 13:38 → 4TH 06-05 10:39
PROVIDERS: ADMIT Family Medicine; ATTEND Internal Medicine
PROC: 5A09457 Assistance with Respiratory Ventilation, 24-96 Consecutive Hours, Continuous Positive Airway Pressure (ICD-10-PCS; principal; 2022-06-03)
DX: A41.9 Sepsis, unspecified organism (principal); J18.9 Pneumonia, unspecified organism; J96.01 Acute respiratory failure with hypoxia; J44.1 Chronic obstructive pulmonary disease with (acute) exacerbation; J44.0 Chronic obstructive pulmonary disease with (acute) lower respiratory infection; N17.9 Acute kidney failure, unspecified; R65.20 Severe sepsis without septic shock; Z20.822 Contact with and (suspected) exposure to COVID-19; I10 Essential (primary) hypertension; D64.9 Anemia, unspecified; E66.01 Morbid (severe) obesity due to excess calories; E78.2 Mixed hyperlipidemia; E11.9 Type 2 diabetes mellitus without complications; I71.20 Thoracic aortic aneurysm, without rupture, unspecified; D69.6 Thrombocytopenia, unspecified; G47.33 Obstructive sleep apnea (adult) (pediatric); Z79.82 Long term (current) use of aspirin; Z79.84 Long term (current) use of oral hypoglycemic drugs; Z79.899 Other long term (current) drug therapy; Z87.891 Personal history of nicotine dependence; Z96.611 Presence of right artificial shoulder joint; M19.90 Unspecified osteoarthritis, unspecified site; G89.29 Other chronic pain; M54.9 Dorsalgia, unspecified; F32.A Depression, unspecified
CPT/HCPCS: 36415; 71045; 80048; 80053; 81000; 82805; 82947; 83605; 83735; 83880; 84100; 85007; 85025; 85027; 85610; 85730; 87040; 87077; 87081; 87088; 87449; 87636; 87899; 93005; 94640; 94660; 94760; 94761; 96365

== ENCOUNTER 2022-09-30 22:01 | Inpatient (IN) | payer OTHER, MEDICARE ==
[~2022-09-30] VITALS: Ht 162.6 cm; Wt 93.0 kg
[~2022-09-30 22:01] MED LIST changes: +DOCU100C37 PO; +FAMO20TA5 PO; -LOSA100T57 PO; +LOSA100T58 PO; +POTA-160 PO; +TIOT4MIS3 IH
[2022-09-30] MEDS ORDERED: LACTATED RINGERS 1,000 ML IV ONE ×2 (22:45→23:00)
[2022-09-30] MEDS ORDERED: CEFEPIME INJECTION 1,000 MG in NS (IVPB) 50 ML 50 ML IV ONE (22:45)
--- NOTE | 2022-09-30 22:47 | ED Fever ---
History of Present Illness General Stated Complaint: FEVER Source: patient, spouse History of Present Illness Date Seen by Provider: Sep 30, 2022 Time Seen by Provider: 22:35 Initial Comments PT ARRIVES VIA POV FROM HOME WITH PT STATES HE BEGAN RUNNING A FEVER OF 100.5 TONIGHT AT 1900. HE TOOK 2 TYLENOL AT THAT TIME HE HAS HAD A MILD CLEAR RUNNY NOSE HE HAS COPD AND ALWAYS HAS COUGH AND SHORTNESS OF BREATH--NO DIFFERENT THAN NORMAL. PT DOES NOT HAVE HOME O2, BUT WEARS A CPAP AT NIGHT NO CHEST PAIUN NO NAUSEA/VOMITING NO HEADACHE OR BODY ACHES PT HAS HAD COVID VACCINE X 5 AND FLU VACCINE FOR THIS SEASON HE STATES HAS HAD PNEUMONIA SEVERAL TIMES AND THIS IS HOW IT ALWAYS STARTS OUT. HE HAS BEEN ADMITTED HERE MULTIPLE TIMES WITH PNEUMONIA WITH SEPSIS AND HAS REQUIRED BIPAP AT TIMES. LAST ADMIT HERE WAS IN MAY OF THIS YEAR FOR RESPIRATORY FAILURE AND PNEUMONIA AND WAS ON BIPAP AT THAT TIME. HE ALSO HAS HTN, HYPERLIPIDEMIA AND DIABETES. HE HAS BEEN TO MULTIPLE FUNCTIONS THE LAST WEEK, WHERE THERE ARE MULTIPLE PEOPLE-HAS BEEN TO [facility] ON WEDNES[facility] AND AGAIN [facility] IN [place] ON WEDNESDAY, WELL OTHER PLACES. ALL MEDICAL CARE IS THROUGH [facility] [place] Allergies and Home Medications Allergies Coded Allergies: lisinopril (Verified Allergy, Unknown, 09/22/15) sildenafil (Verified Allergy, Unknown, 09/22/15) Patient Home Medication List Home Medication List Reviewed: Yes Albuterol Sulfate (Ventolin Hfa) 1 Puff Puff, 2 PUFF IH Q6H PRN for SHORTNESS OF BREATH, (Reported) Entered as Reported by: CAIO MUELLER on 04/10/19 1136 Aspirin (Aspirin EC) 81 Mg Tablet.dr, 81 MG PO DAILY, (Reported) Entered as Reported by: CAIO MUELLER on 11/28/21 1405 Atorvastatin Calcium (Atorvastatin Calcium) 80 Mg Tablet, 40 MG PO HS, (Reported) Entered as Reported by: CAIO MUELLER on 11/28/21 1405 Docusate Sodium (Docusate Sodium) 100 Mg Capsule, 100 MG PO BID Prescribed by: BRENDEN GEORGE on 06/09/22 1028 Empagliflozin (Jardiance) 25 Mg Tablet, 25 MG PO DAILY, (Reported) Entered as Reported by: CAIO MUELLER on 11/28/21 1405 Famotidine (Famotidine) 20 Mg Tablet, 20 MG PO BID Prescribed by: BRENDEN GEORGE on 06/09/22 102 Glipizide (Glipizide) 10 Mg Tablet, 10 MG PO DAILY, (Reported) Entered as Reported by: LIZET PRO on 09/04/151940 Metformin HCl (Metformin HCl ER) 500 Mg Tab.er.24, 500 MG PO BID, (Reported) Entered as Reported by: LIZET PRO on 09/04/151944 Multivit-Min/FA/Lycopene/Lut (Centrum Silver Tablet) 0.4 Mg-300 Mcg-250 Mcg Tablet, 1 EA PO DAILY, (Reported) Entered as Reported by: TABBY ROSE on 09/23/18 154 Potassium Chloride (Klor-Con 10) 10 Meq Tablet.er, 10 MEQ PO DAILY@0700 Prescribed by: BRENDEN GEORGE on 06/09/22 102 Primidone (Mysoline) 250 Mg Tablet, 250 MG PO HS, (Reported) Entered as Reported by: TABBY ROSE on 09/23/18 154 Semaglutide (Ozempic) 1 Mg/0.75 Ml (4 Mg/3 Ml) Pen.injctr, 1 MG SQ SUN, (Reported) Entered as Reported by: CAIO MUELLER on 11/28/21 140 Sertraline HCl (Sertraline HCl) 100 Mg Tablet, 100 MG PO DAILY, (Reported) Entered as Reported by: LIZET PRO on 09/04/151946 Tiotropium Br/Olodaterol HCl (Stiolto Respimat Inhal [place]) 2.5 Mcg-2.5 Mcg/Actuation Mist.inhal, 2 PUFF IH DAILY, (Reported) Entered as Reported by: CAIO MUELLER on 06/03/22 1558 Review of Systems Review of Systems Constitutional: see HPI, fever EENTM: see HPI, nose congestion Respiratory: see HPI, cough, short of breath Cardiovascular: no symptoms reported Gastrointestinal: no symptoms reported Genitourinary: no symptoms reported Musculoskeletal: other (ONGOING LOW BACK AND TAILBONE PAIN AND HIP PAIN SINCE MAY AFTER HE FELL--HE STATES XRAYS WERE DONE AND DID NOT SHOW ANY BROKEN BONES. HE HAS HAD TO SLEEP IN A RECLINER SINCE THEN DUE TO DISCOMFORT. ) Skin: no symptoms reported Psychiatric/Neurological: No Symptoms Reported Hematologic/Lymphatic: No Symptoms Reported Immunological/Allergic: no symptoms reported Past Appstih-Zzxwcc-Ifqrqn Hx Patient Social History Tobacco Use?: Yes Tobacco type used: Cigarettes Smoking Status: Former Smoker Substance use?: No Alcohol Use?: No Immunizations Up To Date Tetanus Booster (TDap): Unknown First/Initial COVID19 Vaccinat: 2020 Second COVID19 Vaccination Joao: 2020 Third COVID19 Vaccination Date: 2020 Seasonal Allergies Seasonal Allergies: No Past Medical History Surgery/Hospitalization HX: HTN. HLD, COPD, PNEUMONIA, DM Surgeries: Yes (HERNIA) Abdominal, Joint Replacement, Orthopedic, Tonsillectomy Respiratory: Yes (ADMITTED MULT TIMES FOR RESP FAILURE AND ON BIPAP; NO HOME O2--ONLY CPAP) Pneumonia, Sleep Apnea, COPD, Emphysema Currently Using CPAP: Yes Currently Using BIPAP: No Cardiac: Yes High Cholesterol, Hypertension Neurological: Yes ([place] WITH PERMANENT RIGHT FACIAL DROOP) Reproductive Disorders: No Sexually Transmitted Disease: No HIV/AIDS: No Genitourinary: No Gastrointestinal: Yes Abdominal Hernia Musculoskeletal: Yes ("EPIDURAL FOR L3-L4 DEGENERATION"; NECK PAIN) Degenerate Disk Disease, Arthritis, Chronic Back Pain Endocrine: Yes (OBESITY) Diabetes, Non-Insulin dep HEENT: No Cancer: Yes Skin Did You Recieve Any Treatments: Yes What Type of Treatment Did You: Surgical Intervention Psychosocial: Yes Depression Integumentary: No Blood Disorders: Yes (ANEMIA) Adverse Reaction/Blood Tranf: No Family Medical History Arthritis 19 MOTHER Cataracts 19 MOTHER Deafness or hearing loss G8 BROTHER Diabetes mellitus 19 MOTHER Visual disorder 19 MOTHER Diabetes SOCIAL HISTORY: -SMOKED IN THE PAST, QUIT 1992 PAST SURGICAL HISTORY: -HERNIA REPAIR -TONSILLECTOMY -SKIN CANCER REMOVAL -RIGHT SHOULDER REPLACEMENT Physical Exam Vital Signs - First Documented 09/30/22 10/01/22 22:32 00:16 Temp 37.1 Pulse 103 Resp 14 B/P (MAP) 102/61 (75) Pulse Ox 94 O2 Delivery Room Air O2 Flow Rate 2.00 Capillary Refill : Height: 5'4.00" Weight: 253lbs. 0.0oz. 114.755138fy; 41.03 BMI Method:Stated General Appearance: WD/WN, no apparent distress, obese HEENT: other (RIGHT FACIAL DROOP--CHRONIC) Neck: normal inspection Respiratory: normal breath sounds (BUT DIMINISHED IN BASES BILATERALLY), no respiratory distress, no accessory muscle use Cardiovascular: regular rate, rhythm, no edema, no JVD, no murmur Gastrointestinal: non tender, soft Extremities: normal inspection, no pedal edema, normal capillary refill Neurologic/Psychiatric: no motor/sensory deficits, alert, normal mood/affect, oriented x 3, facial droop (RIGHT --CHRONIC FROM [place] PALSY) Skin: normal color, warm/dry Focused Exam Sepsis Stage: Ruled Out Reason for ruling out sepsis: DOES NOT MEET CRITERIA Possible Source: Pulmonary Lactate Level 09/30/22 22:37: Lactic Acid Level 1.63 Time of Focused Exam: 23:30 Respiratory: Normal Breath Sounds, No Accessory Muscle Use, No Respiratory Distress Cardiovascular: Regular Rate, Rhythm, No Edema, No JVD, No Murmur Capillary Refill: Less Than 3 Seconds Skin: normal color, warm/dry Lactic Acid Level Laboratory Tests Test 09/30/22 22:37 Lactic Acid Level 1.63 MMOL/L (0.50-2.00) Within 3hrs of presentation: Admin fluids, Admin ABX, Blood cultures prior to ABX's, Focus exam, Lactate level Progress/Results/Core Measures Suspected Sepsis SIRS Temperature: Pulse: Respiratory Rate: Laboratory Tests 09/30/22 22:37: White Blood Count 3.2L Blood Pressure / Mean: 09/30/22 22:37: Lactic Acid Level 1.63 Laboratory Tests 09/30/22 22:37: Creatinine 1.28, INR Comment 1.1, Platelet Count 108L, Total Bilirubin 0.2 Results/Orders Lab Results Laboratory Tests Test 09/30/22 22:37 09/30/22 22:41 09/30/22 22:48 Range/Units White Blood Count 3.2 L 4.3-11.0 10^3/uL Red Blood Count 4.40 4.30-5.52 10^6/uL Hemoglobin 11.5 L 13.3-17.7 g/dL Hematocrit 36 L 40-54 % Mean Corpuscular Volume 81 80-99 fL Mean Corpuscular Hemoglobin 26 25-34 pg Mean Corpuscular Hemoglobin Concent 32 32-36 g/dL Red Cell Distribution Width 15.9 H 10.0-14.5 % Platelet Count 108 L 130-400 10^3/uL Mean Platelet Volume 11.9 9.0-12.2 fL Immature Granulocyte % (Auto) 1 % Neutrophils (%) (Auto) 45 42-75 % Lymphocytes (%) (Auto) 13 12-44 % Monocytes (%) (Auto) 41 H 0-12 % Eosinophils (%) (Auto) 0 0-10 % Basophils (%) (Auto) 0 0-10 % Neutrophils # (Auto) 1.4 L 1.8-7.8 10^3/uL Lymphocytes # (Auto) 0.4 L 1.0-4.0 10^3/uL Monocytes # (Auto) 1.3 H 0.0-1.0 10^3/uL Eosinophils # (Auto) 0.0 0.0-0.3 10^3/uL Basophils # (Auto) 0.0 0.0-0.1 10^3/uL Immature Granulocyte # (Auto) 0.0 0.0-0.1 10^3/uL Neutrophils % (Manual) 50 % Lymphocytes % (Manual) 15 % Monocytes % (Manual) 31 % Band Neutrophils 4 % Platelet Estimate SLIGHTLY DECREASED Clumped Platelets NONE SEEN Percent Immature Platelet Fraction 9.3 H 0.0-7.6 % Hypochromasia SLIGHT Poikilocytosis SLIGHT Erythrocyte Sedimentation Rate 59 H 0-30 MM/HR Prothrombin Time 14.4 12.2-14.7 SEC INR Comment 1.1 0.8-1.4 Activated Partial Thromboplast Time 32 24-35 SEC Sodium Level 136 135-145 MMOL/L Potassium Level 3.7 3.6-5.0 MMOL/L Chloride Level 101 98-107 MMOL/L Carbon Dioxide Level 23 21-32 MMOL/L Anion Gap 12 5-14 MMOL/L Blood Urea Nitrogen 22 H 7-18 MG/DL Creatinine 1.28 0.60-1.30 MG/DL Estimat Glomerular Filtration Rate 55 BUN/Creatinine Ratio 17 Glucose Level 237 H 70-105 MG/DL Lactic Acid Level 1.63 0.50-2.00 MMOL/L Calcium Level 8.9 8.5-10.1 MG/DL Corrected Calcium 9.1 8.5-10.1 MG/DL Magnesium Level 2.0 1.6-2.4 MG/DL Total Bilirubin 0.2 0.1-1.0 MG/DL Aspartate Amino Transf (AST/SGOT) 21 5-34 U/L Alanine Aminotransferase (ALT/SGPT) 16 0-55 U/L Alkaline Phosphatase 80 40-136 U/L C-Reactive Protein High Sensitivity 1.73 H 0.00-0.50 MG/DL Total Protein 8.3 H 6.4-8.2 GM/DL Albumin 3.8 3.2-4.5 GM/DL Amylase Level 54 25-125 U/L Lipase 44 8-78 U/L Urine Color YELLOW Urine Clarity CLEAR Urine pH 6.0 5-9 Urine Specific [place] <=1.005 1.016-1.022 Urine Protein NEGATIVE NEGATIVE Urine Glucose (UA) 3+ H NEGATIVE Urine Ketones TRACE H NEGATIVE Urine Nitrite NEGATIVE NEGATIVE Urine Bilirubin NEGATIVE NEGATIVE Urine Urobilinogen 0.2 < = 1.0 MG/DL Urine Leukocyte Esterase NEGATIVE NEGATIVE Urine RBC (Auto) TRACE-I H NEGATIVE Urine RBC 0-2 /HPF Urine WBC NONE /HPF Urine Squamous Epithelial Cells 2-5 /HPF Urine Crystals PRESENT H /LPF Urine Amorphous Sediment FEW DEB URATES H /LPF Urine Bacteria TRACE /HPF Urine Casts NONE /LPF Urine Mucus SMALL H /LPF Urine Culture Indicated NO Influenza Type A (RT-PCR) Not Detected Not Detecte Influenza Type B (RT-PCR) Not Detected Not Detecte SARS-CoV-2 RNA (RT-PCR) Detected H Not Detecte My Orders Orders - KATIE CARLIN DO Ed Iv/Invasive Line Start (09/30/22 22:35) O2 (09/30/22 22:35) Monitor-Rhythm Ecg Trace Only (09/30/22 22:35) Covid 19 Inhouse Test (09/30/22 22:35) Cbc With Automated Diff (09/30/22 22:35) Comprehensive Metabolic Panel (09/30/22 22:35) Blood Culture (09/30/22 22:35) Sputum Culture (09/30/22 22:35) Urinalysis (09/30/22 22:35) Urine Culture (09/30/22 22:35) Protime With Inr (09/30/22 22:35) Partial Thromboplastin Time (09/30/22 22:35) Chest 1 View, Ap/Pa Only (09/30/22 22:35) Ed Iv/Invasive Line Start (09/30/22 22:35) Ed Iv/Invasive Line Start (09/30/22 22:35) Vital Signs Adult Sepsis Patie Q15M (09/30/22 22:35) O2 (09/30/22 22:35) Remove Rings In Anticipation O (09/30/22 22:35) Lactic Acid Analyzer (09/30/22 22:35) Lactated Ringers (Lr 1000 Ml Iv Solution (09/30/22 22:45) Cefepime Injection (Maxipime Injection) (09/30/22 22:45) Influenza A And B By Pcr (09/30/22 22:35) Amylase (09/30/22 22:35) Hs C Reactive Protein (09/30/22 22:35) Lipase (09/30/22 22:35) Magnesium (09/30/22 22:35) Erythrocyte Sedimentation Rate (09/30/22 22:35) Ekg Tracing (09/30/22 22:50) Ed Iv/Invasive Line Start (09/30/22 22:50) Lactated Ringers (Lr 1000 Ml Iv Solution (09/30/22 23:00) Manual Differential (09/30/22 22:37) Fentanyl Inj (Sublimaze Injection) (10/01/22 00:01) Ibuprofen Tablet (Motrin Tablet) (10/01/22 00:15) Medications Given in ED Current Medications Medications Dose Ordered Sig/Ana Route Start Time Stop Time Status Last Admin Dose Admin Cefepime HCl 1000 mg/Sodium Chloride 50 ml @ 100 mls/hr ONCE ONCE IV 09/30/22 22:45 09/30/22 23:14 DC 09/30/22 23:19 100 MLS/HR Ibuprofen 800 mg ONCE ONCE PO 10/01/22 00:15 10/01/22 00:16 DC 10/01/22 00:10 800 MG Lactated Ringer's 1,000 ml @ 0 mls/hr Q0M ONCE IV 09/30/22 22:45 09/30/22 22:46 DC 09/30/22 22:53 1,000 MLS/HR Lactated Ringer's 1,000 ml @ 0 mls/hr Q0M ONCE IV 09/30/22 23:00 09/30/22 23:01 DC 09/30/22 23:47 1,000 MLS/HR Vital Signs/I&O 7/26/23 7/27/23 22:32 00:16 Temp 37.1 37.1 Pulse 103 96 Resp 14 14 B/P (MAP) 102/61 (75) 126/65 Pulse Ox 94 98 O2 Delivery Room Air Nasal Cannula O2 Flow Rate 2.00 09/30/22 23:59 Intake Total 1050 ml Balance 1050 ml Capillary Refill : Progress Note : Progress Note PLACED IN ISOLATION ROOM, PPE WORN VITALS ON ARRIVAL: TEMP 37.1, HR 103, RR 14, BP 102/61, O2 SAT 94% ON O2 AT 2L/NC --SATS 89-90% ON ROOM AIR. SEPSIS PROTOCOL INITIATED COVID AND FLU TESTING DONE. GIVEN: -IV FLUIDS -ANTIBIOTICS -FENTANYL AND MOTRIN FOR PAIN AND SLIGHT INCREASE IN TEMP. NO DETERIORATION IN PT'S CONDITION DURING ER STAY NO COUGH NO DYSPNEA VITALS STABLE, HR IN 90'S, BP 120'S SYSTOLIC, O2 SATS IN MID 90'S ON 2L/NC. PERTINENT LABS: -COVID POSITIVE -CBC WITH WBC 3.2, HGB 11.5, PLT 108,000 -CMP WITH NORMAL ELECTROLYTES, BUN 22, CR 1.28, GLU 237 -CRP 1.73, SED RATE 59 -LACTIC ACID 1.63 -UA WITH 3+ GLUCOSE, TRACE KETONES, TRACE BACTERIA, NO LEUKOCYTES OR WBC'S CXR WITH POSSIBLE EARLY RLL INFILTRATE, PENDING RADIOLOGIST REVIEW DISCUSSED TEST RESULTS, NEED FOR ADMIT AND PT IS AGREEABLE TO PLAN. REVIEWED QUARANTINE RECOMMENDATIONS WITH PT AND . DISCUSSED CODE STATUS AND PT WISHES TO BE A FULL CODE REVIEWED PRIOR RECORDS, INCLUDING ER VISITS, ADMITS/H&P'S/CONSULTS/DISCHARGE SUMMARIES, TESTS/PROCEDURES. ECG Initial ECG Impression Date: Sep 30, 2022 Initial ECG Impression Time: 23:43 Initial ECG Rate: 95 Initial ECG Rhythm: Normal Sinus Initial ECG Intervals MI 236 QRS 109 QT/QTC 328/380 Initial ECG Impression: 1st Degree AV Block Comment PRIOR EKG WITH SLIGHTLY SHORTER MI INTERVAL, OTHERWISE COMPLEXES ARE UNCHANGED INTERPRETED BY ME Diagnostic Imaging Comments CXR--EARLY INFILTRATE RIGHT BASE, PENDING RADIOLOGIST REVIEW Reviewed: Reviewed by Me Departure Communication (Admissions) [id number]--SPOKE WITH DR. VILLARREAL, HOSPITALIST, ACCEPTS PT FOR ADMIT. HE RECOMMENDS ONLY ANTIBIOTICS AT THIS TIME. WILL HOLD STEROIDS AT THIS TIME PT IS DIABETIC AND NOT IN RESPIRATORY DISTRESS AT THIS TIME. Impression Primary Impression: COVID-19 Additional Impressions: COPD (chronic obstructive pulmonary disease) Non-insulin dependent type 2 diabetes mellitus possible pneumonia Acute on chronic respiratory failure with hypoxia Low back pain Disposition: ADMITTED INPATIENT Condition: Stable Admissions Decision to Admit Reason: Admit from ER (General) Decision to Admit/Date: Sep 30, 2022 Time/Decision to Admit Time: 23:40 Departure-Patient Inst. Referrals: NO,LOCAL PHYSICIAN (PCP/Family) Primary Care Physician KATIE CARLIN DO Sep 30, 2022 22:47
[2022-09-30 22:49] LABS: BASOPHILS % (AUTO) 0 % (0-10); MEAN CORPUSCULAR HEMOGLOBIN 26 pg (25-34); MEAN CORPUSCULAR HGB CONC 32 g/dL (32-36); MONOCYTES # (AUTO) 1.3 10^3/uL (0.0-1.0)
[2022-09-30 22:51] LABS: EOSINOPHILS % (AUTO) 0 % (0-10); HEMATOCRIT 36 % (40-54); HEMOGLOBIN 11.5 g/dL (13.3-17.7); LYMPHOCYTES # (AUTO) 0.4 10^3/uL (1.0-4.0); LYMPHOCYTES % (AUTO) 13 % (12-44); MEAN CORPUSCULAR VOLUME 81 fL (80-99); MEAN PLATELET VOLUME 11.9 fL (9.0-12.2); MONOCYTES % (AUTO) 41 % (0-12); NEUTROPHILS # (AUTO) 1.4 10^3/uL (1.8-7.8); NEUTROPHILS % (AUTO) 45 % (42-75); PLATELET COUNT 108 10^3/uL (130-400); WHITE BLOOD COUNT 3.2 10^3/uL (4.3-11.0)
[2022-09-30 22:55] LABS: ALBUMIN 3.8 GM/DL (3.2-4.5); POTASSIUM 3.7 MMOL/L (3.6-5.0)
[2022-09-30 22:56] LABS: CALCIUM 8.9 MG/DL (8.5-10.1)
[2022-09-30 22:58] LABS: TOTAL PROTEIN 8.3 GM/DL (6.4-8.2)
[2022-09-30 22:59] LABS: BILIRUBIN,TOTAL 0.2 MG/DL (0.1-1.0)
[2022-09-30 23:01] LABS: CREATININE SERUM 1.28 MG/DL (0.60-1.30)
[2022-09-30 23:06] LABS: BILIRUBIN,URINE NEGATIVE (NEGATIVE); CLARITY,URINE CLEAR; COLOR,URINE YELLOW; GLUCOSE, URINE (UA) 3+ (NEGATIVE); KETONES,URINE TRACE (NEGATIVE); LEUKOCYTE ESTERASE ,URINE NEGATIVE (NEGATIVE); NITRITE,URINE NEGATIVE (NEGATIVE); PROTEIN,URINE NEGATIVE (NEGATIVE)
[2022-09-30 23:07] LABS: INR 1.1 (0.8-1.4); PROTHROMBIN TIME PATIENT 14.4 SEC (12.2-14.7)
[2022-09-30 23:16] LABS: AMORPHOUS SEDIMENT,UR FEW AMOR URATES /LPF; BACTERIA,URINE TRACE /HPF; RBC,URINE 0-2 /HPF
[2022-09-30 23:27] LABS: BAND NEUTROPHILS 4 %; HYPOCHROMASIA SLIGHT; LYMPHOCYTES % (MANUAL) 15 %; MONOCYTES % (MANUAL) 31 %; NEUTROPHILS % (MANUAL) 50 %; PLATELET CLUMPS NONE SEEN; POIKILOCYTOSIS SLIGHT
[2022-09-30 23:28] LABS: ERYTHROCYTE SEDIMENTATION RATE 59 MM/HR (0-30)
[2022-09-30 23:29] LABS: PLATELET ESTIMATE SLIGHTLY DECREASED
[2022-10-01] VITALS (8 sets, daily range): BP systolic 102–139; BP diastolic 55–68
[2022-10-01] MEDS ORDERED: fentaNYL INJ 100 MCG/2 ML AMP IVP STA (00:01)
[2022-10-01] MEDS ORDERED: IBUPROFEN 800 MG (MOTRIN) TAB PO ONE (00:15)
[2022-10-01] MEDS ORDERED: NS IV 1000 ML 1,000 ML ONE (00:44)
[2022-10-01] MEDS ORDERED: ACETAMINOPHEN 500 MG TABLET PO PRN (01:00)
[2022-10-01] MEDS ORDERED: ONDANSETRON 4 MG/2 ML (SDV) Z0FRAN IV PRN (01:00)
[2022-10-01] MEDS ORDERED: IBUPROFEN 800 MG (MOTRIN) TAB PO PRN (01:00)
[2022-10-01] MEDS: NS IV 1000 ML 1,000 ML IV SCH ×3 (01:13→21:10)
[2022-10-01] MEDS: RT-ALBUTEROL HFA 8.5 GM INHALER IH SCH ×3 (02:41→21:48)
[2022-10-01] MEDS ORDERED: RT-ALBUTEROL/IPRATROPIUM 3 ML (DUONEB) VIAL INH PRN (03:45)
[2022-10-01] MEDS: fentaNYL INJ 100 MCG/2 ML AMP IV PRN ×2 (05:03→11:39)
[2022-10-01] MEDS ORDERED: CEFEPIME 1,000 MG/NS 50 ML IVPB IV SCH ×2 (05:30)
[2022-10-01] MEDS: inSUlin ASPART (NovoLOG) 1 UNIT/0.01 ML (CHARGE PER UNIT) SC SCH ×4 (06:01→20:59)
--- NOTE | 2022-10-01 08:33 | Diagnostic Imaging Report ---
EXAMINATION: Chest 1 view HISTORY: Fever. COMPARISON: 06/03/2022. FINDINGS: The lung volumes are normal. Small amount of patchy opacities are seen in the lung bases. No focal consolidation is seen. No large pleural effusion or pneumothorax is seen. The cardiomediastinal silhouette is normal in size and contour. No acute osseous abnormality is seen. IMPRESSION: 1. Small amount of bibasilar opacities, which may represent atelectasis or infection. Dictated by: Dictated on workstation # [id number]
[2022-10-01] MEDS ORDERED: RT-ALBUTEROL/IPRATROPIUM 3 ML (DUONEB) VIAL INH SCH (09:00)
[2022-10-01] MEDS ORDERED: RT-ALBUTEROL HFA 8.5 GM INHALER IH PRN (09:45)
--- NOTE | 2022-10-01 11:49 | History & Physical-Hospitalist ---
JANETH LAWSON 10/01/22 1149: History of Present Illness HPI/Chief Complaint 89 yo M with a history of COPD, PARKER, Type II Diabetes, HLD, seizure disorder and GERD presented to the ED last night with his with complaints of fever of 100.5 F that began at 7:00 pm that evening. He reported exertional dyspnea that was consistent with his baseline due to underlying COPD. He also noted mild, intermittent rhinorrhea and chronic low back pain. Review of systems was otherwise negative. Medical records included several admissions to [facility] for PNA since 2015, the most recent in occuring in June and causing acute respiratory failure. He was found to be Covid-19 positive and have a WBC of 3.2, Hb of 11.3, platelet count of 108, CRP of 1.73, sedimentation rate of 59, glucose of 237, creatinine of 1.28, UA with 3+ glucose, trace ketones, and trace bacteria. Temperature was in normal ranges at 37.1 C (oral) and 36.7 (temporal). CXR demonstrated small amount of bibasilar opacities without focal consolidation or pleural effusion. He was provided supplemental oxygen, IV fluids, Fentanyl, Ibuprofen and Cefepime for possible PNA and admitted to [facility] for further management of acute respiratory failure with hypoxia. Today, he reports chills and persistent back pain. He attributes to his back pain to sleeping in a bed, as he typically sleeps upright in a left chair. He denies myalgia, headache, N/V/D and chest pain and states he is otherwise comfortable. He is stable on 2 L of supplemental oxygen by nasal canula. He states he is not oxygen dependent at home, though he does use a CPAP at night for PARKER. He has had 5 Covid vaccines and this year's influenza vaccine. He smoked 1-2 ppd for 35 years and quit in 1992. He denies alcohol use. 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 Patients Allergies have been reviewed. Allergies Allergies Coded Allergies lisinopril (Verified Allergy, Unknown, 09/22/15) sildenafil (Verified Allergy, Unknown, 09/22/15) Past Ckbwkxb-Afuzlt-Meuogy Hx Patient Social History Tobacco Use?: Yes Tobacco type used: Cigarettes Smoking Status: Former Smoker Use of E-Cig and/or Vaping dev: No Substance use?: No Alcohol Use?: No Pt feels they are or have been: No Immunizations Up To Date Date of Influenza Vaccine: Dec 08, 2019 First/Initial COVID19 Vaccinat: 2020 Second COVID19 Vaccination Joao: 2020 Tetanus Booster (TDap): Less Than 5 Years Hepatitis A: No Hepatitis B: No Date of Pneumonia Vaccine: Dec 16, 2014 Seasonal Allergies Seasonal Allergies: No Current Status Advance Directives: No Communicates: Verbally Primary Language: Congolese Preferred Spoken Language: Congolese Is interpretation needed?: No Sensory deficits: Hearing impairment Implanted or Applied Medical D: None Past Medical History Surgeries: Abdominal, Joint Replacement, Orthopedic, Tonsillectomy Pneumonia, Sleep Apnea, COPD, Emphysema Currently Using CPAP: Yes Currently Using BIPAP: No High Cholesterol, Hypertension Sexually Transmitted Disease: No HIV/AIDS: No Abdominal Hernia Degenerate Disk Disease, Arthritis, Chronic Back Pain Diabetes, Non-Insulin dep Skin Did You Recieve Any Treatments: Yes What Type of Treatment Did You: Surgical Intervention Depression Blood Disorders: Yes (ANEMIA) Adverse Reaction/Blood Tranf: No PMHx: DMII HTN COPD PARKER SurgHx: Right shoulder replacement Inguinal hernia repair 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 Family Medical History Arthritis 19 MOTHER Cataracts 19 MOTHER Deafness or hearing loss G8 BROTHER Diabetes mellitus 19 MOTHER Visual disorder 19 MOTHER Diabetes SOCIAL HISTORY: -SMOKED IN THE PAST, QUIT 1992 PAST SURGICAL HISTORY: -HERNIA REPAIR -TONSILLECTOMY -SKIN CANCER REMOVAL -RIGHT SHOULDER REPLACEMENT Review of Systems Constitutional: chills, malaise Respiratory: dyspnea on exertion (mild, consistent with baseline) Cardiovascular: no symptoms reported Gastrointestinal: no symptoms reported Musculoskeletal: back pain Physical Exam Physical Exam Vital Signs Vital Signs - First Documented 09/30/22 10/01/22 10/01/22 22:32 00:16 03:36 Temp 37.1 Pulse 103 Resp 14 B/P (MAP) 102/61 (75) Pulse Ox 94 O2 Delivery Room Air O2 Flow Rate 2.00 FiO2 21 Capillary Refill : Less Than 3 Seconds Height, Weight, BMI Height: 5'4.00" Weight: 253lbs. 0.0oz. 114.793605by; 35.17 BMI Method:Stated General Appearance: No Apparent Distress HEENT: PERRL/EOMI Neck: Non Tender, Supple Respiratory: Chest Non Tender, Lungs Clear Cardiovascular: Regular Rate, Rhythm Gastrointestinal: Normal Bowel Sounds, Non Tender Back: No Vertebral Tenderness Neurologic/Psychiatric: Alert, No Motor/Sensory Deficits Skin: Normal Color, Warm/Dry Results Results/Procedures Labs Laboratory Tests 09/30/22 22:37 Patient resulted labs reviewed. Assessment/Plan Admission Diagnosis Covid-19 Acute respiratory distress Assessment and Plan Covid-19 Acute respiratory distress - CXR on 09/30: Small amount of bibasilar opacities without focal sonsolidation or pleural effusion - Maintained on 2L of oxygen by nasal canula (non oxygen dependent at home) - Continue acetaminophen 1,000 mg Back pain - Patient attributes to sleeping position; he usually sleeps in a lift chair - Start Fentanyl 50 mg - Start Ibuprofen 800 mcg PARKER - continue CPAP at night COPD Tobacco use (former smoker) - Continue Abuterol-ipratropium 3 ml Type II DM - Restart home medications FRANTZ MEDINA MD 10/01/22 1546: History of Present Illness Time Seen by a Provider: 11:20 Past Ixefupo-Owmfbi-Zvgstu Hx Family Medical History Arthritis 19 MOTHER Cataracts 19 MOTHER Deafness or hearing loss G8 BROTHER Diabetes mellitus 19 MOTHER Visual disorder 19 MOTHER Assessment/Plan Admission Diagnosis Admission Status: Inpatient Order (span 2 midnights) Reason for Inpatient Admission: see below Assessment and Plan Admitted to the hospital with acute hypoxic respiratory failure secondary to COVID-19. He is on 2 L and has stabilized. He is no longer febrile. Because he is admitted he does not meet criteria for Paxlovid. We will start Decadron. Otherwise we will continue supportive care. Reviewed home meds and restarted them as appropriate. Supervisory-Addendum Brief Verification & Attestation Participated in pt care: history, MDM, physical Personally performed: exam, history, MDM, supervision of care Care discussed with: Medical Student Procedures: n/a Results interpretation: Verified all documentation Verification and Attestation of Medical Student E/M Service A medical student performed and documented this service in my presence. I reviewed and verified all information documented by the medical student and made modifications to such information, when appropriate. I personally performed the physical exam and medical decision making. Frantz Medina, Oct 01, 2022,15:43 JANETH LAWSON Oct 01, 2022 11:49 FRANTZ MEDINA MD Oct 01, 2022 15:46
[2022-10-01] MEDS: CEFEPIME 1,000 MG/NS 50 ML IVPB IV SCH ×4 (14:07→21:11)
[2022-10-01] MEDS ORDERED: ACHD5005 PO (15:00)
[2022-10-01] MEDS ORDERED: FERR324T22 PO (15:00)
[2022-10-01] MEDS ORDERED: FURO40TA4 PO (15:00)
[2022-10-01] MEDS ORDERED: TIOT4MIS3 IH (15:00)
[2022-10-01] MEDS ORDERED: FUROSEMIDE 40 MG (LASIX) TAB PO PRN (15:45)
[2022-10-01] MEDS: dexAMETHasone 6 MG TABLET PO SCH (16:49)
[2022-10-01] MEDS: metFORMIN XR 500 MG (GLUCOPHAGE XR) TAB PO SCH (17:46)
[2022-10-01] MEDS: HYDROcodone/ACETAMINOPHEN 5 MG/325 MG TABLET PO PRN ×2 (17:46→22:14)
[2022-10-01] MEDS: PRIMIDONE 250MG (MYSOLINE) TAB PO SCH (21:10)
[2022-10-02 03:41] VITALS: BP 119/60
[2022-10-02] MEDS: CEFEPIME 1,000 MG/NS 50 ML IVPB IV SCH ×8 (05:25→23:34)
[2022-10-02] MEDS: HYDROcodone/ACETAMINOPHEN 5 MG/325 MG TABLET PO PRN ×3 (06:00→23:34)
[2022-10-02] MEDS: MULTIVIT W/MINERALS TAB (THERAGRAN M) PO SCH (06:01)
[2022-10-02] MEDS: FERROUS SULF 325 MG (IRON) TAB PO SCH (06:01)
[2022-10-02] MEDS: glipiZIDE 5 MG (GLUCOTROL) TAB PO SCH (06:02)
[2022-10-02] MEDS: dexAMETHasone 6 MG TABLET PO SCH (06:02)
[2022-10-02] MEDS: inSUlin ASPART (NovoLOG) 1 UNIT/0.01 ML (CHARGE PER UNIT) SC SCH ×4 (06:03→20:51)
[2022-10-02 06:15] LABS: BASOPHILS % (AUTO) 0 % (0-10); EOSINOPHILS % (AUTO) 0 % (0-10)
[2022-10-02 06:17] LABS: HEMATOCRIT 32 % (40-54); HEMOGLOBIN 10.6 g/dL (13.3-17.7); LYMPHOCYTES % (AUTO) 42 % (12-44); MEAN CORPUSCULAR HEMOGLOBIN 26 pg (25-34); MEAN CORPUSCULAR HGB CONC 33 g/dL (32-36); MEAN CORPUSCULAR VOLUME 80 fL (80-99); MEAN PLATELET VOLUME 11.9 fL (9.0-12.2); MONOCYTES # (AUTO) 0.8 10^3/uL (0.0-1.0); MONOCYTES % (AUTO) 33 % (0-12); NEUTROPHILS # (AUTO) 0.6 10^3/uL (1.8-7.8); NEUTROPHILS % (AUTO) 24 % (42-75); PLATELET COUNT 78 10^3/uL (130-400); WHITE BLOOD COUNT 2.4 10^3/uL (4.3-11.0)
[2022-10-02 06:29] LABS: ALBUMIN 3.4 GM/DL (3.2-4.5)
[2022-10-02 06:30] LABS: CALCIUM 8.3 MG/DL (8.5-10.1)
[2022-10-02 06:31] LABS: TOTAL PROTEIN 7.4 GM/DL (6.4-8.2)
[2022-10-02 06:33] LABS: BILIRUBIN,TOTAL 0.2 MG/DL (0.1-1.0)
[2022-10-02 06:35] LABS: CREATININE SERUM 0.77 MG/DL (0.60-1.30)
[2022-10-02 08:23] VITALS: BP 104/59
[2022-10-02] MEDS: ASPIRIN enteric coated 81MG TABLET PO SCH (08:35)
[2022-10-02] MEDS: metFORMIN XR 500 MG (GLUCOPHAGE XR) TAB PO SCH ×2 (08:35→17:44)
[2022-10-02] MEDS: EMPAGLIFLOZIN 10 MG TABLET (JARDIANCE) PO SCH (08:36)
[2022-10-02] MEDS: SERTRALINE 100 MG (ZOLOFT) TAB PO SCH (08:36)
[2022-10-02] MEDS: RT-ALBUTEROL HFA 8.5 GM INHALER IH SCH ×3 (08:55→21:33)
[2022-10-02] MEDS ORDERED: NON-FORMULARY MEDICATION 1 EA EA (Empagliflozin (Jardiance) 25 MG) PO SCH (09:00)
[2022-10-02] MEDS ORDERED: NON-FORMULARY MEDICATION 1 EA EA (Glipizide 10 MG) PO SCH (09:00)
[2022-10-02] MEDS ORDERED: NON-FORMULARY MEDICATION 1 EA EA (Multivit-Min/FA/Lycopene/Lut (Centrum Silver Tablet) 1 E PO SCH (09:00)
[2022-10-02] MEDS ORDERED: FERROUS GLUCONATE 324 MG PO SCH (09:00)
[2022-10-02 12:03] VITALS: BP 100/58
--- NOTE | 2022-10-02 12:57 | Physical Therapy Evaluation ---
PT Evaluation-General Medical Diagnosis Admission Date Oct 01, 2022 at 00:24 Medical Diagnosis: Covid/hypoxia Onset Date: Oct 01, 2022 Therapy Diagnosis Therapy Diagnosis: debility Height/Weight Height (Feet): 5 Height (Inches): 4.00 Weight (Pounds): 253 Weight (Ounces): 0.0 Precautions Precautions/Isolations: Airborne Isolation Referral Physician: Mitch Reason for Referral: Evaluation/Treatment Medical History Pertinent Medical History: COPD, DM, Heart Failure, HTN, Smoking Current History ER via secondary to fever Reviewed History: Yes Social History Home: Single Level Current Living Status: Spouse Prior Prior Level of Function SCALE: Activities may be completed with or without assistive devices. 4-Zsrwriyqhf-elviyyy completes the activity by him/herself with no assistance from a helper. 5-Set-up or Clean-up Assistance-helper sets up or cleans up; patient completes activity. [place] assists only prior to or following the activity. 4-Supervision or Touching Assistance-helper provides verbal cues and/or touching/steadying and/or contact guard assistance as patient completes activity. Assistance may be provided throughout the activity or intermittently. 3-Partial/Moderate Assistance-helper does LESS THAN HALF the effort. [place] lifts, holds or supports trunk or limbs, but provides less than half the effort. 2-Substantial/Maximal Assistance-helper does MORE THAN HALF the effort. [place] lifts or holds trunk or limbs and provides more than half the effort. 7-Uikhglype-fecvhr does ALL the effort. Patient does none of the effort to complete the activity. Or, the assistance of 2 or more helpers is required for the patient to complete the activity. If activity was not attempted, code reason: 7-Patient Refused. 9-Not Applicable-not attempted and the patient did not perform the activity before the current illness, exacerbation or injury. 10-Not Attempted due to Environmental Limitations-(lack of equipment, weather restraints, etc.). 88-Not Attempted due to Medical Conditions or Safety Concerns. Bed Mobility: 6 Transfers (B,C,W/C): 6 Gait: 6 Stairs: 6 Indoor Mobility (Ambulation): Independent Stairs: Independent Prior Devices Use: None PT Evaluation-Current Subjective Patient agrees to PT. Objective Patient Orientation: Normal For Age Attachments: Oxygen, IV ROM/Strength ROM Lower Extremities bilateral LE WFL Strength Lower Extremities 4/5 grossly bilateral LE all planes Integumentary/Posture Bowel Incontinence: No Bladder Incontinence: No Posture slightly kyphotic Neuromuscular (Tone, Coordination, Reflexes) grossly intact Sensory Vision: Functional Hearing: Hearing Aid/Aides Transfers Lying to Sitting/Side of Bed(Q: 6 Sit to Stand (QC): 6 Chair/Lzw-up-Pjbhe Xfer(QC): 6 Gait Mode of Locomotion: Walk Anticipated Mode of Locomotion: Walk Walk 10 feet (QC): 6 Walk 50 ft with 2 Turns(QC): 6 Walk 150 ft (QC): 6 Distance: 150' Gait Assistive Device: None Comments/Gait Description safe and functional with no deviation Balance Sitting Static: Normal Sitting Dynamic: Normal Standing Static: Normal Standing Dynamic: Normal Assessment/Needs Patient is currently at independent [facility] with all gross motor skills safely and does not require skilled PT intervention at this time Rehab Potential: Fair PT Plan Treatment/Plan Treatment Plan: Discontinue PT Treatment Duration: Oct 02, 2022 Frequency: 1 time per week Estimated Hrs Per Day: .25 hour per day Patient and/or Family Agrees t: Yes Time Time In: 1130 Time Out: 1140 DATE: Oct 02, 2022 Total Billed Treatment Time: 10 Total Billed Treatment 1 visit EVModC 10 min CY FINNEGAN PT Oct 02, 2022 12:57
--- NOTE | 2022-10-02 13:17 | Progress Note - Hospitalist ---
JANETH LAWSON 10/02/22 1317: Subjective HPI/CC On Admission 89 yo M with a history of COPD, PARKER, Type II Diabetes, HLD, seizure disorder and GERD presented to the ED last night with his with complaints of fever of 100.5 F that began at 7:00 pm that evening. He reported exertional dyspnea that was consistent with his baseline due to underlying COPD. He also noted mild, intermittent rhinorrhea and chronic low back pain. Review of systems was otherwise negative. Medical records included several admissions to [facility] for PNA since 2015, the most recent in occuring in June and causing acute respiratory failure. He was found to be Covid-19 positive and have a WBC of 3.2, Hb of 11.3, platelet count of 108, CRP of 1.73, sedimentation rate of 59, g lucose of 237, creatinine of 1.28, UA with 3+ glucose, trace ketones, and trace bacteria. Temperature was in normal ranges at 37.1 C (oral) and 36.7 (temporal). CXR demonstrated small amount of bibasilar opacities without focal consolidation or pleural effusion. He was provided supplemental oxygen, IV fluids, Fentanyl, Ibuprofen and Cefepime for possible PNA and admitted to [facility] for further management of acute respiratory failure with hypoxia. Today, he reports chills and persistent back pain. He attributes to his back pain to sleeping in a bed, as he typically sleeps upright in a left chair. He denies myalgia, headache, N/V/D and chest pain and states he is otherwise comfortable. He is stable on 2 L of supplemental oxygen by nasal canula. He states he is not oxygen dependent at home, though he does use a CPAP at night for PARKER. He has had 5 Covid vaccines and this year's influenza vaccine. He smoked 1-2 ppd for 35 years and quit in 1992. He denies alcohol use. Subjective/Events-last exam Patient lying comfortably in bed. He denies shortness of breath. He continues to have back pain rated 5-8/10, which he states is only believed by specific positioning. Denies chills, body aches, headache, chest pain and N/V/D, Review of Systems Musculoskeletal: back pain Focused Exam Lactate Level 09/30/22 22:37: Lactic Acid Level 1.63 Time of Focused Exam: 23:30 Objective Exam Vital Signs Vital Signs Date Time Temp Pulse Resp B/P (MAP) Pulse Ox O2 Delivery O2 Flow Rate FiO2 10/02/22 12:03 36.5 75 18 100/58 (72) 90 Nasal Cannula 2.00 10/01/22 03:36 21 Capillary Refill : Less Than 3 Seconds General Appearance: No Apparent Distress HEENT: PERRL/EOMI Neck: Non Tender, Supple Respiratory: Chest Non Tender, Lungs Clear, No Accessory Muscle Use, No Respiratory Distress Cardiovascular: Regular Rate, Rhythm Gastrointestinal: Normal Bowel Sounds, Non Tender Extremity: No Pedal Edema Neurologic/Psychiatric: Alert, Oriented x3 Skin: Normal Color, Warm/Dry Results/Procedures Lab Laboratory Tests 10/02/22 05:44 Patient resulted labs reviewed. Assessment/Plan Assessment and Plan Assess & Plan/Chief Complaint Covid-19 Acute respiratory distress - WBC 2.4 from 3.2 yesterday; pt not not leukopenic at prior visits. Will continue to monitor - CXR on 09/30: Small amount of bibasilar opacities without focal sonso lidation or pleural effusion - Requiring 2.00 L of supplemental oxygen by nasal canula (non oxygen dependent at home) - Ambulatory oxygen test ordered to comply with insurance requirements - Continue acetaminophen 1,000 mg Back pain - Patient attributes to sleeping position; he usually sleeps in a lift chair - Physical therapy/occupation therapy ordered - Start hydrocodone acetaminophen 5/325 PRN - Continue Fentanyl 50 mg - Continue Ibuprofen 800 mcg PARKER - continue CPAP at night COPD Tobacco use (former smoker) - Continue Abuterol-ipratropium 3 ml Type II DM - Restart home meds: Glipizide 10 mg, Empaglifozin 10 mg, Metformin 500 mg - Sliding scale insulin aspart "A" TRACY MEYER MD 10/02/22 1416: Assessment/Plan Assessment and Plan Assess & Plan/Chief Complaint Patient reports feeling well today. He has no complaints. He reports he is breathing easily on 2 L of oxygen. He does not wear oxygen at home. He has had to go home with oxygen in the past and feels comfortable with that if needed. Supervisory-Addendum Brief Verification & Attestation Participated in pt care: history, MDM, physical Personally performed: exam, history, MDM, supervision of care Care discussed with: Medical Student Procedures: n/a Results interpretation: Verified all documentation Verification and Attestation of Medical Student E/M Service A medical student performed and documented this service in my presence. I reviewed and verified all information documented by the medical student and made modifications to such information, when appropriate. I personally performed the physical exam and medical decision making. Tracy Meyer, Oct 02, 2022,14:13 JANETH LAWSON Oct 02, 2022 13:17 TRACY MEYER MD Oct 02, 2022 14:16
--- NOTE | 2022-10-02 13:31 | Occupational Therapy Eval ---
OT Evaluation-General/PLF Medical Diagnosis Admission Date Oct 01, 2022 at 00:24 Medical Diagnosis: Covid/hypoxia Onset Date: Oct 01, 2022 Therapy Diagnosis Therapy Diagnosis: SOA Height/Weight Height (Feet): 5 Height (Inches): 4.00 Weight (Pounds): 253 Weight (Ounces): 0.0 Precautions Precautions/Isolations: Airborne Isolation Weight Bear Status Weight Bearing Restriction: Full Weight Bearing Referral Physician: Mitch Referral Reason: Activity Tolerance, Self Care, Evaluation/Treatment Medical History Pertinent Medical History: COPD, DM, Heart Failure, HTN, Smoking Reviewed History: Yes Social History Home: Single Level Current Living Status: Spouse ADL-Prior Level of Function SCALE: Activities may be completed with or without assistive devices. 1-Yvkkrjgtgo-dbuqdvv completes the activity by him/herself with no assistance from a helper. 5-Set-up or Clean-up Assistance-helper sets up or cleans up; patient completes activity. [place] assists only prior to or following the activity. 4-Supervision or Touching Assistance-helper provides verbal cues and/or touching/steadying and/or contact guard assistance as patient completes activity. Assistance may be provided throughout the activity or intermittently. 3-Partial/Moderate Assistance-helper does LESS THAN HALF the effort. [place] lifts, holds or supports trunk or limbs, but provides less than half the effort. 2-Substantial/Maximal Assistance-helper does MORE THAN HALF the effort. [place] lifts or holds trunk or limbs and provides more than half the effort. 3-Uorrdqfbz-ubojhg does ALL the effort. Patient does none of the effort to complete the activity. Or, the assistance of 2 or more helpers is required for the patient to complete the activity. If activity was not attempted, code reason: 7-Patient Refused. 9-Not Applicable-not attempted and the patient did not perform the activity before the current illness, exacerbation or injury. 10-Not Attempted due to Environmental Limitations-(lack of equipment, weather restraints, etc.). 88-Not Attempted due to Medical Conditions or Safety Concerns. ADL PLOF Comments Uses CPAP at night, Self Care: Independent Functional Cognition: Independent Drive Self: Yes OT Current Status Subjective Patient on phone attempting to expedite 02 [facility] so he can go home Pain Numeric Pain Scale: 0-No Pain Mental Status/Objective Patient Orientation: Person, Place, Time, Situation Attachments: Oxygen (2 liters) Current Glasses/Contacts: Yes Dentures/Partials: No Hand Dominance: Right Upper Extremity ROM WFLs, close joint approximation limited d/t excessive soft tissue Upper Extremity Coordination INTACT Upper Extremity Strength 4/5 grossly ADL-Treatment Eating (QC): 6 Oral Hygiene (QC): 5 Shower/Bathe Self (QC): 7 Upper Body Dressing (QC): 5 Lower Body Dressing (QC): 5 On/Off Footwear (QC): 5 Toileting Hygiene (QC): 5 IV and 02 tubing safety cues during mobility Education OT Patient Education: Correct positioning, Modified ADL techniques, Progress toward Goal/Update tx plan, Purpose of tx/functional activities, Reviewed precautions, Rehab process, Safety issues, Transfer techniques, Use of adapted equipment Teaching Recipient: Patient Teaching Methods: Demonstration, Discussion Response to Teaching: Return Demonstration OT Exceptional Student Education Aide Goals Exceptional Student Education Aide Goals 1=Demonstrate adherence to instructed precautions during ADL tasks. 2=Patient will verbalize/demonstrate understanding of assistive devices/modifica tions for ADL. 3=Patient will improve strength/tolerance for activity to enable patient to perform ADL's. OT Education/Plan Problem List/Assessment Assessment: No Skilled OT Needs ID'd Discharge Recommendations Plan/Recommendations: Discontinue OT Treatment Plan/Plan of Care Treatment,Training & Education: Yes Patient would benefit from OT for education, treatment and training to promote independence in ADL's, mobility, safety and/or upper extremity function for ADL's. Plan of Care: OTHER (energy conservation and 02 safety) Treatment Duration: Oct 02, 2022 Frequency: 1 time per week Estimated Hrs Per Day: .25 hour per day Agreement: Yes Rehab Potential: Good Time Start Time: 13:10 Stop Time: 13:25 DATE: Oct 02, 2022 Total Time Billed (hr/min): 15 Billed Treatment Time EVM 15 min AMRIT BUSH OT Oct 02, 2022 13:31
[2022-10-02 16:00] VITALS: BP 107/56
[2022-10-02] MEDS: NS IV 1000 ML 1,000 ML IV SCH (17:44)
[2022-10-02 20:01] VITALS: BP 123/61
[2022-10-02] MEDS: PRIMIDONE 250MG (MYSOLINE) TAB PO SCH (21:00)
[2022-10-02 23:23] VITALS: BP 143/63
[2022-10-03 03:42] VITALS: BP 128/57
[2022-10-03] MEDS: RT-ALBUTEROL HFA 8.5 GM INHALER IH SCH ×2 (03:55→09:58)
[2022-10-03 05:54] LABS: BASOPHILS % (AUTO) 0 % (0-10); EOSINOPHILS % (AUTO) 0 % (0-10); HEMOGLOBIN 11.4 g/dL (13.3-17.7)
[2022-10-03 05:56] LABS: HEMATOCRIT 36 % (40-54); LYMPHOCYTES # (AUTO) 1.3 10^3/uL (1.0-4.0); LYMPHOCYTES % (AUTO) 38 % (12-44); MEAN CORPUSCULAR HEMOGLOBIN 26 pg (25-34); MEAN CORPUSCULAR HGB CONC 32 g/dL (32-36); MEAN CORPUSCULAR VOLUME 81 fL (80-99); MONOCYTES % (AUTO) 28 % (0-12); NEUTROPHILS # (AUTO) 1.2 10^3/uL (1.8-7.8); NEUTROPHILS % (AUTO) 33 % (42-75); PLATELET COUNT 74 10^3/uL (130-400); WHITE BLOOD COUNT 3.5 10^3/uL (4.3-11.0)
[2022-10-03 05:58] LABS: ALBUMIN 3.6 GM/DL (3.2-4.5); POTASSIUM 3.6 MMOL/L (3.6-5.0)
[2022-10-03 06:00] LABS: CALCIUM 8.4 MG/DL (8.5-10.1)
[2022-10-03 06:01] LABS: TOTAL PROTEIN 7.9 GM/DL (6.4-8.2)
[2022-10-03 06:03] LABS: BILIRUBIN,TOTAL 0.2 MG/DL (0.1-1.0)
[2022-10-03 06:04] LABS: CREATININE SERUM 0.8 MG/DL (0.60-1.30)
[2022-10-03] MEDS: inSUlin ASPART (NovoLOG) 1 UNIT/0.01 ML (CHARGE PER UNIT) SC SCH (06:07)
[2022-10-03] MEDS: CEFEPIME 1,000 MG/NS 50 ML IVPB IV SCH ×2 (06:16)
[2022-10-03] MEDS: dexAMETHasone 6 MG TABLET PO SCH (06:16)
[2022-10-03] MEDS: HYDROcodone/ACETAMINOPHEN 5 MG/325 MG TABLET PO PRN (06:16)
[2022-10-03] MEDS: glipiZIDE 5 MG (GLUCOTROL) TAB PO SCH (06:17)
[2022-10-03] MEDS: FERROUS SULF 325 MG (IRON) TAB PO SCH (06:17)
[2022-10-03] MEDS: MULTIVIT W/MINERALS TAB (THERAGRAN M) PO SCH (06:17)
[2022-10-03] MEDS ORDERED: DEXA6TAB PO (07:23)
--- NOTE | 2022-10-03 07:24 | Discharge Inst-Simple/Standard ---
Discharge Inst-Standard Discharge Medications New, Converted or Re-Newed RX: Transmitted to Pharmacy Patient Instructions/Follow Up Plan of Care/Instructions/FU: Please continue to take your medications as written. Please follow up with your primary care doctor to follow up this hospital stay. Activity as Tolerated: Yes Discharge Diet: No Restrictions Return to The Hospital For: Chest pain, shortness of breath, fever, weakness, if you feel you are getting worse. FRANTZ MEDINA MD Oct 03, 2022 07:23
--- NOTE | 2022-10-03 07:59 | Discharge Summary ---
JANETH LAWSON 10/03/22 0759: Diagnosis/Chief Complaint Date of Admission Oct 01, 2022 at 00:24 Date of Discharge Discharge Date: Oct 03, 2022 Admission Diagnosis Covid-19 Acute respiratory distress Primary Care No,Local Physician Discharge Diagnosis Covid-19 Oxygen dependence Discharge Summary Discharge Physical Exam Allergies: Coded Allergies: lisinopril (Verified Allergy, Unknown, 09/22/15) sildenafil (Verified Allergy, Unknown, 09/22/15) Vitals & I&Os Vital Signs Date Time Temp Pulse Resp B/P (MAP) Pulse Ox O2 Delivery O2 Flow Rate FiO2 10/03/22 07:00 93 10/03/22 03:55 92 Nasal Cannula 1.50 10/03/22 03:42 36.8 18 128/57 (80) 10/01/22 03:36 21 General Appearance: No Apparent Distress HEENT: PERRL/EOMI Respiratory: Chest Non Tender, Lungs Clear, Normal Breath Sounds, No Accessory Muscle Use, No Respiratory Distress Cardiovascular: Regular Rate, Rhythm Gastrointestinal: Normal Bowel Sounds, Non Tender Extremity: No Pedal Edema Skin: Normal Color, Warm/Dry Neurologic/Psychiatric: Alert, Oriented x3 Hospital Course 89 yo M with a history of COPD, PARKER, Type II Diabetes, HLD, seizure disorder and GERD presented to the ED on 09/30 with his with complaints of fever of 100.5 F that began at 7:00 pm that evening. He also noted mild, intermittent rhinorrhea and chronic low back pain. He denied increased shortness of breath or cough above his baseline per COPD. Medical records included several admissions to [facility] for PNA since 2016. He had recieved Covid-19 vaccinations x 5 and influenza vaccine this year. He used CPAP at home but no supplemental oxygen. He was found to be Covid-19 positive and to have a WBC of 3.2, oxygen saturation of 94%, Hb of 11.3, platelet count of 108, CRP of 1.73, sedimentation rate of 59, glucose of 237, creatinine of 1.28, UA with 3+ glucose, trace ketones, and trace bacteria. Temperatures were within normal ranges. The ED provider interpreted "possible early RLL infiltrate" on CXR and began supplemental oxygen, IV fluids, Fentanyl, Ibuprofen and Cefepime. He was admitted [facility] for further management of acute respiratory failure with hypoxia and possible pneumonia. On 10/01, radiology interpreted the CXR as "bibasilar opacities without focal consolidation or pleural effusion"; cefipime was discontinued. The patient required 1.5 - 2L throughout his stay. He remained afebrile and without worsening cough/SOB. Ambulatory oxygen studies demonstrated 2L requirement at rest and a 4L requirement activity. He was discharged on 10/03 with home oxygen (new requirement). Labs (last 24 hrs) Laboratory Tests 10/02/22 10:43: Glucometer 175H 10/02/22 16:13: Glucometer 103 10/02/22 20:04: Glucometer 114H 10/03/22 05:02: White Blood Count 3.5L, Red Blood Count 4.39, Hemoglobin 11.4L, Hematocrit 36L, Mean Corpuscular Volume 81, Mean Corpuscular Hemoglobin 26, Mean Corpuscular Hemoglobin Concent 32, Red Cell Distribution Width 16.3H, Platelet Count 74L, Mean Platelet Volume , Immature Granulocyte % (Auto) 0, Neutrophils (%) (Auto) 33L, Lymphocytes (%) (Auto) 38, Monocytes (%) (Auto) 28H, Eosinophils (%) (Auto) 0, Basophils (%) (Auto) 0, Neutrophils # (Auto) 1.2L, Lymphocytes # (Auto) 1.3, Monocytes # (Auto) 1.0, Eosinophils # (Auto) 0.0, Basophils # (Auto) 0.0, Immature Granulocyte # (Auto) 0.0, Percent Immature Platelet Fraction 10.8H, Sodium Level 135, Potassium Level 3.6, Chloride Level 100, Carbon Dioxide Level 24, Anion Gap 11, Blood Urea Nitrogen 11, Creatinine 0.80, Estimat Glomerular Filtration Rate 87, BUN/Creatinine Ratio 14, Glucose Level 129H, Calcium Level 8.4L, Corrected Calcium 8.7, Total Bilirubin 0.2, Aspartate Amino Transf (AST/SGOT) 40H, Alanine Aminotransferase (ALT/SGPT) 27, Alkaline Phosphatase 62, Total Protein 7.9, Albumin 3.6 Microbiology 09/30/22 Blood Culture - Preliminary, Resulted No growth 09/30/22 Urine Culture - Final, Complete NO GROWTH Patient resulted labs reviewed. Pending Labs Laboratory Tests 10/03/22 05:02: White Blood Count 3.5, Red Blood Count 4.39, Hemoglobin 11.4, Hematocrit 36, Mean Corpuscular Volume 81, Mean Corpuscular Hemoglobin 26, Mean Corpuscular Hemoglobin Concent 32, Red Cell Distribution Width 16.3, Platelet Count 74, Mean Platelet Volume , Immature Granulocyte % (Auto) 0, Neutrophils (%) (Auto) 33, Lymphocytes (%) (Auto) 38, Monocytes (%) (Auto) 28, Eosinophils (%) (Auto) 0, Basophils (%) (Auto) 0, Neutrophils # (Auto) 1.2, Lymphocytes # (Auto) 1.3, Monocytes # (Auto) 1.0, Eosinophils # (Auto) 0.0, Basophils # (Auto) 0.0, Immature Granulocyte # (Auto) 0.0, Percent Immature Platelet Fraction 10.8, So dium Level 135, Potassium Level 3.6, Chloride Level 100, Carbon Dioxide Level 24, Anion Gap 11, Blood Urea Nitrogen 11, Creatinine 0.80, Estimat Glomerular Filtration Rate 87, BUN/Creatinine Ratio 14, Glucose Level 129, Calcium Level 8.4, Corrected Calcium 8.7, Total Bilirubin 0.2, Aspartate Amino Transf (AST/SGOT) 40, Alanine Aminotransferase (ALT/SGPT) 27, Alkaline Phosphatase 62, Total Protein 7.9, Albumin 3.6 Discharge Home Medications: Active Scripts Active Dexamethasone 6 Mg Tablet 6 Mg PO DAILY@0700 Reported Hydrocodone-Acetamin 5-325 mg (Hydrocodone/Acetaminophen) 5 Mg-325 Mg Tablet 1 Tab PO BID PRN Stiolto Respimat Inhal [place] (Tiotropium Br/Olodaterol HCl) 2.5 Mcg-2.5 Mcg/Actuation Mist.inhal 2 Puff IH DAILY Ferrous Gluconate 324 Mg (37.5 Mg Iron) Tablet 324 Mg PO DAILY Furosemide 40 Mg Tablet 40 Mg PO DAILY PRN Atorvastatin Calcium 80 Mg Tablet 40 Mg PO HS TAKES OF A 80MG Ozempic (Semaglutide) 1 Mg/0.75 Ml (4 Mg/3 Ml) Pen.injctr 1 Mg SQ SUN Jardiance (Empagliflozin) 25 Mg Tablet 25 Mg PO DAILY Aspirin EC (Aspirin) 81 Mg Tablet.dr 81 Mg PO DAILY Ventolin Hfa (Albuterol Sulfate) 1 Puff Puff 2 Puff IH Q6H PRN Centrum Silver Tablet (Multivit-Min/FA/Lycopene/Lut) 0.4 Mg-300 Mcg-250 Mcg Tablet 1 Ea PO DAILY Mysoline (Primidone) 250 Mg Tablet 250 Mg PO HS Sertraline HCl 100 Mg Tablet 100 Mg PO DAILY Metformin HCl ER (Metformin HCl) 500 Mg Tab.er.24 500 Mg PO BID Glipizide 10 Mg Tablet 10 Mg PO DAILY Instructions to patient/family Please see electronic discharge instructions given to patient. TRACY MEYER MD 10/04/22 1255: Discharge Summary Discharge Physical Exam Allergies: Coded Allergies: lisinopril (Verified Allergy, Unknown, 09/22/15) sildenafil (Verified Allergy, Unknown, 09/22/15) Hospital Course Patient was admitted with COVID and hypoxia. He was treated with Decadron. Because of his hospitalization hypoxia he does not qualify for Paxlovid. He was only 3 to 4 days into symptoms upon discharge so we discussed expectant management and how his symptoms may worsen around a 7-10. He reports having a pulse ox at home and plans to monitor his oxygenation and will return for increasing shortness of breath, hypoxia, fever or if he feels worse. He was discharged home in stable and improved condition. Discussion & Recommendations Discharge Planning: >30 minutes discharge planning Supervisory-Addendum Brief Verification & Attestation Participated in pt care: history, MDM, physical Personally performed: exam, history, MDM, supervision of care Care discussed with: Medical Student Procedures: n/a Results interpretation: Verified all documentation Verification and Attestation of Medical Student E/M Service A medical student performed and documented this service in my presence. I reviewed and verified all information documented by the medical student and made modifications to such information, when appropriate. I personally performed the physical exam and medical decision making. Tracy Meyer, Oct 04, 2022,12:54 JANETH LAWSON Oct 03, 2022 07:59 TRACY MEYER MD Oct 04, 2022 12:55
[2022-10-03 08:17] VITALS: BP 95/52
--- NOTE | 2022-10-03 08:31 | Diagnostic Imaging Report ---
EXAMINATION: Chest 1 view HISTORY: COVID 19 COMPARISON: 09/30/2022 FINDINGS: Heart size and pulmonary vasculature are normal. There are mild interstitial opacities within the left mid and lower lung as well as the right lung base. Findings are not significantly changed from 09/30/2022. No new pleural effusion or pneumothorax. Degenerative changes of the thoracic spine. Osseous structures are otherwise intact. Surgical changes of the right shoulder. IMPRESSION: 1. Stable mild interstitial opacities within the mid and lower lungs compared to prior exam. Dictated by: Dictated on workstation # [id number]
[2022-10-03] MEDS: SERTRALINE 100 MG (ZOLOFT) TAB PO SCH (08:51)
[2022-10-03] MEDS: EMPAGLIFLOZIN 10 MG TABLET (JARDIANCE) PO SCH (08:51)
[2022-10-03] MEDS: metFORMIN XR 500 MG (GLUCOPHAGE XR) TAB PO SCH (08:52)
[2022-10-03] MEDS: ASPIRIN enteric coated 81MG TABLET PO SCH (08:52)
[2022-10-03 10:09] VITALS: BP 95/52
== END 2022-10-03 10:10 | disposition home or self-care (01) | DRG 177 ==
LOC: EDUNIT# 22:01 → ER 22:02 → 4TH 10-01 00:24
PROVIDERS: ADMIT Internal Medicine; ATTEND Internal Medicine
DX: U07.1 COVID-19 (principal); J96.21 Acute and chronic respiratory failure with hypoxia; J43.9 Emphysema, unspecified; I10 Essential (primary) hypertension; E78.00 Pure hypercholesterolemia, unspecified; E11.9 Type 2 diabetes mellitus without complications; E66.9 Obesity, unspecified; F32.A Depression, unspecified; R29.810 Facial weakness; G47.33 Obstructive sleep apnea (adult) (pediatric); G40.909 Epilepsy, unspecified, not intractable, without status epilepticus; K21.9 Gastro-esophageal reflux disease without esophagitis; M54.9 Dorsalgia, unspecified; H91.90 Unspecified hearing loss, unspecified ear; Z68.35 Body mass index [BMI] 35.0-35.9, adult; Z79.84 Long term (current) use of oral hypoglycemic drugs; Z87.891 Personal history of nicotine dependence; Z91.09 Other allergy status, other than to drugs and biological substances; Z79.899 Other long term (current) drug therapy; Z79.82 Long term (current) use of aspirin
CPT/HCPCS: 36415; 71045; 80053; 81000; 82150; 82947; 83605; 83690; 83735; 85007; 85025; 85027; 85610; 85652; 85730; 86141; 87040; 87088; 87636; 93005; 93041; 94640; 94760; 94761; 96365; 96375

== ENCOUNTER → 2022-10-20 | Outpatient (CLI) | payer MEDICARE, OTHER ==
[~2022-10-20] MED LIST changes: +DEXA6TAB PO; +FERR324T22 PO
== END ==
LOC: CARD 09:28
PROVIDERS: ATTEND Internal Medicine Cardiovascular Disease
DX: I77.810 Thoracic aortic ectasia (principal)
CPT/HCPCS: 93306